=== PATIENT | female | born 1945 | race Caucasian/White ===

== ENCOUNTER 2020-04-22 09:54 | Observation (INO) | payer MEDICARE, SELFPAY ==
[2020-04-22] VITALS (15 sets, daily range): BP systolic 112–137; BP diastolic 45–76; PULSE 43–51; RESP 12–22; TEMP 35.8–36.3; O2SAT 96–100; BMI 27.2
--- NOTE | ~2020-04-22 | CT_ITS ---
EXAMINATION: CTA chest PE protocol EXAM DATE: 04/22/2020 11:36 INDICATION: Shortness of breath. Chest pain radiating to back. TECHNIQUE: Spiral CTA of the chest (pulmonary arteries) was performed with 100 cc Omnipaque 350 intr avenous contrast injection. Images were acquired during the pulmonary arterial phase. Coronal maxi mum intensity projection 3D-reconstructions were created by the technologist on dedicated workstation . Axial, coronal and sagittal reformatted images were reviewed. The dose-length product (DLP) for t his examination was 331.28 mGy-cm. The exposure was tailored according to patient size (auto mA exp osure control), and iterative reconstruction (ASIR) was used as additional dose reduction technique. There is no prior study for comparison. FINDINGS: Pulmonary arteries are well opacified and without intraluminal filling defects. No thora cic aortic dissection. Several small nodules 3 mm or less, likely postinfectious. The main, central pulmonary arteries are dilated which can indicate elevated pulmonary arterial pressure, pulmonary art erial hypertension. There are no pleural or pericardial effusions. Tracheobronchial tree is paten t. There is pretracheal lymph node which is upper limits of normal in size, probably reactive. The re is no pneumothorax. Heart normal in size. There is mild coronary arterial calcification, arter ial sclerosis. Cholecystectomy clips and pneumobilia. There is thoracic spondylosis without osteobl astic or osteolytic lesions identified. IMPRESSION: 1. No pulmonary emboli or acute cardiopulmonary findings. 2. Pulmonary arterial dilation. Reviewed, dictated and finalized at location A.
--- NOTE | ~2020-04-22 | US_ITS ---
EXAMINATION: US venous doppler LE EXAM DATE: 04/23/2020 13:45 INDICATION: Shortness of breath and elevated d-dimer. TECHNIQUE: Multiple grayscale, color flow and Doppler images of the lower extremity deep venous syste ms bilaterally were obtained and reviewed. Comparison is made to prior examination from 04/23/2017. FINDINGS: Right side: The right common femoral, femoral and profunda veins demonstrate normal color flow, respi ratory variation, augmentation and compressibility. Compressibility, color flow confirmed within the right popliteal, posterior tibial, peroneal, and greater saphenous veins. Left side: The left common femoral, femoral and profunda veins demonstrate normal color flow, respira tory variation, augmentation and compressibility. Compressibility, color flow confirmed within the l eft popliteal, posterior tibial, peroneal, and greater saphenous veins. IMPRESSION: No lower extremity deep venous thrombosis bilaterally. Reviewed, dictated and finalized at location A.
--- NOTE | ~2020-04-22 | XR_ITS ---
EXAMINATION: XR chest 2V 04/22/2020 11:09 INDICATION: Chest pressure. Shortness of breath. PROCEDURE: PA and lateral views of the chest COMPARISON: 05/26/2010 FINDINGS: The lungs are clear. The cardiomediastinal silhouette is within normal limits. There are no pleural effusions. There is no pneumothorax suspected. IMPRESSION: 1: NO ACUTE CARDIOPULMONARY DISEASE. Reviewed, dictated and finalized at location B.
--- NOTE | 2020-04-22 10:06 | ECG_ITS ---
Measurements Intervals Jay Em Rate: 48 P: 80 ND: 152 QRS: 31 QRSD: 98 T: 57 QT: 463 QTc: 415 Interpretive Statements SINUS BRADYCARDIA INCOMPLETE RIGHT BUNDLE BRANCH BLOCK BORDERLINE ST ABNORMALITY- LAT/HIGH LAT LEADS BASELINE ARTIFACT- I, II, III, AVR, AVL,A VF ABNORMAL ECG Electronically Signed On 04-22-2020 10:15:20 CDT by Ian Conde D.O.
[2020-04-22 10:17] LABS: Basophils Percent Auto 0.2 % (0.2-1.2); Eosinophils Absolute Auto 0.1 K/mm3 (0-0.3); Eosinophils Percent Auto 1.8 % (0-4.4); Hematocrit 40.7 % (37.0-47.0); Hemoglobin 13.5 g/dL (12.0-15.0); Immature Granulocyte Absolute 0.01 K/mm3 (0.00-0.031); Immature Granulocyte Percent A 0.2 % (0-0.5); Lymphocytes Percent Auto 25.5 % (18.3-44.2); Mean Corpuscular HGB Conc 33.2 g/dl (32-36); Mean Corpuscular Volume 93.6 fl (80-100); Mean Platelet Volume 10.6 fl (7.4-10.4); Monocytes Absolute Auto 0.5 K/mm3 (0.1-0.6); Monocytes Percent Auto 9.1 % (2.6-8.5); Neutrophils Absolute Auto 3.5 K/mm3 (1.3-6.7); Neutrophils Percent Auto 63.2 % (45.5-73.1); Platelet Count Result 172 k/mm3 (150-375); Red Blood Count 4.35 M/mm3 (4.2-5.4); White Blood Count 5.5 K/mm3 (4.5-10.0)
[2020-04-22] MEDS: ASPIRIN 81 MG CHEWABLE TABLET 324 MG PO (10:18)
[2020-04-22 10:28] LABS: Prothrombin Time 13.3 Seconds (11.1-14.7)
[2020-04-22 10:33] LABS: Anion Gap 9 mmol/L (8-16); Blood Urea Nitrogen 19 mg/dL (7-17); Calcium 9.2 mg/dL (8.4-10.2); Carbon Dioxide 26 mmol/L (22-30); Chloride 99 mmol/L (98-107); Estimated CRCL calculation 38 ml/min; Estimated Glomerular Filt Rate 48; Glucose 91 mg/dL (65-105); Potassium 3.8 mmol/L (3.4-5.0); Sodium 134 mmol/L (137-145)
[2020-04-22 10:45] LABS: Troponin I < 0.012 ng/mL (0.000-0.034)
--- NOTE | 2020-04-22 10:48 | ED.CHESTPAIN ---
HPI - Chest Pain General Chief Complaint: Chest Pain Stated Complaint: weak-sent from dr Time Seen by Provider: 04/22/20 10:09 Source: patient Mode of arrival: ambulatory Limitations: no limitations History of Present Illness HPI narrative: This patient is a 75 year old female with history of Parkinson's and hypertension who presents for evaluation of shortness of breath and chest pain. She states she has been having intermittent sob over the past month. Her shortness of breath is worse with laying flat. She also reports intermittent chest pain as well. She describes pain as some pushing on her chest. She is unable to describe exacerbating factors. She went to see her PCP today for a routine check and she was sent to ER for evaluation . She denies nasuea, vomiting, cough, fever or chills. She also reports upper back pain. She denies any cardiac history. Related Data Allergies Allergy/AdvReac Type Severity Reaction Status Date / Time acetaminophen Allergy Unknown HIVES Verified 04/22/20 10:10 codeine Allergy Unknown N/V Verified 04/22/20 10:10 morphine Allergy Unknown N/V Verified 04/22/20 10:10 onion Allergy Unknown hives Verified 04/22/20 10:10 tomato Allergy Unknown hives Verified 04/22/20 10:10 Zwldxjg-Cez-Gne Reductase AdvReac Severe muscle Verified 04/22/20 10:10 Inhibitor cramps, nausea NUT FLAVOR Allergy Unknown Anaphylactic Uncoded 04/22/20 10:10 Shock Idiopathic analphylaxis AdvReac Severe Anaphylactic Uncoded 04/22/20 10:10 Shock Review of Systems Review of Systems: All systems reviewed & are unremarkable except as noted in HPI and below Constitutional: Constitutional: Denies chills and Denies fever(s) Cardiovascular: Cardiovascular: Reports chest pain and Denies radiating jaw, neck or arm pain Respiratory: Respiratory: Denies cough, Reports dyspnea and Reports wheezing Gastrointestinal: Gastrointestinal: Denies abdominal pain, Denies nausea and Denies vomiting PMFSH Social History Social History (Updated 04/22/20 @ 08:52 by Rosalina Adhikari) Social History: Smoking status: Never smoker Second hand tobacco smoke exposure: No Alcohol intake: never Substance use: never Substance use type: does not use Gender identity (if verbalized by the patient): Female Exam Narrative: Exam Narrative: GENERAL: Well-appearing, well-nourished, and in no acute distress. HEAD: Normocephalic, atraumatic EYES: PERRLA and EOMI, conjunctiva clear without discharge THROAT:Mucous membranes moist, Oropharynx normal without erythema, exudate, peritonsillar swelling or fluctuance NECK: Supple, without lymphadenopathy or mass RESPIRATORY: No respiratory distress, Airway patent, Respirations non-labored, Clear to auscultation without rales, rhonchi or wheeze HEART: Regular rate and rhythm. No murmur heard. Normal peripheral pulses. ABDOMEN: Soft, nontender, nondistended, normal active bowel sounds. No masses. No rebound or guarding, No organomegaly. EXTREMITIES: No edema, normal strength with full range of motion. SKIN: Warm, dry, normal color without rash NEURO: Alert and oriented x3. CN 2-12 grossly intact. No focal deficits. tremors PSYCH: Normal mood and affect. Course Reevaluation(s) Reevaluation #1: Patient states she no longer has chest pain . I have explained results and plan for observation. Date: 04/22/20 Time: 12:38 Consultations Consultation #1: Anneliese Caban agrees to consult and Maribel Mcknight accepts admission. Date: 04/22/20 Time: 12:38 Vital Signs Vital signs: Vital Signs Temperature 97.2 F L 04/22/20 10:00 Pulse Rate 48 L 04/22/20 10:00 Respiratory Rate 18 04/22/20 10:00 Blood Pressure 137/76 04/22/20 10:00 Pulse Oximetry 100 04/22/20 10:00 Temperature 97.2 F L 04/22/20 10:00 Pulse Rate 43 L 04/22/20 11:54 Respiratory Rate 12 04/22/20 11:54 Blood Pressure 124/57 L 04/22/20 11:54 Pulse Oximetry 97 04/22/20 11:54
[2020-04-22 10:53] LABS: NT Pro B Type Natriuretic Pept 486 PG/ML (5-100)
--- NOTE | 2020-04-22 11:04 | PC.NURSE ---
Pt to XRAY via stretcher.
[2020-04-22 11:13] LABS: D Dimer 0.52 ug/mL (<0.48)
[2020-04-22 14:19] LABS: Troponin I < 0.012 ng/mL (0.000-0.034)
--- NOTE | 2020-04-22 14:23 | ADMGEN ---
This patient, Raquel Gloria, was admitted to IMU Room 206-02n on 04-22-2020 at 1352. Patient/family oriented to hospital policies and general routines including ID bracelet, bed and alarms, visiting hours, pain management, procedures, bathroom and other care routines, personal items, smoking policy, room service/diet, and visiting hours. Valuables list has been completed. Information on how to activate the Rapid Response Team has been discussed. Patient/Family are encouraged to report perceived risks to care and to ask questions if they do not understand what they are told or what they should do.
--- NOTE | 2020-04-22 15:43 | WPDCN ---
Assessment and Plan Assessment and plan (1) Chest pressure: Code(s): R07.89 - Other chest pain Status: Acute Assessment and Plan: This is certainly an odd story, with a paucity of objective data to suggest the diagnosis. The patient has been having increasing frequency of chest pressure and shortness of breath, kierra supine, and it sounds like she is having some orthopnea. She does not appear volume overloaded by exam or by chest x-ray although her pro-BNP is mildly elevated at 490. These episodes do not come on with activity, her EKG shows no acute changes and her troponins are negative x3 so it is unlikely this is from coronary disease. GERD, musculoskeletal discomfort and coronary spasm are in the differential. However most likely this is related to mild CHF and perhaps a component of anxiety. Lasix 20 mg IVP X 1 Order an Echo. Consider Lexiscan if sx persist. (2) Bradycardia: Code(s): R00.1 - Bradycardia, unspecified Status: Acute Assessment and Plan: Apparently long-standing bradycardia at rest with normal heart rate response with activity, asymptomatic. Check TSH. (3) Essential (primary) hypertension: Code(s): I10 - Essential (primary) hypertension Status: Chronic Assessment and Plan: Controlled. (4) Orthopnea: Code(s): R06.01 - Orthopnea Status: Acute Assessment and Plan: Uncertain etiology. Check Echo. HPI Data of Consult Date/Time: 04/22/20 15:43 Requesting Physician: Dragan Melissa MD Primary Care Provider: Felicitas Andres MD Consult Narrative Narrative: Date of service: 04/22/2020 Raquel Gloria is a 75 year old female OR was asked to see at the request the hospitalist for my advice and opinion regarding her chest pressure, SOB and bradycardia in consultation. The patient has not felt well for the last 2 months with episodes of shortness of breath and chest pressure, which have been progressing. The she usually occur when she is sitting watching TV or when she has gone to bed and lies supine, and it feels like she is smothering or someone has their hand over her mouth, and she will have some chest pressure. There may be a pleuritic component to it. She always sleeps propped up on pillows and is feeling is quite pronounced when she is supine. They are not exertional, except for once a couple weeks ago when she was cutting the grass with a riding mower and it was very hot and she had an episode. The spells using resolving 20-30 minutes and the only thing she has found to alleviate the symptoms is a fan. They can be associated with some diaphoresis. She cannot walk far because of her Parkinson's disease. However, she was busy painting rales outside yesterday with no problems, made dinner with no problems, but when she went to bed last night she had an episode. She saw Dr. Felicitas Pop today and when she was laid supine for an EKG she had the feeling of suffocating with chest pressure, and had to sit up. EKG showed a heart rate of 46 so then was sent to the emergency room. Her heart rate was 47 in the ER and she has been admitted for further evaluation and treatment. Her 1st troponin was negative and her BNP was 486. She notes that her heart rate is often slow at home, for years, 38 to 40s at rest but increases with activity. She has only had 1 episode of dizziness and that was when she got up in the middle of night to go to the bathroom. She has no history of heart disease. She does have history of hypertension, Parkinson's disease and chronic pain. No history of thyroid disease, GERD or esophageal problems. Review of Systems Constitutional: Constitutional: Denies lethargy Eyes: Eyes: Denies blurry vision ENT: Denies epistaxis and Denies nasal congestion Cardio
--- NOTE | 2020-04-22 15:56 | PM.IMHP ---
H&P: HPI History of Present Illness Date/Time: 04/22/20 15:56 Chief complaint: chest pain,dyspnea Narrative: Raquel Gloria is a 75 year old female Who has a history of hypertension and anxiety. She also has a history of Parkinson's. She presented to the hospital for evaluation of shortness of breath and chest pain. The patient stated that she has been having intermittent chest pain on and off for about a month. She has shortness of breath when she lays flat. She has had no history of having any heart disease or pulmonary disease. She states that her blood pressure has been under control. She has not had any nausea vomiting or diarrhea. She states that she does have difficulty swallowing and difficulty with pills at times. She said that her pain is midsternal radiates to her back. He does not radiate to her neck or arms. She did not feel diaphoretic. She said today when the later flat on the table for any EKG she felt like she was suffocating in feel like she needed to get off the table because she felt like she could not breathe and developed this chest pain. She still complains of having some says substernal soreness but stated is not tender. She said it hurts worse when she takes a deep breath. She was given an aspirin in the emergency room she said seemed to help but she still has the soreness there. She was at her primary care doctor's office just for a routine visit.Patient's EKG from outside facility the doctor's office today was seen as sinus bradycardia with frequent supraventricular premature complexes. the patient was she is given a baby aspirin here. Cardiology has been consulted. Patient has multiple allergies. Patient currently is dealing with a terminally ill who has kidney cancer. The patient has had a lot of stress and anxiety in her life. Date of service 04/22/2020. Review of Systems Review of Systems: All systems reviewed & are unremarkable except as noted in HPI and below Constitutional: Constitutional: Reports as per HPI and Reports no additional constitutional complaints Eyes: Eyes: Reports as per HPI and Reports no additional eye complaints ENT: Reports system reviewed and no additional complaints, except as documented and Reports Normal hearing present Cardiovascular: Cardiovascular: Reports no additional cardiovascular complaints Respiratory: Respiratory: Reports no additional respiratory complaints and Reports no additional respiratory complaints Gastrointestinal: Gastrointestinal: Reports as per HPI and Reports no additional gastrointestinal complaints Musculoskeletal: Musculoskeletal: Reports no additional musculoskeletal complaints Integumentary/Breasts: Skin/Breast: Reports system reviewed and no additional complaints, except as docu and Reports as per HPI Neurologic: Reports system reviewed and no additional complaints, except as documented, Reports as per HPI and Reports Normal hearing present Psychiatric: Psychiatric: Reports no additional psychiatric complaints and Reports as per HPI Endocrine: Endocrine: Reports no additional endocrine complaints Hematologic/Lymphatic: Hematologic/Lymphatic: Reports no additional hematologic/lymphatic complaints Allergic/Immunologic: Allergic/Immunologic: Reports no additional allergic/immunologic complaints PMFSH Past Medical History Medical History (Updated 04/22/20 @ 16:12 by Maribel Mcknight NP) Chronic constipation Essential (primary) hypertension NATASHA (generalized anxiety disorder) Gout History of anaphylactic shock Major depressive disorder, single episode, mild Multiple environmental allergies Parkinson's disease Tremor due to disorder of central nervous system Surgical History Surgical History (Updated 04/22/20 @ 16:12 by Maribel Mcknight NP) H/O excision of lamina of cervical vertebra for decompression of spinal cord History of appendectomy History of cholecystectomy Previous section X2 S/P cervical spinal fu
[2020-04-22 16:37] LABS: Troponin I < 0.012 ng/mL (0.000-0.034)
[2020-04-22] MEDS: PRIMIDONE 50 MG TABLET 100 MG PO (17:04)
[2020-04-22] MEDS: buPROPion HCL 100 MG TABLET PO (17:04)
[2020-04-22] MEDS: FLUTICASONE PROPIONATE 0.05% NA SPR 16 GM BTL (*BKC) 1 SPRAY NASAL (17:04)
[2020-04-22] MEDS: FUROSEMIDE INJ 40 MG/4 ML VIAL 20 MG IV PUSH (17:57)
[2020-04-22] MEDS: AZELASTINE HCL NASAL 0.1% 137 MCG/SPR 30 ML BTL 1 SPRAY NASAL (20:02)
[2020-04-23] VITALS (14 sets, daily range): BP systolic 109–130; BP diastolic 48–56; PULSE 42–441; RESP 16–22; TEMP 35.7–36; O2SAT 98–100
--- NOTE | 2020-04-23 | ECHO_ITS ---
Patient Info Name: Raquel lGoria Age: 75 years : 1945 Gender: Female Ht: 67 in Wt: 173 lbs BSA: 1.94 m2 HR: 47 bpm BP: 130 / 54 mmHg Heart Rhythm: Bradycardia Technical Quality: Good Exam Date: 04/23/2020 9:21 AM Exam Location: [facility] Pulmonary Exam Room: [facility] Patient Status: Inpatient Admit Date: 04/22/2020 Staff Ordering Physician: Maribel Mcknight NP Toolroom Checker: Kitty Geiger RDCS Attending Provider: Dragan Melissa MD Referring Physician: Juan Luis MART; Exam Type: CA echo doppler color flow Study Info Indications - lujan chest pain Complete two-dimensional, color flow and Doppler transthoracic echocardiogram is performed. Summary 1. Complete two-dimensional, color flow and Doppler transthoracic echocardiogram is performed. 2. Normal left ventricular size and thickness with good contractility of all segments. No segmental wall motion abnormalities. Calculated ejection fraction is 60 6%. Borderline criteria for diastolic dysfunction is present. 3. Left atrial chamber dimension is mildly enlarged. 4. Mild pulmonary hypertension, estimated pulmonary arterial systolic pressure is 38 mmHg. 5. Trivial mitral and tricuspid regurgitation. 6. Sinus bradycardia heart rate 42-60 ppm. Left Ventricle Left ventricular chamber dimension is normal. Left ventricular systolic function is normal, estimated at 60-65%. There is no increased left ventricular wall thickness. Left ventricular septal wall motion is normal. The left ventricular diastolic function is grade I diastolic dysfunction. Right Ventricle Right ventricular chamber dimension is normal. Right ventricular systolic function is normal. Left Atria Left atrial chamber dimension is mildly enlarged. Right Atria Right atrial chamber dimension is normal. Aortic Valve The aortic valve is trileaflet. There is no aortic valve sclerosis. There is no aortic valve stenosis. There is no aortic valve regurgitation. Pulmonic Valve The pulmonic valve is normal. There is no pulmonic valve stenosis. There is no pulmonic regurgitation. Mitral Valve The mitral valve has normal leaflets. There is no mitral valve stenosis. There is trace mitral valve regurgitation. Tricuspid Valve The tricuspid valve leaflets are normal. There is no significant tricuspid valve stenosis. There is trace tricuspid valve regurgitation. Mild pulmonary hypertension, estimated pulmonary arterial systolic pressure is 38 mmHg. Pericardium/Pleural The pericardium appears normal. There is no pericardial effusion. Inferior Vena Cava Normal inferior vena cava with >50% collapse upon inspiration consistent with Empty right atrial pressure, 10 mmHg. Aorta The aortic root size at the sinus of Valsalva is normal. The prox ascending aorta size is normal. Left Ventricular Outflow Tract Name Value Normal LVOT 2D LVOT Diameter 2.0 cm LVOT Doppler LVOT Peak Gradient 3 mmHg LVOT Mean Gradient 1 mmHg LVOT VTI 23 cm LVOT VTI/AV VTI Ratio
[2020-04-23 04:50] LABS: Basophils Percent Auto 0.4 % (0.2-1.2); Eosinophils Absolute Auto 0.1 K/mm3 (0-0.3); Eosinophils Percent Auto 2.6 % (0-4.4); Hematocrit 36.7 % (37.0-47.0); Hemoglobin 12.5 g/dL (12.0-15.0); Immature Granulocyte Absolute 0.01 K/mm3 (0.00-0.031); Immature Granulocyte Percent A 0.2 % (0-0.5); Lymphocytes Absolute Auto 1.45 K/mm3 (0.9-3.2); Lymphocytes Percent Auto 27.4 % (18.3-44.2); Mean Corpuscular HGB Conc 34.1 g/dl (32-36); Mean Corpuscular Hemoglobin 31.6 pg (26-34); Mean Corpuscular Volume 92.9 fl (80-100); Mean Platelet Volume 10.7 fl (7.4-10.4); Monocytes Absolute Auto 0.5 K/mm3 (0.1-0.6); Monocytes Percent Auto 9.6 % (2.6-8.5); Neutrophils Absolute Auto 3.2 K/mm3 (1.3-6.7); Neutrophils Percent Auto 59.8 % (45.5-73.1); Platelet Count Result 148 k/mm3 (150-375); Red Blood Count 3.95 M/mm3 (4.2-5.4); Red Cell Distribution Width 12.9 % (11.5-14.5); White Blood Count 5.3 K/mm3 (4.5-10.0)
[2020-04-23 05:02] LABS: Anion Gap 6 mmol/L (8-16); Blood Urea Nitrogen 21 mg/dL (7-17); Calcium 8.6 mg/dL (8.4-10.2); Carbon Dioxide 31 mmol/L (22-30); Chloride 97 mmol/L (98-107); Estimated CRCL calculation 35 ml/min; Estimated Glomerular Filt Rate 44; Glucose 101 mg/dL (65-105); Potassium 3.7 mmol/L (3.4-5.0); Sodium 134 mmol/L (137-145)
[2020-04-23] MEDS: ROSUVASTATIN 5 MG TABLET PO (09:47)
[2020-04-23] MEDS: PRIMIDONE 50 MG TABLET 100 MG PO ×2 (09:47→16:56)
[2020-04-23] MEDS: AZELASTINE HCL NASAL 0.1% 137 MCG/SPR 30 ML BTL 1 SPRAY NASAL (09:47)
[2020-04-23] MEDS: ASPIRIN 81 MG CHEWABLE TABLET PO (09:48)
[2020-04-23] MEDS: buPROPion HCL 100 MG TABLET PO ×2 (09:48→16:56)
[2020-04-23] MEDS: OLMESARTAN MEDOXOMIL 20 MG TABLET PO (09:49)
[2020-04-23] MEDS: amLODIPine BESYLATE 5 MG TABLET 10 MG PO (16:58)
[2020-04-23] MEDS: allopurinoL 300 MG TABLET PO (16:58)
--- NOTE | 2020-04-23 17:12 | PM.PNCARD ---
Progress Note: A&P Assessment and Plan (1) Chest pressure: Code(s): R07.89 - Other chest pain Status: Acute Assessment and Plan: Denied any chest discomfort at present. One episode shortness of breath when laying down last evening. Echocardiogram: Normal LV size and thickness with good contractility of all segments. No segmental wall motion abnormality. EF estimated 60-65%. Borderline criteria for diastolic dysfunction is present. Left atrial chamber dimension is mildly enlarged. Mild pulmonary hypertension with an estimated pulmonary arterial systolic pressure of 38 mm Hg. Trivial mitral and tricuspid regurgitation. Sinus bradycardia heart rate 42-60 beats per minute. Will consider outpatient stress testing when seen in the office. (2) Bradycardia: Code(s): R00.1 - Bradycardia, unspecified Status: Acute Assessment and Plan: Apparently long-standing bradycardia at rest with normal heart rate response with activity, asymptomatic. TSH is normal. (3) Essential (primary) hypertension: Code(s): I10 - Essential (primary) hypertension Status: Chronic Assessment and Plan: Controlled. (4) Orthopnea: Code(s): R06.01 - Orthopnea Status: Acute Assessment and Plan: Echo as above. Additional Plan OK to discharge from a cardiac standpoint. Fourteen day cardiac monitor technician will be mailed to her home. Follow-up appointment will also be mailed to her home. Plan discussed with Dr Paniagua 1720 04/23/2020 Subjective Date/time seen: 04/23/20 17:12 Interval history: Follow-up for: Chest pressure, orthopnea, hypertension and bradycardia Date of service:Follow-up for: Chest pressure, orthopnea, hypertension and bradycardia Subjective: No chest discomfort at this time. Denies shortness of breath. No lightheadedness or palpitations. Review of Systems Constitutional: Constitutional: Denies lethargy Eyes: Eyes: Denies blurry vision ENT: Denies epistaxis and Denies nasal congestion Cardiovascular: Cardiovascular: Denies chest pain, Denies pedal edema, Denies leg edema, Denies lightheadedness, Denies palpitations and Denies dyspnea Respiratory: Respiratory: Denies chest congestion, Denies cough and Denies dyspnea Gastrointestinal: Gastrointestinal: Denies abdominal pain Genitourinary: Genitourinary: Denies hematuria Musculoskeletal: Musculoskeletal: Reports stiffness Integumentary/Breasts: Skin/Breast: Denies rash Neurologic: Denies confusion Psychiatric: Psychiatric: Reports no additional psychiatric complaints and Denies confusion Endocrine: Endocrine: Denies palpitations Hematologic/Lymphatic: Hematologic/Lymphatic: Denies easy bleeding Allergic/Immunologic: Allergic/Immunologic: Denies throat swelling and Denies tongue swelling Exam Const: General: No confusion Orientation/consciousness: No confusion Other: Pleasant, no distress, cooperative HENMT: Mouth: Yes moist mucous membranes Eyes: EOM: EOMs intact bilaterally Neck: Neck: supple and no JVD Carotids: bruit Resp: Effort & Inspection: normal respiratory effort Auscultation: clear to auscultation bilaterally Cardio: Rate: regular rate Rhythm: regular rhythm Heart sounds: no murmurs GI: Other: ly Skin: General skin exam: normal color and no rashes or lesions noted Neuro: General: No confusion Speech: normal speech Motor exam (neuro): Normal motor muscle tone present throughout Extrem: General: no edema Psych: Mental Status: mental status grossly normal Affect: normal affect Objective Data Vital Signs Vital Signs: Vital Signs - 24 hr 04/22/20 18:00 04/22/20 19:40 04/22/20 20:00 Temperature 36.3 C L Pulse Rate 47 L 46 L 48 L Respiratory Rate 18 18 Blood Pressure 113/45 L Pulse Oximetry 97 97 04/22/20 22:00 0
--- NOTE | 2020-04-23 17:12 | PM.DS ---
DS: Admitting Diagnosis Admitting Diagnosis Admitting Diagnosis: chest pain,dyspnea DS: Discharge Diagnosis Discharge Diagnosis (1) Bradycardia: Code(s): R00.1 - Bradycardia, unspecified Status: Acute Assessment and Plan: ------patient is persistently bradycardic without dizziness or further chest pain. Likely her baseline as she states she has been told she has a low heart rate for a while. Cardiology has been consulted and recommended a 14 day Holter monitor. Echo reviewed with no significant abnormalities. Patient instructed to return to the emergency room with any further chest pain, passing out, or dizziness (2) Chest pressure: Code(s): R07.89 - Other chest pain Status: Acute Assessment and Plan: -----resolved. Troponins negative x3 in no significant abnormalities on the echo. See above. Follow-up with cardiology outpatient. Aspirin started (3) NATASHA (generalized anxiety disorder): Code(s): F41.1 - Generalized anxiety disorder Status: Acute Assessment and Plan: -----chronic and in good spirits. Somewhat situational. Continue Wellbutrin encourage therapy. (4) Major depressive disorder, single episode, mild: Code(s): F32.0 - Major depressive disorder, single episode, mild Status: Acute Assessment and Plan: Continue Wellbutrin (5) Parkinson's disease: Code(s): G20 - Parkinson's disease Status: Chronic Assessment and Plan: Will controlled. Continue with primidone (6) Mixed hyperlipidemia: Code(s): E78.2 - Mixed hyperlipidemia Status: Acute Assessment and Plan: continue with Crestor (7) Gout: Code(s): M10.9 - Gout, unspecified Status: Acute Assessment and Plan: No acute flares. Continue with allopurinol (8) Essential (primary) hypertension: Code(s): I10 - Essential (primary) hypertension Status: Chronic Assessment and Plan: Last blood pressure 118/56. Continue with Norvasc and Benicar. (9) Multiple environmental allergies: Code(s): Z91.09 - Other allergy status, other than to drugs and biological substances Status: Chronic DS: Summary Hospital Course Reason for hospitalization: Chest pain, bradycardia Hospital Course: Patient is 75-year-old female who has a history of Parkinson's and hypertension with no cardiac history presented emergency room for shortness of breath and chest pressure/pain. Patient states the shortness of breath is worse lying flat but does not really improved with sitting up. No cough or wheezing associated with this. She started having chest pain in her chest associated with this but no diaphoresis. CBC within normal limits. BMP relatively normal. EKG shows sinus bradycardia with very minimal ST depression. CTA showed no pulmonary emboli or acute cardiopulmonary findings with pulmonary arterial dilation. Troponins negative x3. BNP slightly elevated 486. Patient was admitted to the hospitalist service for observation overnight. She had no further chest pain or shortness of breath. She continued to be bradycardic but did not have any dizziness, syncope or chest pain with this. Cardiology saw her and reviewed her echo which showed mild pulmonary hypertension but no significant abnormalities. It was recommended that she get a 14 day Holter monitor and follow-up with cardiology outpatient. The patient was educated about the worrisome signs and symptoms to come back to emergency room for and was discharged in stable condition. Status at Discharge Functional status at discharge: independent ambulation Overall status at discharge: patient is back to baseline Time Spent with Patient Time attestation: Total time spent providing and/or coordinating discharge services:35 min Time spent: Greater than 30 minutes Exam Narrative: Exam Narrative: General: Well developed well ovi
== END 2020-04-23 19:00 | disposition home or self-care (01) ==
LOC: ANHED 12:40 → ANHIMU 13:15
PROVIDERS: Nurse Practitioner; Admitting Provider Family Medicine; Emergency Provider General Practice; PCP Family Medicine; Visit Provider Family Medicine
DX: R00.1 Bradycardia, unspecified (principal); R07.9 Chest pain, unspecified; G20 Parkinson's disease; I10 Essential (primary) hypertension; E78.5 Hyperlipidemia, unspecified; M10.9 Gout, unspecified; F41.1 Generalized anxiety disorder; F32.9 Major depressive disorder, single episode, unspecified
CPT/HCPCS: 36415; 71046; 71275; 80048; 83735; 83880; 84443; 84484; 85025; 85380; 85610; 85730; 93005; 93306; 93970; 96374; 99285; A9270; G0378; J1940; Q9967

== ENCOUNTER 2020-07-12 00:40 | Outpatient (CLI) | payer MEDICARE, SELFPAY ==
[2020-07-12 19:14] LABS: SARS-CoV-2 RNA PCR Negative
== END 2020-07-12 00:41 | disposition home or self-care (01) ==
LOC: ANHCOVIDDT 00:40
PROVIDERS: PCP Family Medicine; Visit Provider Internal Medicine Cardiovascular Disease
DX: Z01.818 Encounter for other preprocedural examination (principal); Z20.828 Contact with and (suspected) exposure to other viral communicable diseases
CPT/HCPCS: 87635; C9803; U0003

== ENCOUNTER → 2020-07-16 01:16 | Day surgery (SDC) | payer MEDICARE, SELFPAY ==
[2020-07-15 15:28] VITALS: BMI 27.1
[2020-07-16 09:59] VITALS: BP 121/57; PULSE 63; RESP 14; TEMP 37.2; O2SAT 99; BMI 27.1
--- NOTE | 2020-07-16 10:51 | WPDHPUPDATE1 ---
History and Physical Update Update Date/Time: 07/16/20 10:51 Patient with bradycardia, with some dizziness at times. Outpatient monitoring has not shown any extreme low heart rates, we have not been able to correlate the bradycardia with her symptoms. She is here for a loop recorder to determine if she is having symptomatic bradycardia. History and Physical has been reviewed, including an updated exam of the patient. There are NO changes in the patient's condition. Risks, benefits, and alternatives have been discussed and questions answered. Patient agrees to proceed with procedure.
[2020-07-16 11:02] VITALS: BP 125/59; PULSE 58; RESP 18; O2SAT 100
[2020-07-16 11:12] VITALS: BP 120/59; PULSE 55; RESP 14; O2SAT 99
[2020-07-16 11:15] VITALS: BP 140/59; PULSE 58; RESP 18; O2SAT 99
[2020-07-16 11:20] VITALS: BP 122/56; PULSE 57; RESP 18; O2SAT 99
--- NOTE | 2020-07-16 11:20 | PM.OP ---
Procedure Note - Brief Procedure Note - Brief Date of procedure: 07/16/20 Pre-op diagnosis: Syncope, Dizzy Post-op diagnosis: same Procedure performed: Implant of a [employer] Loop recorder Description of procedure: Uneventful implant using local anesthesia Anesthesia: local Surgeon: Indu Paniagua MD Estimated blood loss (mL): 2 Drains: No Packing: No Pathology: none sent Complications: No immediate complications Condition: stable Disposition: observation Findings: Intermittent sinus bradycardia noted
--- NOTE | 2020-07-16 11:21 | P.OP_ITS ---
Procedure Note - Detailed Date of procedure: 07/16/20 Pre-op diagnosis: Syncope, Dizzy Post-op diagnosis: same Procedure performed: Implant of a [employer] implantable loop recorder under local anesthesia Implants: [employer] implantable loop recorder,Pro MRI, Ref # [id number], serial number [id number] Anesthesia: local Surgeon: Indu Paniagua MD
--- NOTE | 2020-07-16 11:21 | PM.PROC ---
Procedure Note - Detailed Date of procedure: 07/16/20 Pre-op diagnosis: Syncope, Dizzy Post-op diagnosis: same Procedure performed: Implant of a [employer] implantable loop recorder under local anesthesia Implants: [employer] implantable loop recorder,Pro MRI, Ref # [id number], serial number [id number] Anesthesia: local Surgeon: Indu Paniagua MD
--- NOTE | 2020-07-16 11:40 | SUR.OPER ---
Pressure being held at insertion site due to oozing.
[2020-07-16 11:45] VITALS: BP 120/55; PULSE 57; RESP 18; O2SAT 97
--- NOTE | 2020-07-16 11:47 | SUR.OPER ---
Site covered with steri strips ans bandaid.
--- NOTE | 2020-07-16 12:03 | SUR.OPER ---
D/C instructions and follow up appts reviewed with patient, verbalized understanding. Pt did not have any further questions. Pt D/C to home via wheelchair
== END | disposition home or self-care (01) ==
PROVIDERS: PCP Family Medicine; Visit Provider Internal Medicine Cardiovascular Disease
PROC: (CPT 33285; principal; 2020-07-16 11:00)
DX: R55 Syncope and collapse (principal); R42 Dizziness and giddiness; R00.1 Bradycardia, unspecified; F41.8 Other specified anxiety disorders; I10 Essential (primary) hypertension; G20 Parkinson's disease; M10.9 Gout, unspecified; K59.00 Constipation, unspecified; G89.4 Chronic pain syndrome; Z79.82 Long term (current) use of aspirin
CPT/HCPCS: 33285; C1764

== ENCOUNTER → 2020-10-01 06:57 | Outpatient (CLI) | payer MEDICARE, SELFPAY ==
[2020-10-01 20:42] LABS: SARS-CoV-2 RNA PCR Negative
== END ==
PROVIDERS: PCP Family Medicine; Visit Provider Family Medicine
DX: Z20.822 Contact with and (suspected) exposure to COVID-19 (principal); R68.89 Other general symptoms and signs
CPT/HCPCS: C9803; U0003; U0005

== ENCOUNTER → 2021-03-24 05:31 | Outpatient (CLI) | payer MEDICARE, SELFPAY ==
[2021-03-24 21:10] LABS: SARS-CoV-2 RNA PCR Negative
== END ==
PROVIDERS: Physician Assistant; PCP Family Medicine; Visit Provider Family Medicine
DX: R68.89 Other general symptoms and signs (principal); Z20.822 Contact with and (suspected) exposure to COVID-19
CPT/HCPCS: C9803; U0003; U0005

== ENCOUNTER 2021-04-03 09:06 | Outpatient (CLI) | payer MEDICARE, SELFPAY ==
--- NOTE | ~2021-04-03 | CT_ITS ---
EXAMINATION: CT lumbar spine wo con DATE: 04/03/2021 09:29 INDICATION: Sciatica, unspecified side. TECHNIQUE: Computed tomography (CT) of the lumbar spine was performed without intravenous contrast. A utomated exposure control and iterative reconstruction technique were employed. The dose-length produ ct was 1166.02 mGy-cm. COMPARISON: Lumbar spine MRI 08/09/2018 FINDINGS: There is 3 mm retrolisthesis of L2 on L3. Vertebral body heights are normal. There is moder ately decreased disc height at L2-L3, severely decreased disc height at L3-L4 and L4-L5, and mildly d ecreased disc at L5-S1 with endplate remodeling. There are old fractures of right L3 and L4 transvers e processes with nonunion. The following disc levels are specifically discussed: L1-L2: The disc is bulging. There is mild right and severe left facet joint osteoarthritis. There is mild left neural foraminal stenosis. There is mild central canal stenosis. L2-L3: The disc is bulging. There is mild bilateral facet joint osteoarthritis. There is mild bilater al neural foraminal stenosis. There is mild central canal stenosis. L3-L4: The disc is bulging. There is moderate bilateral facet joint osteoarthritis. There is mild michelle ateral neural foraminal stenosis. There is mild central canal stenosis. L4-L5: The disc is bulging. There is mild bilateral facet joint osteoarthritis. There is moderate michelle ateral neural foraminal stenosis. There is mild central canal stenosis. L5-S1: The disc is bulging. There is severe bilateral facet joint osteoarthritis. There is mild bilat eral neural foraminal stenosis. There is mild central canal stenosis. IMPRESSION: 1. Severe lumbar spondylosis, stable from 08/09/18. Reviewed, dictated and finalized at location A.
== END 2021-04-03 09:07 | disposition home or self-care (01) ==
LOC: ANHIMG 09:11
PROVIDERS: PCP Family Medicine; Visit Provider Family Medicine
DX: M54.30 Sciatica, unspecified side (principal); M54.10 Radiculopathy, site unspecified; M47.896 Other spondylosis, lumbar region
CPT/HCPCS: 72131

== ENCOUNTER 2021-05-20 08:47 | Outpatient (CLI) | payer MEDICARE, SELFPAY ==
--- NOTE | ~2021-05-20 | MR_ITS ---
EXAMINATION: MR lumbar spine wo con DATE: 05/20/2021 09:55 INDICATION: Lumbar stenosis without neurogenic claudication. TECHNIQUE: Magnetic resonance imaging (MRI) of the lumbar spine was performed without intravenous con trast. Sequences included sagittal T2-weighted FSE, sagittal T2-weighted FS FSE, sagittal T1-weighted FSE, and axial T2-weighted FSE. COMPARISON: Lumbar spine MRI 08/09/2018 FINDINGS: Bone alignment is normal. There are Schmorl's nodes at many levels. There is a chronic comp ression fracture of T11 with 2/5 loss of height centrally. There is moderately decreased disc height at L2-L3, severely decreased disc height at L3-L4 and L4-L5, and mildly decreased disc height at L5-S 1. The distal spinal cord signal intensity is normal. The conus medullaris is at L1. There is a 13 mm cyst in right kidney. The following disc levels are specifically discussed: L1-L2: The disc is bulging and has an annular fissure. There is mild right and moderate left facet ty int osteoarthritis. There is mild left neural foraminal stenosis. There is mild central canal stenosi s. L2-L3: The disc is bulging. There is mild bilateral facet joint osteoarthritis. There is mild bilater al neural foraminal stenosis. There is mild central canal stenosis. L3-L4: The disc is bulging and has an annular fissure. There is mild bilateral facet joint osteoarthr itis. There is mild bilateral neural foraminal stenosis. There is mild central canal stenosis. L4-L5: The disc is bulging and has an irregular fissure. There is mild bilateral facet joint osteoart hritis. There is mild right and moderate left neural foraminal stenosis. There is mild central canal stenosis. There is moderate stenosis of left lateral recess. There are changes of left hemilaminotomy . L5-S1: The disc is bulging. There is severe bilateral facet joint osteoarthritis. There is mild bilat eral neural foraminal stenosis. There is mild central canal stenosis. IMPRESSION: 1. Severe lumbar spondylosis, stable from 08/09/18. Reviewed, dictated and finalized at location A.
== END 2021-05-20 08:48 | disposition home or self-care (01) ==
PROVIDERS: PCP Family Medicine; Visit Provider Nurse Practitioner Acute Care
DX: M48.061 Spinal stenosis, lumbar region without neurogenic claudication (principal); M47.896 Other spondylosis, lumbar region
CPT/HCPCS: 72148

== ENCOUNTER 2021-11-18 10:21 | Outpatient (CLI) | payer MEDICARE, SELFPAY ==
--- NOTE | ~2021-11-18 | XR_ITS ---
EXAMINATION: XR wrist LT min 3V, XR hand LT min 3V EXAM DATE: 11/18/2021 10:41 INDICATION: No Injury. Nerve Pain Anterior Wrist . TECHNIQUE: Left hand frontal, lateral and oblique projections obtained and reviewed. Left wrist fron lalito, frontal with ulnar deviation, oblique and lateral projections obtained and reviewed. Comparison is made to prior examination from 07/18/15. FINDINGS: There is ulnar positive variance. There are large subchondral cysts within the lunate bone, moderate radiocarpal osteoarthritis which has progressed compared to 2015. There is slightly offset scaphoid and lunate at the scapholunate joint, and lateral projections suggest that patient has dorsa l intercalated segmental instability (DISI). There is moderate primary osteoarthritis at the proximal interphalangeal joints, mild at the distal interphalangeal joints. There are no acute fractures iden tified. IMPRESSION: 1. Moderate radiocarpal and polyarticular proximal interphalangeal osteoarthritis. 2. Ulnar positive variance. 3. Probable DISI. Reviewed, dictated and finalized at location B. IMPRESSION: 1. Moderate radiocarpal and polyarticular proximal interphalangeal osteoarthri tis. 2. Ulnar positive variance. 3. Probable DISI.
== END 2021-11-18 10:22 | disposition home or self-care (01) ==
LOC: ANHIMG 10:25
PROVIDERS: PCP Family Medicine; Visit Provider Nurse Practitioner Gerontology
DX: S63.502A Unspecified sprain of left wrist, initial encounter (principal); X58.XXXA Exposure to other specified factors, initial encounter; M19.042 Primary osteoarthritis, left hand
CPT/HCPCS: 73110; 73130

== ENCOUNTER 2021-11-20 09:57 | Emergency (ER) | payer MEDICARE, SELFPAY ==
[2021-11-20 10:02] VITALS: BP 144/58; PULSE 60; RESP 14; TEMP 36.4; O2SAT 99
--- NOTE | 2021-11-20 10:23 | ED.UPPEXIN ---
HPI - Extremity Injury (Upper) General Chief Complaint: Extremity Injury, Upper <Amelia Reaves PA-C - Last Filed: 11/20/21 10:33> Stated Complaint: left arm pain <WARNER Marte Last Filed: 11/20/21 10:33> Time Seen by Provider: 11/20/21 10:03 <Amelia Reaves PA-C - Last Filed: 11/20/21 10:33> Source: patient <WARNER Marte Last Filed: 11/20/21 10:33> Mode of arrival: ambulatory <WARNER Marte Last Filed: 11/20/21 10:33> Limitations: no limitations <WARNER Marte Last Filed: 11/20/21 10:33> History of Present Illness HPI narrative: This is a 76-year-old female that presents to the emergency department for left wrist pain ongoing over the last couple of weeks. Reports she was doing some exercises of the left wrist when the pain started. No other injury or trauma. The pain is on the ulnar side of the wrist and radiates to the elbow. She has several allergies which makes it difficult for her to take any pain medication so she has not been taking anything for this. She had wrist and hand x-rays a couple of days ago. Was supposed to be getting follow-up with hand surgery through her primary, but has not heard back about this yet. Denies fever or erythema. <WARNER Marte Last Filed: 11/20/21 10:33> Related Data Home Medications: Home Medications Medication Instructions Recorded Confirmed Linzess 290 mcg PO DAILY PRN 04/22/20 10/09/21 warfarin 5 mg tablet 5 mg PO DAILY 03/29/21 10/09/21 <WARNER Marte Last Filed: 11/20/21 10:33> Allergies/Adverse Reactions: Allergies Allergy/AdvReac Type Severity Reaction Status Date / Time nut - unspecified Allergy Severe Anaphylactic Verified 11/05/21 10:50 Shock acetaminophen Allergy Unknown HIVES Verified 11/05/21 10:50 codeine Allergy Unknown N/V Verified 11/05/21 10:50 morphine Allergy Unknown N/V Verified 11/05/21 10:50 onion Allergy Unknown hives Verified 11/05/21 10:50 tomato Allergy Unknown hives Verified 11/05/21 10:50 Mudopyt-XSG-CnK Reductase AdvReac Severe muscle Verified 11/05/21 10:50 Inhibitor cramps, [Cdkkmze-Hmc-Qgo Reductase nausea Inhibitor] clonazepam AdvReac Intermediate Nausea and Verified 11/05/21 10:50 Vomiting NUT FLAVOR Allergy Unknown Anaphylactic Uncoded 11/05/21 10:50 Shock Idiopathic analphylaxis AdvReac Severe Anaphylactic Uncoded 11/05/21 10:50 Shock <Amelia Reaves PA-C - Last Filed: 11/20/21 10:33> Review of Systems Review of Systems: CONSTITUTIONAL: Denies fever SKIN: Denies rash MUSCULOSKELETAL: Reports joint pain, and myalgia. NEUROLOGIC: Denies numbness, or weakness. <Amelia Reaves PA-C - Last Filed: 11/20/21 10:33> All systems reviewed & are unremarkable except as noted in HPI and below <Amelia Reaves PA-C - Last Filed: 11/20/21 10:33> PMFSH Past Medical History Medical History: Medical History Chronic constipation Essential (primary) hypertension NATASHA (generalized anxiety disorder) Gout Hearing loss of aging History of anaphylactic shock Hyperlipidemia Major depressive disorder, single episode, mild Multiple environmental allergies Parkinson's disease Tremor due to disorder of central nervous system <Amelia Reaves PA-C - Last Filed: 11/20/21 10:33> Surgical History Surgical History: Surgical History H/O excision of lamina of cervical vertebra for decompression of spinal cord History of appendectomy History of cholecystectomy Previous section X2 S/P cervical spinal fusion Status post lumbar spine surgery for decompression of spinal cord <Amelia Reaves PA-C - Last Filed: 11/20/21 10:33> Family History Family History: Family History Mother Family history of Parkinson's disea
== END 2021-11-20 10:58 | disposition home or self-care (01) ==
PROVIDERS: Emergency Provider General Practice; PCP Family Medicine
DX: M25.532 Pain in left wrist (principal); I10 Essential (primary) hypertension; M10.9 Gout, unspecified; E78.5 Hyperlipidemia, unspecified; G20 Parkinson's disease; Z79.01 Long term (current) use of anticoagulants; Z98.1 Arthrodesis status
CPT/HCPCS: 99283

== ENCOUNTER 2021-12-15 11:05 | Outpatient (CLI) | payer MEDICARE, SELFPAY ==
[2021-12-15 11:31] LABS: Basophils Percent Auto 0.2 % (0.2-1.2); Eosinophils Absolute Auto 0.1 K/mm3 (0-0.3); Eosinophils Percent Auto 1.6 % (0-4.4); Hematocrit 37.8 % (37.0-47.0); Hemoglobin 13.1 g/dL (12.0-15.0); Immature Granulocyte Absolute 0.02 K/mm3 (0.00-0.031); Immature Granulocyte Percent A 0.4 % (0-0.5); Lymphocytes Absolute Auto 1.04 K/mm3 (0.9-3.2); Lymphocytes Percent Auto 18.8 % (18.3-44.2); Mean Corpuscular HGB Conc 34.7 g/dl (32-36); Mean Corpuscular Hemoglobin 31.3 pg (26-34); Mean Corpuscular Volume 90.4 fl (80-100); Mean Platelet Volume 9.3 fl (7.4-10.4); Monocytes Absolute Auto 0.5 K/mm3 (0.1-0.6); Monocytes Percent Auto 9.1 % (2.6-8.5); Neutrophils Absolute Auto 3.9 K/mm3 (1.3-6.7); Neutrophils Percent Auto 69.9 % (45.5-73.1); Platelet Count Result 156 k/mm3 (150-375); Red Blood Count 4.18 M/mm3 (4.2-5.4); Red Cell Distribution Width 13.2 % (11.5-14.5); White Blood Count 5.5 K/mm3 (4.5-10.0)
[2021-12-15 11:43] LABS: Alanine Aminotransferase 30 U/L (6-35); Albumin Level 4.4 g/dL (3.5-5.1); Alkaline Phosphatase 126 U/L (38-126); Anion Gap 7 mmol/L (8-16); Aspartate Amino Transferase 33 U/L (14-36); Bilirubin,Total 0.4 mg/dL (0.2-1.3); Blood Urea Nitrogen 19 mg/dL (7-17); Calcium 8.8 mg/dL (8.4-10.2); Carbon Dioxide 27 mmol/L (22-30); Chloride 96 mmol/L (98-107); Estimated Glomerular Filt Rate 54; Glucose 89 mg/dL (65-110); Potassium 4.3 mmol/L (3.4-5.0); Sodium 130 mmol/L (137-145); Uric Acid 2.7 mg/dL (2.5-7.5)
[2021-12-15 12:39] LABS: Thyroid Stimulating Hormone Reflex 0.062 uIU/mL (0.465-4.68)
[2021-12-15 12:56] LABS: Erythrocyte Sedimentation Rate 11 mm/hr (0-20)
[2021-12-15 14:13] LABS: Free T4 Free Thyroxine Reflex 0.91 ng/dL (0.78-2.19)
[2021-12-15 17:36] LABS: Total Triiodothyronine (T3) 1.11 NG/ML (0.97-1.69)
[2021-12-19 17:40] LABS: ANA Cascade Screen Negative (Negative)
== END 2021-12-15 11:06 | disposition home or self-care (01) ==
LOC: ANHLAB 11:10
PROVIDERS: PCP Family Medicine; Visit Provider Nurse Practitioner Gerontology
DX: G20 Parkinson's disease (principal); I10 Essential (primary) hypertension; I48.91 Unspecified atrial fibrillation; I48.92 Unspecified atrial flutter; M10.071 Idiopathic gout, right ankle and foot; R53.1 Weakness
CPT/HCPCS: 36415; 80053; 84439; 84443; 84480; 84550; 85025; 85610; 85652; 86038

== ENCOUNTER 2021-12-22 08:33 | Outpatient (CLI) | payer MEDICARE, SELFPAY ==
[2021-12-22 09:49] LABS: Alanine Aminotransferase 36 U/L (6-35); Albumin Level 4.2 g/dL (3.5-5.1); Alkaline Phosphatase 129 U/L (38-126); Anion Gap 7 mmol/L (8-16); Aspartate Amino Transferase 41 U/L (14-36); Bilirubin,Total 0.4 mg/dL (0.2-1.3); Blood Urea Nitrogen 18 mg/dL (7-17); Calcium 8.5 mg/dL (8.4-10.2); Carbon Dioxide 27 mmol/L (22-30); Chloride 92 mmol/L (98-107); Estimated Glomerular Filt Rate 48; Glucose 87 mg/dL (65-110); Potassium 4.2 mmol/L (3.4-5.0); Sodium 126 mmol/L (137-145)
[2021-12-22 09:53] LABS: Free T4 Free Thyroxine 1.06 ng/mL (0.78-2.19)
[2021-12-22 10:21] LABS: Total Triiodothyronine (T3) 1.04 NG/ML (0.97-1.69)
[2021-12-24 20:19] LABS: Thyroid Peroxidase Antibodies 2 IU/mL (<9)
== END 2021-12-22 08:34 | disposition home or self-care (01) ==
LOC: ANHLAB 08:38
PROVIDERS: PCP Family Medicine; Visit Provider Nurse Practitioner Gerontology
DX: E87.1 Hypo-osmolality and hyponatremia (principal); E05.90 Thyrotoxicosis, unspecified without thyrotoxic crisis or storm
CPT/HCPCS: 36415; 80053; 84439; 84480; 86376

== ENCOUNTER 2021-12-29 07:53 | Outpatient (CLI) | payer MEDICARE, SELFPAY ==
--- NOTE | ~2021-12-29 | US_ITS ---
EXAMINATION: US art doppler w press LE BI DATE: 12/29/2021 09:16 INDICATION: Lower limb pain. Peripheral vascular disease risk factors of hypercholesterolemia and hyp ertension. TECHNIQUE: Segmental pressures and plethysmographic and Doppler waveforms of the brachial and lower e xtremity arteries were obtained. COMPARISON: None. FINDINGS: Right and left brachial artery pressures of 133 mm Hg and 141 mm Hg, respectively, are concordant (no rmal difference <= 30 mmHg). The right and left high-thigh pressure indices are 1.16 and 1.11, respec tively (normal > 1.2). The right ankle-brachial index (JAY) is 1.15 (normal >= 0.9-1). The right great toe-brachial index (T BI) is 0.47 (normal >= 0.6-0.8). The right lower extremity segmental pressure gradients are normal (n ormal gradients <= 20-30 mmHg between adjacent levels on the same leg or the same levels on the two l egs). Arterial waveforms are triphasic at the right common femoral artery and biphasic in the more di stal arteries of the right lower limb with brisk systolic upstrokes throughout. The left JAY is 1.20. The left TBI is 0.44. The left lower extremity segmental pressure gradients are normal. Arterial waveforms are triphasic at the left common femoral artery and biphasic in the more distal arteries of the left lower limb with brisk systolic upstrokes throughout. IMPRESSION: 1. Arterial occlusive disease to the bilateral lower limbs with mildly decreased bilateral TBI's Reviewed, dictated and finalized at location B. IMPRESSION: 1. Arterial occlusive disease to the bilateral lower limbs with mildly decrease d bilateral TBI's
--- NOTE | ~2021-12-29 | US_ITS ---
EXAMINATION: US thyroid DATE: 12/29/2021 08:35 INDICATION: Thyrotoxicosis TECHNIQUE: Multiple ultrasound images of the thyroid were obtained. COMPARISON: None. FINDINGS: The right thyroid lobe measures 4.8 x 1.8 x 1.6 cm. The left thyroid lobe measures 4.7 x 1.2 x 1.1 c m. There are a a couple nodules in both the left and right thyroid lobes. The largest is a solid hyp oechoic wider than tall 1.3 cm nodule with smooth margins with a tiny internal echogenic foci (TI-RAD S 5, highly suspicious , FNA if >=1.0 cm, annual followup is >0.5 cm) at the inferior left thyroid. T he remaining subcentimeter nodules appear similarly but without echogenic foci (TI-RADS 4, moderately suspicious , FNA if >=1.5 cm, annual followup is >=1 cm) and measure 4 mm in maximal diameter on the left and 8 mm and 6 mm in maximal diameter on the right. IMPRESSION: 1. Multinodular goiter. Recommend ultrasound-guided biopsy of the largest 1.3 cm TI RADS 5 left thyro id nodule. Reviewed, dictated and finalized at location B. IMPRESSION: 1. Multinodular goiter. Recommend ultrasound-guided biopsy of the largest 1.3 c m TI RADS 5 left thyroid nodule.
== END 2021-12-29 07:54 | disposition home or self-care (01) ==
PROVIDERS: PCP Family Medicine; Visit Provider Nurse Practitioner Gerontology
DX: M79.606 Pain in leg, unspecified (principal); E05.90 Thyrotoxicosis, unspecified without thyrotoxic crisis or storm; E04.2 Nontoxic multinodular goiter; I73.9 Peripheral vascular disease, unspecified
CPT/HCPCS: 36415; 76536; 84300; 85610; 93923

== ENCOUNTER 2021-12-29 09:19 | Outpatient (RCR) | payer MEDICARE, SELFPAY ==
[2021-10-26 11:31] LABS: INR 2.9
[2021-11-26 08:46] LABS: INR 2.3; Prothrombin Time 24.5 Seconds (11.1-14.7)
[2021-12-15 11:46] LABS: INR 1.6; Prothrombin Time 18.4 Seconds (11.1-14.7)
[2021-12-29 09:56] LABS: INR 2.7
== END 2022-01-24 23:59 | disposition home or self-care (01) ==
LOC: ANHLAB 09:19
PROVIDERS: PCP Family Medicine; Visit Provider Internal Medicine Cardiovascular Disease
DX: Z51.81 Encounter for therapeutic drug level monitoring (principal); I48.0 Paroxysmal atrial fibrillation; Z79.01 Long term (current) use of anticoagulants
CPT/HCPCS: 36415; 85610

== ENCOUNTER 2021-12-29 09:21 | Outpatient (CLI) | payer MEDICARE, SELFPAY ==
[2021-12-29 10:00] LABS: Sodium Urine Random 31 meq/L
== END 2021-12-29 09:22 | disposition home or self-care (01) ==
LOC: ANHLAB 09:22
PROVIDERS: PCP Family Medicine; Visit Provider Nurse Practitioner Gerontology
DX: E87.1 Hypo-osmolality and hyponatremia (principal)
CPT/HCPCS: 84300

== ENCOUNTER 2022-01-06 12:47 | Outpatient (CLI) | payer MEDICARE, SELFPAY ==
--- NOTE | ~2022-01-06 | US_ITS ---
EXAMINATION: US FNA w image guidance DATE: 01/06/2022 14:16 INDICATION: Left thyroid nodule. TECHNIQUE: The procedure and its benefits and risks were discussed with the patient. Risks specifically discusse d included bleeding. The patient verbalized understanding of the risks and agreed to proceed. The nec k was prepped and draped in the usual sterile manner. 1% lidocaine was used for local anesthesia. 6 passes were made with a 25G needle into the lesion under ultrasound guidance. There were no immedia te complications. FINDINGS: Grayscale ultrasound images demonstrate needles advanced into a 13 mm nodule in inferior left thyroid lobe for biopsy. IMPRESSION: 1. Ultrasound-guided fine needle aspiration of a left thyroid nodule. Reviewed, dictated and finalized at location A.
== END 2022-01-06 12:48 | disposition home or self-care (01) ==
PROVIDERS: PCP Family Medicine; Visit Provider Nurse Practitioner Gerontology
DX: E04.1 Nontoxic single thyroid nodule (principal)
CPT/HCPCS: 10005; 88173; 88305

== ENCOUNTER 2022-03-05 08:43 | Outpatient (CLI) | payer MEDICARE, SELFPAY ==
[2022-03-05 09:25] LABS: Alanine Aminotransferase 25 U/L (6-35); Albumin Level 4.2 g/dL (3.5-5.1); Alkaline Phosphatase 120 U/L (38-126); Anion Gap 6 mmol/L (8-16); Aspartate Amino Transferase 27 U/L (14-36); Bilirubin,Total 0.3 mg/dL (0.2-1.3); Blood Urea Nitrogen 17 mg/dL (7-17); Calcium 8.9 mg/dL (8.4-10.2); Carbon Dioxide 29 mmol/L (22-30); Chloride 97 mmol/L (98-107); Cholesterol 154 mg/dL (0-200); Estimated Glomerular Filt Rate 43; Glucose 97 mg/dL (65-110); HDL Direct 58 mg/dL; Potassium 4.1 mmol/L (3.4-5.0); Sodium 132 mmol/L (137-145); Triglycerides 140 mg/dL (<150)
[2022-03-05 09:36] LABS: LDL Cholesterol Direct 57 mg/dL
[2022-03-05 09:56] LABS: Total Triiodothyronine (T3) 1.08 NG/ML (0.97-1.69)
[2022-03-05 10:09] LABS: Free T4 Free Thyroxine 0.92 ng/mL (0.78-2.19)
[2022-03-09 02:43] LABS: Thyroid Peroxidase Antibodies 2 IU/mL (<9)
== END 2022-03-05 08:44 | disposition home or self-care (01) ==
LOC: ANHLAB 08:45
PROVIDERS: PCP Family Medicine; Visit Provider Family Medicine
DX: E78.2 Mixed hyperlipidemia (principal); E07.9 Disorder of thyroid, unspecified; E03.9 Hypothyroidism, unspecified; I10 Essential (primary) hypertension
CPT/HCPCS: 36415; 80053; 80061; 84439; 84443; 84480; 86376

== ENCOUNTER 2022-03-12 09:59 | Outpatient (CLI) | payer MEDICARE, SELFPAY ==
--- NOTE | ~2022-03-12 | US_ITS ---
US renal BI 03/12/2022 11:16 Procedure: Realtime transabdominal ultrasound of the kidneys and bladder. Indication: Chronic kidney disease Comparison: CT dated 04/23/2017. Findings: Renal echotexture is normal bilaterally without contour deforming mass or renal calculus. T here is mild bilateral hydronephrosis. The right kidney measures 9 cm and left kidney measures 10.3 c m. Bladder within normal limits. Impression: 1: Mild bilateral hydronephrosis. Reviewed, dictated and finalized at location A. Impression: 1: Mild bilateral hydronephrosis.
[2022-03-12 11:14] LABS: Anion Gap 7 mmol/L (8-16); Blood Urea Nitrogen 14 mg/dL (7-17); Calcium 8.8 mg/dL (8.4-10.2); Carbon Dioxide 29 mmol/L (22-30); Chloride 95 mmol/L (98-107); Estimated Glomerular Filt Rate 54; Glucose 93 mg/dL (65-110); Potassium 4.1 mmol/L (3.4-5.0); Sodium 131 mmol/L (137-145)
== END 2022-03-12 10:00 | disposition home or self-care (01) ==
LOC: ANHIMG 10:02
PROVIDERS: PCP Family Medicine; Visit Provider Physician Assistant
DX: N18.9 Chronic kidney disease, unspecified (principal); E87.1 Hypo-osmolality and hyponatremia; N20.0 Calculus of kidney
CPT/HCPCS: 36415; 76775; 80048

== ENCOUNTER 2022-04-26 15:09 | Outpatient (CLI) | payer MEDICARE, SELFPAY ==
[2022-04-26 15:45] LABS: Anion Gap 5 mmol/L (8-16); Blood Urea Nitrogen 15 mg/dL (7-17); Calcium 8.5 mg/dL (8.4-10.2); Carbon Dioxide 27 mmol/L (22-30); Chloride 98 mmol/L (98-107); Estimated Glomerular Filt Rate 54; Glucose 105 mg/dL (65-110); Potassium 4.2 mmol/L (3.4-5.0); Sodium 130 mmol/L (137-145)
== END 2022-04-26 15:10 | disposition home or self-care (01) ==
PROVIDERS: PCP Family Medicine; Visit Provider Physician Assistant
DX: E87.1 Hypo-osmolality and hyponatremia (principal)
CPT/HCPCS: 36415; 80048; 85610

== ENCOUNTER 2022-04-29 09:11 | Emergency (ER) | payer MEDICARE, SELFPAY ==
[2022-04-29] VITALS (20 sets, daily range): BP systolic 131–151; BP diastolic 57–65; PULSE 48–66; RESP 10–25; TEMP 36.9; O2SAT 96–100
--- NOTE | ~2022-04-29 | XR_ITS ---
EXAMINATION: XR chest 1V portable DATE: 04/29/2022 10:27 INDICATION: Dizziness. TECHNIQUE: A single frontal view of the chest was obtained. COMPARISON: Chest 2 views 04/22/2020, chest CT 04/22/2020 FINDINGS: The chest demonstrates clear lungs without pneumonia, pleural effusion, or pneumothorax. Th e heart size is normal. There is electronic device overlying left chest wall. IMPRESSION: 1. No acute cardiopulmonary disease. Reviewed, dictated and finalized at location A.
--- NOTE | 2022-04-29 09:21 | ECG_ITS ---
Measurements Intervals [place] Rate: 51 P: 81 DE: 160 QRS: -4 QRSD: 90 T: 50 QT: 432 QTc: 402 Interpretive Statements SINUS BRADYCARDIA INCOMPLETE RIGHT BUNDLE BRANCH BLOCK BASELINE ARTIFACT- I, III, V6 BORDERLINE ECG COMPARED TO ECG 04/22/2020 10:12:14 NO SIGNIFICANT CHANGES Electronically Signed On 04-29-2022 10:22:07 CDT by Ian Conde D.O.
[2022-04-29 09:39] LABS: Basophils Percent Auto 0.2 % (0.2-1.2); Eosinophils Absolute Auto 0.1 K/mm3 (0-0.3); Eosinophils Percent Auto 1.9 % (0-4.4); Hemoglobin 12.7 g/dL (12.0-15.0); Immature Granulocyte Absolute 0.01 K/mm3 (0.00-0.031); Immature Granulocyte Percent A 0.2 % (0-0.5); Lymphocytes Absolute Auto 1.36 K/mm3 (0.9-3.2); Lymphocytes Percent Auto 23.8 % (18.3-44.2); Mean Corpuscular HGB Conc 32.6 g/dl (32-36); Mean Corpuscular Hemoglobin 31.1 pg (26-34); Mean Corpuscular Volume 95.6 fl (80-100); Mean Platelet Volume 9.8 fl (7.4-10.4); Monocytes Absolute Auto 0.5 K/mm3 (0.1-0.6); Monocytes Percent Auto 8.8 % (2.6-8.5); Neutrophils Absolute Auto 3.7 K/mm3 (1.3-6.7); Neutrophils Percent Auto 65.1 % (45.5-73.1); Platelet Count Result 166 k/mm3 (150-375); Red Blood Count 4.08 M/mm3 (4.2-5.4); White Blood Count 5.7 K/mm3 (4.5-10.0)
[2022-04-29 10:01] LABS: Alanine Aminotransferase 42 U/L (6-35); Alkaline Phosphatase 134 U/L (38-126); Anion Gap 8 mmol/L (8-16); Aspartate Amino Transferase 41 U/L (14-36); Bilirubin,Total 0.6 mg/dL (0.2-1.3); Blood Urea Nitrogen 16 mg/dL (7-17); Calcium 8.7 mg/dL (8.4-10.2); Carbon Dioxide 26 mmol/L (22-30); Chloride 100 mmol/L (98-107); Estimated CRCL calculation 44 ml/min; Estimated Glomerular Filt Rate > 60; Glucose 94 mg/dL (65-110); Potassium 4.4 mmol/L (3.4-5.0); Sodium 134 mmol/L (137-145)
--- NOTE | 2022-04-29 10:15 | PC.NURSE ---
EDP at bedside to assess pt.
[2022-04-29] MEDS: MECLIZINE HCL 25 MG TABLET PO (10:50)
[2022-04-29] MEDS: SCOPOLAMINE 1.5 MG PATCH TRANSDERM (10:51)
[2022-04-29] MEDS: SODIUM CHLORIDE 0.9% IV 1,000 ML 999 ML IV CONT (10:51)
[2022-04-29 11:08] LABS: NT Pro B Type Natriuretic Pept 417 pg/mL (5-100); Troponin I < 0.012 ng/mL (0.000-0.034)
--- NOTE | 2022-04-29 11:25 | PC.NURSE ---
Patient report given to USHA Olmstead. All questions answered and care of patient transferred.
--- NOTE | 2022-04-29 12:30 | ED.GENADULT ---
HPI - General Adult General Chief complaint: Dizziness Stated complaint: low sodium per PCP, dizziness Time Seen by Provider: 04/29/22 09:39 History of Present Illness HPI narrative: This is a 69-year-old female presents ED with chief complaint of dizziness. Patient says she started to feel combination of dizziness and vertigo last night around 8 or 9:00 p.m. In further questioning it appears that she is having both lightheadedness when she stands up and occasional vertigo when she moves her head. Her symptoms completely resolved in between episodes. They are episodic and triggerable. It was not associated with double vision, slurred speech, difficulty swallowing, loss of coordination or numbness tingling weakness to any extremity. Patient has noted that she has had multiple episodes of diarrhea over the last 2-3 days. Patient denies any fever/chills, chest pain, difficulty breathing, abdominal pain or urinary symptoms. Patient is concerned because she has had hyponatremia in the past which is being managed by her primary care physician. Related Data Home Medications Medication Instructions Recorded Confirmed warfarin 5 mg tablet 5 mg PO DAILY 03/29/21 03/04/22 linaclotide 72 mcg capsule 72 mcg PO DAILY 03/04/22 03/04/22 (Linzess) Allergies Allergy/AdvReac Type Severity Reaction Status Date / Time nut - unspecified Allergy Severe Anaphylactic Verified 04/27/22 10:49 Shock acetaminophen Allergy Unknown HIVES Verified 04/27/22 10:49 codeine Allergy Unknown N/V Verified 04/27/22 10:49 morphine Allergy Unknown N/V Verified 04/27/22 10:49 onion Allergy Unknown hives Verified 04/27/22 10:49 tomato Allergy Unknown hives Verified 04/27/22 10:49 amlodipine [From Norvasc] Allergy unknown Verified 04/27/22 10:49 Idkevam-STX-SjT Reductase AdvReac Severe muscle Verified 04/27/22 10:49 Inhibitor cramps, [Rofrnqu-Rkn-Tgq Reductase nausea Inhibitor] clonazepam AdvReac Intermediate Nausea and Verified 04/27/22 10:49 Vomiting NUT FLAVOR Allergy Unknown Anaphylactic Uncoded 04/27/22 10:49 Shock Idiopathic analphylaxis AdvReac Severe Anaphylactic Uncoded 04/27/22 10:49 Shock Review of Systems Review of Systems: CONSTITUTIONAL: Denies night sweats. EYES: No eye pain ENT: Denies rhinorrhea CARDIOVASCULAR: Denies palpitations RESPIRATORY: Denies hemoptysis GASTROINTESTINAL: Denies hematemesis GENITOURINARY: Denies hematuria. SKIN: Denies rash MUSCULOSKELETAL: Denies myalgia. NEUROLOGIC: Denies weakness. PSYCHIATRIC: Denies delusions PMFSH Past Medical History Medical History Chronic constipation Essential (primary) hypertension NATASHA (generalized anxiety disorder) Gout Hearing loss of aging History of anaphylactic shock Hyperlipidemia Major depressive disorder, single episode, mild Multiple environmental allergies Parkinson's disease Tremor due to disorder of central nervous system Surgical History Surgical History H/O excision of lamina of cervical vertebra for decompression of spinal cord History of appendectomy History of cholecystectomy Previous section X2 S/P cervical spinal fusion Status post lumbar spine surgery for decompression of spinal cord Family History Family History Mother Family history of Parkinson's disease Family history of Alzheimer's disease, Onset Age: 82 Patient's mother is Sibling Family history of pancreatic cancer, Onset Age: 67 Patient's brother is Father Family history of lung cancer, Onset Age: 65 Patient's father is Grandparent Cerebrovascular accident Diabetes mellitus Mother Family history of Alzheimer's disease Sibling Family history of pancreatic cancer Social History Social History (Reviewed 04/09
== END 2022-04-29 13:32 | disposition home or self-care (01) ==
PROVIDERS: Emergency Provider Emergency Medicine; PCP Family Medicine
DX: R42 Dizziness and giddiness (principal); E86.0 Dehydration; I10 Essential (primary) hypertension; E78.5 Hyperlipidemia, unspecified; G20 Parkinson's disease; M10.9 Gout, unspecified; Z79.01 Long term (current) use of anticoagulants; Z98.1 Arthrodesis status; I45.10 Unspecified right bundle-branch block; R00.1 Bradycardia, unspecified
CPT/HCPCS: 36415; 71045; 80053; 83880; 84484; 85025; 93005; 96360; 99284; A9270; J7030

== ENCOUNTER 2022-05-03 08:14 | Outpatient (RCR) | payer MEDICARE, SELFPAY ==
[2022-02-05 09:27] LABS: INR 2.9; Prothrombin Time 29.2 Seconds (11.1-14.7)
[2022-03-04 09:52] LABS: INR 2.6; Prothrombin Time 26.8 Seconds (11.1-14.7)
[2022-04-06 08:33] LABS: INR 3.8; Prothrombin Time 36.2 Seconds (11.1-14.7)
[2022-04-26 15:46] LABS: INR 4.6; Prothrombin Time 42.3 Seconds (11.1-14.7)
[2022-05-03 09:05] LABS: INR 1.2; Prothrombin Time 14.8 Seconds (11.1-14.7)
== END 2022-05-06 23:59 | disposition home or self-care (01) ==
LOC: ANHLAB 08:14
PROVIDERS: PCP Family Medicine; Visit Provider Internal Medicine Cardiovascular Disease
DX: Z51.81 Encounter for therapeutic drug level monitoring (principal); I48.0 Paroxysmal atrial fibrillation; Z79.01 Long term (current) use of anticoagulants
CPT/HCPCS: 36415; 85610

== ENCOUNTER 2022-05-10 11:53 | Outpatient (CLI) | payer MEDICARE, SELFPAY ==
[2022-05-10 13:10] LABS: Anion Gap 8 mmol/L (8-16); Blood Urea Nitrogen 19 mg/dL (7-17); Calcium 8.9 mg/dL (8.4-10.2); Carbon Dioxide 28 mmol/L (22-30); Chloride 97 mmol/L (98-107); Estimated Glomerular Filt Rate 54; Glucose 109 mg/dL (65-110); Potassium 4.2 mmol/L (3.4-5.0); Sodium 133 mmol/L (137-145)
== END 2022-05-10 11:54 | disposition home or self-care (01) ==
LOC: ANHLAB 11:54
PROVIDERS: PCP Family Medicine; Visit Provider Family Medicine
DX: E87.1 Hypo-osmolality and hyponatremia (principal)
CPT/HCPCS: 36415; 80048

== ENCOUNTER 2022-07-13 09:58 | Outpatient (CLI) | payer MEDICARE, SELFPAY ==
--- NOTE | ~2022-07-13 | US_ITS ---
EXAMINATION: US breast LT limited HISTORY: Acute onset swelling and pain of the left breast TECHNIQUE: Limited left breast ultrasound is performed. FINDINGS: There is a 7 mm x 4 mm oval, circumscribed, parallel, hypoechoic mass with no posterior fea tures or internal vascularity at the 2:00 location 3 cm from the nipple. There is a 4 mm x 3 mm oval, circumscribed, hypoechoic mass with no posterior features or internal vascularity at the 12:00 locat ion 2 cm from the nipple. IMPRESSION: Indeterminate left breast masses. Further evaluation with diagnostic mammogram is recommended. BI-RADS Category 0: Incomplete: Needs additional imaging evaluation. Reviewed, dictated and finalized at location A. SCOURER
--- NOTE | ~2022-07-13 | US_ITS ---
US thyroid INDICATION: Nontoxic thyroid nodule. Previous benign biopsy of left thyroid nodule. TECHNIQUE: Real-time sonographic images of the thyroid gland were obtained. COMPARISON: Ultrasound dated 12/29/2021 FINDINGS: The right thyroid lobe measures 3.6 x 1.4 x 1.3 cm. The left thyroid lobe measures 3.3 x 1 .1 x 1.0 cm. There is normal echotexture and echogenicity throughout the thyroid gland. There are michelle ateral thyroid nodules, largest in the right lobe measures 11 x 10 x 8 mm and is mixed hypoechoic and isoechoic, solid, wider than tall with ill-defined margins and no internal echogenic foci, TR 4. Thi s mass is slightly larger than on prior examination. Dominant mass in the left lobe measures 1.3 x 1. 0 x 0.9 cm and is slightly hypoechoic, solid, wider than tall, smoothly marginated with punctate echo genic foci, TR 5. This was previously biopsy proven benign. There is a normal-appearing 1 cm lymph no de lateral to the left thyroid lobe. Normal vascular flow is present. IMPRESSION: 1. Multinodular goiter. Previous dominant mass in the left lobe was biopsy proven benign and unchang ed. No discrete mass in the left lobe meet sonographic criteria for biopsy. Reviewed, dictated and finalized at location A. 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 Multinodular goiter. Previous dominant mass in the left lobe was biopsy pro km benign and unchanged. No discrete mass in the left lobe meet sonographic cr iteria for biopsy.
== END 2022-07-13 09:59 | disposition home or self-care (01) ==
LOC: ANHIMG 09:59
PROVIDERS: PCP Family Medicine; Visit Provider Family Medicine
DX: N63.21 Unspecified lump in the left breast, upper outer quadrant (principal); E04.2 Nontoxic multinodular goiter
CPT/HCPCS: 76536; 76642

== ENCOUNTER 2022-08-05 11:46 | Outpatient (CLI) | payer MEDICARE, SELFPAY ==
--- NOTE | ~2022-08-05 | MM_ITS ---
EXAMINATION: MM diagnostic rohan BI w nick HISTORY: Indeterminate left breast masses on 07/13/2022 Limited left breast ultrasound examination TECHNIQUE: ML, MLO and CC 3-D tomosynthesis images of both breasts were performed and synthetic 2-D i mages were generated. CAD analysis was submitted and interpreted. COMPARISON: 07/13/2022 Limited left breast ultrasound 07/22/2015 bilateral screening mammogram BREAST PARENCHYMAL COMPOSITION: There are scattered areas of fibroglandular density. FINDINGS: There are numerous benign calcifications scattered in both breasts including multiple benig n secretory type calcifications, occasional calcified microhematomas. No malignant calcification is e vident. Bilobed approximately 7 mm circumscribed opacity is noted in the upper outer left breast, relatively stable in appearance since 07/22/2015. This corresponds to the sonographic left breast 2:00 lesion me asuring up to 7.5 mm, which is circumscribed and without internal vascularity or suspicious shadowing . This is most likely chronic and benign. The left breast 12:00 sonographic 2.9 mm x 4 mm lesion likely corresponds to a partially calcified mi crohematoma. No suspicious mass, architectural distortion or significant new or developing density of either breas t is evident. No malignant calcification, skin thickening or retraction is evident. IMPRESSION: 1. Probable benign findings 2. Six-month diagnostic left mammogram and 12:00 and 2:00 left breast ultrasound follow-up are recomm ended BI-RADS category 3, probably benign findings. Reviewed, dictated and finalized at location A. 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 Probable benign findings 2. Six-month diagnostic left mammogram and 12:00 and 2:00 left breast ultrasoun d follow-up are recommended BI-RADS category 3, probably benign findings.
== END 2022-08-05 11:47 | disposition home or self-care (01) ==
PROVIDERS: PCP Family Medicine; Visit Provider Family Medicine
DX: R92.8 Other abnormal and inconclusive findings on diagnostic imaging of breast (principal)
CPT/HCPCS: 36415; 77062; 77066; 85610; G0279

== ENCOUNTER 2022-08-05 12:45 | Outpatient (RCR) | payer MEDICARE, SELFPAY ==
[2022-05-10 13:30] LABS: INR 2.6; Prothrombin Time 26.9 Seconds (11.1-14.7)
[2022-05-24 10:00] LABS: INR 3.5; Prothrombin Time 33.8 Seconds (11.1-14.7)
[2022-06-01 11:48] LABS: INR 2.6; Prothrombin Time 26.9 Seconds (11.1-14.7)
[2022-07-05 12:05] LABS: INR 2.6; Prothrombin Time 26.8 Seconds (11.1-14.7)
[2022-08-05 13:56] LABS: INR 2.2; Prothrombin Time 23.2 Seconds (11.1-14.7)
== END 2022-08-08 23:59 | disposition home or self-care (01) ==
LOC: ANHLAB 12:45
PROVIDERS: PCP Family Medicine; Visit Provider Internal Medicine Cardiovascular Disease
DX: Z51.11 Encounter for antineoplastic chemotherapy (principal); I48.0 Paroxysmal atrial fibrillation; Z79.01 Long term (current) use of anticoagulants
CPT/HCPCS: 36415; 80048; 85610

== ENCOUNTER 2022-08-24 08:23 | Outpatient (CLI) | payer MEDICARE, SELFPAY ==
[2022-08-24 08:41] LABS: Basophils Percent Auto 0.2 % (0.2-1.2); Eosinophils Absolute Auto 0.1 K/mm3 (0-0.3); Eosinophils Percent Auto 1.9 % (0-4.4); Hematocrit 37.1 % (37.0-47.0); Hemoglobin 12.1 g/dL (12.0-15.0); Immature Granulocyte Absolute 0.01 K/mm3 (0.00-0.031); Immature Granulocyte Percent A 0.2 % (0-0.5); Lymphocytes Absolute Auto 1.29 K/mm3 (0.9-3.2); Lymphocytes Percent Auto 26.7 % (18.3-44.2); Mean Corpuscular HGB Conc 32.6 g/dl (32-36); Mean Corpuscular Hemoglobin 31.2 pg (26-34); Mean Corpuscular Volume 95.6 fl (80-100); Mean Platelet Volume 9.4 fl (7.4-10.4); Monocytes Absolute Auto 0.5 K/mm3 (0.1-0.6); Monocytes Percent Auto 9.3 % (2.6-8.5); Neutrophils Percent Auto 61.7 % (45.5-73.1); Platelet Count Result 160 k/mm3 (150-375); Red Blood Count 3.88 M/mm3 (4.2-5.4); Red Cell Distribution Width 13.1 % (11.5-14.5); White Blood Count 4.8 K/mm3 (4.5-10.0)
[2022-08-24 09:01] LABS: Alanine Aminotransferase 23 U/L (6-35); Albumin Level 3.9 g/dL (3.5-5.1); Alkaline Phosphatase 106 U/L (38-126); Anion Gap 5 mmol/L (8-16); Aspartate Amino Transferase 22 U/L (14-36); Bilirubin,Total 0.3 mg/dL (0.2-1.3); Blood Urea Nitrogen 16 mg/dL (7-17); Calcium 8.4 mg/dL (8.4-10.2); Carbon Dioxide 28 mmol/L (22-30); Chloride 101 mmol/L (98-107); Estimated Glomerular Filt Rate 48; Glucose 89 mg/dL (65-110); Potassium 4.2 mmol/L (3.4-5.0); Sodium 134 mmol/L (137-145)
[2022-08-24 09:48] LABS: Vitamin B12 > 1000.0 pg/mL (239-931)
== END 2022-08-24 08:24 | disposition home or self-care (01) ==
PROVIDERS: PCP Family Medicine; Visit Provider Nurse Practitioner Gerontology
DX: E87.1 Hypo-osmolality and hyponatremia (principal); I10 Essential (primary) hypertension; R42 Dizziness and giddiness
CPT/HCPCS: 36415; 80053; 82607; 85025

== ENCOUNTER 2022-10-11 11:07 | Outpatient (RCR) | payer MEDICARE, SELFPAY ==
[2022-09-09 10:33] LABS: INR 2.5; Prothrombin Time 25.8 Seconds (11.1-14.7)
[2022-10-11 12:11] LABS: INR 2.7; Prothrombin Time 27.5 Seconds (11.1-14.7)
== END 2022-12-08 23:59 | disposition home or self-care (01) ==
LOC: ANHLAB 11:07
PROVIDERS: PCP Family Medicine; Visit Provider Physician Assistant
DX: D68.9 Coagulation defect, unspecified (principal); T50.905D Adverse effect of unspecified drugs, medicaments and biological substances, subsequent encounter
CPT/HCPCS: 36415; 85610

== ENCOUNTER 2022-11-26 10:03 | Outpatient (CLI) | payer MEDICARE, SELFPAY ==
--- NOTE | ~2022-11-26 | US_ITS ---
Thyroid ultrasound. Clinical History: Thyroid nodule COMPARISON: 07/13/2022 Findings: Real-time sonography of the thyroid gland was performed. The right lobe measures 1.3 x 3.9 x 1.6 cm. The left lobe measures 1.3 x 3.6 x 1.4 cm. The isthmus is 3 mm in AP diameter. There are multiple bilateral thyroid nodules. Largest right thyroid lobe nodule measures 1.2 cm in ma ximum diameter, and is mixed solid cystic in appearance. Largest left thyroid nodule measures 1.4 x 0 .9 x 0.9 cm, and is solid with minimal hypoechogenicity, and possible tiny microcalcifications. Remai simi bilateral thyroid nodules all are probably 1 cm in size or less. Impression: Multiple thyroid nodules, as detailed above, without significant change from prior exam. The most john picious nodule in the left thyroid lobe has been previously biopsied and shown to be benign. Reviewed, dictated and finalized at [facility]. Impression: Multiple thyroid nodules, as detailed above, without significant change from pr ior exam. The most suspicious nodule in the left thyroid lobe has been previous ly biopsied and shown to be benign.
== END 2022-11-26 10:04 | disposition home or self-care (01) ==
PROVIDERS: PCP Family Medicine; Visit Provider Family Medicine
DX: E04.2 Nontoxic multinodular goiter (principal)
CPT/HCPCS: 76536

== ENCOUNTER 2023-01-01 10:17 | Outpatient (CLI) | payer MEDICARE, SELFPAY ==
[2023-01-01 10:32] LABS: Basophils Percent Auto 0.2 % (0.2-1.2); Eosinophils Absolute Auto 0.1 K/mm3 (0-0.3); Eosinophils Percent Auto 1.9 % (0-4.4); Hemoglobin 11.5 g/dL (12.0-15.0); Immature Granulocyte Absolute 0.01 K/mm3 (0.00-0.031); Immature Granulocyte Percent A 0.2 % (0-0.5); Lymphocytes Absolute Auto 1.12 K/mm3 (0.9-3.2); Lymphocytes Percent Auto 21.1 % (18.3-44.2); Mean Corpuscular HGB Conc 32.9 g/dl (32-36); Mean Corpuscular Hemoglobin 30.8 pg (26-34); Mean Corpuscular Volume 93.8 fl (80-100); Mean Platelet Volume 9.1 fl (7.4-10.4); Monocytes Absolute Auto 0.5 K/mm3 (0.1-0.6); Monocytes Percent Auto 9.8 % (2.6-8.5); Neutrophils Absolute Auto 3.6 K/mm3 (1.3-6.7); Neutrophils Percent Auto 66.8 % (45.5-73.1); Platelet Count Result 188 k/mm3 (150-375); Red Blood Count 3.73 M/mm3 (4.2-5.4); Red Cell Distribution Width 12.6 % (11.5-14.5); White Blood Count 5.3 K/mm3 (4.5-10.0)
[2023-01-01 10:44] LABS: Alanine Aminotransferase 28 U/L (6-35); Alkaline Phosphatase 117 U/L (38-126); Anion Gap 5 mmol/L (8-16); Aspartate Amino Transferase 31 U/L (14-36); Bilirubin,Total 0.3 mg/dL (0.2-1.3); Blood Urea Nitrogen 18 mg/dL (7-17); Calcium 8.6 mg/dL (8.4-10.2); Carbon Dioxide 30 mmol/L (22-30); Chloride 96 mmol/L (98-107); Creatine Kinase 167 U/L (30-135); Estimated Glomerular Filt Rate 54; Glucose 65 mg/dL (65-110); Potassium 3.9 mmol/L (3.4-5.0); Sodium 131 mmol/L (137-145); Uric Acid 2.9 mg/dL (2.5-7.5)
[2023-01-01 11:15] LABS: Erythrocyte Sedimentation Rate 27 mm/hr (0-20)
== END 2023-01-01 10:18 | disposition home or self-care (01) ==
PROVIDERS: PCP Family Medicine; Visit Provider Family Medicine
DX: E03.9 Hypothyroidism, unspecified (principal); E79.0 Hyperuricemia without signs of inflammatory arthritis and tophaceous disease; R53.1 Weakness; I10 Essential (primary) hypertension
CPT/HCPCS: 36415; 80053; 82550; 84443; 84550; 85025; 85652

== ENCOUNTER 2023-01-06 10:03 | Outpatient (CLI) | payer MEDICARE, SELFPAY ==
--- NOTE | ~2023-01-06 | US_ITS ---
EXAMINATION: US thyroid DATE: 01/06/2023 10:25 INDICATION: Low thyroid stimulating hormone. TECHNIQUE: Multiple ultrasound images of the thyroid were obtained. COMPARISON: Ultrasound 11/26/2022, 01/06/22, 12/29/21 FINDINGS: The right thyroid lobe measures 3.5 x 1.6 x 1.6 cm. The left thyroid lobe measures 3.5 x 1.1 x 1.2 c m. In the right thyroid lobe, there is a 10 mm predominantly solid, hypoechoic, wider than tall nodu le with smooth margin without echogenic foci (TI-RADS TR4), stable from 12/29/21. In the left thyroid lobe, there is a 12 mm solid, hypoechoic, wider than tall nodule with ill-defined margin and punctate echogenic foci (TR5), stable from 01/06/22 when biopsy was benign. There are multiple subcentimeter no dules in the thyroid. IMPRESSION: 1. Stable thyroid nodules. Thyroid ultrasound is recommended in one year. Reviewed, dictated and finalized at location A.
== END 2023-01-06 10:04 | disposition home or self-care (01) ==
LOC: ANHIMG 10:05
PROVIDERS: PCP Family Medicine; Visit Provider Family Medicine
DX: R79.89 Other specified abnormal findings of blood chemistry (principal); E04.2 Nontoxic multinodular goiter
CPT/HCPCS: 76536

== ENCOUNTER 2023-01-06 10:37 | Outpatient (CLI) | payer MEDICARE, SELFPAY ==
--- NOTE | ~2023-01-06 | MMUS_ITS ---
EXAMINATION: MM diagnostic rohan LT w nick, US breast LT limited HISTORY: Probable benign lesions at 12:00 and 2:00 of left breast; 6 month follow-up was recommended on last imaging examination TECHNIQUE: ML, MLO and CC 3-D tomosynthesis images of the left breast were performed and synthetic 2- D images were generated. CAD analysis was submitted and interpreted. High resolution targeted left br east ultrasound examination at 12:00 and 2:00 was performed. COMPARISON: 08/05/2022 diagnostic left mammogram 07/13/2022 Limited left breast ultrasound BREAST PARENCHYMAL COMPOSITION: There are scattered areas of fibroglandular density. FINDINGS: MAMMOGRAPHIC FINDINGS: Numerous benign calcifications again noted scattered in the breast, including occasional calcified mi crohematomas and numerous benign secretory calcifications. No suspicious mass or architectural distortion, malignant calcification, skin thickening or retractio n or significant new or developing density is detected. ULTRASOUND: 12:00 2 cm from nipple: Stable approximately 3.8 x 2.4 x 3.3 mm parallel circumscribed hypoechoic les ion with central hyperechoic area, consistent with benign stable intramammary lymph node 2:00 3 cm from nipple: Similar circumscribed hypoechoic lesion with small central fatty area, likely benign intramammary lymph node, measuring up to 4.3 x 3.3 x 7.7 mm IMPRESSION: 1. Benign findings 2. Routine annual mammographic screening is recommended BI-RADS Category 2: Benign finding(s). Reviewed, dictated and finalized at location A. IMPRESSION: 1. Benign findings 2. Routine annual mammographic screening is recommended BI-RADS Category 2: Benign finding(s).
== END 2023-01-06 10:38 | disposition home or self-care (01) ==
LOC: ANHIMG 10:38
PROVIDERS: PCP Family Medicine; Visit Provider Family Medicine
DX: R92.8 Other abnormal and inconclusive findings on diagnostic imaging of breast (principal)
CPT/HCPCS: 76536; 76642; 77061; 77065; G0279

== ENCOUNTER 2023-01-13 07:53 | Outpatient (CLI) | payer MEDICARE, SELFPAY ==
[2023-01-13 08:26] LABS: Anion Gap 1 mmol/L (8-16); Blood Urea Nitrogen 16 mg/dL (7-17); Calcium 8.5 mg/dL (8.4-10.2); Carbon Dioxide 30 mmol/L (22-30); Chloride 100 mmol/L (98-107); Estimated Glomerular Filt Rate 48; Glucose 112 mg/dL (65-110); Potassium 4.1 mmol/L (3.4-5.0); Sodium 131 mmol/L (137-145)
== END 2023-01-13 07:54 | disposition home or self-care (01) ==
PROVIDERS: PCP Family Medicine; Visit Provider Nurse Practitioner Gerontology
DX: E87.1 Hypo-osmolality and hyponatremia (principal)
CPT/HCPCS: 36415; 80048

== ENCOUNTER 2023-01-21 11:24 | Outpatient (CLI) | payer MEDICARE, SELFPAY ==
[2023-01-21 12:04] LABS: Anion Gap 3 mmol/L (8-16); Blood Urea Nitrogen 16 mg/dL (7-17); Calcium 8.7 mg/dL (8.4-10.2); Carbon Dioxide 30 mmol/L (22-30); Chloride 102 mmol/L (98-107); Estimated Glomerular Filt Rate 60; Glucose 83 mg/dL (65-110); Potassium 3.8 mmol/L (3.4-5.0); Sodium 135 mmol/L (137-145)
[2023-01-21 12:31] LABS: Free T4 Free Thyroxine 0.93 ng/mL (0.78-2.19)
[2023-01-21 12:35] LABS: Thyroid Stimulating Hormone 0.102 uIU/mL (0.465-4.680); Total Triiodothyronine (T3) 1.02 NG/ML (0.97-1.69)
== END 2023-01-21 11:25 | disposition home or self-care (01) ==
LOC: ANHLAB 11:26
PROVIDERS: PCP Family Medicine; Visit Provider Family Medicine
DX: E87.1 Hypo-osmolality and hyponatremia (principal); E03.9 Hypothyroidism, unspecified
CPT/HCPCS: 36415; 80048; 84439; 84443; 84480

== ENCOUNTER 2023-01-31 08:50 | Outpatient (RCR) | payer MEDICARE, SELFPAY ==
[2022-11-02 12:49] LABS: INR 2.6
[2022-12-06 13:30] LABS: INR 1.4; Prothrombin Time 18.1 Seconds (11.1-14.7)
[2022-12-13 10:12] LABS: INR 1.9
[2023-01-13 08:59] LABS: INR 1.6; Prothrombin Time 20.2 Seconds (11.1-14.7)
[2023-01-21 12:00] LABS: INR 1.7; Prothrombin Time 21.1 Seconds (11.1-14.7)
[2023-01-31 09:56] LABS: INR 2.4; Prothrombin Time 28.3 Seconds (11.1-14.7)
== END 2023-01-31 23:59 | disposition home or self-care (01) ==
LOC: ANHLAB 08:50
PROVIDERS: PCP Family Medicine; Visit Provider Internal Medicine Cardiovascular Disease
DX: Z51.81 Encounter for therapeutic drug level monitoring (principal); I48.0 Paroxysmal atrial fibrillation; Z79.01 Long term (current) use of anticoagulants
CPT/HCPCS: 36415; 80048; 84439; 84443; 84480; 84481; 85610

== ENCOUNTER 2023-01-31 08:55 | Outpatient (CLI) | payer MEDICARE, SELFPAY ==
[2023-01-31 09:53] LABS: Anion Gap 3 mmol/L (8-16); Blood Urea Nitrogen 17 mg/dL (7-17); Calcium 8.7 mg/dL (8.4-10.2); Carbon Dioxide 29 mmol/L (22-30); Chloride 101 mmol/L (98-107); Estimated Glomerular Filt Rate 53; Glucose 83 mg/dL (65-110); Potassium 3.7 mmol/L (3.4-5.0); Sodium 133 mmol/L (137-145)
[2023-01-31 10:37] LABS: Free T4 Free Thyroxine 0.93 ng/mL (0.78-2.19)
[2023-02-05 06:04] LABS: Triiodothyronine T3 Free 3.1 pg/mL (2.3-4.2)
== END 2023-01-31 08:56 | disposition home or self-care (01) ==
LOC: ANHLAB 08:56
PROVIDERS: PCP Family Medicine; Visit Provider Physician Assistant
DX: E07.9 Disorder of thyroid, unspecified (principal)
CPT/HCPCS: 36415; 80048; 84439; 84443; 84481

== ENCOUNTER 2023-02-23 12:56 | Outpatient (CLI) | payer MEDICARE, SELFPAY ==
[2023-02-23 13:34] LABS: Basophils Percent Auto 0.2 % (0.2-1.2); Eosinophils Absolute Auto 0.1 K/mm3 (0-0.3); Eosinophils Percent Auto 1.8 % (0-4.4); Hematocrit 39.5 % (37.0-47.0); Immature Granulocyte Absolute 0.01 K/mm3 (0.00-0.031); Immature Granulocyte Percent A 0.2 % (0-0.5); Lymphocytes Absolute Auto 1.46 K/mm3 (0.9-3.2); Lymphocytes Percent Auto 26.2 % (18.3-44.2); Mean Corpuscular HGB Conc 32.9 g/dl (32-36); Mean Corpuscular Hemoglobin 30.8 pg (26-34); Mean Corpuscular Volume 93.6 fl (80-100); Monocytes Absolute Auto 0.5 K/mm3 (0.1-0.6); Monocytes Percent Auto 8.8 % (2.6-8.5); Neutrophils Absolute Auto 3.5 K/mm3 (1.3-6.7); Neutrophils Percent Auto 62.8 % (45.5-73.1); Platelet Count Result 184 k/mm3 (150-375); Red Blood Count 4.22 M/mm3 (4.2-5.4); Red Cell Distribution Width 13.1 % (11.5-14.5); White Blood Count 5.6 K/mm3 (4.5-10.0)
[2023-02-23 13:44] LABS: Alanine Aminotransferase 24 U/L (6-35); Alkaline Phosphatase 132 U/L (38-126); Anion Gap 4 mmol/L (8-16); Aspartate Amino Transferase 27 U/L (14-36); Bilirubin,Total 0.5 mg/dL (0.2-1.3); Blood Urea Nitrogen 14 mg/dL (7-17); Calcium 8.9 mg/dL (8.4-10.2); Carbon Dioxide 31 mmol/L (22-30); Chloride 98 mmol/L (98-107); Estimated Glomerular Filt Rate 53; Glucose 86 mg/dL (65-110); Sodium 133 mmol/L (137-145)
== END 2023-02-23 12:57 | disposition home or self-care (01) ==
LOC: ANHLAB 12:58
PROVIDERS: PCP Family Medicine; Visit Provider Physician Assistant
DX: E87.1 Hypo-osmolality and hyponatremia (principal); I10 Essential (primary) hypertension; I48.0 Paroxysmal atrial fibrillation
CPT/HCPCS: 36415; 80053; 85025

== ENCOUNTER 2023-02-28 10:23 | Outpatient (CLI) | payer MEDICARE, SELFPAY ==
[2023-02-28 11:50] LABS: Anion Gap 6 mmol/L (8-16); Blood Urea Nitrogen 15 mg/dL (7-17); Calcium 8.8 mg/dL (8.4-10.2); Carbon Dioxide 29 mmol/L (22-30); Chloride 96 mmol/L (98-107); Estimated Glomerular Filt Rate 53; Glucose 103 mg/dL (65-110); Potassium 3.9 mmol/L (3.4-5.0); Sodium 131 mmol/L (137-145)
[2023-02-28 12:20] LABS: Thyroid Stimulating Hormone 0.253 uIU/mL (0.465-4.680)
[2023-02-28 12:31] LABS: Free T4 Free Thyroxine 1.09 ng/mL (0.78-2.19)
== END 2023-02-28 10:24 | disposition home or self-care (01) ==
LOC: ANHLAB 10:27
PROVIDERS: PCP Family Medicine; Visit Provider Family Medicine
DX: E07.9 Disorder of thyroid, unspecified (principal); I10 Essential (primary) hypertension; R79.89 Other specified abnormal findings of blood chemistry; E87.1 Hypo-osmolality and hyponatremia
CPT/HCPCS: 36415; 80048; 84439; 84443

== ENCOUNTER 2023-03-21 09:55 | Outpatient (CLI) | payer MEDICARE, SELFPAY ==
[2023-03-21 11:27] LABS: Anion Gap 3 mmol/L (8-16); Blood Urea Nitrogen 16 mg/dL (7-17); Calcium 8.8 mg/dL (8.4-10.2); Carbon Dioxide 30 mmol/L (22-30); Chloride 96 mmol/L (98-107); Estimated Glomerular Filt Rate 48; Glucose 89 mg/dL (65-110); Potassium 3.9 mmol/L (3.4-5.0); Sodium 129 mmol/L (137-145)
== END 2023-03-21 09:56 | disposition home or self-care (01) ==
LOC: ANHLAB 09:58
PROVIDERS: PCP Family Medicine; Visit Provider Physician Assistant
DX: E87.1 Hypo-osmolality and hyponatremia (principal)
CPT/HCPCS: 36415; 80048

== ENCOUNTER 2023-04-22 09:42 | Outpatient (CLI) | payer MEDICARE, SELFPAY ==
[2023-04-22 10:20] LABS: Anion Gap 4 mmol/L (8-16); Blood Urea Nitrogen 13 mg/dL (7-17); Calcium 8.4 mg/dL (8.4-10.2); Carbon Dioxide 30 mmol/L (22-30); Chloride 101 mmol/L (98-107); Estimated Glomerular Filt Rate 53; Glucose 101 mg/dL (65-110); Potassium 3.5 mmol/L (3.4-5.0); Sodium 135 mmol/L (137-145)
[2023-04-22 10:46] LABS: Thyroid Stimulating Hormone 0.737 uIU/mL (0.465-4.680)
[2023-04-22 11:50] LABS: Free T4 Free Thyroxine 1.09 ng/mL (0.78-2.19)
== END 2023-04-22 09:43 | disposition home or self-care (01) ==
PROVIDERS: PCP Family Medicine; Visit Provider Family Medicine
DX: E87.1 Hypo-osmolality and hyponatremia (principal); E07.9 Disorder of thyroid, unspecified
CPT/HCPCS: 36415; 80048; 84439; 84443

== ENCOUNTER 2023-05-13 10:19 | Outpatient (RCR) | payer MEDICARE, SELFPAY ==
[2023-02-23 13:45] LABS: INR 2.8; Prothrombin Time 31.6 Seconds (11.1-14.7)
[2023-03-21 11:27] LABS: INR 2.7; Prothrombin Time 30.7 Seconds (11.1-14.7)
[2023-04-22 10:25] LABS: INR 4.5; Prothrombin Time 46.2 Seconds (11.1-14.7)
[2023-04-29 08:34] LABS: INR 3.5; Prothrombin Time 38.3 Seconds (11.1-14.7)
[2023-05-06 09:42] LABS: INR 3.1; Prothrombin Time 34.7 Seconds (11.1-14.7)
[2023-05-13 11:36] LABS: INR 2.5; Prothrombin Time 28.6 Seconds (11.1-14.7)
== END 2023-05-24 23:59 | disposition home or self-care (01) ==
LOC: ANHLAB 10:19
PROVIDERS: PCP Family Medicine; Visit Provider Internal Medicine Cardiovascular Disease
DX: Z51.81 Encounter for therapeutic drug level monitoring (principal); I48.0 Paroxysmal atrial fibrillation; Z79.01 Long term (current) use of anticoagulants
CPT/HCPCS: 36415; 80048; 80053; 84439; 84443; 85025; 85610

== ENCOUNTER 2023-05-17 10:35 | Outpatient (CLI) | payer MEDICARE, SELFPAY ==
--- NOTE | ~2023-05-17 | MR_ITS ---
MRI of the brain Clinical History: Vertigo Technique: Axial and sagittal T1-weighted images were acquired. These were followed by axial T2-weigh tammi, diffusion weighted, gradient, and FLAIR images. Findings: There is no abnormal signal in the brain parenchyma. No acute infarct, intracranial hemorrh age, or mass lesion identified. Ventricles and subarachnoid spaces are unremarkable. Orbits are unremarkable. Paranasal sinuses and m astoid air cells are clear. Major intracranial flow voids are intact. Sagittal midline structures are intact. IMPRESSION: Unremarkable exam. Reviewed, dictated and finalized at location M. IMPRESSION: Unremarkable exam.
== END 2023-05-17 10:36 | disposition home or self-care (01) ==
PROVIDERS: PCP Family Medicine; Visit Provider Student in an Organized Health Care Education/Training Program
DX: R41.89 Other symptoms and signs involving cognitive functions and awareness (principal)
CPT/HCPCS: 70551

== ENCOUNTER 2023-06-06 11:09 | Outpatient (CLI) | payer MEDICARE, SELFPAY ==
[2023-06-06 11:39] LABS: Anion Gap 3 mmol/L (8-16); Blood Urea Nitrogen 19 mg/dL (7-17); Calcium 8.8 mg/dL (8.4-10.2); Carbon Dioxide 30 mmol/L (22-30); Chloride 100 mmol/L (98-107); Estimated Glomerular Filt Rate 48; Glucose 77 mg/dL (65-110); Potassium 4.1 mmol/L (3.4-5.0); Sodium 133 mmol/L (137-145)
== END 2023-06-06 11:10 | disposition home or self-care (01) ==
LOC: ANHLAB 11:10
PROVIDERS: PCP Family Medicine; Visit Provider Internal Medicine Cardiovascular Disease
DX: I47.19 Other supraventricular tachycardia (principal); R42 Dizziness and giddiness
CPT/HCPCS: 36415; 80048

== ENCOUNTER 2023-07-05 11:26 | Outpatient (CLI) | payer MEDICARE, SELFPAY ==
[2023-07-05 12:15] LABS: Anion Gap 7 mmol/L (8-16); Blood Urea Nitrogen 18 mg/dL (7-17); Calcium 8.7 mg/dL (8.4-10.2); Carbon Dioxide 26 mmol/L (22-30); Chloride 96 mmol/L (98-107); Estimated Glomerular Filt Rate 53; Glucose 76 mg/dL (65-110); Potassium 4.2 mmol/L (3.4-5.0); Sodium 129 mmol/L (137-145)
== END 2023-07-05 11:27 | disposition home or self-care (01) ==
LOC: ANHLAB 11:28
PROVIDERS: PCP Family Medicine; Visit Provider Family Medicine
DX: E87.1 Hypo-osmolality and hyponatremia (principal)
CPT/HCPCS: 36415; 80048

== ENCOUNTER 2023-08-02 08:23 | Outpatient (CLI) | payer MEDICARE, SELFPAY ==
[2023-08-02 08:57] LABS: Anion Gap 9 mmol/L (8-16); Blood Urea Nitrogen 12 mg/dL (7-17); Calcium 8.7 mg/dL (8.4-10.2); Carbon Dioxide 26 mmol/L (22-30); Chloride 98 mmol/L (98-107); Estimated Glomerular Filt Rate 53; Glucose 119 mg/dL (65-110); Potassium 3.8 mmol/L (3.4-5.0); Sodium 133 mmol/L (137-145)
[2023-08-02 10:21] LABS: Free T4 Free Thyroxine 1.02 ng/mL (0.78-2.19)
== END 2023-08-02 08:24 | disposition home or self-care (01) ==
LOC: ANHLAB 08:25
PROVIDERS: PCP Family Medicine; Visit Provider Family Medicine
DX: E87.1 Hypo-osmolality and hyponatremia (principal); R79.89 Other specified abnormal findings of blood chemistry; E03.9 Hypothyroidism, unspecified
CPT/HCPCS: 36415; 80048; 84439; 84443; 85610

== ENCOUNTER 2023-09-07 09:14 | Outpatient (RCR) | payer MEDICARE, SELFPAY ==
[2023-06-09 12:09] LABS: Prothrombin Time 13.9 Seconds (11.1-14.7)
[2023-06-16 10:28] LABS: INR 1.7; Prothrombin Time 21.3 Seconds (11.1-14.7)
[2023-07-05 12:05] LABS: INR 2.9; Prothrombin Time 32.4 Seconds (11.1-14.7)
[2023-08-02 08:54] LABS: INR 2.9; Prothrombin Time 32.8 Seconds (11.1-14.7)
[2023-09-07 10:17] LABS: INR 2.6
== END 2023-09-07 23:59 | disposition home or self-care (01) ==
LOC: ANHLAB 09:14
PROVIDERS: PCP Family Medicine; Visit Provider Internal Medicine Cardiovascular Disease
DX: Z51.81 Encounter for therapeutic drug level monitoring (principal); I48.0 Paroxysmal atrial fibrillation; Z79.01 Long term (current) use of anticoagulants
CPT/HCPCS: 36415; 80048; 85610

== ENCOUNTER 2023-09-07 09:39 | Outpatient (CLI) | payer MEDICARE, SELFPAY ==
[2023-09-07 10:16] LABS: Anion Gap 6 mmol/L (8-16); Blood Urea Nitrogen 15 mg/dL (7-17); Calcium 8.9 mg/dL (8.4-10.2); Carbon Dioxide 27 mmol/L (22-30); Chloride 100 mmol/L (98-107); Estimated Glomerular Filt Rate 53; Glucose 119 mg/dL (65-110); Potassium 3.7 mmol/L (3.4-5.0); Sodium 133 mmol/L (137-145)
== END 2023-09-07 09:40 | disposition home or self-care (01) ==
PROVIDERS: PCP Family Medicine; Visit Provider Physician Assistant
DX: E87.1 Hypo-osmolality and hyponatremia (principal)
CPT/HCPCS: 36415; 80048

== ENCOUNTER 2023-10-27 02:38 | Day surgery (SDC) | payer MEDICARE, SELFPAY ==
--- NOTE | 2023-10-24 10:59 | PC.NURSE ---
LATE ENTRY 10/20/2023 Spoke with patient regarding medication WARFARIN. Pt. verbalizes understanding that the last dose of WARFARIN is to be taken on 10/22/2023 and the Endoscopist will instruct them when to restart after the procedure.
--- NOTE | 2023-10-25 09:58 | SUR.PREOP ---
Patient called regarding upcoming procedure. Reviewed preop instructions, appointment times, and procedure prep.
[2023-10-27 12:15] VITALS: BP 147/55; PULSE 52; RESP 18; TEMP 36.4; O2SAT 99; BMI 21.7
[2023-10-27] MEDS: LACTATED RINGERS 1,000 ML 150 ML IV CONT (12:28)
--- NOTE | 2023-10-27 12:28 | WPDANESEPPF ---
Anes - Initial Pre Proc Eval Procedure: Operation Date: 10/27/23 15:00 Proposed Procedures p Esophagogastroduodenoscopy - Ramon Webster MD Date/Time: 10/27/23 12:28 Surgeon: Ramon Webster MD Pre Op Diagnosis: Dysphagia Patient Data Age: 78 Gender: F Height: 1.73 m Weight: 65 kg Last Vital Signs Temp 97.5 F L 10/27/23 12:15 Pulse 52 L 10/27/23 12:15 Resp 18 10/27/23 12:15 BP 147/55 H 10/27/23 12:15 Pulse Ox 99 10/27/23 12:15 O2 Del Method Room Air 10/27/23 12:15 Allergies Allergy/AdvReac Type Severity Reaction Status Date / Time nut - unspecified Allergy Severe Anaphylactic Verified 10/27/23 12:13 Shock acetaminophen Allergy Unknown HIVES Verified 10/27/23 12:13 codeine Allergy Unknown N/V Verified 10/27/23 12:13 morphine Allergy Unknown N/V Verified 10/27/23 12:13 onion Allergy Unknown hives Verified 10/27/23 12:13 tomato Allergy Unknown hives Verified 10/27/23 12:13 Dnrvswm-XCZ-GjA Reductase AdvReac Severe muscle Verified 10/27/23 12:13 Inhibitor cramps, [Dzmmjny-Xok-Qbw Reductase nausea Inhibitor] amantadine AdvReac Intermediate Confusion Verified 10/27/23 12:13 carbidopa [From Sinemet] AdvReac Intermediate Confusion Verified 10/27/23 12:13 clonazepam AdvReac Intermediate Nausea and Verified 10/27/23 12:13 Vomiting levodopa [From Sinemet] AdvReac Intermediate Confusion Verified 10/27/23 12:13 ropinirole AdvReac Intermediate Confusion Verified 10/27/23 12:13 NUT FLAVOR Allergy Unknown Anaphylactic Uncoded 10/27/23 12:13 Shock Idiopathic analphylaxis AdvReac Severe Anaphylactic Uncoded 10/27/23 12:13 Shock clonazepam AdvReac Intermediate Irritable Uncoded 10/27/23 12:13 Home Medications Medication Instructions Recorded Confirmed Type warfarin 5 mg tablet 7.5 mg PO DAILY 03/29/21 10/19/23 History tramadol 50 mg tablet 50 mg PO Q6H PRN pain #90 tabs 08/23/22 10/19/23 Rx primidone 50 mg tablet 50 mg PO BID 90 days #180 tabs 04/26/23 10/19/23 Rx tamsulosin 0.4 mg capsule See Rx Instructions .Route 07/01/23 10/19/23 Rx .COMPLEX #180 caps colchicine 0.6 mg tablet (Colcrys) 0.6 mg PO DAILY PRN GOUT 07/08/23 10/19/23 History allopurinol 300 mg tablet See Rx Instructions .Route 08/04/23 10/19/23 Rx .COMPLEX #100 tabs fludrocortisone 0.1 mg tablet See Rx Instructions .Route 08/04/23 10/19/23 Rx .COMPLEX #90 tabs bupropion HCl 100 mg tablet 100 mg PO TID #270 tabs 08/12/23 10/19/23 Rx ipratropium bromide 42 mcg (0.06 2 spray intranasal TID #15 mL 08/12/23 10/19/23 Rx %) nasal spray lorazepam 0.5 mg tablet 0.5 mg PO BID PRN anxiety #60 tabs 08/12/23 10/19/23 Rx olmesartan 40 mg tablet 40 mg PO DAILY #100 tabs 08/12/23 10/19/23 Rx methimazole 5 mg tablet 5 mg PO DAILY #135 tabs 08/15/23 10/19/23 Rx amlodipine 5 mg tablet See Rx Instructions .Route 10/02/23 10/19/23 Rx .COMPLEX #180 tabs carisoprodol 350 mg tablet (Soma) 350 mg PO TID #90 tabs 10/06/23 10/19/23 Rx sucralfate 100 mg/mL oral 1 g PO TID 10/19/23 10/19/23 History suspension (Carafate) Patient hx anesthesia problems: none Family hx anesthesia problems: none Results Review: All pre-operative results and documents have been reviewed as part of the pre-operative evaluation. [facility] Past Medical History Medical History Chronic constipation Essential (primary) hypertension NATASHA (generalized anxiety disorder) Gout Hearing loss of aging History of anaphylactic shock Hyperlipidemia Major depressive disorder, single episode, mild Multiple environmental allergies Parkinson's disease Tremor due to disorder of central nervous system Surgical History Surgical History H/O excision of lamina of cervical vertebra for decompression of spinal cord History of appendectomy History of cholecystectomy Previous section X2 S/P cervical spinal fusion Stat
--- NOTE | 2023-10-27 12:51 | PM.HPGS ---
History of Present Illness History of Present Illness Consent: Risks, benefits, and alternatives have been discussed and questions answered. Patient agrees to proceed with procedure. Chief complaint: Dysphagia Narrative: Raquel Gloria is a 78 year old female with episode of choking and neck swelling few weeks ago, now doing ok, last egd in Review of Systems Review of Systems: All systems reviewed & are unremarkable except as noted in HPI and below PMFSH Past Medical History Medical History (Updated 10/27/23 @ 12:52 by Ramon Webster MD) Choking Chronic constipation Essential (primary) hypertension NATASHA (generalized anxiety disorder) Gout Hearing loss of aging History of anaphylactic shock Hyperlipidemia Major depressive disorder, single episode, mild Multiple environmental allergies Parkinson's disease Tremor due to disorder of central nervous system Surgical History Surgical History H/O excision of lamina of cervical vertebra for decompression of spinal cord History of appendectomy History of cholecystectomy Previous section X2 S/P cervical spinal fusion Status post lumbar spine surgery for decompression of spinal cord Family History Family History Mother Family history of Parkinson's disease Family history of Alzheimer's disease, Onset Age: 82 Patient's mother is Sibling Family history of pancreatic cancer, Onset Age: 67 Patient's brother is Father Family history of lung cancer, Onset Age: 65 Patient's father is Grandparent Cerebrovascular accident Diabetes mellitus Mother Family history of Alzheimer's disease Sibling Family history of pancreatic cancer Social History Social History Social History: She lives with her who is dying from kidney cancer. The patient has 2 children. The patient initially stated she wanted to be a DNR and then she changed her mind is that she wanted to be a full code to she could take care of her . She has made him the durable power immigration attorney but he is terminally ill. The patient used to work for the [employer]. Lifelong nonsmoker. No marijuana alcohol or illicit drugs. Smoking status: Never smoker Second hand tobacco smoke exposure: No Alcohol intake: never Substance use: never Substance use type: does not use Lack of Transportation: No Lack of Food: Never True Current Housing: I Have Housing Concerned About Future Housing: No Difficulty Paying Gas/Electric Bills: No Difficulty Paying for Meds: No Currently Unemployed: No Education: Associate Degree Difficulty w/ Childcare or Family Care: No Living arrangements: with family Occupation/Education: retired Gender identity (if verbalized by the patient): Female Sexual Orientation (if Verbalized by the Patient): Straight or Heterosexual Spiritual care concerns: No Meds Home Medications and Allergies Home Medications Medication Instructions Recorded Confirmed Type warfarin 5 mg tablet 7.5 mg PO DAILY 03/29/21 10/19/23 History tramadol 50 mg tablet 50 mg PO Q6H PRN pain #90 tabs 08/23/22 10/19/23 Rx primidone 50 mg tablet 50 mg PO BID 90 days #180 tabs 04/26/23 10/19/23 Rx tamsulosin 0.4 mg capsule See Rx Instructions .Route 07/01/23 10/19/23 Rx .COMPLEX #180 caps colchicine 0.6 mg tablet (Colcrys) 0.6 mg PO DAILY PRN GOUT 07/08/23 10/19/23 History allopurinol 300 mg tablet See Rx Instructions .Route 08/04/23 10/19/23 Rx .COMPLEX #100 tabs fludrocortisone 0.1 mg tablet See Rx Instructions .Route 08/04/23 10/19/23 Rx .COMPLEX #90 tabs bupropion HCl 100 mg tablet 100 mg PO TID #270 tabs 08/12/23 10/19/23 Rx ipratropium bromide 42 mcg (0.06 2 spray intranasal TID #15 mL 08/12/23 10/19/23 Rx %) nasal spray
[2023-10-27 13:04] VITALS: BP 130/63; PULSE 56; RESP 23; O2SAT 96
[2023-10-27 13:14] VITALS: BP 127/63; PULSE 56; RESP 19; O2SAT 96
[2023-10-27 13:24] VITALS: BP 128/77; PULSE 54; RESP 17; O2SAT 96
[2023-10-27 13:34] VITALS: BP 129/64; PULSE 52; RESP 14; O2SAT 99
[2023-10-27] MEDS: ONDANSETRON INJ 4 MG/2 ML VIAL IV PUSH (13:34)
[2023-10-27 13:44] VITALS: BP 165/69; PULSE 57; RESP 21; O2SAT 99
--- NOTE | 2023-10-27 13:49 | SUR.PHASEII ---
Addendum entered by Jazzmine Hope RN 10/27/23 13:53: Pt advised to see ENT physician per Dr. Doyle. Original Note: 1334 Pt complains of nausea. Zofran given IV as ordered. Pt complains of difficulty swallowing saliva. States this happened previously and lasted [address] Doyle notified and is at bedside.
== END 2023-10-27 14:00 | disposition home or self-care (01) ==
PROVIDERS: PCP Family Medicine; Visit Provider Internal Medicine Gastroenterology
PROC: 0DJ08ZZ Inspection of Upper Intestinal Tract, Via Natural or Artificial Opening Endoscopic (ICD-10-PCS; CPT 43235; principal; 2023-10-27 15:00)
DX: K29.70 Gastritis, unspecified, without bleeding (principal); I10 Essential (primary) hypertension; E78.5 Hyperlipidemia, unspecified; G20.A1 Parkinson's disease without dyskinesia, without mention of fluctuations; F32.0 Major depressive disorder, single episode, mild; F41.1 Generalized anxiety disorder; M10.9 Gout, unspecified; Z98.1 Arthrodesis status
CPT/HCPCS: 43235; J2405; J2704; J7120

== ENCOUNTER 2023-11-01 09:41 | Outpatient (CLI) | payer MEDICARE, SELFPAY ==
[2023-11-01 10:30] LABS: Anion Gap 6 mmol/L (4-12); Blood Urea Nitrogen 13 mg/dL (7-17); Calcium 8.8 mg/dL (8.4-10.2); Carbon Dioxide 27 mmol/L (22-30); Chloride 98 mmol/L (98-107); Estimated Glomerular Filt Rate 53; Glucose 154 mg/dL (65-110); Potassium 3.9 mmol/L (3.4-5.0); Sodium 131 mmol/L (137-145)
[2023-11-01 11:07] LABS: Free T4 Free Thyroxine 0.71 ng/mL (0.78-2.19)
== END 2023-11-01 09:42 | disposition home or self-care (01) ==
PROVIDERS: PCP Family Medicine; Visit Provider Physician Assistant
DX: E05.90 Thyrotoxicosis, unspecified without thyrotoxic crisis or storm (principal); E87.1 Hypo-osmolality and hyponatremia; E07.9 Disorder of thyroid, unspecified
CPT/HCPCS: 36415; 80048; 84439; 84443; 85610

== ENCOUNTER 2023-11-08 11:24 | Outpatient (RCR) | payer MEDICARE, SELFPAY ==
[2023-10-06 11:29] LABS: INR 2.4; Prothrombin Time 28.1 Seconds (11.1-14.7)
[2023-11-01 10:48] LABS: INR 1.3; Prothrombin Time 16.7 Seconds (11.1-14.7)
[2023-11-08 12:04] LABS: INR 2.3; Prothrombin Time 26.8 Seconds (11.1-14.7)
== END 2023-11-28 07:22 | disposition home or self-care (01) ==
LOC: ANHLAB 11:24
PROVIDERS: PCP Family Medicine; Visit Provider Internal Medicine Cardiovascular Disease
DX: Z51.81 Encounter for therapeutic drug level monitoring (principal); I48.0 Paroxysmal atrial fibrillation; Z79.01 Long term (current) use of anticoagulants
CPT/HCPCS: 36415; 85610

== ENCOUNTER 2023-11-28 07:28 | Outpatient (CLI) | payer MEDICARE, SELFPAY ==
[2023-11-28 08:18] LABS: Anion Gap 3 mmol/L (4-12); Blood Urea Nitrogen 13 mg/dL (7-17); Calcium 9.1 mg/dL (8.4-10.2); Carbon Dioxide 28 mmol/L (22-30); Chloride 100 mmol/L (98-107); Estimated Glomerular Filt Rate 60; Glucose 95 mg/dL (65-110); Potassium 3.9 mmol/L (3.4-5.0); Sodium 131 mmol/L (137-145)
== END 2023-11-28 07:29 | disposition home or self-care (01) ==
LOC: ANHLAB 07:31
PROVIDERS: PCP Family Medicine; Visit Provider Physician Assistant
DX: E87.1 Hypo-osmolality and hyponatremia (principal)
CPT/HCPCS: 36415; 80048

== ENCOUNTER 2024-01-10 16:16 | Outpatient (CLI) | payer MEDICARE, SELFPAY ==
--- NOTE | ~2024-01-10 | MM_ITS ---
EXAMINATION: MM screening rohan BI w nick HISTORY: Screening TECHNIQUE: Craniocaudal and mediolateral oblique 3-D tomosynthesis images were obtained and synthetic 2-D images were generated. CAD analysis was submitted and interpreted. COMPARISON: Comparison to multiple prior studies sequentially, with oldest reviewed study dated 07/08. BREAST PARENCHYMAL COMPOSITION: Not dense: There are scattered areas of fibroglandular density. FINDINGS: There is no evidence of suspicious mass, calcification, or architectural distortion to sugg est malignancy in either breast. There has been no suspicious interval change. IMPRESSION: 1. No mammographic evidence of malignancy. 2. Recommend routine screening mammography in one year. BI-RADS Category 1: Negative Reviewed, dictated and finalized at location B.
== END 2024-01-10 16:17 | disposition home or self-care (01) ==
PROVIDERS: PCP Family Medicine; Visit Provider Family Medicine
DX: Z12.31 Encounter for screening mammogram for malignant neoplasm of breast (principal)
CPT/HCPCS: 77063; 77067

== ENCOUNTER 2024-01-19 09:36 | Outpatient (CLI) | payer MEDICARE, SELFPAY ==
--- NOTE | ~2024-01-19 | US_ITS ---
EXAMINATION: US thyroid DATE: 01/19/2024 10:21 INDICATION: Nontoxic single thyroid nodule TECHNIQUE: Multiple ultrasound images of the thyroid were obtained. COMPARISON: None. FINDINGS: The right thyroid lobe measures 3.9 x 1.9 x 1.6 cm. The left thyroid lobe measures 3.6 x 1.2 x 1.4 c m. Thyroid isthmus measures 3 mm in thickness. Interval increase in size of a previously 1.0 cm, curr ently 1.2 cm solid heterogeneously hypoechoic nodules at the inferior right thyroid which is hypoecho ic with smooth margins and now with a few internal echogenic foci (TI-RADS 5, highly suspicious , FNA if >=1.0 cm, annual followup is >0.5 cm). There is also been interval increase in size of a now 1.5 x 1.1 x 1.2 cm solid hypoechoic nodule with echogenic foci, also TI RADS 5 at the left thyroid which is increased from 1.2 x 1.0 x 0.8 cm with prior benign biopsy on 01/06/2022. There are a few additional subcentimeter similar-appearing nodules in the right thyroid lobe. IMPRESSION: 1. Interval increase in size and no echogenic foci in a now 1.2 cm TI RADS 5 right thyroid nodule for which ultrasound-guided biopsy would be recommended. Line 2. Interval increase in size of greater than 20% in each dimension of a TI RADS 5 left thyroid nodule with prior benign biopsy. Given the increase in size however could consider repeat biopsy. Reviewed, dictated and finalized at location A. IMPRESSION: 1. Interval increase in size and no echogenic foci in a now 1.2 cm TI RADS 5 ri ght thyroid nodule for which ultrasound-guided biopsy would be recommended. Faustina e 2. Interval increase in size of greater than 20% in each dimension of a TI RADS 5 left thyroid nodule with prior benign biopsy. Given the increase in size how ever could consider repeat biopsy.
== END 2024-01-19 09:37 | disposition home or self-care (01) ==
LOC: ANHIMG 09:37
PROVIDERS: PCP Family Medicine; Visit Provider Physician Assistant
DX: E04.1 Nontoxic single thyroid nodule (principal)
CPT/HCPCS: 76536

== ENCOUNTER 2024-02-02 08:15 | Outpatient (RCR) | payer MEDICARE, SELFPAY ==
[2023-11-28 08:02] LABS: INR 2.7; Prothrombin Time 30.5 Seconds (11.1-14.7)
[2024-01-05 08:11] LABS: INR 3.5; Prothrombin Time 37.8 Seconds (11.1-14.7)
[2024-01-16 09:32] LABS: INR 1.4; Prothrombin Time 17.9 Seconds (11.1-14.7)
[2024-02-02 09:19] LABS: INR 3.1; Prothrombin Time 31.9 Seconds (11.1-14.7)
== END 2024-02-26 23:59 | disposition home or self-care (01) ==
LOC: ANHLAB 08:15
PROVIDERS: PCP Family Medicine; Visit Provider Internal Medicine Cardiovascular Disease
DX: Z51.81 Encounter for therapeutic drug level monitoring (principal); Z79.01 Long term (current) use of anticoagulants
CPT/HCPCS: 36415; 80048; 85610

== ENCOUNTER 2024-02-20 12:34 | Outpatient (CLI) | payer MEDICARE, SELFPAY ==
--- NOTE | ~2024-02-20 | XR_ITS ---
Clinical Indication: Cough PA and lateral views of the chest: Comparison: 04/29/2022 Findings: The lungs are clear, without evidence of focal consolidation or pleural effusion. Cardiome diastinal silhouette is within normal limits, with loop recorder. Bones and soft tissues are unremark able. Impression: Clear lungs. Reviewed, dictated and finalized at location . Impression: Clear lungs.
[2024-02-20 13:52] LABS: Basophils Percent Auto 0.2 % (0.2-1.2); Eosinophils Absolute Auto 0.1 K/mm3 (0-0.3); Eosinophils Percent Auto 2.1 % (0-4.4); Hematocrit 36.9 % (37.0-47.0); Hemoglobin 12.4 g/dL (12.0-15.0); Immature Granulocyte Absolute 0.01 K/mm3 (0.00-0.031); Immature Granulocyte Percent A 0.2 % (0-0.5); Lymphocytes Absolute Auto 1.18 K/mm3 (0.9-3.2); Lymphocytes Percent Auto 22.1 % (18.3-44.2); Mean Corpuscular HGB Conc 33.6 g/dl (32-36); Mean Corpuscular Hemoglobin 31.2 pg (26-34); Mean Corpuscular Volume 92.7 fl (80-100); Monocytes Absolute Auto 0.5 K/mm3 (0.1-0.6); Monocytes Percent Auto 9.8 % (2.6-8.5); Neutrophils Absolute Auto 3.5 K/mm3 (1.3-6.7); Neutrophils Percent Auto 65.6 % (45.5-73.1); Platelet Count Result 188 k/mm3 (150-375); Red Blood Count 3.98 M/mm3 (4.2-5.4); Red Cell Distribution Width 13.2 % (11.5-14.5); White Blood Count 5.3 K/mm3 (4.5-10.0)
[2024-02-20 14:08] LABS: Anion Gap 7 mmol/L (4-12); Blood Urea Nitrogen 15 mg/dL (7-17); Calcium 8.6 mg/dL (8.4-10.2); Carbon Dioxide 29 mmol/L (22-30); Chloride 94 mmol/L (98-107); Estimated Glomerular Filt Rate 60; Glucose 101 mg/dL (65-110); Potassium 3.7 mmol/L (3.4-5.0); Sodium 130 mmol/L (137-145); Uric Acid 2.2 mg/dL (2.5-7.5)
[2024-02-20 14:37] LABS: Thyroid Stimulating Hormone 0.049 uIU/mL (0.465-4.680)
== END 2024-02-20 12:35 | disposition home or self-care (01) ==
LOC: ANHIMG 12:39
PROVIDERS: PCP Family Medicine; Visit Provider Family Medicine
DX: R05.9 Cough, unspecified (principal); I10 Essential (primary) hypertension; E03.9 Hypothyroidism, unspecified; E79.0 Hyperuricemia without signs of inflammatory arthritis and tophaceous disease; E87.1 Hypo-osmolality and hyponatremia
CPT/HCPCS: 36415; 71046; 80048; 84443; 84550; 85025

== ENCOUNTER 2024-02-28 12:16 | Outpatient (CLI) | payer MEDICARE, SELFPAY ==
--- NOTE | ~2024-02-28 | US_ITS ---
EXAMINATION: US FNA additional, US FNA w image guidance DATE: 02/28/2024 13:30 INDICATION: Bilateral thyroid nodules TECHNIQUE: A time-out was performed to verify the patient's name, date of , and procedure to be performed . The procedure and its benefits and risks were discussed with the patient. Risks specifically discus sed included bleeding and infection. The patient understood the risks and agreed to proceed. The neck was prepped and draped in the usual sterile manner. Attention was first turned to the left thyroid n odule. 5 mL 1% lidocaine was used for local anesthesia. 6 passes were made with a 25G needle into th e lesion. Appropriate needle location was documented with continuous sonographic guidance. Attention was then turned to the right thyroid nodule. 5 mL 1% lidocaine was used for local anesthesia. 6 pas ses were made with a 25G needle into the lesion. Appropriate needle location was documented with con tinuous sonographic guidance. Sterile bandages were applied. There were no immediate complications. FINDINGS: Grayscale ultrasound images demonstrate biopsy needles advanced into first the 1.5 cm enlarging TI RA DS 5 left thyroid nodule and subsequently the 1.2 cm TI RADS 5 right thyroid nodule. IMPRESSION: 1. Successful ultrasound-guided fine needle aspiration of the 1.5 cm enlarging TI RADS 5 left thyroi d nodule. 2. Successful ultrasound guided fine needle aspiration of the 1.2 cm TI RADS 5 left thyroid nodule. Reviewed, dictated and finalized at location A. IMPRESSION: 1. Successful ultrasound-guided fine needle aspiration of the 1.5 cm enlarging TI RADS 5 left thyroid nodule. 2. Successful ultrasound guided fine needle aspiration of the 1.2 cm TI RADS 5 left thyroid nodule.
== END 2024-02-28 12:17 | disposition home or self-care (01) ==
LOC: ANHIMG 12:16
PROVIDERS: PCP Family Medicine; Visit Provider Family Medicine
DX: E04.1 Nontoxic single thyroid nodule (principal)
CPT/HCPCS: 10005; 10006; 88172; 88173; 88305

== ENCOUNTER 2024-04-03 06:08 | Inpatient (IN) | payer MEDICARE, SELFPAY ==
[2024-04-03] VITALS (22 sets, daily range): BP systolic 117–165; BP diastolic 46–62; PULSE 48–105; RESP 9–23; TEMP 36.4–37.6; O2SAT 87–100; BMI 24.0
--- NOTE | ~2024-04-03 | CT_ITS ---
Clinical Indication: Dissection CT Scan of the Chest, Abdomen, and Pelvis with Contrast: Technique: Contiguous sections were acquired throughout the chest, abdomen, and pelvis after intraven ous administration of 100 cc of Omnipaque 350. Dose reduction technique was used on this scan by radha pichardo automated exposure control and iterative reconstruction technique. The dose-length product (DL P) was 738.40 mGy-cm. Findings: There is no evidence of any significant mediastinal, hilar or axillary lymphadenopathy. The mediastin al soft tissues appear normal. No pulmonary embolus seen. No aortic aneurysm or dissection. There is no evidence of pleural or pericardial effusion. The lungs are clear. No pulmonary nodules or infiltrates are noted. The liver, spleen, pancreas, adrenals and kidneys are within normal limits. Status post cholecystecto my. No evidence of aortic aneurysm or dissection. There are mild atherosclerotic calcifications of th e aorta. No lymphadenopathy. No bowel obstruction or bowel wall thickening. There is no evidence to suggest acute appendicitis. Urinary bladder is unremarkable. No pelvic mass seen. Trace ascites. Mild T11 compression fracture no tammi, likely chronic. Impression: No aortic aneurysm or dissection. Trace pelvic ascites, nonspecific. Reviewed, dictated and finalized at location . Impression: No aortic aneurysm or dissection. Trace pelvic ascites, nonspecific.
--- NOTE | ~2024-04-03 | CT_ITS ---
Non-contrast Head CT History: Intracranial hemorrhage Technique: Axial non-contrast imaging of the brain was performed. Dose reduction technique was used on this scan by utilizing automated exposure control and iterative reconstruction technique. The dose -length product (DLP) was 605.33 mGy-cm. Findings: There is no evidence of intracranial hemorrhage or acute infarct. There is a densely calci fied 1 cm meningioma in the right posterior fossa (axial image 17). Brain parenchyma appears normal. The ventricles and subarachnoid spaces are normal in size. The calvarium appears normal. The visu alized paranasal sinuses and mastoid air cells are clear. Impression: No acute abnormality. 1 cm posterior fossa meningioma, as detailed above. Reviewed, dictated and finalized at location . Impression: No acute abnormality. 1 cm posterior fossa meningioma, as detailed above.
--- NOTE | ~2024-04-03 | XR_ITS ---
Clinical Indication: Epigastric pain PA and lateral views of the chest: Comparison: 02/20/2024 Findings: The lungs are clear, without evidence of focal consolidation or pleural effusion. Cardiome diastinal silhouette is stable, with loop recorder. Bones and soft tissues are unremarkable. Impression: Clear lungs. Reviewed, dictated and finalized at location . Impression: Clear lungs.
--- NOTE | 2024-04-03 06:08 | ECG_ITS ---
Test Date: 2024-04-03 06:23:14 Measurements Intervals [place] Rate: 52 P: 88 TX: 150 QRS: 11 QRSD: 89 T: 73 QT: 435 QTc: 406 Interpretive Statements SINUS BRADYCARDIA POSSIBLE RIGHT VENTRICULAR CONDUCTION DELAY [RSR (QR) IN V1/V2] MINIMAL ST DEPRESSION [0.025+ mV ST DEPRESSION] No previous ECG available for comparison Electronically Signed On 04-03-2024 15:43:22 CDT by Richard Armendariz M.D.
[2024-04-03 06:29] LABS: Hematocrit 37.3 % (37.0-47.0); Hemoglobin 12.5 g/dL (12.0-15.0); Immature Granulocyte Absolute 0.01 K/mm3 (0.00-0.031); Immature Granulocyte Percent A 0.2 % (0-0.5); Lymphocytes Absolute Auto 0.66 K/mm3 (0.9-3.2); Lymphocytes Percent Auto 15.5 % (18.3-44.2); Mean Corpuscular HGB Conc 33.5 g/dl (32-36); Mean Corpuscular Hemoglobin 30.9 pg (26-34); Mean Corpuscular Volume 92.3 fl (80-100); Mean Platelet Volume 10.3 fl (7.4-10.4); Monocytes Absolute Auto 0.6 K/mm3 (0.1-0.6); Monocytes Percent Auto 12.9 % (2.6-8.5); Neutrophils Percent Auto 71.4 % (45.5-73.1); Platelet Count Result 146 k/mm3 (150-375); Red Blood Count 4.04 M/mm3 (4.2-5.4); Red Cell Distribution Width 13.3 % (11.5-14.5); White Blood Count 4.3 K/mm3 (4.5-10.0)
[2024-04-03 06:40] LABS: Partial Thromboplastin Time 58.2 Seconds (22.3-36.8); Prothrombin Time 49.3 Seconds (11.1-14.7)
[2024-04-03 06:44] LABS: Alanine Aminotransferase 20 U/L (6-35); Albumin Level 3.9 g/dL (3.5-5.1); Alkaline Phosphatase 138 U/L (38-126); Anion Gap 10 mmol/L (4-12); Aspartate Amino Transferase 29 U/L (14-36); Bilirubin,Total 0.3 mg/dL (0.2-1.3); Blood Urea Nitrogen 12 mg/dL (7-17); Calcium 8.5 mg/dL (8.4-10.2); Carbon Dioxide 27 mmol/L (22-30); Chloride 93 mmol/L (98-107); Estimated CRCL calculation 39 ml/min; Estimated Glomerular Filt Rate 53; Glucose 90 mg/dL (65-110); Lipase 134 U/L (23-300); Potassium 3.5 mmol/L (3.4-5.0); Sodium 130 mmol/L (137-145)
[2024-04-03 06:45] LABS: INR 5.3
[2024-04-03 06:56] LABS: Troponin I < 0.012 ng/mL (0.000-0.034)
--- NOTE | 2024-04-03 07:12 | PC.NURSE ---
pt refused to take the ASA, states she was told by her heart doctor she couldn't take it with her warfarin.
--- NOTE | 2024-04-03 07:25 | ECG_ITS ---
Test Date: 2024-04-03 07:31:06 Measurements Intervals [place] Rate: 50 P: 0 NH: 0 QRS: -2 QRSD: 103 T: 81 QT: 431 QTc: 396 Interpretive Statements SINUS BRADYCARDIA INCOMPLETE RIGHT BUNDLE BRANCH BLOCK [90+ ms QRS DURATION, TERMINAL R IN V1/V2, 40+ ms S IN I/aVL/V4/V5/V6] NONSPECIFIC ST & T-WAVE ABNORMALITY ABNORMAL RHYTHM ECG Compared to ECG 04/03/2024 06:23:14 NO SIGNIFICANT CHANGES Electronically Signed On 04-03-2024 15:44:36 CDT by Richard Armendariz M.D.
--- NOTE | 2024-04-03 07:28 | ED.CHESTPAIN ---
HPI - Chest Pain General Chief Complaint: Chest Pain Stated Complaint: chest pain Time Seen by Provider: 04/03/24 07:12 History of Present Illness HPI narrative: This is an 79-year-old female with past medical history significant for congestive heart failure and atrial fibrillation, on warfarin therapy. She has a history of Parkinson's and intermittent bradycardia. today she presents to the emergency department for evaluation of sudden onset chest pain that began 130 this morning while she was in bed resting. She states the chest pain is squeezing in nature and worsening with time. She states she has never had chest pain like this in the past. Has been dosing feeling nauseous and vomiting as well having abdominal pain radiating to her back since this started. she was recently treated with antibiotics for an abscess right-sided upper molar tooth. Denies any fever, chills, headache, vision changes, neuropathy, weakness. Related Data Home Medications Medication Instructions Recorded Confirmed warfarin 5 mg tablet 7.5 mg PO DAILY 03/29/21 02/17/24 colchicine 0.6 mg tablet (Colcrys) 0.6 mg PO DAILY PRN GOUT 07/08/23 02/17/24 budesonide 160 mcg-glycopyr 9 2 inh inhalation BID 02/14/24 02/17/24 mcg-formot 4.8 mcg/actuation HFA inhaler (Breztri Videologyphere) Allergies Allergy/AdvReac Type Severity Reaction Status Date / Time nut - unspecified Allergy Severe Anaphylactic Verified 04/03/24 06:22 Shock acetaminophen Allergy Unknown HIVES Verified 04/03/24 06:22 codeine Allergy Unknown N/V Verified 04/03/24 06:22 morphine Allergy Unknown N/V Verified 04/03/24 06:22 onion Allergy Unknown hives Verified 04/03/24 06:22 tomato Allergy Unknown hives Verified 04/03/24 06:22 Cbpjjub-KOG-DjV Reductase AdvReac Severe muscle Verified 04/03/24 06:22 Inhibitor cramps, [Zeezmkp-Avr-Vfc Reductase nausea Inhibitor] amantadine AdvReac Intermediate Confusion Verified 04/03/24 06:22 carbidopa [From Sinemet] AdvReac Intermediate Confusion Verified 04/03/24 06:22 clonazepam AdvReac Intermediate Nausea and Verified 04/03/24 07:29 Vomiting,Irritable levodopa [From Sinemet] AdvReac Intermediate Confusion Verified 02/17/24 08:09 ropinirole AdvReac Intermediate Confusion Verified 02/17/24 08:09 NUT FLAVOR Allergy Unknown Anaphylactic Uncoded 02/17/24 08:09 Shock Idiopathic analphylaxis AdvReac Severe Anaphylactic Uncoded 02/17/24 08:09 Shock Review of Systems Review of Systems: as reviewed above in the HPI [facility] Past Medical History Medical History Choking Chronic constipation Essential (primary) hypertension NATASHA (generalized anxiety disorder) Gout Hearing loss of aging History of anaphylactic shock Hyperlipidemia Major depressive disorder, single episode, mild Multiple environmental allergies Parkinson's disease Tremor due to disorder of central nervous system Surgical History Surgical History H/O excision of lamina of cervical vertebra for decompression of spinal cord History of appendectomy History of cholecystectomy Previous section X2 S/P cervical spinal fusion Status post lumbar spine surgery for decompression of spinal cord Family History Family History Mother Family history of Parkinson's disease Family history of Alzheimer's disease, Onset Age: 82 Patient's mother is Sibling Family history of pancreatic cancer, Onset Age: 67 Patient's brother is Father Family history of lung cancer, Onset Age: 65 Patient's father is Grandparent Cerebrovascular accident Diabetes mellitus Mother Family history of Alzheimer's disease Sibling Family history of pancreatic cancer Social History Social History (Reviewed 04/03/24 @ 07:30 by Elio
[2024-04-03] MEDS: fentaNYL CITRATE INJ (*CRX) 100 MCG/2 ML VIAL 50 MCG IV PUSH (07:52)
[2024-04-03] MEDS: LACTATED RINGERS 1,000 ML 999 ML IV CONT (07:52)
[2024-04-03] MEDS: ONDANSETRON INJ 4 MG/2 ML VIAL IV PUSH ×3 (07:52→23:45)
[2024-04-03] MEDS: diphenhydrAMINE HCl INJ 50 MG/ML VIAL 25 MG IV PUSH (09:05)
[2024-04-03] MEDS: METOCLOPRAMIDE HCL INJ 10 MG/2 ML VIAL IV PUSH (09:06)
--- NOTE | 2024-04-03 09:10 | ECG_ITS ---
Test Date: 2024-04-03 09:16:32 Measurements Intervals [place] Rate: 64 P: 71 MD: 160 QRS: -16 QRSD: 102 T: 72 QT: 444 QTc: 460 Interpretive Statements SINUS RHYTHM WITH FREQUENT SUPRAVENTRICULAR PREMATURE COMPLEXES INCOMPLETE RIGHT BUNDLE BRANCH BLOCK [90+ ms QRS DURATION, TERMINAL R IN V1/V2, 40+ ms S IN I/aVL/V4/V5/V6] NONSPECIFIC ST & T-WAVE ABNORMALITY Compared to ECG 04/03/2024 07:31:06 NO SIGNIFICANT CHANGES Electronically Signed On 04-03-2024 15:48:28 CDT by Richard Armendariz M.D.
[2024-04-03 09:39] LABS: Troponin I < 0.012 ng/mL (0.000-0.034)
--- NOTE | 2024-04-03 12:26 | ECG_ITS ---
Test Date: 2024-04-03 12:30:17 Measurements Intervals [place] Rate: 48 P: 78 DC: 151 QRS: -11 QRSD: 104 T: 75 QT: 451 QTc: 405 Interpretive Statements SINUS BRADYCARDIA INCOMPLETE RIGHT BUNDLE BRANCH BLOCK [90+ ms QRS DURATION, TERMINAL R IN V1/V2, 40+ ms S IN I/aVL/V4/V5/V6] NONSPECIFIC ST & T-WAVE ABNORMALITY ABNORMAL ECG Compared to ECG 04/03/2024 09:16:32 HEART RATE REDUCED, NO OTHER SIGNIFICANT CHANGE Electronically Signed On 04-03-2024 17:59:30 CDT by Wesly Ruff M.D.
[2024-04-03 13:05] LABS: Troponin I < 0.012 ng/mL (0.000-0.034)
--- NOTE | 2024-04-03 14:52 | ADMGEN ---
This patient, Raquel Gloria, was admitted to IMU Room 206-02 @ 1355.Patient oriented to hospital policies and general routines including ID bracelet, bed and alarms, visiting hours, pain management, procedures, bathroom and other care routines, personal items, smoking policy, room service/diet, and visiting hours. Information on how to activate the Rapid Response Team has been discussed. Patient encouraged to report perceived risks to care and to ask questions if they do not understand what they are told or what they should do.
--- NOTE | 2024-04-03 16:06 | PM.IMHP ---
H&P: HPI History of Present Illness Date/Time: 04/03/24 16:06 Chief Complaint: atypical chest pain Narrative: This is an 79-year-old female a significant past medical history of congestive heart failure, atrial fibrillation, Parkinson's, symptomatic bradycardia who presented to the hospital with complaint of atypical chest pain that began around 1:30 this morning when she was in bed resting. She described the chest pain as pressure. She denies any fever, chills, diarrhea, abdominal pain, shortness a breath. She does report a dry cough, intermittent chest pain, nausea, vomiting. She does report that she has been placed on a loop recorder for her symptomatic bradycardia to evaluate if she needs a pacemaker. Workup in hospital included a chest x-ray which was negative. Head CT which was negative for any acute intracranial abnormality, showed a 1 cm posterior fossa meningioma. Chest/abdomen/pelvis CTA was negative for any aortic aneurysm, PE, dissection, showed trace pelvic ascites. Initial labs showed a white blood cell count of 4.3, RBC 4.04, platelet count 146, INR 5.3 (currently on Coumadin), sodium 130, chloride 93, alk-phos 138, troponin negative x3, lipase 134. Initial EKG showing sinus bradycardia with a rate of 50, incomplete right bundle branch block, QTC 396. Patient was given 1 L of LR, Zofran, aspirin, Reglan, Benadryl while in the ED. Review of Systems Review of Systems: All systems reviewed & are unremarkable except as noted in HPI and below Constitutional: Constitutional: Reports as per HPI and Reports no additional constitutional complaints Eyes: Eyes: Reports as per HPI and Reports no additional eye complaints ENT: Reports system reviewed and no additional complaints, except as documented and Reports as per HPI Cardiovascular: Cardiovascular: Reports as per HPI and Reports no additional cardiovascular complaints Respiratory: Respiratory: Reports as per HPI and Reports no additional respiratory complaints Gastrointestinal: Gastrointestinal: Reports as per HPI and Reports no additional gastrointestinal complaints Genitourinary: Genitourinary: Reports no additional female genitourinary complaints and Reports as per HPI Musculoskeletal: Musculoskeletal: Reports no additional musculoskeletal complaints and Reports as per HPI Integumentary/Breasts: Skin/Breast: Reports system reviewed and no additional complaints, except as docu and Reports as per HPI Neurologic: Reports system reviewed and no additional complaints, except as documented and Reports as per HPI Psychiatric: Psychiatric: Reports no additional psychiatric complaints and Reports as per HPI [facility] Past Medical History Medical History (Updated 04/03/24 @ 16:44 by Melissa Hammer APRN) Atrial fibrillation and flutter BPPV (benign paroxysmal positional vertigo) Choking Chronic constipation Essential (primary) hypertension NATASHA (generalized anxiety disorder) Gout Hearing loss of aging History of anaphylactic shock Hyperlipidemia Hyperthyroidism Major depressive disorder, single episode, mild Multiple environmental allergies Parkinson's disease Tremor due to disorder of central nervous system Vocal cord dysfunction Surgical History Surgical History H/O excision of lamina of cervical vertebra for decompression of spinal cord History of appendectomy History of cholecystectomy Previous section X2 S/P cervical spinal fusion Status post lumbar spine surgery for decompression of spinal cord Family History Family History Mother Family history of Parkinson's disease Family history of Alzheimer's disease, Onset Age: 82 Patient's mother is Sibling Family history of pancreatic cancer, Onset Age: 67 Patient's brother is Father Family history of lung cancer, Onset Age: 65 [place]
[2024-04-03] MEDS: PRIMIDONE 50 MG TABLET PO (18:02)
[2024-04-03] MEDS: buPROPion HCL 100 MG TABLET PO (18:02)
[2024-04-03] MEDS: allopurinoL 300 MG TABLET PO (18:02)
[2024-04-03] MEDS: amLODIPine BESYLATE 5 MG TABLET BY MOUTH ×2 (18:04→20:56)
[2024-04-03] MEDS: TAMSULOSIN HCL 0.4 MG CAPSULE PO ×2 (18:04→20:56)
--- NOTE | 2024-04-03 22:14 | PC.NURSE ---
Pt. reported to RN at shift change that she is concerned about an infected tooth. Pt. stated that she was prescribed a Zpac but stopped taking the antibiotic after two doses due to GI issues. Pt. is concerned that she may need further antibiotic treatment.
[2024-04-04] VITALS (8 sets, daily range): BP systolic 112–124; BP diastolic 36–52; PULSE 50–65; RESP 12–20; TEMP 36.3–37.4; O2SAT 92–97
--- NOTE | 2024-04-04 | ECHO_ITS ---
Patient Info Name: Raquel Gloria Age: 79 years : 1945 Gender: Female Ht: 67 in Wt: 147 lbs BSA: 1.78 m2 HR: 56 bpm BP: 122 / 53 mmHg Heart Rhythm: Sinus Rhythm Technical Quality: Good Exam Date: 04/04/2024 9:14 AM Exam Location: Echo Lab Patient Status: Outpatient Admit Date: 04/03/2024 Staff Ordering Physician: Melissa Hammer APRN Stem Setter: Jim Diallo RDCS Attending Provider: Margaret Mosley APRN Referring Physician: Jaquelin STEVE; Exam Type: CA echo doppler color flow Study Info Indications - symptomatic bradycardia Complete two-dimensional, color flow and Doppler transthoracic echocardiogram is performed. Summary 1. Complete two-dimensional, color flow and Doppler transthoracic echocardiogram is performed. 2. Or normal left ventricular size, thickness systolic and diastolic function. 3. Mildly dilated left atrium. 4. Mild MR. 5. Sinus rhythm. Left Ventricle Left ventricular chamber dimension is normal. Left ventricular systolic function is normal, estimated at 60-65%. The left ventricular diastolic function is normal. Right Ventricle Right ventricular chamber dimension is normal. Left Atria Left atrial chamber dimension is mildly enlarged. Right Atria Right atrial chamber dimension is normal. Aortic Valve The aortic valve is normal. Pulmonic Valve The pulmonic valve is normal. Mitral Valve The mitral valve has normal leaflets. There is mild mitral valve stenosis. Tricuspid Valve The tricuspid valve leaflets are normal. Pericardium/Pleural The pericardium appears normal. Aorta The aortic root size at the sinus of Valsalva is normal. Left Ventricular Outflow Tract Name Value Normal LVOT 2D LVOT Diameter 1.9 cm LVOT Doppler LVOT Peak Gradient 5 mmHg LVOT Mean Gradient 3 mmHg LVOT VTI 26 cm LVOT VTI/AV VTI Ratio 1.0 LVOT Stroke Volume 75 ml LVOT CO 4.2 l/min LVOT CI 2.3 l/min/m2 Pulmonic Valve Name Value Normal PV Doppler PV Peak Gradient 3 mmHg Mitral Valve Name Value Normal MV Doppler MV Decel [place] 292 cm/s2 MV PHT 89 ms MV Area (PHT) 2.5 cm2 4.0-5.0 MV Regurgitation Doppler MR Peak Gradient 69 mmHg MV Diastolic Function MV E Peak Velocity
[2024-04-04 04:52] LABS: Hematocrit 36.2 % (37.0-47.0); Hemoglobin 12.2 g/dL (12.0-15.0); Immature Granulocyte Absolute 0.01 K/mm3 (0.00-0.031); Immature Granulocyte Percent A 0.4 % (0-0.5); Immature Platelet Fraction Pct 3.8 % (0.9-11.2); Lymphocytes Absolute Auto 0.52 K/mm3 (0.9-3.2); Lymphocytes Percent Auto 18.5 % (18.3-44.2); Mean Corpuscular HGB Conc 33.7 g/dl (32-36); Mean Corpuscular Hemoglobin 31.1 pg (26-34); Mean Corpuscular Volume 92.3 fl (80-100); Mean Platelet Volume 10.6 fl (7.4-10.4); Monocytes Absolute Auto 0.4 K/mm3 (0.1-0.6); Monocytes Percent Auto 14.6 % (2.6-8.5); Neutrophils Absolute Auto 1.9 K/mm3 (1.3-6.7); Neutrophils Percent Auto 66.5 % (45.5-73.1); Platelet Count Result 119 k/mm3 (150-375); Red Blood Count 3.92 M/mm3 (4.2-5.4); Red Cell Distribution Width 13.2 % (11.5-14.5); White Blood Count 2.8 K/mm3 (4.5-10.0)
[2024-04-04 04:57] LABS: Alanine Aminotransferase 28 U/L (6-35); Albumin Level 3.3 g/dL (3.5-5.1); Alkaline Phosphatase 120 U/L (38-126); Anion Gap 8 mmol/L (4-12); Aspartate Amino Transferase 38 U/L (14-36); Bilirubin,Total 0.3 mg/dL (0.2-1.3); Blood Urea Nitrogen 12 mg/dL (7-17); Calcium 7.9 mg/dL (8.4-10.2); Carbon Dioxide 28 mmol/L (22-30); Chloride 93 mmol/L (98-107); Estimated CRCL calculation 43 ml/min; Estimated Glomerular Filt Rate 60; Glucose 94 mg/dL (65-110); Potassium 3.3 mmol/L (3.4-5.0); Sodium 129 mmol/L (137-145)
[2024-04-04 05:02] LABS: Prothrombin Time 50.8 Seconds (11.1-14.7)
[2024-04-04 05:05] LABS: INR 5.5
--- NOTE | 2024-04-04 07:21 | PM.IMPN ---
Progress Note: A&P Assessment and Plan (1) Symptomatic bradycardia: Code(s): R00.1 - Bradycardia, unspecified Status: Acute Assessment and Plan: 04/03/24: Presented with nausea and vomiting and intermittent chest pain, heart rate 48-53 Has a loop recorder is being worked up for control pacemaker Plan for echo Cardiology consulted Troponin negative x3 Initial EKG showing sinus bradycardia with incomplete right bundle branch block with a rate of 50, QTC 396 Chest x-ray was negative Chest/abdomen/pelvis CTA was negative for PE, aneurysm, or dissection Continuous cardiac monitoring Transfer to medicine tele (2) Chest pain: Code(s): R07.9 - Chest pain, unspecified Status: Acute Assessment and Plan: Suspect gastric etiology Start PPI Other workup for bradycardia as noted (3) Supratherapeutic INR: Code(s): R79.1 - Abnormal coagulation profile Status: Acute Assessment and Plan: In the setting of dehydration. On long-term anticoagulation for AFib with Coumadin Continue to hold coumadin INR 5.3 Continue to trend (4) Atrial fibrillation: Code(s): I48.91 - Unspecified atrial fibrillation Status: Chronic Assessment and Plan: Normally on Coumadin however this is on hold due to supratherapeutic INR (5) Essential (primary) hypertension: Code(s): I10 - Essential (primary) hypertension Status: Chronic Assessment and Plan: Blood pressure ranging 124/49 to 152/47. Continue amlodipine (6) Hyperthyroidism: Code(s): E05.90 - Thyrotoxicosis, unspecified without thyrotoxic crisis or storm Status: Acute Assessment and Plan: Continue methimazole (7) Nausea & vomiting: Code(s): R11.2 - Nausea with vomiting, unspecified Status: Acute Assessment and Plan: Schedule Zofran q6, IV benadryl 25 q12. --Compazine prn (8) Fever: Code(s): R50.9 - Fever, unspecified Status: Acute Assessment and Plan: Reported fever of 101 last week currently afebrile. Also noted a dental infection. --May be viral, check COVID/FLu/RSV --Blood cultures x2 Time Spent With Patient Time: 45 Subjective Date/time seen: 04/04/24 07:21 Interval history: Patient reports having a cap placed on her tooth last alvaro and started azithromycin for a dental abscess, but subsequently started vomiting. Mccleary like she was coming down with something before that but has been vomiting all week. Reported fever around 101 last week, not this week. Otherwise no diarrhea. Has had taste changes, but some may be related to drainage. Patient also notes a history of idopathic anaphylaxis and reports intermittently able to tolerate medications such as amoxicillin but also had a allergy to PCN before as well. Records are not available, were in [place] per patient. Today feeling nauseated, having epigastric chest pain Cardiology planning outpatient Ordered a viral swab Review of Systems Review of Systems: Negative except as noted above Exam Narrative: General: In no acute distress, well nourished Head: atraumatic, no encephalopathy Eyes: EOMI, PERRLA, sclera clear ENT: moist mucous membranes, nasal passages clear Neck: supple, no JVD, no adenopathy, trachea midline Cardiac: Normal S1 and S2. Bradycardia No murmur, gallops or friction rubs, peripheral pulses intact. Respiratory: Lungs clear to auscultation, no adventitious lung sounds, currently on room air Gastrointestinal: soft, non-distended, epigastric tenderness, normoactive bowel sounds. Reports nausea and vomiting : voiding without difficulty. Extremities: moves all extremities well, no edema, good ROM, strength 5/5 Skin: clean, dry, intact. No wounds or lesions. Neuro: Alert and oriented x4, cranial nerves intact, no neuro deficits. Psych: normal mood, normal affect, interactive Objective Data Vital Signs Vital Signs: Vital Signs - 24 hr
--- NOTE | 2024-04-04 07:53 | PM.CNCAR ---
Assessment and Plan Assessment and plan (1) Atrial fibrillation: Code(s): I48.91 - Unspecified atrial fibrillation Status: Chronic Plan this is an 79-year-old woman with a history of paroxysmal atrial fibrillation being followed in our office. She is anticoagulated with warfarin and not taking any medication for rhythm or rate control. She enters the hospital with some rather uncommon symptoms with pain starting in the lower extremities then up into the abdomen and then a been to the middle of the chest associated with nausea and worsened by meals. These are not symptoms that are concerning to me for myocardial ischemia. There is no evidence of an acute coronary syndrome by ECG or by troponin levels. Regarding her bradycardia the symptoms are not attributable to her bradycardia and I would not consider this a reason to implant a pacemaker device. She should continue to be followed in the office. Upon the snf of Dr. Paniagua she has been assigned to the clinic of Dr. Armendariz. Appropriate follow-up is already set up for her in the office. No additional cardiac recommendations at this time Wesly Ruff MD [facility] History of Present Illness History of Present Illness Consult date/time: 04/04/24 07:53 Reason For Visit: chest pain Narrative: this is an 79-year-old woman who is unknown to me who I am seeing at the request of the hospitalist at says because of both chest pain and symptomatic bradycardia. The patient apparently was known to and followed by my partner Dr. Jackson until her recent snf. She says she has a history of atrial fibrillation that began several years ago and is being followed in the office. She does not require any medical antiarrhythmic therapy and she is told that she tends to run a slower heart rate and that at some point in the future she might require a pacemaker implantation. The patient only takes warfarin for systemic anticoagulation and does not require any rate-controlling or rhythm controlling medications. She does not require anything else being wrong with her heart other than the history of atrial fibrillation. She came to the hospital yesterday morning because she has been feeling unwell for a couple of days with rather uncommon symptoms she states she started having pain in the lower extremities and then pain and cramping in the abdomen associated with nausea. She states that every time she tries to eat something she becomes uncomfortable with increasing pain and nausea. The patient eventually came to the emergency room yesterday. She is in sinus rhythm/ sinus bradycardia with PACs. No atrial fibrillation has been seen since she is in the hospital. Of note her INR was supratherapeutic on arrival. she does not have any history of syncope or presyncope. No serious Mesfin arrhythmias or pauses have been seen on telemetry. At this point she does not appear to be reporting any symptoms attributable to her sinus bradycardia. Troponin levels have been sampled the yesterday x3 sets and the were all unremarkable. Review of Systems Constitutional: Constitutional: Reports no additional constitutional complaints Eyes: Eyes: Reports no additional eye complaints ENT: Reports system reviewed and no additional complaints, except as documented Cardiovascular: Cardiovascular: Reports as per HPI and Reports chest pain Respiratory: Respiratory: Reports no additional respiratory complaints Gastrointestinal: Gastrointestinal: Reports as per HPI and Reports nausea Musculoskeletal: Musculoskeletal: Reports no additional musculoskeletal complaints Integumentary/Breasts: Skin/Breast: Reports system reviewed and no additional complaints, except as docu Neurologic: Reports system reviewed and no additional complaints, except as documented Endocrine: Endocrine: Reports no additional endocrine complaints Hematologic/Lymphatic: Hematologic/Lymphatic: Reports no additional hematologic/l
[2024-04-04 08:26] LABS: Magnesium 1.8 mg/dL (1.6-2.3)
[2024-04-04] MEDS: PRIMIDONE 50 MG TABLET PO ×2 (09:55→18:34)
[2024-04-04] MEDS: ONDANSETRON HCL ODT 4 MG TABLET PO ×2 (09:55→20:57)
[2024-04-04] MEDS: buPROPion HCL 100 MG TABLET PO ×2 (09:55→18:34)
[2024-04-04] MEDS: POTASSIUM CHLORIDE 20 MEQ ER TABLET 40 MEQ PO (09:55)
[2024-04-04] MEDS: FLUDROCORTISONE ACETATE 0.1 MG TABLET PO (09:55)
[2024-04-04] MEDS: CHOLECALCIFEROL 1,000 UNITS TABLET 2000 UNITS PO (09:58)
[2024-04-04] MEDS: diphenhydrAMINE HCl INJ 50 MG/ML VIAL 25 MG IV PUSH ×2 (09:59→18:36)
[2024-04-04] MEDS: PANTOPRAZOLE SODIUM IV 40 MG VIAL IV PUSH (10:00)
[2024-04-04] MEDS: PROCHLORPERAZINE EDISYLATE 10 MG/2 ML VIAL (10:01)
[2024-04-04] MEDS: methiMAzole 10 MG TAB PO (10:39)
[2024-04-04 13:05] LABS: Influenza A QL RT-PCR Negative (Negative); Influenza B QL RT-PCR Negative (Negative); RSV RNA, RT-PCR Negative (Negative); SARS-CoV-2 RNA PCR Positive (Negative)
[2024-04-04] MEDS: CHLORHEXIDINE GLUCONATE 0.12% ORAL RINSE 473 ML BTL (*BKC) 15 ML SWISH/SPIT ×2 (18:06→18:34)
[2024-04-04] MEDS: amLODIPine BESYLATE 5 MG TABLET BY MOUTH ×2 (18:34→20:59)
[2024-04-04] MEDS: TAMSULOSIN HCL 0.4 MG CAPSULE PO ×2 (18:34→20:57)
[2024-04-04] MEDS: allopurinoL 300 MG TABLET PO (18:35)
--- NOTE | 2024-04-04 18:58 | PC.NURSE ---
This patient, Raquel Gloria, was received from [[id number] ] on 04/04/24 at 1857. Patient/family oriented to unit policies and routines
[2024-04-04] MEDS: LORazepam (*CRX) 1 MG TABLET PO (20:57)
[2024-04-05] VITALS (7 sets, daily range): BP systolic 102–124; BP diastolic 44–60; PULSE 51–99; RESP 14–20; TEMP 36.7–37.8; O2SAT 92–96
[2024-04-05] MEDS: ONDANSETRON HCL ODT 4 MG TABLET PO ×4 (03:32→20:53)
[2024-04-05 07:27] LABS: Hematocrit 35.3 % (37.0-47.0); Immature Granulocyte Absolute 0.01 K/mm3 (0.00-0.031); Immature Granulocyte Percent A 0.4 % (0-0.5); Immature Platelet Fraction Pct 3.9 % (0.9-11.2); Lymphocytes Absolute Auto 0.77 K/mm3 (0.9-3.2); Lymphocytes Percent Auto 28.5 % (18.3-44.2); Mean Corpuscular Hemoglobin 31.4 pg (26-34); Mean Corpuscular Volume 92.4 fl (80-100); Mean Platelet Volume 10.5 fl (7.4-10.4); Monocytes Absolute Auto 0.3 K/mm3 (0.1-0.6); Monocytes Percent Auto 11.5 % (2.6-8.5); Neutrophils Absolute Auto 1.6 K/mm3 (1.3-6.7); Neutrophils Percent Auto 59.6 % (45.5-73.1); Platelet Count Result 119 k/mm3 (150-375); Red Blood Count 3.82 M/mm3 (4.2-5.4); Red Cell Distribution Width 13.2 % (11.5-14.5); White Blood Count 2.7 K/mm3 (4.5-10.0)
[2024-04-05 07:54] LABS: Alanine Aminotransferase 36 U/L (6-35); Alkaline Phosphatase 115 U/L (38-126); Anion Gap 7 mmol/L (4-12); Aspartate Amino Transferase 47 U/L (14-36); Bilirubin,Total 0.3 mg/dL (0.2-1.3); Blood Urea Nitrogen 12 mg/dL (7-17); Calcium 7.7 mg/dL (8.4-10.2); Carbon Dioxide 27 mmol/L (22-30); Chloride 93 mmol/L (98-107); Estimated CRCL calculation 39 ml/min; Estimated Glomerular Filt Rate 53; Glucose 79 mg/dL (65-110); Potassium 3.5 mmol/L (3.4-5.0); Sodium 127 mmol/L (137-145)
--- NOTE | 2024-04-05 08:28 | PM.IMPN ---
Progress Note: A&P Assessment and Plan (1) Symptomatic bradycardia: Code(s): R00.1 - Bradycardia, unspecified Status: Acute (2) Chest pain: Code(s): R07.9 - Chest pain, unspecified Status: Acute (3) Supratherapeutic INR: Code(s): R79.1 - Abnormal coagulation profile Status: Acute (4) Atrial fibrillation: Code(s): I48.91 - Unspecified atrial fibrillation Status: Chronic (5) Essential (primary) hypertension: Code(s): I10 - Essential (primary) hypertension Status: Chronic (6) Hyperthyroidism: Code(s): E05.90 - Thyrotoxicosis, unspecified without thyrotoxic crisis or storm Status: Acute (7) Nausea & vomiting: Code(s): R11.2 - Nausea with vomiting, unspecified Status: Acute (8) Fever: Code(s): R50.9 - Fever, unspecified Status: Acute Plan COVID 19 Positive Fever --GI symptoms and fever --Blood cultures pending--NGTD, but fever likely viral --Started Remdesivir, continue while inpatient Hyponatremia--Trending down, 130>127, D5NS@100/hr, continue to follow. Check urine/serum osmo and Na with next labs. Elevated INR--5.3, improved to 4.2, likely 2/2 dehydration Elevated LFT's--AST/ALT/Alk phos Nausea/vomiting--scheduled zofran BID and improved today --Start fluids D5NS@100/hr Epigastric chest pain--Continue PPI, DC tele Time Spent With Patient Time: 34 minutes Subjective Date/time seen: 04/05/24 08:28 Interval history: Not drinking well, but overall feeling a little better. Epigastric chest pain resolved. INR still elevated, but trending down. Worsening hyponatremia, LFT's slightly elevated Viral swab positive for covid yesterday, starting remdesivir Review of Systems Review of Systems: Negative except as noted above All systems reviewed & are unremarkable except as noted in HPI and below Constitutional: Constitutional: Reports as per HPI and Reports no additional constitutional complaints Eyes: Eyes: Reports as per HPI and Reports no additional eye complaints ENT: Reports system reviewed and no additional complaints, except as documented and Reports as per HPI Cardiovascular: Cardiovascular: Reports as per HPI and Reports no additional cardiovascular complaints Respiratory: Respiratory: Reports as per HPI and Reports no additional respiratory complaints Gastrointestinal: Gastrointestinal: Reports as per HPI and Reports no additional gastrointestinal complaints Genitourinary: Genitourinary: Reports no additional female genitourinary complaints and Reports as per HPI Musculoskeletal: Musculoskeletal: Reports no additional musculoskeletal complaints and Reports as per HPI Integumentary/Breasts: Skin/Breast: Reports system reviewed and no additional complaints, except as docu and Reports as per HPI Neurologic: Reports system reviewed and no additional complaints, except as documented and Reports as per HPI Psychiatric: Psychiatric: Reports no additional psychiatric complaints and Reports as per HPI Exam Narrative: General: In no acute distress, well nourished Head: atraumatic, no encephalopathy Eyes: EOMI, PERRLA, sclera clear ENT: moist mucous membranes, nasal passages clear Neck: supple, no JVD, no adenopathy, trachea midline Cardiac: Normal S1 and S2. Bradycardia No murmur, gallops or friction rubs, peripheral pulses intact. Respiratory: Lungs clear to auscultation, no adventitious lung sounds, currently on room air Gastrointestinal: soft, non-distended, epigastric tenderness, normoactive bowel sounds. Reports nausea and vomiting : voiding without difficulty. Extremities: moves all extremities well, no edema, good ROM, strength 5/5 Skin: clean, dry, intact. No wounds or lesions. Neuro: Alert and oriented x4, cranial nerves intact, no neuro deficits. Psych: normal mood, normal affect, interactive Objective Data Vital Signs Vital Signs: Vital Signs - 24 hr
[2024-04-05 08:40] LABS: INR 4.2
[2024-04-05] MEDS: FLUDROCORTISONE ACETATE 0.1 MG TABLET PO (10:01)
[2024-04-05] MEDS: buPROPion HCL 100 MG TABLET PO ×2 (10:01→16:47)
[2024-04-05] MEDS: CHOLECALCIFEROL 1,000 UNITS TABLET 2000 UNITS PO (10:01)
[2024-04-05] MEDS: PRIMIDONE 50 MG TABLET PO ×2 (10:01→16:47)
[2024-04-05] MEDS: methiMAzole 10 MG TAB PO (10:08)
[2024-04-05] MEDS: REMDESIVIR 200 MG/NS 250 ML 200 MG/250 ML BAG 250 MG IVPB (10:08)
[2024-04-05] MEDS: PANTOPRAZOLE SODIUM IV 40 MG VIAL IV PUSH (10:16)
[2024-04-05] MEDS: CHLORHEXIDINE GLUCONATE 0.12% ORAL RINSE 473 ML BTL (*BKC) 15 ML SWISH/SPIT ×2 (10:16→16:57)
[2024-04-05] MEDS: DEXTROSE 5%/0.9% SOD CHL 1,000 ML 100 ML IV CONT ×2 (11:32→23:21)
[2024-04-05] MEDS: TAMSULOSIN HCL 0.4 MG CAPSULE PO ×2 (16:47→20:53)
[2024-04-05] MEDS: ONDANSETRON INJ 4 MG/2 ML VIAL IV PUSH (16:51)
[2024-04-05] MEDS: amLODIPine BESYLATE 5 MG TABLET BY MOUTH ×2 (16:58→20:53)
[2024-04-05] MEDS: traMADol HCL (*CRX) 50 MG TABLET PO (17:02)
--- NOTE | 2024-04-05 17:07 | ECG_ITS ---
Test Date: 2024-04-05 17:19:11 Measurements Intervals Kiel Rate: 59 P: 84 SD: 140 QRS: -3 QRSD: 100 T: 61 QT: 446 QTc: 442 Interpretive Statements SINUS BRADYCARDIA WITH OCCASIONAL SUPRAVENTRICULAR PREMATURE COMPLEXES INCOMPLETE RIGHT BUNDLE BRANCH BLOCK [90+ ms QRS DURATION, TERMINAL R IN V1/V2, 40+ ms S IN I/aVL/V4/V5/V6] NONSPECIFIC T-WAVE ABNORMALITY ABNORMAL ECG Compared to ECG 04/03/2024 12:30:17 NO SIGNIFICANT DIFFERENCE Electronically Signed On 04-06-2024 07:28:35 CDT by Wesly Ruff M.D.
[2024-04-05] MEDS: BELLADONNA ALK/PHENOB ELIX 10 ML, MAG HYDROX/ALUMINUM HYD/SIMETH 30 ML, LIDOCAINE HCL 2... PO (18:04)
[2024-04-05] MEDS: allopurinoL 300 MG TABLET PO (18:09)
[2024-04-05 19:48] LABS: Troponin I < 0.012 ng/mL (0.000-0.034)
[2024-04-05] MEDS: LORazepam (*CRX) 1 MG TABLET PO (20:52)
[2024-04-05 23:51] LABS: Sodium Urine Random 87 meq/L
[2024-04-06] VITALS (8 sets, daily range): BP systolic 100–124; BP diastolic 47–68; PULSE 48–88; RESP 14–22; TEMP 36.6–37.2; O2SAT 93–97
[2024-04-06] MEDS: ONDANSETRON HCL ODT 4 MG TABLET PO ×2 (02:33→21:08)
[2024-04-06 07:14] LABS: Eosinophils Percent Auto 0.6 % (0-4.4); Hemoglobin 11.8 g/dL (12.0-15.0); Immature Granulocyte Absolute 0.01 K/mm3 (0.00-0.031); Immature Granulocyte Percent A 0.3 % (0-0.5); Immature Platelet Fraction Pct 3.8 % (0.9-11.2); Mean Corpuscular HGB Conc 33.7 g/dl (32-36); Mean Corpuscular Hemoglobin 31.1 pg (26-34); Mean Corpuscular Volume 92.3 fl (80-100); Mean Platelet Volume 10.2 fl (7.4-10.4); Monocytes Absolute Auto 0.2 K/mm3 (0.1-0.6); Monocytes Percent Auto 6.6 % (2.6-8.5); Neutrophils Absolute Auto 2.1 K/mm3 (1.3-6.7); Neutrophils Percent Auto 62.5 % (45.5-73.1); Platelet Count Result 114 k/mm3 (150-375); Red Blood Count 3.79 M/mm3 (4.2-5.4); Red Cell Distribution Width 13.2 % (11.5-14.5); White Blood Count 3.3 K/mm3 (4.5-10.0)
[2024-04-06 07:20] LABS: Alanine Aminotransferase 33 U/L (6-35); Albumin Level 2.8 g/dL (3.5-5.1); Alkaline Phosphatase 101 U/L (38-126); Anion Gap 7 mmol/L (4-12); Aspartate Amino Transferase 43 U/L (14-36); Bilirubin,Total 0.2 mg/dL (0.2-1.3); Blood Urea Nitrogen 8 mg/dL (7-17); Calcium 7.3 mg/dL (8.4-10.2); Carbon Dioxide 25 mmol/L (22-30); Chloride 95 mmol/L (98-107); Estimated CRCL calculation 47 ml/min; Estimated Glomerular Filt Rate > 60; Glucose 112 mg/dL (65-110); Sodium 127 mmol/L (137-145)
[2024-04-06 07:26] LABS: INR 3.7; Prothrombin Time 37.1 Seconds (11.1-14.7)
[2024-04-06] MEDS: PANTOPRAZOLE SODIUM IV 40 MG VIAL IV PUSH (08:32)
[2024-04-06] MEDS: ONDANSETRON INJ 4 MG/2 ML VIAL IV PUSH ×2 (08:39→17:11)
[2024-04-06] MEDS: DEXTROSE 5%/0.9% SOD CHL 1,000 ML 100 ML IV CONT ×2 (08:40→17:42)
[2024-04-06] MEDS: KCL 20 MEQ/SW 100 ML 100 ML 50 MEQ IVPB (08:42)
[2024-04-06 09:01] LABS: Magnesium 1.7 mg/dL (1.6-2.3); Phosphorus 3.1 mg/dL (2.5-4.5)
[2024-04-06] MEDS: REMDESIVIR 100 MG/NS 250 ML 100 MG/250 ML BAG 250 MG IVPB (09:57)
[2024-04-06] MEDS: CHLORHEXIDINE GLUCONATE 0.12% ORAL RINSE 473 ML BTL (*BKC) 15 ML SWISH/SPIT (10:00)
--- NOTE | 2024-04-06 11:23 | PC.NURSE ---
Patient refused am meds at time c/o nausea. Stated she would take later with lunch.
[2024-04-06] MEDS: CHOLECALCIFEROL 1,000 UNITS TABLET 2000 UNITS PO (11:54)
[2024-04-06] MEDS: FLUDROCORTISONE ACETATE 0.1 MG TABLET PO (11:54)
[2024-04-06] MEDS: methiMAzole 10 MG TAB PO (11:55)
[2024-04-06] MEDS: PRIMIDONE 50 MG TABLET PO ×2 (11:55→17:39)
[2024-04-06] MEDS: buPROPion HCL 100 MG TABLET PO ×2 (12:00→17:39)
[2024-04-06] MEDS: PROCHLORPERAZINE EDISYLATE 10 MG/2 ML VIAL IV PUSH ×2 (12:48→21:08)
[2024-04-06] MEDS: POTASSIUM CHLORIDE 20 MEQ ER TABLET 40 MEQ PO (15:15)
[2024-04-06] MEDS: amLODIPine BESYLATE 5 MG TABLET BY MOUTH ×2 (17:39→21:08)
[2024-04-06] MEDS: allopurinoL 300 MG TABLET PO (17:40)
[2024-04-06] MEDS: TAMSULOSIN HCL 0.4 MG CAPSULE PO ×2 (17:41→21:14)
--- NOTE | 2024-04-06 20:38 | PM.IMPN ---
Progress Note: A&P Assessment and Plan (1) Chest pain: Code(s): R07.9 - Chest pain, unspecified Status: Acute (2) Supratherapeutic INR: Code(s): R79.1 - Abnormal coagulation profile Status: Acute (3) Atrial fibrillation: Code(s): I48.91 - Unspecified atrial fibrillation Status: Chronic (4) Essential (primary) hypertension: Code(s): I10 - Essential (primary) hypertension Status: Chronic (5) Hyperthyroidism: Code(s): E05.90 - Thyrotoxicosis, unspecified without thyrotoxic crisis or storm Status: Acute (6) Nausea & vomiting: Code(s): R11.2 - Nausea with vomiting, unspecified Status: Acute (7) Fever: Code(s): R50.9 - Fever, unspecified Status: Acute (8) Asymptomatic bradycardia: Code(s): R00.1 - Bradycardia, unspecified Status: Acute Plan COVID 19 Positive Fever --GI symptoms and fever --Blood cultures pending--NGTD, but fever likely viral --Started Remdesivir, continue while inpatient Hyponatremia--Trending down, 130>127, D5NS@100/hr, continue to follow closely. Check urine/serum osmo and Na with next labs. Hypokalemia--Potassium 3--give 60meq --DC tele when electrolytes improved Elevated INR--5.3, trending down 4.2>3.5, likely 2/2 dehydration --Holding coumadin, plan to resume pending improvement, may need a lower dose short term. Has been on hold for several days Elevated LFT's--AST 29-47/ALT 20-36/Alk phos 115-138, Only slight elevations Nausea/vomiting/diarrhea--scheduled zofran BID with some improvement --Continue zofran, compazine --Continue fluids D5NS@100/hr --[place] 2/2 covid. Send stool for c-diff, culture, then imodium. But no risk factors so unlikely to be positive Epigastric chest pain--Continue PPI. Bentyl prn. Can schedule if continues since seems to be after vomiting, may be better preventatively Bradycardia--Cardiology consulted, planning to follow up in the office Hyperthyroidism--continue methimazole, fludrocortisone 0.1mg Time Spent With Patient Time: 56 minutes Subjective Date/time seen: 04/06/24 09:40 Interval history: Epigastric chest pain after vomiting last night. Patient feels likely gastric spam. EKG unremarkable. INR trending down, still elevated Started having diarrhea. Not tolerating PO. Continuing fluids Potassium still low, repleting Review of Systems Review of Systems: Afebrile. No chest pain or shortness of breath. No abdominal pain All systems reviewed & are unremarkable except as noted in HPI and below Constitutional: Constitutional: Reports as per HPI and Reports no additional constitutional complaints Eyes: Eyes: Reports as per HPI and Reports no additional eye complaints ENT: Reports system reviewed and no additional complaints, except as documented and Reports as per HPI Cardiovascular: Cardiovascular: Reports as per HPI and Reports no additional cardiovascular complaints Respiratory: Respiratory: Reports as per HPI and Reports no additional respiratory complaints Gastrointestinal: Gastrointestinal: Reports as per HPI and Reports no additional gastrointestinal complaints Genitourinary: Genitourinary: Reports no additional female genitourinary complaints and Reports as per HPI Musculoskeletal: Musculoskeletal: Reports no additional musculoskeletal complaints and Reports as per HPI Integumentary/Breasts: Skin/Breast: Reports system reviewed and no additional complaints, except as docu and Reports as per HPI Neurologic: Reports system reviewed and no additional complaints, except as documented and Reports as per HPI Psychiatric: Psychiatric: Reports no additional psychiatric complaints and Reports as per HPI Exam Narrative: General: In no acute distress, well nourished Head: atraumatic, no encephalopathy Eyes: EOMI, PERRLA, sclera clear ENT: moist mucous membranes, nasal passages clear Neck: supple, no JVD, no adenopathy, trac
[2024-04-06] MEDS: diphenhydrAMINE HCl INJ 50 MG/ML VIAL 25 MG IV PUSH (21:08)
[2024-04-06] MEDS: LORazepam (*CRX) 1 MG TABLET PO (21:08)
[2024-04-07] VITALS: BP 106/51; PULSE 44; PULSE 50; RESP 14; TEMP 37.1; O2SAT 94
[2024-04-07] MEDS: ONDANSETRON INJ 4 MG/2 ML VIAL IV PUSH (02:46)
[2024-04-07 04:00] VITALS: BP 102/47; PULSE 46; PULSE 57; RESP 13; TEMP 36.7; O2SAT 96
[2024-04-07] MEDS: DEXTROSE 5%/0.9% SOD CHL 1,000 ML 100 ML IV CONT (04:07)
[2024-04-07 06:39] LABS: Eosinophils Percent Auto 1.4 % (0-4.4); Hematocrit 35.2 % (37.0-47.0); Hemoglobin 11.6 g/dL (12.0-15.0); Immature Granulocyte Absolute 0.02 K/mm3 (0.00-0.031); Immature Granulocyte Percent A 0.7 % (0-0.5); Immature Platelet Fraction Pct 3.8 % (0.9-11.2); Lymphocytes Percent Auto 28.3 % (18.3-44.2); Mean Corpuscular Hemoglobin 30.9 pg (26-34); Mean Corpuscular Volume 93.6 fl (80-100); Mean Platelet Volume 9.8 fl (7.4-10.4); Monocytes Percent Auto 9.5 % (2.6-8.5); Neutrophils Absolute Auto 1.7 K/mm3 (1.3-6.7); Neutrophils Percent Auto 60.1 % (45.5-73.1); Platelet Count Result 108 k/mm3 (150-375); Red Blood Count 3.76 M/mm3 (4.2-5.4); Red Cell Distribution Width 13.3 % (11.5-14.5); White Blood Count 2.8 K/mm3 (4.5-10.0)
[2024-04-07 06:40] LABS: Monocytes Absolute Auto 0.3 K/mm3 (0.1-0.6)
[2024-04-07 06:45] LABS: INR 3.6; Prothrombin Time 36.9 Seconds (11.1-14.7)
[2024-04-07 06:56] LABS: Alanine Aminotransferase 29 U/L (6-35); Albumin Level 2.7 g/dL (3.5-5.1); Alkaline Phosphatase 100 U/L (38-126); Anion Gap 5 mmol/L (4-12); Aspartate Amino Transferase 38 U/L (14-36); Bilirubin,Total 0.2 mg/dL (0.2-1.3); Blood Urea Nitrogen 6 mg/dL (7-17); Calcium 7.6 mg/dL (8.4-10.2); Carbon Dioxide 26 mmol/L (22-30); Chloride 99 mmol/L (98-107); Estimated CRCL calculation 43 ml/min; Estimated Glomerular Filt Rate 60; Glucose 100 mg/dL (65-110); Potassium 3.5 mmol/L (3.4-5.0); Sodium 130 mmol/L (137-145)
[2024-04-07 08:00] VITALS: BP 122/56; PULSE 51; RESP 20; TEMP 36.6; O2SAT 96
[2024-04-07] MEDS: FLUDROCORTISONE ACETATE 0.1 MG TABLET PO (10:17)
[2024-04-07] MEDS: methiMAzole 10 MG TAB PO (10:17)
[2024-04-07] MEDS: REMDESIVIR 100 MG/NS 250 ML 100 MG/250 ML BAG 250 MG IVPB (10:17)
[2024-04-07] MEDS: CHOLECALCIFEROL 1,000 UNITS TABLET 2000 UNITS PO (10:17)
[2024-04-07] MEDS: PANTOPRAZOLE SODIUM IV 40 MG VIAL IV PUSH (10:17)
[2024-04-07] MEDS: buPROPion HCL 100 MG TABLET PO (10:17)
[2024-04-07] MEDS: PRIMIDONE 50 MG TABLET PO (10:17)
[2024-04-07] MEDS: ONDANSETRON HCL ODT 4 MG TABLET PO (10:17)
[2024-04-07] MEDS: CHLORHEXIDINE GLUCONATE 0.12% ORAL RINSE 473 ML BTL (*BKC) 15 ML SWISH/SPIT (10:19)
[2024-04-07 10:55] LABS: Toxigenic C. Diff NEGATIVE (NEGATIVE)
[2024-04-07 12:00] VITALS: BP 125/57; PULSE 50; RESP 18; TEMP 36.7; O2SAT 97
--- NOTE | 2024-04-07 12:52 | PM.DS ---
DS: Admitting Diagnosis Discharge Date 04/07/2024 Admitting Diagnosis chest pain DS: Discharge Diagnosis Discharge Diagnosis (1) Chest pain: Code(s): R07.9 - Chest pain, unspecified Status: Acute Assessment and Plan: Likely related to GI distress (2) Supratherapeutic INR: Code(s): R79.1 - Abnormal coagulation profile Status: Acute Assessment and Plan: 5.3 at admission, 3.6 at discharge (3) Atrial fibrillation: Code(s): I48.91 - Unspecified atrial fibrillation Status: Chronic Assessment and Plan: Warfarin on hold pending f/u INR in 3 days (4) Essential (primary) hypertension: Code(s): I10 - Essential (primary) hypertension Status: Chronic Assessment and Plan: Controlled 122/56 04/07 (5) Hyperthyroidism: Code(s): E05.90 - Thyrotoxicosis, unspecified without thyrotoxic crisis or storm Status: Acute Assessment and Plan: Continue methimazole (6) Nausea & vomiting: Code(s): R11.2 - Nausea with vomiting, unspecified Status: Acute Assessment and Plan: With diarrhea Due to COVID-19 N/v resolved, diarrhea minimal by 04/07 (7) Fever: Code(s): R50.9 - Fever, unspecified Status: Acute Assessment and Plan: Due to COVID-19, resolved (8) Asymptomatic bradycardia: Code(s): R00.1 - Bradycardia, unspecified Status: Acute Assessment and Plan: HR 50s on telemetry without syncope or presyncope F/u as outpt with cardiology (9) Pancytopenia: Code(s): D61.818 - Other pancytopenia Status: Acute Assessment and Plan: Likely due to COVID-19 F/u as outpatient (10) Hyponatremia: Code(s): E87.1 - Hypo-osmolality and hyponatremia Status: Acute Assessment and Plan: Likely due to COVID-19 with gastroenteritis DS: Summary Hospital Course Hospital Course: Who he became March 31 nausea and. She had some cramping this. Dry low-grade fever. She tested for COVID-19. Because chest discomfort April 02 she presented emergency department. She tested positive COVID-19. Her EKG showed sinus which is been chronic. Her CBC revealed pancytopenia. CT her chest abdomen pelvis was unremarkable. Sodium was mildly decreased at 130. She was admitted to medical floor telemetry treating symptomatically with IV fluids emetics. Blood cultures were negative. She had low-grade temperature from to 100 for the 1st few days of hospitalization but was afebrile by day of discharge. By day of discharge she was tolerating her diet with minimal diarrhea and nausea vomiting or abdominal pain. The chest pain presented admission resolved completely. information technology consultant felt this was noncardiac and recommended routine outpatient follow-up that was already scheduled. Her INR at admission was elevated at 5.3 related to her chronic Coumadin use and presumably decreased p.o. intake. By discharge it was decreased to 3.6. She was to have follow-up testing in 3 days prior to resuming her warfarin. During hospitalization she did receive remdesivir April 06 through April 07. Because of her lack of oxygen requirement abnormal chest imaging and resolution of her admitting symptoms this was discontinued. Time Spent with Patient Time attestation: Total time spent providing and/or coordinating discharge services: Exam Narrative: General: In no acute distress, well nourished Head: atraumatic, no encephalopathy Eyes: PERRLA, sclera clear ENT: moist mucous membranes Neck: supple, no JVD Cardiac: Normal S1 and S2. Bradycardia No murmur, gallops or friction rubs Respiratory: NL effort, few crackles at bases Gastrointestinal: soft, non-distended, BS present, mild diffuse tenderness, no davina or bruits Extremities: No edema Skin: clean, dry, intact. No wounds or lesions. Neuro: Alert and oriented x4, cranial nerves intact to inspection Psych: normal mood, normal affect,
[2024-04-10 15:24] LABS: Osmolality, Urine 502 mOsm/kg (50-1200)
== END 2024-04-07 14:08 | disposition home or self-care (01) | DRG 178 ==
LOC: ANHED 12:22 → ANHIMU 12:51 → ANH3MEDSUR 04-07 13:05 → ANHIMU 04-11 07:31
PROVIDERS: Emergency Medicine; Nurse Practitioner Acute Care; Admitting Provider Family Medicine; Emergency Provider Student in an Organized Health Care Education/Training Program; PCP Family Medicine; Visit Provider Internal Medicine
DX: U07.1 COVID-19 (principal); D61.818 Other pancytopenia; I48.20 Chronic atrial fibrillation, unspecified; E87.1 Hypo-osmolality and hyponatremia; R07.89 Other chest pain; A08.4 Viral intestinal infection, unspecified; E05.90 Thyrotoxicosis, unspecified without thyrotoxic crisis or storm; R79.1 Abnormal coagulation profile; R00.1 Bradycardia, unspecified; G20.A1 Parkinson's disease without dyskinesia, without mention of fluctuations; E87.6 Hypokalemia; I11.0 Hypertensive heart disease with heart failure; I50.9 Heart failure, unspecified; E78.5 Hyperlipidemia, unspecified; F32.9 Major depressive disorder, single episode, unspecified; F41.1 Generalized anxiety disorder; Z90.49 Acquired absence of other specified parts of digestive tract; Z98.1 Arthrodesis status; Z79.01 Long term (current) use of anticoagulants
CPT/HCPCS: 36415; 70450; 71046; 71275; 74174; 80053; 83690; 83735; 83930; 83935; 84100; 84300; 84484; 85025; 85055; 85610; 85730; 87040; 87493; 87637; 93005; 93306; 96361; 96374; 96375; 96376; 99285; A4248; A9270; G0378; J0248; J0780; J1200; J2405; J2470; J2765; J3010; J3480; J7042; J7120; Q9967

== ENCOUNTER 2024-04-13 11:52 | Outpatient (CLI) | payer MEDICARE, SELFPAY ==
[2024-04-13 12:20] LABS: Eosinophils Percent Auto 1.2 % (0-4.4); Hematocrit 36.5 % (37.0-47.0); Hemoglobin 12.6 g/dL (12.0-15.0); Immature Granulocyte Absolute 0.02 K/mm3 (0.00-0.031); Immature Granulocyte Percent A 0.6 % (0-0.5); Lymphocytes Absolute Auto 0.79 K/mm3 (0.9-3.2); Lymphocytes Percent Auto 22.9 % (18.3-44.2); Mean Corpuscular HGB Conc 34.5 g/dl (32-36); Mean Corpuscular Volume 89.9 fl (80-100); Mean Platelet Volume 9.6 fl (7.4-10.4); Monocytes Absolute Auto 0.6 K/mm3 (0.1-0.6); Monocytes Percent Auto 17.1 % (2.6-8.5); Neutrophils Percent Auto 58.2 % (45.5-73.1); Platelet Count Result 188 k/mm3 (150-375); Red Blood Count 4.06 M/mm3 (4.2-5.4); Red Cell Distribution Width 13.2 % (11.5-14.5); White Blood Count 3.5 K/mm3 (4.5-10.0)
[2024-04-13 12:29] LABS: Anion Gap 8 mmol/L (4-12); Blood Urea Nitrogen 8 mg/dL (7-17); Calcium 8.4 mg/dL (8.4-10.2); Carbon Dioxide 31 mmol/L (22-30); Chloride 90 mmol/L (98-107); Estimated Glomerular Filt Rate 60; Glucose 100 mg/dL (65-110); Potassium 3.1 mmol/L (3.4-5.0); Sodium 129 mmol/L (137-145)
[2024-04-13 12:40] LABS: Prothrombin Time 54.2 Seconds (11.1-14.7)
[2024-04-13 13:42] LABS: INR 6.1
== END 2024-04-13 11:53 | disposition home or self-care (01) ==
PROVIDERS: PCP Family Medicine; Referring Provider Internal Medicine; Visit Provider Internal Medicine
DX: I48.91 Unspecified atrial fibrillation (principal); E87.1 Hypo-osmolality and hyponatremia; D61.818 Other pancytopenia
CPT/HCPCS: 36415; 80048; 85025; 85610

== ENCOUNTER 2024-04-23 12:13 | Outpatient (CLI) | payer MEDICARE, SELFPAY ==
[2024-04-23 13:05] LABS: Prothrombin Time 13.3 Seconds (11.1-14.7)
[2024-04-23 13:41] LABS: Anion Gap 6 mmol/L (4-12); Blood Urea Nitrogen 11 mg/dL (7-17); Calcium 8.5 mg/dL (8.4-10.2); Carbon Dioxide 34 mmol/L (22-30); Chloride 91 mmol/L (98-107); Estimated Glomerular Filt Rate > 60; Glucose 105 mg/dL (65-110); Potassium 2.8 mmol/L (3.4-5.0); Sodium 131 mmol/L (137-145)
[2024-04-23 13:55] LABS: Thyroid Stimulating Hormone 0.025 uIU/mL (0.465-4.680)
== END 2024-04-23 12:14 | disposition home or self-care (01) ==
LOC: ANHLAB 12:17
PROVIDERS: PCP Family Medicine; Visit Provider Family Medicine
DX: E87.1 Hypo-osmolality and hyponatremia (principal); E05.90 Thyrotoxicosis, unspecified without thyrotoxic crisis or storm
CPT/HCPCS: 36415; 80048; 84443; 85610

== ENCOUNTER 2024-05-07 08:28 | Outpatient (CLI) | payer MEDICARE, SELFPAY ==
[2024-05-07 09:22] LABS: Anion Gap 9 mmol/L (4-12); Blood Urea Nitrogen 12 mg/dL (7-17); Calcium 8.9 mg/dL (8.4-10.2); Carbon Dioxide 27 mmol/L (22-30); Chloride 100 mmol/L (98-107); Estimated Glomerular Filt Rate > 60; Glucose 109 mg/dL (65-110); Potassium 3.7 mmol/L (3.4-5.0); Sodium 136 mmol/L (137-145)
== END 2024-05-07 08:29 | disposition home or self-care (01) ==
PROVIDERS: PCP Family Medicine; Visit Provider Physician Assistant
DX: E87.6 Hypokalemia (principal)
CPT/HCPCS: 36415; 80048

== ENCOUNTER 2024-06-07 09:07 | Outpatient (CLI) | payer MEDICARE, SELFPAY ==
[2024-06-07 10:04] LABS: Anion Gap 6 mmol/L (4-12); Blood Urea Nitrogen 15 mg/dL (7-17); Calcium 8.5 mg/dL (8.4-10.2); Carbon Dioxide 31 mmol/L (22-30); Chloride 100 mmol/L (98-107); Estimated Glomerular Filt Rate > 60; Glucose 87 mg/dL (65-110); Potassium 3.3 mmol/L (3.4-5.0); Sodium 137 mmol/L (137-145)
== END 2024-06-07 09:08 | disposition home or self-care (01) ==
LOC: ANHLAB 09:09
PROVIDERS: PCP Family Medicine; Visit Provider Student in an Organized Health Care Education/Training Program
DX: E87.1 Hypo-osmolality and hyponatremia (principal); E87.6 Hypokalemia
CPT/HCPCS: 36415; 80048; 85610

== ENCOUNTER 2024-06-07 09:09 | Outpatient (RCR) | payer MEDICARE, SELFPAY ==
[2024-03-09 08:05] LABS: INR 2.7; Prothrombin Time 29.2 Seconds (11.1-14.7)
[2024-06-07 10:04] LABS: INR 3.1
== END 2024-06-07 23:59 | disposition home or self-care (01) ==
LOC: ANHLAB 09:09
PROVIDERS: PCP Family Medicine; Visit Provider Internal Medicine
DX: Z51.81 Encounter for therapeutic drug level monitoring (principal); I48.0 Paroxysmal atrial fibrillation; Z79.01 Long term (current) use of anticoagulants
CPT/HCPCS: 36415; 80048; 84443; 85610

== ENCOUNTER 2024-07-02 08:55 | Outpatient (CLI) | payer MEDICARE, SELFPAY ==
[2024-07-02 10:08] LABS: Anion Gap 6 mmol/L (4-12); Blood Urea Nitrogen 14 mg/dL (7-17); Calcium 8.8 mg/dL (8.4-10.2); Carbon Dioxide 30 mmol/L (22-30); Chloride 100 mmol/L (98-107); Estimated Glomerular Filt Rate 60; Glucose 105 mg/dL (65-110); Potassium 3.4 mmol/L (3.4-5.0); Sodium 136 mmol/L (137-145)
[2024-07-02 10:40] LABS: Free T4 Free Thyroxine 0.67 ng/mL (0.78-2.19)
[2024-07-04 05:33] LABS: T3 Free 2.7 pg/mL (2.3-4.2)
== END 2024-07-02 08:56 | disposition home or self-care (01) ==
LOC: ANHLAB 08:56
PROVIDERS: PCP Family Medicine; Visit Provider Student in an Organized Health Care Education/Training Program
DX: E07.9 Disorder of thyroid, unspecified (principal); E87.6 Hypokalemia
CPT/HCPCS: 36415; 80048; 84439; 84443; 84480

== ENCOUNTER 2024-07-16 14:20 | Outpatient (CLI) | payer MEDICARE, SELFPAY ==
--- NOTE | ~2024-07-16 | XR_ITS ---
Cervical Spine: AP, lateral, open-mouth views Clinical History: Pain Findings: There is reversal of the normal cervical lordosis. There is mild grade 1 anterolisthesis of C4 over C5. There is severe degenerative tearing also partial fusion across the C5-C6 and C6-C7 disc spaces. There is severe facet arthropathy throughout the cervical spine. Pre-vertebral soft tissues are unremarkable. Impression: Advanced degenerative spondylosis, with reversal of the normal cervical lordosis and grade 1 anteroli sthesis of C4 over C5. Reviewed, dictated and finalized at location [facility]. [facility] Impression: Advanced degenerative spondylosis, with reversal of the normal cervical lordosi s and grade 1 anterolisthesis of C4 over C5.
== END 2024-07-16 14:21 | disposition home or self-care (01) ==
PROVIDERS: PCP Family Medicine; Visit Provider Student in an Organized Health Care Education/Training Program
DX: M47.892 Other spondylosis, cervical region (principal)
CPT/HCPCS: 72040

== ENCOUNTER 2024-08-02 12:28 | Outpatient (CLI) | payer MEDICARE, SELFPAY ==
[2024-08-02 13:21] LABS: Alanine Aminotransferase 19 U/L (6-35); Albumin Level 3.9 g/dL (3.5-5.1); Alkaline Phosphatase 153 U/L (38-126); Anion Gap 2 mmol/L (4-12); Aspartate Amino Transferase 30 U/L (14-36); Bilirubin,Total 0.4 mg/dL (0.2-1.3); Blood Urea Nitrogen 19 mg/dL (7-17); Calcium 8.7 mg/dL (8.4-10.2); Carbon Dioxide 29 mmol/L (22-30); Chloride 102 mmol/L (98-107); Estimated Glomerular Filt Rate 53; Glucose 88 mg/dL (65-110); Potassium 4.3 mmol/L (3.4-5.0); Sodium 133 mmol/L (137-145)
[2024-08-02 14:22] LABS: Free T4 Free Thyroxine 0.97 ng/dL (0.78-2.19)
[2024-08-03 05:53] LABS: T3 Free 2.9 pg/mL (2.3-4.2)
== END 2024-08-02 12:29 | disposition home or self-care (01) ==
PROVIDERS: PCP Family Medicine; Visit Provider Student in an Organized Health Care Education/Training Program
DX: E05.90 Thyrotoxicosis, unspecified without thyrotoxic crisis or storm (principal)
CPT/HCPCS: 36415; 80053; 84439; 84443; 84480

== ENCOUNTER 2024-09-06 08:47 | Outpatient (CLI) | payer MEDICARE, SELFPAY ==
--- OUTSIDE RECORDS SUMMARY | 2024-09-06 09:09 | XMS_ITS | Encounter Summary ---
Author Organization [facility] Healthcare Address [address] [place] [address] Care Team Providers Care Risk Advisor Name Role Phone Unavailable Primary Care Provider Unavailabl e Encounter Details Date Type Department Care Team (Late st Contact Info) Description [address] [facility] Outside Films [address] [facility] [place] [address] Social History Tobacco Use Types Packs/Day Years Used Date Smoking Tobacco: Never Assessed Comments Unknown Sex and Gender Information Value Date Recorded Sex Assigned at Not on file Legal Sex Female 10:07 AM CDT Gender Identity Not on file Sexual Orientation Not on file documented as of this encounter Plan of Treatment Not on file documented as of this encounter Procedures Procedure Name Priority Date/Time Associated Diagnosis Comments XR TRANSFER OF OUTSIDE FILMS Routine 1944 12:00 AM CWT documented in this encounter Results * XR Outside Reference (1944 12:00 AM CWT) Narrative [email or web address] - 01/29/2022 10:55 AM CDT This order has been auto-finalized and does not contain a result. us Provider Transcribed Order IMG XR PROCEDURES Fin al Result [id number] documented in this encounter Visit Diagnoses Not on filedocumented in this encounter
--- OUTSIDE RECORDS SUMMARY | 2024-09-06 09:09 | XMS_ITS | Encounter Summary ---
Author Organization [facility] Healthcare Address [address] [place] [address] Care Team Providers Care Primary Teaching Assistant Name Role Phone Felicitas Andres MD Primary Care Provider Encounter Details Date Type Department Care Team (Late st Contact Info) Description 02/02/2024 Orders Only [facility] Health Information Management [address] [place] [id number] Scanning, Provider Social History Tobacco Use Types Packs/Day Years Used Date Smoking Tobacco: Never Smokeless Tobacco: Never Alcohol Use Standard Drinks/Week Comments Never 0 (1 standard drink = 0.6 oz pur e alcohol) AUDIT-C Answer Date Recorded Frequency of Alcohol Consumption Never 10/12/2018 Average Number of Drinks Not on file 019 Frequency of Binge Drinking Not on file 02/2019 Comments No Sex and Gender Information Value Date Recorded Sex Assigned at Not on file Legal Sex Female 10:07 AM CDT Gender Identity Not on file Sexual Orientation Not on file 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 Author CCM Chronic Pain Care Plan Chronic Care Management Improving( 11:55 AM CDT) No Khushi Ramos, RN Note: Problem: Chronic Pain Goals: 1. Minimize further functional decline 2. Maximize quality of life 3. Control pain Strategies: - Activity/exercise program recommendation - Conservative stepwise pain medicine strategy with multi-disciplinary approach - Recommend healthy lifestyle strategies and compensatory methods as needed documented as of this encounter Procedures Procedure Name Priority Date/Time Associated Diagnosis Comments SCAN - LABS 02/02/2024 documented in this encounter Results * SCAN - LABS (02/02/2024) us Provider Scanning Final Result documented in this encounter Visit Diagnoses Not on filedocumented in this encounter Care Teams Primary Teaching Assistant Relationship Specialty Start Date End Date Felicitas Andres MD [address] [facility] [address] [place] [phone] PCP - General 06/09/17 documented as of this encounter
--- OUTSIDE RECORDS SUMMARY | 2024-09-06 09:09 | XMS_ITS | Encounter Summary ---
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
--- OUTSIDE RECORDS SUMMARY | 2024-09-06 09:09 | XMS_ITS | Encounter Summary ---
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
--- OUTSIDE RECORDS SUMMARY | 2024-09-06 09:09 | XMS_ITS | Encounter Summary ---
Author Organization [facility] Healthcare Address [address] [place] [address] Care Team Providers Care Tamale Machine Feeder Name Role Phone Felicitas Andres MD Primary Care Provider Encounter Details Date Type Department Care Team (Late st Contact Info) Description 10/06/2023 Orders Only 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
--- OUTSIDE RECORDS SUMMARY | 2024-09-06 09:09 | XMS_ITS | Continuity of Care Document ---
Author Organization [facility] Address [address] [place] [address] Phone Care Team Providers Care Farmworker Diversified Crops Name Role Phone Villatoro OD, Jesus Unavailable Unavailable Advance Directives Directive Yes / No Effective Date File Name No Information Encounters Encounter Description Practice Location Reason(s) For Visit Diagnoses Date Provider Providers Copied on Encounter [facility], [address], [place], [place], [id number], [place] tel:[phone] [facility] No Information May-0 4-200 6 Villatoro OD Jesus. [address] , [address], [place], [address], [place]. tel:[phone] Family History Family Member Type Diagnosis Age [...]
--- OUTSIDE RECORDS SUMMARY | 2024-09-06 09:09 | XMS_ITS | Clinical Summary ---
Author Organization [facility] Physician Office Building [address] [place] [address] Care Team Providers Care Supervisor Laundry Name Role Phone Felicitas Andres MD Primary Care Provider Allergies Active Allergy Reactions Criticality Noted Date Comments Acetaminophen Nausea only,Vomiting Low Amantadine Other (See comments) Low 01/13/2021 Pt said, it made my mind go blank Codeine Nausea only Low Morphine Anaphylaxis,Shortnes s of breath,Nausea only,Vomiting High Medications cholecalciferol (VITAMIN D-3) 10,000 unit tablet Active cyanocobalamin (Vitamin B-12) 500 mcg tabletIndication s:Prevention of Vitamin B12 Deficiency 0.5 tablets (250 mcg total) Active buPROPion (WELLBUTRIN) 100 mg tablet 3 (three) times a day Active allopurinol (ZYLOPRIM) 300 mg tablet Active potassium 99 mg tablet Take by mouth . Acti ve primidone (MYSOLINE) 50 mg tablet Take 1 tablet (50 mg total) by mouth 3 (three) times a day 2 12/19/19 19 Active tamsulosin (FLOMAX) 0.4 mg extended release capsule Take 1 capsule (0.4 mg total) by mouth daily 05/26/20 20 Active fluticasone propionate (FLONASE) 50 mcg/actuation nasal spray USE 1 SPRAY(S) IN EACH NOSTRIL TWICE DAILY 02/26/20 20 Active azelastine (ASTELIN) 137 mcg (0.1 %) nasal spray USE 1 SPRAY(S) IN EACH NOSTRIL EVERY 12 HOURS 02/29/20 20 Active biotin 10,000 mcg capsule Take by mouth Acti ve vitamin B complex capsule Take 1 capsule by mouth daily Active vitamin E (AQUASOL E) 400 unit capsule 1 capsule (400 Units total) TAKE 3 AT NIGHT Active olmesartan (BENICAR) 20 mg tablet Take 1 tablet (20 mg total) by mouth 2 (two) times a day 06/07/20 20 Active LORazepam (ATIVAN) 0.5 mg tablet Take 1 tablet (0.5 mg total) by mouth daily Active fludrocortisone 0.1 mg tablet Take 1 tablet (0.1 mg total) by mouth every other day 04/27/20 22 Active ipratropium (ATROVENT) 42 mcg (0.06 %) nasal spray USE 2 SPRAY(S) IN EACH NOSTRIL THREE TIMES DAILY 07/06/20 22 Active amLODIPine (NORVASC) 5 mg tabletIndication s:Essential hypertension Take 1 tablet (5 mg total) by mouth 2 (two) times a day 180 tablet 3 01/18/20 23 Active methIMAzole (TAPAZOLE) 5 mg tablet TAKE 1 TABLET BY MOUTH ONCE EVERY OTHER DAY ALTERNATING WITH 2 TABLETS. 11/10/19 24 Active warfarin (COUMADIN) 5 mg tablet TAKE 1 & 1/2 (ONE & ONE-HALF) TABLETS BY MOUTH ONCE DAILY OR DIRECTED BY 45 tablet 08/22/19 25 Active warfarin (COUMADIN) 5 mg tablet TAKE 1 & 1/2 (ONE & ONE-HALF) TABLETS BY MOUTH ONCE DAILY OR DIRECTED BY 21 tablet 06/18/20 24 025 Discontin ued(Reord er) Active Problems Problem Noted Date Diagnosed Date Essential tremor 10/05/2023 Pure hypercholesterolemia 01/21/2023 Hyponatremia 01/17/2023 Chest heaviness 01/25/2022 Paroxysmal atrial fibrillation (CMS/HCC) 021 Chronic anticoagulation 09/30/2020 Status post placement of implantable loop record er 07/21/2020 Overview (01/27/2021): [employer] Biomonitor III Loop Recorder. Dx; Dizziness, Near Syncope, PAF. DOI 07/16/2020-[facility]. [employer] remote home monitoring. Dizzy spells 07/07/2020 Bradycardia 07/07/2020 Parkinson's disease 07/07/2020 Essential hypertension 07/07/2020 Acute bilateral low back pain with right-sided s ciatica 10/12/2018 Neuropathic pain, leg, left 10/12/2018 DDD (degenerative disc disease), lumbar 10/13/19 19 Lumbar spondylosis 08/03/2018 Resolved Problems Problem Noted Date Diagnosed Date Resolved Date Fever 09/30/2020 01/17/2023 Visit for wound check 07/22/20202021 Encounters Date Type Department Care Team Description 08/22/2024 Telephone [facility] [address] [place] [address] [place] [phone] Richard Armendariz MD 08/03/2024 Anticoagulation Visit [place] [address] [place] [phone] Julio C Lamb, RN 07/30/2024 7:15 AM BOOK CANVASSER Ancillary Procedure [facility] [address] [place] [address] [place] [phone] Status post placement of implantable loop recorder (Primary Dx); Bradycardia; Paroxysmal atrial fibrillation (CMS/HCC) (HCC) 07/02/2024 Anticoagulation Visit [address] [phone] Julio C Lamb, USHA 06/18/2024 7:00 AM BOOK CANVASSER Ancillary Procedure [facility] [address] [place] [address] [place] [phone] Dizzy spells [R42] (Primary Dx); Bradycardia; Paroxysmal atrial fibrillation (CMS/HCC) (HCC); Status post placement of implantable loop recorder [Z95.818] 06/18/2024 Orders Only [facility] [address] [place] [phone] Richard Armendariz MD Bradycardia (Primary Dx); Paroxysmal atrial fibrillation (CMS/HCC) (HCC) 06/07/2024 Anticoagulation Visit [facility] [address] [place] [address] [place] [phone] Emma Sauceda RN from Last 3 Months Surgical History Surgery Date Site/Laterality Comments NC ARTHRD ANT INTERBODY MIN DSC CRV BELOW C2 Cervical Vertebral Fusion - (Added by Conv) NC CHOLECYSTECTOMY Cholecystectomy - (Added by Conv) NC APPENDECTOMY Appendectomy - (Added by Conv) NC DELIVERY ONLY Section - (Added by Conv) HAND SURGERY Right NOSE SURGERY cancer Medical History Medical History Date Comments Personal history of other di seases of the nervous system and sense organs H/O Parkinson's diseas e - (Added by Conv) Parkinson disease (HCC) Gout Constipation Back pain Leg pain, anterior, right Hypertension Arthritis Chronic pain disorder Family History Medical History Relation Name Comments Cancer Brother Cancer Father Anxiety disorder Maternal Grandmother Depression Maternal Grandmother Mental illness Maternal Grandmother Stroke Maternal Grandmother Anxiety disorder Mother Back Pain Mother Hypertension Mother Coronary artery disease Paternal Grandmother Diabetes Paternal Grandmother Hypertension Paternal Grandmother Relation Name Status Comments Brother Father Maternal Grandmother Mother Paternal Grandmother Social History Tobacco Use Types Packs/Day Years Used Date Smoking Tobacco: Never Smokeless Tobacco: Never Tobacco Cessation:Counseling Given: Not Answered Alcohol Use Standard Drinks/Week Comments Never 0 [...] 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 file Not on file Obstetrics History Last Filed Vital Signs Vital Sign Reading Time Taken Comments Blood Pressure 118/44 01/26/2024 11:10 AM CDT Pulse 53 01/26/2024 11:10 AM CDT Temperature 36.6 ??C (97.8 ??F) 04/12/2019 11:47 AM C DT Respiratory Rate 16 04/12/2019 11:47 AM CDT Oxygen Saturation 97% 01/26/2024 11:10 AM CDT Inhaled Oxygen Concentration - - Weight 70.3 kg (155 lb) 01/26/2024 11:10 AM CDT Height 170.2 cm (5' 7 ) 01/26/2024 11:10 AM CDT Body Mass Index 24.28 01/26/2024 11:10 AM CDT Plan of Treatment Health Maintenance Due Date Last Done Comments Depression Screening 1945 Fall Risk Assessment 1945 Osteoporosis Screening-Bone Density Scan 1945 DTaP/Tdap/Td Vaccine (1 - Tdap) 01/07/1955 Hepatitis B Screening 01/07/1962 Zoster Vaccine (1 of 2) 01/07/1994 Well Visit 65+ 01/07/2009 Pneumococcal vaccine 65+ (2 of 2 - PPSV23 or PCV20) 06/13/2016 06/13/2015 Influenza Vaccine (#1) 2024 9, 05/26/2018, 06/09/2016, Additional history exists Goals Goal Patient Goal Type Associated Problems Recent Progress Patient-Stated? Author CCM Chronic Pain Care Plan Chronic Care Management Improving( 11:55 AM CDT) Khushi Pfeiffer, RN Note: Problem: Chronic Pain Goals: 1. Minimize further functional decline 2. Maximize quality of life 3. Control pain Strategies: - Activity/exercise program recommendation - Conservative stepwise pain medicine strategy with multi-disciplinary approach - Recommend healthy lifestyle strategies and compensatory methods as needed Procedures Procedure Name Priority Date/Time Associated Diagnosis Comments DEVICE CHECK - REMOTE Routine 08/09/2024 4:08 PM BOOK CANVASSER Bradycardia Paroxysmal atrial fibrillation (CMS/HCC) (HCC) PROTIME-INR Routine 08/02/2024 PROTIME-INR Routine 07/02/2024 DEVICE CHECK - REMOTE Routine 06/18/2024 11:57 AM BOOK CANVASSER Bradycardia Paroxysmal atrial fibrillation (CMS/HCC) (HCC) PROTIME-INR Routine 06/07/2024 from Last 3 Months Results * DEVICE CHECK - REMOTE (08/09/2024 4:08 PM BOOK CANVASSER) Anatomical Region Laterality Modality Other Narrative 09/06/2024 8:24 AM BOOK CANVASSER [employer]ik lllm implanted on July 16, 2020 ??for syncope. ?? Patient had a routine remote transmission on July 31, 2024 Medications: ??Coumadin 5 mg daily Interrogation of the patients device demonstrates appropriate loop function (0) Symptom events Auto Device detected events of, (0) Pause, (0) Bradycardia, (0) Tachy, (0) AT, (0) AF, Presenting Rhythm: ??Sinus bradycardia at 57 bpm Battery: ??< 25% Plan: 1) Scheduled routine remote with no new episode. 2) Continue to monitor remotely. ? Bossman McAlexnder ? Device Leave Manager Result [facility] Gerard Armendariz MD CV CARDIAC SERVICES PRO CEDURES Final Result * (ABNORMAL) Protime-INR (08/02/2024) INR 3.50(A) 0.90 - 1.10 EXTERNAL LAB Blood Result [facility] Historical Provider MD LAB BLOOD ORDERABLES Merry l Result EXTERNAL LAB * (ABNORMAL) Protime-INR (07/02/2024) INR 2.70(A) 0.90 - 1.10 EXTERNAL LAB Blood Result [facility] Provider MD LAB BLOOD ORDERABLES Merry l Result EXTERNAL LAB * DEVICE CHECK - REMOTE (06/18/2024 11:57 AM BOOK CANVASSER) Anatomical Region Laterality Modality Other Narrative 06/19/2024 2:36 PM BOOK CANVASSER [employer] Biomonitor III Loop Recorder. Dx; Dizziness, Near Syncope, PAF. DOI 07/16/2020-[employer]. [employer] remote home monitoring. [employer] Biomonitor III Loop Recorder. Dx; Dizziness, Near Syncope, PAF. DOI 07/16/2020-[facility]. [employer] remote home monitoring. Coumadin Routine ILR remote. Normal device function. Battery function-Ok. Presenting rhythm: ??VS regular at 60 beats per minute. Medications: ??Coumadin. Counters since last scheduled transmission on 05/07/2024. --No Tachy episodes noted. ?? --No Mesifn episodes noted. --No Pause episodes noted. --No Symptom episodes noted. --17 AF episodes noted, egm's SA, SR, and PAC's. See scanned report. Bi[employer]ik remote f/u 07/30/2024. Hannah Jean RN Ripa Gerard Armendariz MD CV CARDIAC SERVICES PRO CEDURES Final Result * (ABNORMAL) Protime-INR (06/07/2024) INR 3.10(A) 0.90 - 1.10 EXTERNAL LAB Blood us Historical Provider LAB BLOOD ORDERABLES Merry l Result EXTERNAL LAB from Last 3 [place] [address] MEDICARE [facility] MEDICARE SUPPLEMENT INSURANCE MEDICARE [facility] MEDICARE SUPPLEMENT INSURANCE Care Teams Supervisor Laundry Relationship Specialty Start Date End Date Felicitas Andres MD [address] [facility] [address] [place] [address] PCP - General 06/09/17
--- OUTSIDE RECORDS SUMMARY | 2024-09-06 09:09 | XMS_ITS | Referral Summary ---
Author Organization [facility] Physician Office Building [address] [place] [phone] Care Team Providers Care Mold Mechanic Name Role Phone Felicitas Andres MD Primary Care Provider Encounters Date Type Department Care Team Description 08/22/2024 Telephone [facility] [address] [place] [address] [place] [phone] Richard Armendariz MD 08/03/2024 Anticoagulation Visit [facility] [address] [place] [address] [place] [phone] Julio C Lamb, RN 07/30/2024 7:15 AM CRADLE PLACER Ancillary Procedure [facility] [address] [place] [address] [place] [phone] Status post placement of implantable loop recorder (Primary Dx); Bradycardia; Paroxysmal atrial fibrillation (CMS/HCC) ([facility]) 07/02/2024 Anticoagulation Visit [facility] [address] [place] [address] [place] [phone] Julio C Lamb, RN 06/18/2024 Orders Only [facility] [address] [place] [address] [place] [phone] Richard Armendariz MD Bradycardia (Primary Dx); Paroxysmal atrial fibrillation (CMS/HCC) (HCC) 06/18/2024 7:00 AM CRADLE PLACER Ancillary Procedure [facility] [address] [place] [address] [place] [phone] Dizzy spells [R42] (Primary Dx); Bradycardia; Paroxysmal atrial fibrillation (CMS/HCC) (HCC); Status post placement of implantable loop recorder [Z95.818] 06/07/2024 Anticoagulation Visit [facility] [address] [place] [address] Emma Sauceda RN from Last 3 Months Allergies Active Allergy Reactions Criticality Noted Date [...] implantable loop record er 07/21/2020 Overview (01/27/2021): [employer] Biomonitor III Loop Recorder. Dx; Dizziness, Near Syncope, PAF. DOI [facility]16/[facility] [employer] remote home monitoring. 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 on file Not on file Last Filed Vital Signs Vital Sign Reading [...] 01/26/2024 11:10 AM CDT Plan of Treatment Not on file Goals Goal Patient Goal Type Associated Problems [...] CHECK - REMOTE Routine 08/09/2024 4:08 PM CRADLE PLACER Bradycardia Paroxysmal atrial fibrillation (CMS/HCC) (HCC) PROTIME-INR Routine 08/02/2024 PROTIME-INR Routine 07/02/2024 DEVICE CHECK - REMOTE Routine 06/18/2024 11:57 AM CRADLE PLACER Bradycardia Paroxysmal atrial fibrillation (CMS/HCC) (HCC) PROTIME-INR Routine 06/07/2024 from Last 3 Months Results * DEVICE CHECK - REMOTE (08/09/2024 4:08 PM CRADLE PLACER) Anatomical Region Laterality Modality Other Narrative 09/06/2024 8:24 AM CRADLE PLACER Biotronik lllm implanted on July 16, 2020 [...] monitor remotely. ? Bossman McAlexnder ? Device Typing Element Machine Operator [facility] Gerard Armendariz MD CV CARDIAC SERVICES PRO CEDURES Final Result * (ABNORMAL) Protime-INR (08/02/2024) INR 3.50(A) 0.90 - 1.10 EXTERNAL LAB Blood Historical Provider LAB BLOOD ORDERABLES Merry nicole Result EXTERNAL LAB * (ABNORMAL) Protime-INR (07/02/2024) INR 2.70(A) 0.90 - 1.10 EXTERNAL LAB Blood us Historical Provider LAB BLOOD ORDERABLES Merry l Result EXTERNAL LAB * DEVICE CHECK - REMOTE (06/18/2024 11:57 AM CRADLE PLACER) Anatomical Region Laterality Modality Other Narrative 06/19/2024 2:36 PM CRADLE PLACER [employer] Biomonitor III Loop Recorder. Dx; Dizziness, Near Syncope, PAF. DOI [facility]16/[facility]. [employer] remote home monitoring. [employer] Biomonitor III Loop Recorder. Dx; Dizziness, Near Syncope, PAF. [facility] [employer] remote home monitoring. Coumadin Routine ILR remote. Normal device function. Battery function-Ok. Presenting rhythm: ??VS regular at 60 beats per minute. Medications: ??Coumadin. Counters since last scheduled transmission on 05/07/2024. --No Tachy episodes noted. ?? --No Mesfin episodes noted. --No Pause episodes noted. --No Symptom episodes noted. --17 AF episodes noted, egm's SA, SR, and PAC's. See scanned report. [employer] remote f/u 07/30/2024. Hannah Jean, USHA [facility] Gerard Armendariz MD CV CARDIAC SERVICES PRO CEDURES Final Result * (ABNORMAL) Protime-INR (06/07/2024) INR 3.10(A) 0.90 - 1.10 EXTERNAL LAB Blood Historical Provider LAB BLOOD ORDERABLES Merry l Result EXTERNAL LAB from Last [address] [place] [place] [address] MEDICARE [facility] MEDICARE SUPPLEMENT INSURANCE MEDICARE [facility] MEDICARE SUPPLEMENT INSURANCE [address] [id number] [place] [address] Care Teams Mold Mechanic Relationship Specialty Start Date End Date Felicitas Andres MD [address] [facility] [address] [place] [address] PCP - General 06/09/17
--- OUTSIDE RECORDS SUMMARY | 2024-09-06 09:09 | XMS_ITS | Encounter Summary ---
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
--- OUTSIDE RECORDS SUMMARY | 2024-09-06 09:09 | XMS_ITS | Continuity of Care Document ---
Author Organization [facility] Address [address] [facility] [address] Phone Care Team Providers Care Merchandising Consultant Name Role Phone Sachin Arias MD Unavailable Unavailable Allergies, Adverse Reactions, Alerts Substance Reaction Status Criticality codeine Active No Information Medications Medication Instructions Dosage Effective Dates (start - stop) Status Comments Norvasc 10 mg tablet take 1 tablet (10MG ) by oral route every day 10 MG - Active Protonix 40 mg tablet,delayed release take 1 tablet (40MG) by oral route every day 40 MG - Active Zantac 150 mg tablet take 1 tablet (150M G) by oral route every evening - Active lisinopril 20 mg tablet take 1 tablet (20MG) by oral route every day 20 MG - Active Procedures Procedure Date OFFICE/OUTPATIENT VISIT, EST OFFICE/OUTPATIENT VISIT, EST OFFICE/OUTPATIENT VISIT, EST OFFICE/OUTPATIENT VISIT, NEW Advance Directives Directive Yes / No Effective Date File Name No Information Encounters Encounter Description Practice Location Reason(s) For Visit Diagnoses Date Provider Providers Copied on Encounter [facility], [address] [place], [id number], [place] tel:[phone] [facility] No Information 0 3 Hugo Stephenson. [address] [place], [id number] , [place]. tel:[phone] [facility], [address] [place], [id number], [place] tel:[phone] [facility] No Information 3 Hugo Stephenson. [address], [place], [place], [id number] , [place]. tel:[phone] OFFICE/OUTPA TIENT VISIT, [facility], [address], [place], [place], [id number], [place] tel:[phone] [facility] fatigue (chief complaint) arthritis (chief complaint) Dietary surveillance and counselingFatigue / MalaiseCHRONIC PAIN NECGERD 0 3 Hugo Stephenson. [address], [place], [place], [id number] , [place]. tel:[phone] Referring Provider: Sachin Arias, [address], [place], [place], [id number]. tel:[phone] [facility], [address], [place], [place], [id number], [place] tel:[phone] [facility] No Information 3 Hugo Stephenson. [address], [address], [place], [place], [id number] , [place]. [phone] OFFICE/OUTPA TIENT VISIT, [facility], [address], [place], [place], [id number], [place] tel:[phone] [facility] Gout (chief complaint) Arthritis (chief complaint) HTN (chief complaint) Fatigue (chief complaint) Dietary surveillance and counselingCHRONIC PAIN NECGout, unspecifiedHyperten bryant, UnspecifiedFatigue / Malaise 3 3 Hugo Stephenson. [address], [place], [place], [id number] , [place]. tel:[phone] Referring Provider: Sachin Arias, [address], [place], [place], [id number]. tel:[phone] OFFICE/OUTPA TIENT VISIT, [facility], [address], [place], [place], [id number], [place] tel:[phone] [facility] neck pain (chief complaint) HLP (chief complaint) LFT (chief complaint) Dietary surveillance and counselingHyperglyc emiaUnspecified chronic liver disease without mention of alcoholOther and unspecified hyperlipidemiaCHRON IC PAIN NEC 3 Hugo Stephenson. [address], [address], [place], [place], [id number] , . tel:[phone] Referring Provider: [address], [place], [place], [id number]. tel:[phone] OFFICE/OUTPA TIENT VISIT, [facility], [address], [place], [place], [id number], [place] tel:[phone] [facility] Gout (chief complaint) RA (chief complaint) HTN (chief complaint) Dietary surveillance and counselingRheumatoi d ArthritisGout, unspecifiedHyperten bryant, UnspecifiedRenal Failure, Acute 3 Hugo Stephenson. [address], [place], [place], [id number] , [place]. tel:[phone] Referring Provider: [address] [facility] [address], [place], [place], [id number]. tel:[phone] Family History Family Member Type Diagnosis Age At Onset Brother Problem (finding) Cancer, pancreas Mother Problem (finding) arthritis, gout Mother Problem (finding) Alzheimer's Disease Father Problem (finding) Cancer, unknown Payers Payer name Insurance type Covered democrat ID Authoriza tion(s) No Information Social History Type Description Quantity Date Captured Comments Sex Female Smoking Status No Information Chief Complaint And Reason For Visit No Information Plan Of Treatment Date Type Action Status No Information History Of Present Illness Encounter Date Complaint History Of Prese nt Illness No Information Instructions Date Instruction Additional Infor mation Decrease caloric intake Related to Dietary surveillance counseling Dietary counseling Related to Di etary surveillance counseling Decrease caloric intake Related to Dietary surveillance counseling Dietary counseling Related to Di etary surveillance counseling Decrease caloric intake Related to Dietary surveillance counseling Dietary counseling Related to Di etary surveillance counseling Decrease caloric intake Related to Dietary surveillance counseling Dietary counseling Related to Di etary surveillance counseling Assessments Type Assessment Date No Information
--- OUTSIDE RECORDS SUMMARY | 2024-09-06 09:10 | XMS_ITS | Encounter Summary ---
Author Organization [facility] Healthcare Address [address] [place] [address] Care Team Providers Care Build Master Name Role Phone Felicitas Andres MD Primary Care Provider Reason for Visit * Reason Onset Date Comments Appointment 03/05/2019 Encounter Details Date Type Department Care Team (Late st Contact Info) Description 03/05/[address] [facility] [address] [facility] [address] [place] [address] Nat Cooper MD PhD [address] [facility] [address] [facility] [address] [place], [place] [id number] Appointment Social History Tobacco Use Types Packs/Day Years [...] as needed documented as of this encounter Visit Diagnoses Not on filedocumented in this encounter Care Teams Build Master Relationship Specialty Start Date End Date Felicitas Andres MD [address] [facility] [address] [place] [address] PCP - General 06/09/17 documented as of this encounter
--- OUTSIDE RECORDS SUMMARY | 2024-09-06 09:10 | XMS_ITS | CONTINUITY OF CARE DOCUMENT ---
Author Name ethan long Address Unknown Organization [facility] Address [address] [place] [address] Phone [phone] Care Team Providers Care Faa Certified Powerplant Mechanic Name Role Phone Eleanor BLAKE, Samson Unavailable JACKI BLAKE, EVANGELIST Unavailable JACKI BLAKE, EVANGELIST Unavailable [phone] PROBLEMS Condition Status Date Provider Notes Cardiology examination active Samson Webster MD Gout active Samson Webster MD Parkinson's disease active Samson Webster MD Atrial fibrillation active Samson Webster MD Leg pain, bilateral active Samson Webster MD ENCOUNTERS Date Type Provider Location Encounter Diag nosis - In-person encounter Office Visit Samson Webster MD [facility] - In-person encounter Office Visit Samson Webster MD [facility] Cardiology examinationLeg pain, bilateralAtrial fibrillationParkinson's diseaseGout VITAL SIGNS Date Observation Value Provider Body Mass Index (Ratio) 26.15 kg/m2 Cameron Webster MD blood pressure, diastolic 62 mm[Hg] Ca therine Joaquin blood pressure, systolic 129 mm[Hg] Cat herine Joaquin oxygen saturation, oximetry 96 % Chelo Joaquin pulse rate 70 /min Chelo Sanjeev respiratory rate E&M 18 /min Catheri ne Sanjeev weight E&M 167 [lb_av] Chelo Sanjeev blood pressure, cuff size regular Ca therine Joaquin height E&M 67 [in_i] Chelo Joaquin Body Mass Index (Ratio) 26.31 kg/m2 Cameron Webster MD blood pressure, diastolic 74 mm[Hg] Li nkLogic blood pressure, systolic 166 mm[Hg] Faustina kLogic blood pressure, diastolic 74 mm[Hg] Sa ra Meehan blood pressure, systolic 166 mm[Hg] Adwoa a Meehan oxygen saturation, oximetry 97 % Ryanne Meehan respiratory rate E&M 18 /min Ryanne Si ms pulse rate 58 /min Ryanne Meehan blood pressure, cuff size regular Sa ra Meehan weight E&M 168 [lb_av] Ryanne Meehan height E&M 67 [in_i] Ryanne Meehan ALLERGIES No Known Drug Allergies HISTORY OF MEDICATION USE Medication Status Instructions Dates Provider Indications Com ments cholestyramine (with sugar) 4 gram powder active TAKE 4 GRAMS BY MOUTH TWO TIMES A DAY WITH MEALS. AVOID TAKING OTHER MEDICATIONS WITHIN ONE HOUR BEFORE AND 4 TO 6 HOURS AFTER Ryanne Meehan rosuvastatin 5 mg tablet active TAKE 1 TABLET BY MOUTH ONCE DAILY Ryanne Meehan cephalexin 750 mg capsule active TAKE 1 CAPSULE BY MOUTH ONCE EVERY 8 HOURS Ryanne Meehan olmesartan 20 mg tablet active TAKE 1 TABLET BY MOUTH TWICE DAILY Ryanne Meehan dexamethasone 4 mg tablet active Ryanne Meehan allopurinol 300 mg tablet active Ryanne Meehan lorazepam 0.5 mg tablet active Ryanne Meehan bupropion HCl 100 mg tablet active TAKE 1 TABLET BY MOUTH 4 TIMES DAILY 6 HOURS APART Ryanne Meehan sodium bicarbonate 650 mg tablet active TAKE 1 TABLET BY MOUTH TWICE DAILY Ryanne Meehan tamsulosin 0.4 mg capsule active Ryanne Meehan prednisone 10 mg tablet active Ryanne Meehan carisoprodol 350 mg tablet active TAKE 1 TABLET BY MOUTH THREE TIMES DAILY Ryanne Meehan fluticasone propionate 50 mcg/actuation spray,suspension active Ryanne Meehan azelastine 137 mcg (0.1 %) aerosol,spray active Ryanne Meehan warfarin 5 mg tablet active Ryanne Meehan promethazine 25 mg tablet active TAKE 1 TABLET BY MOUTH TWICE DAILY NEEDED FOR NAUSEA AND VOMITING Ryanne Meehan tramadol 50 mg tablet active Ryanne Meehan primidone 50 mg tablet active Ryanne Meehan SOCIAL HISTORY Date Observation Value Provider number of grandchildren Samson Webster MD U yani Webster MD social history E&M S moking History: Jeremy esparza has never smoked. Samson Webster MD social history reviewed E&M reviewed - no changes required Samson Webster MD smoking status Never smoker Chelo Sakina lenug social history reviewed E&M reviewed - no changes required Samson Webster MD INSURANCE PROVIDERS Payer name Policy type / Coverage type [place] red republican ID CIGNA MEDICARE SUPPLEMENT Commercial insurance c [facility] [id number] [place] Medicare [id number] ADVANCE DIRECTIVES Name Date DISCUSSED - NO DECISION MADE TREATMENT PLAN Date Name Performer [id number],S, O n warfarin. Samson Webster MD [id number],S, H e sensilase was normal, and I think it's very unlikely that her leg pain is caused by PVD. It may be a component of neuropathy and Parksinon's. She's been on rosuvastatin for 2-3 years and the pain has been present for about a year. Samson Webster MD [id number],C,A BIs are normal. Right TBI is 0.47 and left is 0.44. Normal is > 0.65. However, I can feel pulses in both DP with my fingers. We will check a sensilase to try and get a more sensitive test to see if she has disease, but generally it would be unlikely that her symptoms are from arterial vascular disease. Samson Webster MD Cardiology: O n warfarin. Samson Webster MD Cardiology: H e sensilase was normal, and I think it's very unlikely that her leg pain is caused by PVD. It may be a component of neuropathy and Parksinon's. She's been on rosuvastatin for 2-3 years and the pain has been present for about a year. Samson Webster MD Cardiology:ABIs are normal. Right TBI is 0.47 and left is 0.44. Normal is > 0.65. However, I can feel pulses in both DP with my fingers. We will check a sensilase to try and get a more sensitive test to see if she has disease, but generally it would be unlikely that her symptoms are from arterial vascular disease. Samson Webster MD Date Name Arterial - SENSILASE HISTORY OF PROCEDURES Procedure Date Procedure Name Provider Procedure Notes S tatus EKG Samson Webster MD completed
[2024-09-06 09:29] LABS: Alanine Aminotransferase 20 U/L (6-35); Albumin Level 3.9 g/dL (3.5-5.1); Alkaline Phosphatase 152 U/L (38-126); Anion Gap 9 mmol/L (4-12); Aspartate Amino Transferase 29 U/L (14-36); Bilirubin,Total 0.5 mg/dL (0.2-1.3); Blood Urea Nitrogen 17 mg/dL (7-17); Carbon Dioxide 29 mmol/L (22-30); Chloride 100 mmol/L (98-107); Estimated Glomerular Filt Rate > 60; Glucose 82 mg/dL (65-110); Potassium 3.7 mmol/L (3.4-5.0); Sodium 138 mmol/L (137-145)
== END 2024-09-06 08:48 | disposition home or self-care (01) ==
LOC: ANHLAB 08:48
PROVIDERS: PCP Family Medicine; Visit Provider Student in an Organized Health Care Education/Training Program
DX: E05.90 Thyrotoxicosis, unspecified without thyrotoxic crisis or storm (principal)
CPT/HCPCS: 36415; 80053; 84443

== ENCOUNTER 2024-09-14 09:42 | Outpatient (RCR) | payer MEDICARE, SELFPAY ==
[2024-07-02 10:03] LABS: INR 2.7; Prothrombin Time 29.2 Seconds (11.1-14.7)
[2024-08-02 13:18] LABS: INR 3.5; Prothrombin Time 35.2 Seconds (11.1-14.7)
[2024-09-06 09:23] LABS: INR 3.6; Prothrombin Time 36.3 Seconds (11.1-14.7)
[2024-09-14 10:25] LABS: INR 2.5; Prothrombin Time 27.9 Seconds (11.1-14.7)
== END 2024-09-30 23:59 | disposition home or self-care (01) ==
LOC: ANHLAB 09:42
PROVIDERS: PCP Family Medicine; Visit Provider Internal Medicine
DX: I48.0 Paroxysmal atrial fibrillation (principal); Z79.01 Long term (current) use of anticoagulants
CPT/HCPCS: 36415; 80048; 84439; 84443; 84480; 85610

== ENCOUNTER 2024-10-15 10:58 | Outpatient (CLI) | payer MEDICARE, SELFPAY ==
[2024-10-15 12:23] LABS: Free T4 Free Thyroxine 1.05 ng/dL (0.78-2.19)
[2024-10-15 12:25] LABS: Alanine Aminotransferase 20 U/L (6-35); Albumin Level 3.9 g/dL (3.5-5.1); Alkaline Phosphatase 157 U/L (38-126); Aspartate Amino Transferase 27 U/L (14-36); Bilirubin,Total 0.4 mg/dL (0.2-1.3); Blood Urea Nitrogen 14 mg/dL (7-17); Calcium 8.8 mg/dL (8.4-10.2); Carbon Dioxide 29 mmol/L (22-30); Estimated Glomerular Filt Rate > 60; Glucose 92 mg/dL (65-110); Potassium 4.3 mmol/L (3.4-5.0); Sodium 135 mmol/L (137-145)
[2024-10-15 12:31] LABS: Anion Gap 4 mmol/L (4-12); Chloride 102 mmol/L (98-107)
--- OUTSIDE RECORDS SUMMARY | 2024-10-15 13:07 | XMS_ITS | Encounter Summary ---
Author Organization [facility] Healthcare Address [address] [place] [address] Care Team Providers Care Potato Picker Name Role Phone Felicitas Andres MD Primary Care Provider Reason for Visit * Reason Onset Date Comments Appointment 03/05/2019 Encounter Details Date Type Department Care Team (Late st Contact Info) Description 03/05/2019 Telephone [facility] [address] [facility] [address] [place] [address] Nat Cooper MD PhD [address] [facility] [address] [facility] [phone] [place], [place] [phone] Appointment Social History Tobacco Use Types Packs/Day [...] on filedocumented in this encounter Care Teams Potato Picker Relationship Specialty Start Date End Date Felicitas Andres MD [address] [facility] [address] [place] [address] PCP - General 06/09/17 documented as of this encounter
--- OUTSIDE RECORDS SUMMARY | 2024-10-15 13:07 | XMS_ITS | CONTINUITY OF CARE DOCUMENT ---
Author Name ethan long Address Unknown Organization [facility] Address [address] [place] [address] Phone [phone] Care Team Providers Care Associate Material Handler Name Role Phone Eleanor BLAKE, Samson Unavailable JACKI BLAKE, EVANGELIST Unavailable JACKI BLAKE, EVANGELIST Unavailable [phone] PROBLEMS Condition Status Date Provider Notes Cardiology examination active Samson Webster MD Leg pain, bilateral active Samson Webster MD Atrial fibrillation active Samson Webster MD Parkinson's disease active Samson Webster MD Gout active Samson Webster MD ENCOUNTERS Date Type Provider Location Encounter Diag nosis - In-person encounter Office Visit Samson Webster MD [facility] - In-person encounter Office Visit Samson Webster MD [facility] Cardiology examinationLeg pain, bilateralAtrial fibrillationParkinson's diseaseGout VITAL SIGNS Date Observation Value Provider Body Mass Index (Ratio) 26.15 kg/m2 Cameron Webster MD blood pressure, diastolic 62 mm[Hg] Ca therine Bickmore blood pressure, systolic 129 mm[Hg] Cat herine [place] oxygen saturation, oximetry 96 % Chelo Sanjeev pulse rate 70 /min Chelo Sanjeev respiratory rate E&M 18 /min Catheri ne Sanjeev weight E&M 167 [lb_av] Chelo Bickmore blood pressure, cuff size regular Ca therine Sanjeev height E&M 67 [in_i] Chelo Bickmore Body Mass Index (Ratio) 26.31 kg/m2 Cameron [...] MD smoking status Never smoker Chelo Sakina leung social history reviewed E&M reviewed - no changes required Samson Webster MD INSURANCE PROVIDERS Payer name Policy type / Coverage type [place] red libertarian ID CIGNA MEDICARE SUPPLEMENT Commercial insurance c [facility] [id number] [place] [id number] ADVANCE DIRECTIVES Name Date DISCUSSED - NO DECISION MADE TREATMENT PLAN Date Name Performer [id number],S, O n warfarin. Samson Webster MD [id number],S, H e sensilase was normal, and I think it's very unlikely that her leg pain is caused by PVD. It may be a component of neuropathy and Parksinon's. She's been on rosuvastatin for 2-3 years and the pain has been present for about a year. Samson Webster MD [id number],C,A BIs are normal. Right TBI is 0.47 [...]
--- OUTSIDE RECORDS SUMMARY | 2024-10-15 13:07 | XMS_ITS | Encounter Summary ---
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
--- OUTSIDE RECORDS SUMMARY | 2024-10-15 13:07 | XMS_ITS | Encounter Summary ---
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
--- OUTSIDE RECORDS SUMMARY | 2024-10-15 13:07 | XMS_ITS | Clinical Summary ---
Author Organization [facility] [address] [place] [phone] Care Team Providers Care Supervisor Chassis Assembly Name Role Phone Felicitas Andres MD Primary Care Provider Allergies Active Allergy Reactions Criticality Noted Date Comments Acetaminophen Nausea only,Vomiting Low Amantadine Other (See comments) Low 01/13/2021 Pt said, it made my mind go blank Codeine Nausea only Low Morphine Anaphylaxis,Shortnes s of breath,Nausea only,Vomiting High Medications cholecalciferol (VITAMIN D-3) 10,000 unit tablet Active cyanocobalamin (Vitamin B-12) 500 mcg tabletIndicatio ns:Prevention of Vitamin B12 Deficiency 0.5 tablets (250 mcg total) Active buPROPion (WELLBUTRIN) 100 mg tablet 3 (three) times a day Active allopurinol (ZYLOPRIM) 300 mg tablet Active potassium 99 mg tablet Take by mouth . Active primidone (MYSOLINE) 50 mg tablet Take 1 [...] 07/06/20 22 Active amLODIPine (NORVASC) 5 mg tabletIndicatio ns:Essential hypertension Take 1 tablet (5 mg total) by mouth 2 (two) times a day 180 tablet 3 01/18/20 23 Active methIMAzole (TAPAZOLE) 5 mg tablet TAKE 1 TABLET BY MOUTH ONCE EVERY OTHER DAY ALTERNATING WITH 2 TABLETS. 11/10/19 24 Active warfarin (COUMADIN) 5 mg tablet TAKE 1 & 1/2 (ONE & ONE-HALF) TABLETS BY MOUTH ONCE DAILY OR DIRECTED BY DR Olmstead tablet 09/25/19 25 Active warfarin (COUMADIN) 5 mg tablet TAKE 1 & 1/2 (ONE & ONE-HALF) TABLETS BY MOUTH ONCE DAILY OR DIRECTED BY DR Olmstead tablet 08/22/19 25 2024 Discontinued warfarin (COUMADIN) 5 mg tablet TAKE 1 & 1/2 (ONE & ONE-HALF) TABLETS BY MOUTH ONCE DAILY OR DIRECTED BY DR Olmstead tablet 09/17/19 25 2024 Discontinued(R eorder) Active Problems Problem Noted Date Diagnosed Date Essential tremor 10/05/2023 Pure hypercholesterolemia 01/21/2023 Hyponatremia 01/17/2023 Chest heaviness 01/25/2022 Paroxysmal atrial fibrillation 09/30/2020 Chronic anticoagulation 09/30/2020 Status post placement of implantable loop record er 07/21/2020 Overview (01/27/2021): [employer] Biomonitor III Loop Recorder. Dx; Dizziness, Near Syncope, PAF. DOI 07/16/2020-[employer]. Local [employer] remote home monitoring. Dizzy spells 07/07/2020 Bradycardia 07/07/2020 Parkinson's disease 07/07/2020 Essential hypertension 07/07/2020 Acute bilateral low back pain with right-sided s ciatica 10/12/2018 Neuropathic pain, leg, left 10/12/2018 DDD (degenerative disc disease), lumbar 10/13/19 19 Lumbar spondylosis 08/03/2018 Resolved Problems Problem Noted Date Diagnosed Date Resolved Date Fever 09/30/2020 01/17/2023 Visit for wound check 07/22/20202021 Encounters Date Type Department Care Team Description 10/04/2024 8:30 AM CREDIT CONTROL MANAGER Ancillary Procedure [facility] Cardiology [address] [place] [address] [place] [phone] Status post placement of implantable loop recorder (Primary Dx); Bradycardia; Paroxysmal atrial fibrillation (HCC); Dizzy spells 09/25/2024 Telephone [place] [address] [place] [phone] Richard Armendariz MD Med Refill 09/14/2024 Anticoagulation Visit [place] [address] [place] [phone] Emma Sauceda, USHA 09/10/2024 7:15 AM CREDIT CONTROL MANAGER Ancillary Procedure [address] [place] [phone] Status post placement of implantable loop recorder (Primary Dx); Bradycardia; Paroxysmal atrial fibrillation (HCC) 09/06/2024 Anticoagulation Visit [facility] Cardiology [address] [place] [address] [place] [phone] Julio C Lamb, USHA 08/22/2024 Telephone [facility] Cardiology [address] [place] [address] [place] [phone] Richard Armendariz MD 08/03/2024 Anticoagulation Visit [facility] Cardiology [address] [place] [address] [place] [phone] Julio C Lamb RN 07/30/2024 7:15 AM CREDIT CONTROL MANAGER Ancillary Procedure [facility] Cardiology [address] [facility] [address] [facility] [place] [phone] Status post placement of implantable loop recorder (Primary Dx); Bradycardia; Paroxysmal atrial fibrillation (HCC) from Last 3 Months Surgical History Surgery Date Site/Laterality Comments [place] ARTHRD ANT INTERBODY MIN DSC CRV BELOW C2 Cervical Vertebral Fusion - (Added by Conv) [place] CHOLECYSTECTOMY Cholecystectomy - (Added by Conv) [place] APPENDECTOMY Appendectomy - (Added by Conv) [place] DELIVERY ONLY Section - (Added by Conv) [...] 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 file Not on file Obstetrics History Last Filed Vital Signs Vital Sign Reading Time Taken Comments Blood Pressure 118/44 01/26/2024 11:10 AM CDT Pulse 53 01/26/2024 11:10 AM CDT Temperature 36.6 C (97.8 F) 04/12/2019 11:47 AM CDT Respiratory Rate 16 04/12/2019 11:47 AM CDT [...] Pneumococcal vaccine 65+ (2 of 2 - PPSV23) 06/13/2016 06/13/2015 Influenza Vaccine (#1) 2024 9, [...] Diagnosis Comments DEVICE CHECK - REMOTE Routine 10/04/2024 8:36 AM CREDIT CONTROL MANAGER Bradycardia Paroxysmal atrial fibrillation (HCC) PROTIME-INR Routine 09/14/2024 DEVICE CHECK - REMOTE Routine 09/10/2024 1:19 PM CREDIT CONTROL MANAGER Bradycardia Paroxysmal atrial fibrillation (HCC) PROTIME-INR Routine 09/06/2024 DEVICE CHECK - REMOTE Routine 08/09/2024 4:08 PM CREDIT CONTROL MANAGER Bradycardia Paroxysmal atrial fibrillation (HCC) PROTIME-INR Routine 08/02/2024 from Last 3 Months Results * DEVICE CHECK - REMOTE (10/04/2024 8:36 AM CREDIT CONTROL MANAGER) Anatomical Region Laterality Modality Other Narrative 10/04/2024 9:33 AM CREDIT CONTROL MANAGER Local [employer] Biomonitor III Loop Recorder. Dx; Dizziness, Near Syncope, PAF. DOI 07/16/2020-[facility]. [employer] remote home monitoring. Unscheduled alert ILR remote. Normal device function. Battery function-EVI (Elective Replacement Indicator) reached on 09/30/2024. Presenting rhythm: VS, SR with PAC's. Medications:Coumadin. No auto or patient recorded episodes noted. See scanned report. Loop recorder end of service letter mailed to patient. Hannah Jean RN [facility] Gerard Armendariz MD CV CARDIAC SERVICES PRO CEDURES Final Result * (ABNORMAL) Protime-INR (09/14/2024) INR 2.50(A) 0.90 - 1.10 EXTERNAL LAB Blood Historical Provider LAB BLOOD ORDERABLES Merry l Result EXTERNAL LAB * DEVICE CHECK - REMOTE (09/10/2024 1:19 PM CREDIT CONTROL MANAGER) Anatomical Region Laterality Modality Other Narrative 09/24/2024 8:19 AM CREDIT CONTROL MANAGER Biotronik lllm implanted on July 16, 2020 for syncope. Patient had a routine remote transmission on September 10, 2024 Medications: Coumadin 5 mg daily, Norvasc 5 mg b.i.d. Interrogation of the patients device demonstrates appropriate loop function (0) Symptom events Auto Device detected events of, (0) Pause, (0) Bradycardia, (0) Tachy, (0) AT, (0) AF, Presenting Rhythm: Sinus rhythm at 62 bpm Battery: < 25% Plan: 1) Scheduled routine remote with no new episode. 2) Continue to monitor remotely. Bossman Badillo Device Tare Worker Result [facility] Richard Armendariz MD CV CARDIAC SERVICES PRO CEDURES Final Result * (ABNORMAL) Protime-INR (09/06/2024) INR 3.60(A) 0.90 - 1.10 EXTERNAL LAB Blood Result [facility] Historical Provider LAB BLOOD ORDERABLES Merry l Result EXTERNAL LAB * DEVICE CHECK - REMOTE (08/09/2024 4:08 PM CREDIT CONTROL MANAGER) Anatomical Region Laterality Modality Other Narrative 09/06/2024 8:24 AM CREDIT CONTROL MANAGER [employer] lllm implanted on July 16, 2020 for syncope. Patient had a routine remote transmission on July 31, 2024 Medications: Coumadin 5 mg daily Interrogation of the patients device demonstrates appropriate loop function (0) Symptom events Auto Device detected events of, (0) Pause, (0) Bradycardia, (0) Tachy, (0) AT, (0) AF, Presenting Rhythm: Sinus bradycardia at 57 bpm Battery: < 25% Plan: 1) Scheduled routine remote with no new episode. 2) Continue to monitor remotely. Bossman Badillo Device Tare Worker Result [facility] Richard Armendariz MD CV CARDIAC SERVICES PRO CEDURES Final Result * (ABNORMAL) Protime-INR (08/02/2024) INR 3.50(A) 0.90 - 1.10 EXTERNAL LAB Blood Result [facility] Historical Provider LAB BLOOD ORDERABLES Merry l Result EXTERNAL LAB from Last [address] [place] [id number] MEDICARE [facility] MEDICARE SUPPLEMENT INSURANCE [place] [id number] MEDICARE [facility] MEDICARE SUPPLEMENT INSURANCE Care Teams Supervisor Chassis Assembly Relationship Specialty Start Date End Date Felicitas Andres MD [address] [facility] [address] [place] [address] PCP - General 06/09/17
--- OUTSIDE RECORDS SUMMARY | 2024-10-15 13:07 | XMS_ITS | Continuity of Care Document ---
Author Organization [facility] Address [address] [facility] [place] [address] Phone Care Team Providers Care Ultrasound Sonographer Name Role Phone Sachin Arias MD Unavailable [...] Diagnoses Date Provider Providers Copied on Encounter [facility], [address] [place], [place], [address], [place] tel:[phone] [facility] No Information 0 3 Hugo Stephenson. [address] [place], [address] , [place]. tel:[phone] [facility], [address] [place], [place], [address], [place] tel:[phone] [facility] No Information 3 Hugo Stephenson. [address], [address], [place], [place], [address] , [place]. tel:[phone] OFFICE/OUTPA TIENT VISIT, [facility], [address], [place], [place], [address], [place] tel:[phone] [facility] fatigue (chief complaint) arthritis (chief complaint) Dietary surveillance and counselingFatigue / MalaiseCHRONIC PAIN NECGERD 0 3 Hugo Stephenson. [address], [address], [place], [place], [address] , [place]. tel:[phone] Referring Provider: Sachin Arias, [address], [place], [place], [address]. tel:[phone] [facility], [address], [place], [place], [address], [place] tel:[phone] [facility] No Information 3 Hugo Stephenson. [address], [address], [place], [place], [address] , [place]. [phone] OFFICE/OUTPA TIENT VISIT, [facility], [address], [place], [place], [address], [place] tel:[phone] [facility] Gout (chief complaint) Arthritis (chief complaint) HTN (chief complaint) Fatigue (chief complaint) Dietary surveillance and counselingCHRONIC PAIN NECGout, unspecifiedHyperten bryant, UnspecifiedFatigue / Malaise 3 3 Hugo Stephenson. [address], [address], [place], [place], [address] , [place]. tel:[phone] Referring Provider: Sachin Arias, [address], [place], [place], [address]. tel:[phone] OFFICE/OUTPA TIENT VISIT, [facility], [address], [place], [place], [address], [place] tel:[phone] [facility] neck pain (chief complaint) HLP (chief complaint) LFT (chief complaint) Dietary surveillance and counselingHyperglyc emiaUnspecified chronic liver disease without mention of alcoholOther and unspecified hyperlipidemiaCHRON IC PAIN NEC 3 Hugo Stephenson. [address], [address], [place], [place], [address] , . tel:[phone] Referring Provider: Rolando [address], [place], [place], [address]. tel:[phone] OFFICE/OUTPA TIENT VISIT, [facility], [address], [place], [place], [address], [place] tel:[phone] [facility] Gout (chief complaint) RA (chief complaint) HTN (chief complaint) Dietary surveillance and counselingRheumatoi d ArthritisGout, unspecifiedHyperten bryant, UnspecifiedRenal Failure, Acute 3 Hugo Stephenson. [address], [address], [place], [place], [address] , [place]. tel:[phone] Referring Provider: Rolando Huston [address] [facility] A, [place], [place], [address]. tel:[phone] Family History Family Member Type Diagnosis Age At Onset Brother Problem (finding) Cancer, pancreas Mother Problem (finding) arthritis, gout Mother Problem (finding) Alzheimer's Disease Father Problem (finding) Cancer, unknown Payers Payer name Insurance type Covered constitution party ID Authoriza tion(s) No Information Social History [...]
--- OUTSIDE RECORDS SUMMARY | 2024-10-15 13:07 | XMS_ITS | Referral Summary ---
Author Organization [facility] [address] [place] [address] Care Team Providers Care Intervention Specialist Name Role Phone Felicitas Andres MD Primary Care Provider Encounters Date Type Department Care Team Description 10/04/2024 8:30 AM SHOE SALESMAN Ancillary Procedure [facility] [address] [place] [address] [place] [phone] Status post placement of implantable loop recorder (Primary Dx); Bradycardia; Paroxysmal atrial fibrillation (HCC); Dizzy spells 09/25/2024 Telephone [facility] [address] [place] [address] [place] [phone] Richard Armendariz MD Med Refill 09/14/2024 Anticoagulation Visit [facility] [address] [place] [address] [place] [phone] Emma Sauceda RN 09/10/2024 7:15 AM SHOE SALESMAN Ancillary Procedure [facility] [address] [place] [address] [place] [phone] Status post placement of implantable loop recorder (Primary Dx); Bradycardia; Paroxysmal atrial fibrillation (HCC) 09/06/2024 Anticoagulation Visit [facility] [address] [place] [address] [place] [phone] Julio C Lamb, USHA 08/22/2024 Telephone [facility] [address] [place] [address] [place] [phone] Richard Armendariz MD 08/03/2024 Anticoagulation Visit [facility] [address] [place] [address] Julio C Lamb RN 07/30/2024 7:15 AM SHOE SALESMAN Ancillary Procedure [facility] [address] [facility] [address] [address] Status post placement of implantable loop recorder (Primary Dx); Bradycardia; Paroxysmal atrial fibrillation (HCC) from Last 3 Months Allergies Active Allergy [...] total) by mouth every other day 04/27/20 Active ipratropium (ATROVENT) 42 mcg (0.06 %) [...] DR Olmstead tablet 09/17/19 25 2024 Discontinued(R blanche) Active Problems Problem Noted Date Diagnosed Date Essential tremor 10/05/2023 Pure hypercholesterolemia 01/21/2023 Hyponatremia 01/17/2023 Chest heaviness 01/25/2022 Paroxysmal atrial fibrillation 09/30/2020 Chronic anticoagulation 09/30/2020 Status post placement of implantable loop record er 07/21/2020 Overview (01/27/2021): [employer] Biomonitor III Loop Recorder. Dx; Dizziness, Near Syncope, PAF. DOI 07/16/2020-[facility]. [employer] remote home monitoring. 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 on file Not [...] CHECK - REMOTE Routine 10/04/2024 8:36 AM SHOE SALESMAN Bradycardia Paroxysmal atrial fibrillation (HCC) PROTIME-INR Routine 09/14/2024 DEVICE CHECK - REMOTE Routine 09/10/2024 1:19 PM SHOE SALESMAN Bradycardia Paroxysmal atrial fibrillation (HCC) PROTIME-INR Routine 09/06/2024 DEVICE CHECK - REMOTE Routine 08/09/2024 4:08 PM SHOE SALESMAN Bradycardia Paroxysmal atrial fibrillation (HCC) PROTIME-INR Routine 08/02/2024 from Last 3 Months Results * DEVICE CHECK - REMOTE (10/04/2024 8:36 AM SHOE SALESMAN) Anatomical Region Laterality Modality Other Narrative 10/04/2024 9:33 AM SHOE SALESMAN [employer] Biomonitor III Loop Recorder. Dx; Dizziness, Near Syncope, PAF. DOI 07/16/2020-[facility]. [employer] remote home monitoring. Unscheduled alert ILR remote. Normal device function. Battery function-EVI (Elective Replacement Indicator) reached on 09/30/2024. Presenting rhythm: VS, SR with PAC's. Medications:Coumadin. No auto or patient recorded episodes noted. See scanned report. Loop recorder end of service letter mailed to patient. Hannah Jean RN us Ripa Gerard Armendariz MD [facility] PRO CEDURES Final Result * (ABNORMAL) Protime-INR (09/14/2024) INR 2.50(A) 0.90 - 1.10 EXTERNAL LAB Blood us Historical Provider LAB BLOOD ORDERABLES Merry l Result EXTERNAL LAB * DEVICE CHECK - REMOTE (09/10/2024 1:19 PM SHOE SALESMAN) Anatomical Region Laterality Modality Other Narrative 09/24/2024 8:19 AM SHOE SALESMAN Biotronik lllm implanted on July 16, 2020 [...] Continue to monitor remotely. Bossman Badillo Device Machine Stuffer Richard Armendariz MD [facility] CARDIAC SERVICES PRO CEDURES Final Result * (ABNORMAL) Protime-INR (09/06/2024) INR 3.60(A) 0.90 - 1.10 EXTERNAL LAB Blood [facility] Provider LAB BLOOD ORDERABLES Merry l Result EXTERNAL LAB * DEVICE CHECK - REMOTE (08/09/2024 4:08 PM SHOE SALESMAN) Anatomical Region Laterality Modality Other Narrative 09/06/2024 8:24 AM SHOE SALESMAN Biotronik lllm implanted on July 16, 2020 [...] Continue to monitor remotely. Bossman Badillo Device Machine Stuffer Richard Armendariz MD CV CARDIAC SERVICES PRO CEDURES Final Result * (ABNORMAL) Protime-INR (08/02/2024) INR 3.50(A) 0.90 - 1.10 EXTERNAL LAB Blood Historical Provider LAB BLOOD ORDERABLES Merry l Result EXTERNAL LAB from Last [address] [place] [address] MEDICARE [facility] MEDICARE SUPPLEMENT INSURANCE MEDICARE [employer] MEDICARE SUPPLEMENT INSURANCE Care Teams Intervention Specialist Relationship Specialty Start Date End Date Felicitas Andres MD [address] [facility] [address] [place] [address] PCP - General 06/09/17
--- OUTSIDE RECORDS SUMMARY | 2024-10-15 13:07 | XMS_ITS | Encounter Summary ---
Author Organization [facility] Address [address] [place] [address] Care Team Providers Care Freight Sales Broker Name Role Phone Unavailable Primary Care Provider Unavailabl e Encounter Details Date Type Department Care Team (Late st Contact Info) Description 1945 Ancillary Procedure [facility] [address] [place] [address] Social History Tobacco Use Types Packs/Day Years [...]
--- OUTSIDE RECORDS SUMMARY | 2024-10-15 13:07 | XMS_ITS | Encounter Summary ---
Author Organization [facility] Healthcare Address [address] [place] [address] Care Team Providers Care Tractor Operator Helper Name Role Phone Felicitas Andres MD Primary Care Provider Encounter Details Date Type Department Care Team (Late st Contact Info) Description 11/08/2023 Orders Only [facility] Information Management [address] [place] [address] Scanning, Provider Social History Tobacco Use Types [...] Industry Job Start Date Job End Date [employer] Not on file Not on file Not [...] on filedocumented in this encounter Care Teams Tractor Operator Helper Relationship Specialty Start Date End Date Felicitas Andres MD [address] [facility] [address] [place] [id number] PCP - General 06/09/17 documented as of this encounter
--- OUTSIDE RECORDS SUMMARY | 2024-10-15 13:07 | XMS_ITS | Continuity of Care Document ---
Author Organization [facility] Address [address] [place] [address] Phone Care Team Providers Care Route Delivery Clerk Name Role Phone Villatoro OD, Jesus Unavailable Unavailable Advance Directives Directive Yes / No Effective Date File Name No Information Encounters Encounter Description Practice Location Reason(s) For Visit Diagnoses Date Provider Providers Copied on Encounter [facility], [address], [place], [place], [address], [place] tel:[phone] [facility] No Information May-0 4-200 6 Villatoro OD Jesus. [address], [place], [address], [place]. tel:[phone] Family History Family Member Type Diagnosis Age At Onset No Information Payers Payer name Insurance type Covered democrat [...]
== END 2024-10-15 10:59 | disposition home or self-care (01) ==
PROVIDERS: PCP Family Medicine; Visit Provider Physician Assistant
DX: E87.1 Hypo-osmolality and hyponatremia (principal); E07.9 Disorder of thyroid, unspecified
CPT/HCPCS: 36415; 80053; 84439; 84443

== ENCOUNTER 2025-01-01 08:47 | Outpatient (RCR) | payer MEDICARE, SELFPAY ==
[2024-10-15 11:40] LABS: INR 3.5; Prothrombin Time 35.6 Seconds (11.1-14.7)
[2024-11-01 11:58] LABS: INR 2.3; Prothrombin Time 25.8 Seconds (11.1-14.7)
[2024-12-06 10:40] LABS: INR 3.5; Prothrombin Time 35.3 Seconds (11.1-14.7)
[2024-12-10 12:29] LABS: INR 1.6; Prothrombin Time 19.1 Seconds (11.1-14.7)
[2024-12-17 11:11] LABS: INR 1.9; Prothrombin Time 21.8 Seconds (11.1-14.7)
[2024-12-25 09:48] LABS: INR 4.1; Prothrombin Time 40.8 Seconds (11.1-14.7)
[2025-01-01 09:21] LABS: INR 2.4; Prothrombin Time 26.6 Seconds (11.1-14.7)
== END 2025-01-13 23:59 | disposition home or self-care (01) ==
LOC: ANHLAB 08:47
PROVIDERS: PCP Family Medicine; Visit Provider Internal Medicine
DX: Z51.81 Encounter for therapeutic drug level monitoring (principal); I48.0 Paroxysmal atrial fibrillation; Z79.01 Long term (current) use of anticoagulants
CPT/HCPCS: 36415; 85610

== ENCOUNTER 2025-02-01 10:57 | Outpatient (CLI) | payer MEDICARE, SELFPAY ==
[2025-02-01 11:36] LABS: Hematocrit 39.6 % (37.0-47.0); Hemoglobin 12.9 g/dL (12.0-15.0); Mean Corpuscular HGB Conc 32.6 g/dl (32-36); Mean Corpuscular Hemoglobin 30.1 pg (26-34); Mean Corpuscular Volume 92.3 fl (80-100); Mean Platelet Volume 9.7 fl (7.4-10.4); Platelet Count Result 190 k/mm3 (150-375); Red Blood Count 4.29 M/mm3 (4.2-5.4); Red Cell Distribution Width 13.4 % (11.5-14.5)
[2025-02-01 13:19] LABS: Alanine Aminotransferase 18 U/L (6-35); Albumin Level 3.8 g/dL (3.5-5.1); Alkaline Phosphatase 126 U/L (38-126); Anion Gap 8 mmol/L (4-12); Aspartate Amino Transferase 30 U/L (14-36); Bilirubin,Total 0.4 mg/dL (0.2-1.3); Blood Urea Nitrogen 13 mg/dL (7-17); Calcium 9.1 mg/dL (8.4-10.2); Carbon Dioxide 26 mmol/L (22-30); Chloride 100 mmol/L (98-107); Estimated Glomerular Filt Rate > 60; Glucose 105 mg/dL (65-110); Potassium 3.9 mmol/L (3.4-5.0); Sodium 134 mmol/L (137-145); Total Protein 6.8 g/dL (6.3-8.2)
[2025-02-01 13:51] LABS: Thyroid Stimulating Hormone 0.864 uIU/mL (0.465-4.680)
== END 2025-02-01 10:58 | disposition home or self-care (01) ==
PROVIDERS: PCP Family Medicine; Visit Provider Family Medicine
DX: E05.90 Thyrotoxicosis, unspecified without thyrotoxic crisis or storm (principal); E87.1 Hypo-osmolality and hyponatremia; I12.9 Hypertensive chronic kidney disease with stage 1 through stage 4 chronic kidney disease, or unspecified chronic kidney disease; N18.9 Chronic kidney disease, unspecified
CPT/HCPCS: 36415; 80053; 84443; 85027

== ENCOUNTER 2025-02-11 14:10 | Outpatient (CLI) | payer MEDICARE, SELFPAY ==
--- NOTE | ~2025-02-11 | MM_ITS ---
EXAMINATION: MM screening rohan BI w nick HISTORY: Screening TECHNIQUE: Craniocaudal and mediolateral oblique 3-D tomosynthesis images were obtained and synthetic 2-D images were generated. CAD analysis was submitted and interpreted. COMPARISON: Comparison to multiple prior studies sequentially, with oldest reviewed study dated 07/08. BREAST PARENCHYMAL COMPOSITION: Not dense: There are scattered areas of fibroglandular density. FINDINGS: There is a new focal low-density mass in the upper inner quadrant of the left breast, middl e third. The right breast is stable without evidence for malignancy. IMPRESSION: 1. New left breast mass, upper inner quadrant. 2. Additional mammographic views and possible breast ultrasound are recommended. BI-RADS Category 0: Incomplete: Needs additional imaging evaluation. Reviewed, dictated and finalized at location A. IMPRESSION: 1. New left breast mass, upper inner quadrant. 2. Additional mammographic views and possible breast ultrasound are recommended . BI-RADS Category 0: Incomplete: Needs additional imaging evaluation.
--- OUTSIDE RECORDS SUMMARY | 2025-02-11 14:17 | XMS_ITS | Continuity of Care Document ---
Author Organization [facility] Address [address] [facility] [place] [address] Phone Care Team Providers Care Skiver Sock Linings Name Role Phone Sachin Arias MD Unavailable [...] Diagnoses Date Provider Providers Copied on Encounter [facility], [address] [place], [place], [address], [place] tel:[phone] [facility] No Information 0 3 Hugo Stephenson. [address] [place], [place], [address] , [place]. tel:[phone] [facility], [address] [place] Technology[employer] [place], [place], [address], [place] tel:[phone] [facility] No Information 3 Hugo Stephenson. [address], [place], [place], [address] , [place]. tel:[phone] OFFICE/OUTPA TIENT VISIT, [facility], [address], [place], [place], [address], [place] tel:[phone] [facility] fatigue (chief complaint) arthritis (chief complaint) Dietary surveillance and counselingFatigue / MalaiseCHRONIC PAIN NECGERD 0 3 Hugo Stephenson. [address], [place], [place], [address] , [place]. tel:[phone] Referring Provider: Sachin Arias, [address], [place], [place], [address]. tel:[phone] [facility], [address], [place], [place], [address], [place] tel:[phone] [facility] No Information 3 Hugo Stephenson. [address], [address], [place], [place], [address] , [place]. [phone] OFFICE/OUTPA TIENT VISIT, [facility], [address], [place], [place], [address], [place] tel:[phone] [facility] Gout (chief complaint) Arthritis (chief complaint) HTN (chief complaint) Fatigue (chief complaint) Dietary surveillance and counselingCHRONIC PAIN NECGout, unspecifiedHyperten bryant, UnspecifiedFatigue / Malaise 3 3 Hugo Stephenson. [address], [place], [place], [address] , [place]. tel:[phone] Referring Provider: Sachin Arias, [address], [place], [place], [address]. tel:[phone] OFFICE/OUTPA TIENT VISIT, [facility], [address], [place], [place], [address], [place] tel:[phone] [facility] neck pain (chief complaint) HLP (chief complaint) LFT (chief complaint) Dietary surveillance and counselingHyperglyc emiaUnspecified chronic liver disease without mention of alcoholOther and unspecified hyperlipidemiaCHRON IC PAIN NEC 3 Hugo Stephenson. [address], [address], [place], [place], [address] , . tel:[phone] Referring Provider: Rolando [address], [place], [place], [address]. tel:[phone] OFFICE/OUTPA TIENT VISIT, [facility], [address], [place], [place], [address], [place] tel:[phone] [facility] Gout (chief complaint) RA (chief complaint) HTN (chief complaint) Dietary surveillance and counselingRheumatoi d ArthritisGout, unspecifiedHyperten bryant, UnspecifiedRenal Failure, Acute 3 Hugo Stephenson. [address], [address], [place], [place], [address] , [place]. tel:[phone] Referring Provider: Rolando Huston [address] [facility] A, [place], [place], [address]. tel:[phone] Family History Family Member Type Diagnosis Age At Onset Brother Problem (finding) Cancer, pancreas Mother Problem (finding) arthritis, gout Mother Problem (finding) Alzheimer's Disease Father Problem (finding) Cancer, unknown Payers Payer name Insurance type Covered libertarian ID Authoriza tion(s) No Information Social History [...]
--- OUTSIDE RECORDS SUMMARY | 2025-02-11 14:17 | XMS_ITS | Continuity of Care Document ---
Author Organization [facility] Address [address] [place] [address] Phone Care Team Providers Care Sign Language Translator Name Role Phone Villatoro OD, Jesus Unavailable Unavailable Advance Directives Directive Yes / No Effective Date File Name No Information Encounters Encounter Description Practice Location Reason(s) For Visit Diagnoses Date Provider Providers Copied on Encounter [facility], [address], [place], [place], [address], [place] tel:[phone] [facility] No Information May-0 4-200 6 Villatoro OD Jesus. [address] , [address], [place], [address], [place]. tel:[phone] Family History Family Member Type Diagnosis Age At Onset No Information Payers Payer name Insurance type Covered alliance party ID Authoriza tion(s) No Information Social [...]
--- OUTSIDE RECORDS SUMMARY | 2025-02-11 14:17 | XMS_ITS | Encounter Summary ---
Author Organization [facility] Healthcare Address [address] [place] [address] Care Team Providers Care Technical Producer Name Role Phone Felicitas Andres MD Primary Care Provider Reason for Visit * Reason Onset Date Comments Appointment 03/05/2019 Encounter Details Date Type Department Care Team (Late st Contact Info) Description 03/05/2019 Telephone [facility] [address] [facility] [address] [place] [address] Nat Cooper MD PhD [address] [facility] [address] [facility] [address] [place], [place] [id number] Appointment Social History Tobacco Use Types Packs/Day [...] on filedocumented in this encounter Care Teams Technical Producer Relationship Specialty Start Date End Date Felicitas Andres MD [address] [facility] [address] [place] [address] PCP - General 06/09/17 documented as of this encounter
--- OUTSIDE RECORDS SUMMARY | 2025-02-11 14:17 | XMS_ITS | Encounter Summary ---
Author Organization [facility] Healthcare Address [address] [place] [address] Care Team Providers Care Computer Meteorologist Name Role Phone Unavailable Primary Care Provider Unavailabl e Encounter Details Date Type Department Care Team (Late st Contact Info) Description 1945 Ancillary Procedure [facility] [address] [facility] [place] [address] Social History Tobacco Use Types Packs/Day Years [...]
--- OUTSIDE RECORDS SUMMARY | 2025-02-11 14:17 | XMS_ITS | Encounter Summary ---
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
--- OUTSIDE RECORDS SUMMARY | 2025-02-11 14:17 | XMS_ITS | Referral Summary ---
Author Organization [facility] Physician Office Building [address] [place] [phone] Care Team Providers Care Slitting Machine Feeder Name Role Phone Felicitas Andres MD Primary Care Provider Encounters Date Type Department Care Team Description 02/01/2025 Anticoagulation Visit [facility] Medical [facility] Cardiology [address] [place] [address] [place] [phone] Kriss Ventura RN 01/28/2025 10:20 AM CDT - 01/28/2025 11:59 PM CDT Hospital Encounter [facility] MOB 1 DIAG IMG [address] [place] [address] Left hand pain Discharge Disposition: Discharge to home or self care 01/28/2025 10:30 AM CDT Office Visit [facility] Medical Group Hand Surgery [address] [facility] [address] [place] [address] Lorin Caban MD Left hand pain (Primary Dx) 01/03/2025 Anticoagulation Visit [facility] Cardiology [address] [place] [address] [place] [phone] Emma Sauceda RN 01/01/2025 Telephone [facility] Cardiology [address] [place] [address] [place] [phone] Mya Bernal NP 12/25/2024 Anticoagulation Visit [facility] Cardiology [address] [place] [address] [place] [phone] Julio C Lamb, USHA 12/18/2024 Anticoagulation Visit [facility] Cardiology [address] [place] [address] Julio C Lamb RN 12/17/2024 Orders Only [facility] Information Management [address] [place] [address] Scanning, Provider 12/10/2024 Anticoagulation Visit [facility] Cardiology [address] [place] [address] [address] [place] [phone] Julio C Lamb RN 12/06/2024 Anticoagulation Visit [facility] Cardiology [address] [place] [address] [place] [phone] Kriss Ventura RN 12/03/2024 Anticoagulation Visit [facility] Cardiology [address] [place] [address] [place] [phone] Julio C Lamb, RN from Last 3 Months Allergies Active [...] mouth 3 (three) times a day 2 9 Active tamsulosin (FLOMAX) 0.4 mg extended release capsule Take 1 capsule (0.4 mg total) by mouth daily 0 Active fluticasone propionate (FLONASE) 50 mcg/actuation nasal spray USE 1 SPRAY(S) IN EACH NOSTRIL TWICE DAILY 0 Active azelastine (ASTELIN) 137 mcg (0.1 %) nasal spray USE 1 SPRAY(S) IN EACH NOSTRIL EVERY 12 HOURS 0 Active biotin 10,000 mcg capsule Take by mouth Acti ve vitamin B complex capsule Take 1 capsule by mouth daily Active vitamin E (AQUASOL E) 400 unit capsule 1 capsule (400 Units total) TAKE 3 AT NIGHT Active olmesartan (BENICAR) 20 mg tablet Take 1 tablet (20 mg total) by mouth 2 (two) times a day 0 Active LORazepam (ATIVAN) 0.5 mg tablet Take 1 tablet (0.5 mg total) by mouth daily Active fludrocortisone 0.1 mg tablet Take 1 tablet (0.1 mg total) by mouth every other day 2 Active ipratropium (ATROVENT) 42 mcg (0.06 %) nasal spray USE 2 SPRAY(S) IN EACH NOSTRIL THREE TIMES DAILY 2 Active amLODIPine (NORVASC) 5 mg tabletIndication s:Essential hypertension Take 1 tablet (5 mg total) by mouth 2 (two) times a day 180 tablet 3 3 Active methIMAzole (TAPAZOLE) 5 mg tablet TAKE 1 TABLET BY MOUTH ONCE EVERY OTHER DAY ALTERNATING WITH 2 TABLETS. 4 Active warfarin (COUMADIN) 5 mg tablet TAKE 1 & 1/2 (ONE & ONE-HALF) TABLETS BY MOUTH ONCE DAILY OR DIRECTED BY DR Olmstead tablet 3 5 Active celecoxib (CeleBREX) 200 mg capsule Take by mouth daily 5 Active potassium chloride ER 10 mEq CR capsule Take 1 tablet/capsule (10 mEq total) by mouth daily 5 Active Hospital, Clinic, or Other Facility Administered Medication Ordered Dose Route Frequency Start Date End Date Status lidocaine (XYLOCAINE) 10 mg/mL (1 %) injection 1 mLIndications:Admi nistration of Local Anesthesia 1 mL One-Time Injection 01/28/2025 01/28/2025 Ended triamcinolone (KENALOG) 40 mg/mL injection 40 mgIndications:Left hand pain 40 mg intra-artic One-Time Injection 01/28/2025 01/28/2025 Ended Active Problems Problem Noted Date Diagnosed Date Essential tremor 10/05/2023 Pure hypercholesterolemia 01/21/2023 Hyponatremia 01/17/2023 Chest heaviness 01/25/2022 Paroxysmal atrial fibrillation 09/30/2020 Chronic anticoagulation 09/30/2020 Status post placement of implantable loop record er 07/21/2020 Overview (01/27/2021): Tenebril Biomonitor III Loop Recorder. Dx; Dizziness, Near Syncope, PAF. DOI 07/16/2020-[facility]. Tenebril remote home monitoring. 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 Not [...] 11:10 AM CDT Height 170.2 cm (5' 7) 01/26/2024 11:10 AM CDT Body Mass Index [...] Procedure Name Priority Date/Time Associated Diagnosis Comments PROTIME-INR Routine 02/01/2025 [place] ARTHROCENTESIS ASPIR&/INJ INTERM JT/BURS W/O US Routine 01/28/2025 10:30 AM CDT Left hand pain XR HAND LEFT 3 OR MORE VIEWS Schedule Routine, Read Routine (OP Routine) 01/28/2025 10:23 AM CDT Left hand pain PROTIME-INR Routine 01/01/2025 PROTIME-INR Routine 12/25/2024 SCAN - LABS 12/17/2024 PROTIME-INR Routine 12/17/2024 PROTIME-INR Routine 12/10/2024 PROTIME-INR Routine 12/06/2024 PROTIME-INR Routine 12/03/2024 from Last 3 Months Results * (ABNORMAL) Protime-INR (02/01/2025) INR 2.70(A) 0.90 - 1.10 EXTERNAL LAB Blood us Historical Provider LAB BLOOD ORDERABLES Merry bonnie Result EXTERNAL LAB * [place] ARTHROCENTESIS ASPIR&/INJ INTERM JT/BURS W/O US (01/28/2025 10:30 AM CDT) Narrative Lorin Caban MD - 01/28/2025 10:30 AM CDT Lorin Caban MD 02/03/2025 7:24 PM Medium Joint (Ankle, Elbow, Shoulder (AC), Wrist) Injection: L radiocarpal Performed by: Lorin Caban MD Authorized by: Lorin Caban MD Medium Joint Injection/Aspiration: Consent Given by: Patient Verbal consent obtained?: Yes Written consent obtained?: No Supporting Documentation: Indications: Pain Procedure Details: Location: Wrist Site: L radiocarpal Prep: patient was prepped and draped in usual sterile fashion Medications: 1 mL lidocaine 10 mg/mL (1 %); 40 mg triamcinolone 40 mg/mL Patient tolerance: Patient tolerated the procedure well with no immediate complications Lorin Caban MD IN CLINIC/BEDSIDE ORDERAB LES Final Result * XR Hand Left 3 or More Views (01/28/2025 10:23 AM CDT) Anatomical Region Laterality Modality Upper Extremities, Hand Left Computed Radiography 02/02/2025 2:19 PM CDT Narrative 02/02/2025 2:21 PM CDT EXAM DESCRIPTION: 1. XR HAND LEFT 3 OR MORE VIEWS REASON FOR STUDY: pain Fx 2 years, getting shots ever since pain coming back in the last month FINDINGS: Three views submitted with comparison 11/30/2021. No acute fracture. Increased sclerosis of the lunate with proximal flattening is unchanged. Erosions of the lunate and proximal pole scaphoid are noted. Mild radiocarpal, moderate scaphoid capitate moderate triscaphe and mild basal thumb joint osteoarthritis. Polyarticular interphalangeal joint osteoarthritis is present. No dorsal wrist soft tissue swelling. IMPRESSION: 1. Unchanged increased sclerosis of the left lunate with proximal articular surface flattening suspicious for avascular necrosis. This can be further evaluated with cross-sectional imaging. 2. Polyarticular left hand and wrist osteoarthritis. 3. Erosions of the lunate and proximal pole scaphoid. THIS IS AN ELECTRONICALLY VERIFIED FINAL REPORT 02/02/2025 2:21 PM - Electronically signed by Wesly Figueroa M.D. MF: TERRY Report ID: [id number] Reading Location: [id number] Procedure Note Wesly Figueroa MD - 02/02/2025 EXAM DESCRIPTION: 1. XR HAND LEFT 3 OR MORE VIEWS REASON FOR STUDY: pain Fx 2 years, getting shots ever since pain coming back in the last month FINDINGS: Three views submitted with comparison 11/30/2021. No acute fracture. Increased sclerosis of the lunate with proximalflattening is unchanged. Erosions of the lunate and proximal pole scaphoid arenoted. Mild radiocarpal, moderate scaphoid capitate moderate triscaphe and mildbasal thumb joint osteoarthritis. Polyarticular interphalangeal joint osteoarthritis is present. No dorsal wrist soft tissue swelling. IMPRESSION: 1. Unchanged increased sclerosis of the left lunate with proximalarticular surface flattening suspicious for avascular necrosis. This can be further evaluated with cross-sectional imaging. 2. Polyarticular left hand and wrist osteoarthritis. 3. Erosions of the lunate and proximal pole scaphoid. THIS IS AN ELECTRONICALLY VERIFIED FINAL REPORT 02/02/2025 2:21 PM - Electronically signed by Wesly Figueroa M.D. MF: TERRY Report ID: [id number] Reading Location: [id number] Lorin Caban MD IMG XR PROCEDURES Final R esult * (ABNORMAL) Protime-INR (01/01/2025) INR 2.40(A) 0.90 - 1.10 EXTERNAL LAB Blood Historical Provider LAB BLOOD ORDERABLES Merry l Result EXTERNAL LAB * (ABNORMAL) Protime-INR (12/25/2024) INR 4.10(A) 0.90 - 1.10 EXTERNAL LAB Blood 12/25/2024 Result [facility] Provider MD LAB BLOOD ORDERABLES Merry l Result Performing Organization Address [facility]/ZIP Co de Phone Number EXTERNAL LAB * SCAN - LABS (12/17/2024) Result [facility] Provider Scanning Final Result * (ABNORMAL) Protime-INR (12/17/2024) INR 1.90(A) 0.90 - 1.10 EXTERNAL LAB Blood 12/17/2024 Result [facility] Provider MD LAB BLOOD ORDERABLES Merry l Result Performing Organization Address [facility] Co de Phone Number EXTERNAL LAB * (ABNORMAL) Protime-INR (12/10/2024) INR 1.60(A) 0.90 - 1.10 EXTERNAL LAB Blood 12/10/2024 Result [facility] Provider MD LAB BLOOD ORDERABLES Merry l Result Performing Organization Address [facility]/ZIP Co de Phone Number EXTERNAL LAB * (ABNORMAL) Protime-INR (12/06/2024) INR 3.50(A) 0.90 - 1.10 EXTERNAL LAB Blood Result [facility] Provider MD LAB BLOOD ORDERABLES Merry l Result EXTERNAL LAB * (ABNORMAL) Protime-INR (12/03/2024) INR 3.00(A) 0.90 - 1.10 EXTERNAL LAB Blood 12/03/2024 us Historical Provider LAB BLOOD ORDERABLES Merry bonnie Result EXTERNAL LAB from Last 3 Months Insurance MEDICARE [facility] MEDICARE SUPPLEMENT INSURANCE [place] [id number] MEDICARE [facility] MEDICARE SUPPLEMENT INSURANCE Care Teams Slitting Machine Feeder Relationship Specialty Start Date End Date Felicitas Andres MD [address] [facility] [address] [place] [address] PCP - General 06/09/17
--- OUTSIDE RECORDS SUMMARY | 2025-02-11 14:17 | XMS_ITS | Clinical Summary ---
Author Organization [facility] Phys[facility] Building [address] [place] [phone] Care Team Providers Care Solid Plasterer Name Role Phone Felicitas Andres MD Primary [...] implantable loop record er 07/21/2020 Overview (01/27/2021): Biotronik Biomonitor III Loop Recorder. Dx; Dizziness, Near Syncope, PAF. DOI 07/16/2020-[facility]. Biotronik remote home monitoring. Dizzy spells 07/07/2020 Bradycardia [...] Department Care Team Description 02/01/2025 Anticoagulation Visit [facility] Cardiology [address] [place] [phone] Kriss Ventura RN 01/28/2025 10:30 AM CDT Office Visit [facility] Medical [facility] Hand Surgery [address] [phone] Lorin Caban MD Left hand pain (Primary Dx) 01/28/2025 10:20 AM CDT - 01/28/2025 11:59 PM CDT Hospital Encounter [facility] MOB 1 DIAG IMG [facility] [place] [address] Left hand pain Discharge Disposition: Discharge to home or self care 01/03/2025 Anticoagulation Visit [facility] Cardiology [address] [place] [address] [place] [phone] Emma Sauceda RN 01/01/2025 Telephone [facility] Cardiology [address] [place] [address] [place] [phone] Mya Bernal NP 12/25/2024 Anticoagulation Visit [facility] Cardiology [address] [place] [address] [place] [phone] Julio C Lamb, RN 12/18/[address] [facility] Medical [facility] Cardiology [address] [place] [phone] Julio C Lamb, RN 12/17/2024 Orders Only [facility] Health Information Management [address] [place] [address] Scanning, Provider 12/10/2024 Anticoagulation Visit [facility] Cardiology [address] [place] [phone] Julio C Lamb RN 12/06/2024 Anticoagulation Visit [facility] Cardiology [address] [place] [address] [address] [place] [phone] Kriss Ventura RN 12/03/2024 Anticoagulation Visit [facility] Cardiology [facility] [address] [place] [phone] Julio C Lamb, RN from Last 3 Months Surgical History Surgery Date Site/Laterality Comments [place] ARTHRD ANT INTERBODY MIN DSC CRV BELOW C2 Cervical Vertebral Fusion - (Added by Conv) [place] CHOLECYSTECTOMY Cholecystectomy - (Added by Conv) [place] APPENDECTOMY Appendectomy - (Added by Conv) [place] DELIVERY ONLY Section - (Added by Conv) [...] 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 MF: TERRY Report ID: [id number] Reading Location: [id number] Procedure Note Wesly Figueroa MD - 02/02/2025 [...] Wesly Figueroa M.D. MF: TERRY Report ID: [id number] Reading Location: [place] [address] Lorin Caban MD IMG XR PROCEDURES Final R esult * (ABNORMAL) Protime-INR (01/01/2025) INR 2.40(A) 0.90 - 1.10 EXTERNAL LAB Blood Result [facility] Historical Provider MD LAB BLOOD ORDERABLES Merry l Result Performing Organization Address City/[facility]/ZIP Co de Phone Number EXTERNAL LAB * (ABNORMAL) Protime-INR (12/25/2024) INR 4.10(A) 0.90 - 1.10 EXTERNAL LAB Blood 12/25/2024 Result [facility] Historical Provider LAB BLOOD ORDERABLES Merry l Result EXTERNAL LAB * SCAN - LABS (12/17/2024) Provider Scanning Final Result * (ABNORMAL) Protime-INR (12/17/2024) INR 1.90(A) 0.90 - 1.10 EXTERNAL LAB Blood 12/17/2024 Result [facility] Provider MD LAB BLOOD ORDERABLES Merry l Result EXTERNAL LAB * (ABNORMAL) Protime-INR (12/10/2024) INR 1.60(A) 0.90 - 1.10 EXTERNAL LAB Blood 12/10/2024 Result [facility] Provider MD LAB BLOOD ORDERABLES Merry l Result EXTERNAL LAB * (ABNORMAL) Protime-INR (12/06/2024) INR 3.50(A) 0.90 - 1.10 EXTERNAL LAB Blood Result [facility] Provider MD LAB BLOOD ORDERABLES Merry l Result EXTERNAL LAB * (ABNORMAL) Protime-INR (12/03/2024) INR 3.00(A) 0.90 - 1.10 EXTERNAL LAB Blood 12/03/2024 Result [facility] Provider MD LAB BLOOD ORDERABLES Merry l Result EXTERNAL LAB from Last [address] [place] [phone] MEDICARE COUNTS INCLUDE 234 BEDS AT THE [facility] MEDICARE SUPPLEMENT INSURANCE MEDICARE COUNTS INCLUDE 234 BEDS AT THE [facility] MEDICARE SUPPLEMENT INSURANCE Care Teams Solid Plasterer Relationship Specialty Start Date End Date Felicitas Andres MD [address] [facility] [address] [place] [address] [facility] - General 06/09/17
== END 2025-02-11 14:11 | disposition home or self-care (01) ==
LOC: ANHIMG 14:13
PROVIDERS: PCP Family Medicine; Visit Provider Family Medicine
DX: Z12.31 Encounter for screening mammogram for malignant neoplasm of breast (principal); R92.8 Other abnormal and inconclusive findings on diagnostic imaging of breast
CPT/HCPCS: 77063; 77067

== ENCOUNTER 2025-02-13 15:39 | Outpatient (CLI) | payer MEDICARE, SELFPAY ==
--- NOTE | ~2025-02-13 | US_ITS ---
EXAMINATION: US thyroid DATE: 02/13/2025 16:27 INDICATION: Nontoxic multinodular goiter TECHNIQUE: Multiple ultrasound images of the thyroid were obtained. COMPARISON: 01/19/2024 and 02/28/2024 FINDINGS: The right thyroid lobe measures 4.6 x 1.7 x 1.5 cm. The left thyroid lobe measures 3.9 x 1.2 x 1.2 c m. At the site of the previously biopsied 1.2 cm Ti RADS 5 nodule is a 1.0 cm nodule now appearing m ixed solid and cystic with lobular margins and without echogenic foci (TI-RADS 4). Interval increase in size of a previously 8 mm, currently 1.2 cm mixed solid and cystic nodule with isoechoic solid com ponent, smooth margins and a couple punctate echogenic foci. (TI-RADS 4, moderately suspicious , FNA if >=1.5 cm, annual followup is >=1 cm). Slight decrease in size of a previously 1.5 cm currently 1.2 cm Ti RADS 5 solid hypoechoic nodule with punctate echogenic foci at the inferior left thyroid which was also previously biopsied. Pathology from both of the biopsied nodules were read as benign, co nsistent with a benign follicular nodule. There are several additional bilateral subcentimeter predo minantly cystic or mixed solid and cystic nodules. IMPRESSION: 1. Multinodular goiter with slight decrease in size of the 2 previously biopsied nodules which demons trated benign pathology and no other nodules currently meeting criteria for biopsy but for which-year -old, follow-up would be recommended. Reviewed, dictated and finalized at location A. IMPRESSION: 1. Multinodular goiter with slight decrease in size of the 2 previously biopsie d nodules which demonstrated benign pathology and no other nodules currently me eting criteria for biopsy but for [id number], follow-up would be recommende dGianna
--- OUTSIDE RECORDS SUMMARY | 2025-02-13 15:44 | XMS_ITS | Encounter Summary ---
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
--- OUTSIDE RECORDS SUMMARY | 2025-02-13 15:44 | XMS_ITS | Encounter Summary ---
Author Organization [facility] Healthcare Address [address] [place] [address] Care Team Providers Care Distribution Center Associate Name Role Phone Unavailable Primary Care Provider Unavailabl e Encounter Details Date Type Department Care Team (Late st Contact Info) Description 1945 Ancillary Procedure [facility] [employer] [address] [facility] [place] [address] Social History Tobacco Use Types Packs/Day Years [...]
--- OUTSIDE RECORDS SUMMARY | 2025-02-13 15:44 | XMS_ITS | Clinical Summary ---
Author Organization [facility] [address] [place] [address] Care Team Providers Care Creative Services Specialist Name Role Phone Felicitas Andres MD [...] Syncope, PAF. DOI 07/16/2020-[facility]. [employer] remote home monitoring. Dizzy spells 07/07/2020 [...] Department Care Team Description 02/01/2025 Anticoagulation Visit [facility] Cardiology [address] [place] [phone] Kriss Ventura RN 01/28/2025 10:30 AM CDT Office Visit [facility] Medical [facility] Hand Surgery [address] [phone] Lorin Caban MD Left hand pain (Primary Dx) 01/28/2025 10:20 AM CDT - 01/28/2025 11:59 PM CDT Hospital Encounter [facility] MOB 1 DIAG IMG [facility] [place] [address] Left hand pain Discharge Disposition: Discharge to home or self care 01/03/2025 Anticoagulation Visit [facility] Cardiology [address] [place] [address] [place] [address] [phone] Emma Sauceda RN 01/01/2025 Telephone [facility] Cardiology [address] [place] [address] [place] [address] [phone] Mya Bernal NP 12/25/2024 Anticoagulation Visit [facility] Cardiology [address] [place] [address] [place] [address] [phone] Julio C Lamb, RN 12/18/2024 Anticoagulation Visit [facility] Medical [facility] Cardiology [address] [place] [address] Julio C Lamb, RN 12/17/2024 Orders Only [facility] Health Information Management [address] [place] [address] Scanning, Provider 12/10/2024 Anticoagulation Visit [facility] Cardiology [address] [place] [phone] Julio C Lamb RN 12/06/2024 Anticoagulation Visit [facility] Cardiology [address] [place] [address] [address] [place] [address] [phone] Krsis Ventura RN 12/03/2024 Anticoagulation Visit [facility] Cardiology [facility] [address] [place] [phone] Julio C Lamb, RN from Last 3 Months Surgical History Surgery Date Site/Laterality Comments [place] ARTHRD ANT INTERBODY MIN DSC CRV BELOW C2 Cervical Vertebral Fusion - (Added by Conv) [place] CHOLECYSTECTOMY Cholecystectomy - (Added by Conv) [place] APPENDECTOMY Appendectomy - (Added by Conv) [place] DELIVERY ONLY Section - (Added by Conv) [...] Industry Job Start Date Job End Date [employer] Not on file Not on file Not [...] - PPSV23) 06/13/2016 06/13/2015 Influenza Vaccine (#1) 2025 9, 05/26/2018, 06/09/2016, Additional history exists Goals [...] Date/Time Associated Diagnosis Comments PROTIME-INR Routine 02/01/2025 [place] ARTHROCENTESIS ASPIR&/INJ INTERM JT/BURS W/O US Routine [...] ORDERABLES Merry l Result EXTERNAL LAB * [place] ARTHROCENTESIS ASPIR&/INJ INTERM JT/BURS W/O US (01/28/2025 [...] Wesly Figueroa M.D. MF: TERRY Report ID: [id number] Reading Location: [id number] Procedure Note Wesly Figueroa MD - 02/02/2025 [...] Wesly Figueroa M.D. MF: TERRY Report ID: [id number] Reading Location: [place] [address] Lorin Caban MD IMG XR PROCEDURES Final R esult * (ABNORMAL) Protime-INR (01/01/2025) INR 2.40(A) 0.90 - 1.10 EXTERNAL LAB Blood Result [facility] Historical Provider MD LAB BLOOD ORDERABLES Merry l Result Performing Organization Address City/[facility]/ZIP Co de Phone Number EXTERNAL LAB * (ABNORMAL) Protime-INR (12/25/2024) INR 4.10(A) 0.90 - 1.10 EXTERNAL LAB Blood 12/25/2024 Result [facility] Historical Provider MD LAB BLOOD ORDERABLES Merry l Result EXTERNAL LAB * SCAN - LABS (12/17/2024) Provider Scanning Final Result * (ABNORMAL) Protime-INR (12/17/2024) INR 1.90(A) 0.90 - 1.10 EXTERNAL LAB Blood 12/17/2024 Result [facility] Provider MD LAB BLOOD ORDERABLES Merry l Result EXTERNAL LAB * (ABNORMAL) Protime-INR (12/10/2024) INR 1.60(A) 0.90 - 1.10 EXTERNAL LAB Blood 12/10/2024 Result [facility] Provider MD LAB BLOOD ORDERABLES Merry l Result EXTERNAL LAB * (ABNORMAL) Protime-INR (12/06/2024) INR 3.50(A) 0.90 - 1.10 EXTERNAL LAB Blood Result [facility] Provider MD LAB BLOOD ORDERABLES Merry l Result EXTERNAL LAB * (ABNORMAL) Protime-INR (12/03/2024) INR 3.00(A) 0.90 - 1.10 EXTERNAL LAB Blood 12/03/2024 Result [facility] Provider MD LAB BLOOD ORDERABLES Merry l Result EXTERNAL LAB from Last [address] [place] [address] MEDICARE [facility] MEDICARE SUPPLEMENT INSURANCE MEDICARE [facility] MEDICARE SUPPLEMENT INSURANCE Care Teams Creative Services Specialist Relationship Specialty Start Date End Date Felicitas Andres MD [address] [facility] [address] [place] [address] PCP - General 06/09/17
--- OUTSIDE RECORDS SUMMARY | 2025-02-13 15:44 | XMS_ITS | Continuity of Care Document ---
Author Organization [facility] Address [address] [place] [address] Phone Care Team Providers Care Cpas Name Role Phone Villatoro OD, Jesus Unavailable Unavailable Advance Directives Directive Yes / No Effective Date File Name No Information Encounters Encounter Description Practice Location Reason(s) For Visit Diagnoses Date Provider Providers Copied on Encounter [facility], [address], [place], [place], [id number], [place] tel:[phone] [facility] No Information May-0 4-200 6 Villatoro OD Jesus. [address] , [address], [place], [address], [place]. tel:[phone] Family History Family Member Type Diagnosis Age [...]
--- OUTSIDE RECORDS SUMMARY | 2025-02-13 15:44 | XMS_ITS | Referral Summary ---
Author Organization [facility] Physician Office Building [address] [place] [address] Care Team Providers Care Staff Forester Name Role Phone Felicitas Andres MD Primary Care Provider Encounters Date Type Department Care Team Description 02/01/2025 Anticoagulation Visit [facility] Medical [facility] Cardiology [address] [place] [address] [place] [phone] Kriss Ventura RN 01/28/2025 10:20 AM CDT - 01/28/2025 11:59 PM CDT Hospital Encounter [facility] MOB 1 DIAG IMG [address] [place] [address] Left hand pain Discharge Disposition: Discharge to home or self care 01/28/2025 10:30 AM CDT Office Visit [facility] Medical Group Hand Surgery 1414 [facility] [address] [place] [address] Lorin Caban MD Left hand pain (Primary Dx) 01/03/2025 Anticoagulation Visit [facility] Cardiology [address] [place] [address] [place] [phone] Emma Sauceda RN 01/01/2025 Telephone [facility] Cardiology [address] [place] [address] [place] [phone] Mya Bernal NP 12/25/2024 Anticoagulation Visit [facility] Cardiology [address] [place] [address] [place] [phone] Julio C Lamb, USHA 12/18/2024 Anticoagulation Visit [facility] Cardiology [address] [place] [address] Julio C Lamb RN 12/17/2024 Orders Only [facility] Health Information Management [address] [place] [address] Scanning, Provider 12/10/2024 Anticoagulation Visit [facility] Cardiology [address] [place] [address] [address] [place] [phone] Julio C Lamb RN 12/06/2024 Anticoagulation Visit [facility] Cardiology [address] [place] [address] [place] [phone] Kriss Ventura RN 12/03/2024 Anticoagulation Visit [facility] Cardiology [address] [place] [address] [place] [phone] Julio C Lamb, RN from Last 3 [...] implantable loop record er 07/21/2020 Overview (01/27/2021): [employer] Biomonitor III Loop Recorder. Dx; Dizziness, Near Syncope, PAF. DOI 07/16/2020-[facility]. [employer] remote home monitoring. 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 MF: TERRY Report ID: [id number] Reading Location: [id number] Procedure Note Wesly Figueroa MD - 02/02/2025 [...] Wesly Figueroa M.D. MF: TERRY Report ID: [id number] Reading Location: [id number] Lorin Caban MD IMG XR PROCEDURES Final R esult * (ABNORMAL) Protime-INR (01/01/2025) INR 2.40(A) 0.90 - 1.10 EXTERNAL LAB Blood Historical Provider LAB BLOOD ORDERABLES Merry l Result EXTERNAL LAB * (ABNORMAL) Protime-INR (12/25/2024) INR 4.10(A) 0.90 - 1.10 EXTERNAL LAB Blood 12/25/2024 Result [facility] Provider MD LAB BLOOD ORDERABLES Merry l Result Performing Organization Address [facility]/ZIP Co de Phone Number EXTERNAL LAB * SCAN - LABS (12/17/2024) Result [facility] Provider Scanning Final Result * (ABNORMAL) Protime-INR (12/17/2024) INR 1.90(A) 0.90 - 1.10 EXTERNAL LAB Blood 12/17/2024 Result [facility] Provider MD LAB BLOOD ORDERABLES Merry l Result Performing Organization Address [facility] Co de Phone Number EXTERNAL LAB * (ABNORMAL) Protime-INR (12/10/2024) INR 1.60(A) 0.90 - 1.10 EXTERNAL LAB Blood 12/10/2024 Result [facility] Provider MD LAB BLOOD ORDERABLES Merry l Result Performing Organization Address [facility]/ZIP Co de Phone Number EXTERNAL LAB * (ABNORMAL) Protime-INR (12/06/2024) INR 3.50(A) 0.90 - 1.10 EXTERNAL LAB Blood Result [facility] Provider MD LAB BLOOD ORDERABLES Merry l Result EXTERNAL LAB * (ABNORMAL) Protime-INR (12/03/2024) INR 3.00(A) 0.90 - 1.10 EXTERNAL LAB Blood 12/03/2024 us Historical Provider LAB BLOOD ORDERABLES Merry bonnie Result EXTERNAL LAB from Last 3 Months Insurance MEDICARE [facility] MEDICARE SUPPLEMENT INSURANCE [place] [id number] MEDICARE [facility] MEDICARE SUPPLEMENT INSURANCE Care Teams Staff Forester Relationship Specialty Start Date End Date Felicitas Andres MD [address] [facility] [address] [place] [address] PCP - General 06/09/17
--- OUTSIDE RECORDS SUMMARY | 2025-02-13 15:44 | XMS_ITS | Continuity of Care Document ---
Author Organization [facility] Address [address] [facility] [place] [address] Phone Care Team Providers Care Group Account Director Name Role Phone Sachin Arias MD Unavailable [...] Diagnoses Date Provider Providers Copied on Encounter [facility], [address], [place], [id number], [place] tel:[phone] [facility] No Information 0 3 Hugo Stephenson. [address], [place], [id number] , [place]. tel:[phone] [facility], [address], [id number], [place] tel:[phone] [facility] No Information 3 Hugo Stephenson. [address], [place], [place], [id number] , [place]. tel:[phone] OFFICE/OUTPA TIENT VISIT, [facility], [place], [address], [place], [place], [id number], [place] tel:[phone] [facility] fatigue (chief complaint) arthritis (chief complaint) Dietary surveillance and counselingFatigue / MalaiseCHRONIC PAIN NECGERD 0 3 Hugo Stephenson. [address], [address], [place], [place], [address] , [place]. tel:[phone] Referring Provider: Sachin Arias, [address], [place], [place], [id number]. tel:[phone] [facility], [address], [place], [place], [address], [place] tel:[phone] [facility] No Information 3 Hugo Stephenson. [address], [address], [place], [place], [id number] , [place]. [phone] OFFICE/OUTPA TIENT VISIT, [facility], [place], [address], [place], [place], [id number], [place] tel:[phone] [facility] Gout (chief complaint) Arthritis (chief complaint) HTN (chief complaint) Fatigue (chief complaint) Dietary surveillance and counselingCHRONIC PAIN NECGout, unspecifiedHyperten bryant, UnspecifiedFatigue / Malaise 3 3 Hugo Stephenson. [address], [place], [place], [id number] , [place]. tel:[phone] Referring Provider: Sachin Arias, [address], [place], [place], [address]. tel:[phone] OFFICE/OUTPA TIENT VISIT, [facility], [place], [address], [place], [place], [address], [place] tel:[phone] [facility] neck pain (chief complaint) HLP (chief complaint) LFT (chief complaint) Dietary surveillance and counselingHyperglyc emiaUnspecified chronic liver disease without mention of alcoholOther and unspecified hyperlipidemiaCHRON IC PAIN NEC 3 Hugo Stephenson. [address], [place], [place], [address] , . tel:[phone] Referring Provider: Rolando [address], [place], [place], [id number]. tel:[phone] OFFICE/OUTPA TIENT VISIT, [facility], [address], [place], [place], [address], [place] tel:[phone] [facility] Gout (chief complaint) RA (chief complaint) HTN (chief complaint) Dietary surveillance and counselingRheumatoi d ArthritisGout, unspecifiedHyperten bryant, UnspecifiedRenal Failure, Acute 3 Hugo Stephenson. [address], [address], [place], [place], [address] , [place]. tel:[phone] Referring Provider: Rolando Huston [address] [facility] A, [place], [place], [id number]. tel:[phone] Family History Family Member Type Diagnosis Age At Onset Brother Problem (finding) Cancer, pancreas Mother Problem (finding) arthritis, gout Mother Problem (finding) Alzheimer's Disease Father Problem (finding) Cancer, unknown Payers Payer name Insurance type Covered green party ID Authoriza tion(s) No Information Social [...]
--- OUTSIDE RECORDS SUMMARY | 2025-02-13 15:44 | XMS_ITS | Encounter Summary ---
Author Organization [facility] Healthcare Address [address] [place] [address] Care Team Providers Care Coil Winding Machines Set Up Mechanic Name Role Phone Felicitas Andres MD Primary Care Provider Reason for Visit * Reason Onset Date Comments Appointment 03/05/2019 Encounter Details Date Type Department Care Team (Late st Contact Info) Description 03/05/2019 Telephone [facility] [address] [facility] [address] [place] [address] Nat Cooper MD PhD [address] [facility] [address] [facility] [phone] [place], [place] [id number] Appointment Social History Tobacco Use Types Packs/Day [...] on filedocumented in this encounter Care Teams Coil Winding Machines Set Up Mechanic Relationship Specialty Start Date End Date Felicitas Andres MD [address] [email or web address] [address] [place] [address] PCP - General 06/09/17 documented as of this encounter
== END 2025-02-13 15:40 | disposition home or self-care (01) ==
PROVIDERS: PCP Family Medicine; Visit Provider Family Medicine
DX: E04.2 Nontoxic multinodular goiter (principal)
CPT/HCPCS: 76536

== ENCOUNTER 2025-02-27 12:43 | Outpatient (CLI) | payer MEDICARE, SELFPAY ==
--- NOTE | ~2025-02-27 | MMUS_ITS ---
EXAMINATION: MM diagnostic rohan LT w nick, US breast LT limited INDICATION: 80-year old female; BI-RADS 0, callback from screening to evaluate new left breast mass. COMPARISON: 02/11/2025 TECHNIQUE: Digital breast tomosynthesis True lateral and spot compression of the LEFT breast were obt ained with computer-aided detection to assist in interpretation of the study. FINDINGS: There are scattered areas of fibroglandular density. A circumscribed mass containing a focus of calcification persists in the superior central 12:00 locat ion at middle depth. Additional asymmetry containing several foci of calcifications persists overlying the pectoralis musc le. In addition, an asymmetry seen in the retroareolar region overlying the inferior pectoralis muscl e persists as a mass on spot compression views. Ultrasound was completed for further evaluation. LEFT BREAST ULTRASOUND FINDINGS: Targeted evaluation of the areas of concern was completed. At 12:00, 2 cm from the nipple there is a solid hypoechoic mass with mildly irregular margins and ech ogenic rim that measure 0.5 x 0.7 x 0.6 cm. This lesion corresponds to the new mammographic finding. At 11:00, 7 cm from the nipple, there is an hypoechoic mass with internal vascularity that measure 1. 1 x 0.7 x 0.4 cm. This lesion probably correspond to the mammographic asymmetry overlying the superio r pectoralis muscle. At 11:00, 5 cm from the nipple there is a superficial hypoechoic mass containing a focus of calcifica tion and echogenic rim. Margins of this lesion are ill-defined. There is no sonographic correlate to the mammographic finding overlying the inferior pectoralis muscl e. There are multiple complicated cysts identified at 12:00, 3 cm from the nipple and at 11:00 min the n ipple. IMPRESSION: 1. Suspicious left breast mass at 12:00 location, 2 cm from the nipple. Recommend biopsy under ultra sound guidance. 2. Indeterminate mass at 11:00, 7 cm from the nipple. Recommend biopsy under ultrasound guidance. 3. Indeterminate superficial hypoechoic mass at 11:00, 5 cm from the nipple. Recommend biopsy under ultrasound guidance. 4. Indeterminate Left breast asymmetry in the retroareolar region at posterior depth overlying the i nferior pectoralis muscle has no sonographic correlate. Given the far posterior location of this lesi on, it may be difficult to perform any biopsy procedure successfully. Consider prebiopsy breast MRI f or problem solving. If the MRI does not show correlating suspicious finding, then a short-term follow -up with diagnostic mammography would be recommended. RECOMMENDATION: 1. Ultrasound-guided core biopsy of left breast mass at 12:00, 2 cm from the nipple, 11:00, 7 cm from the nipple and at 11:00, 5 cm from the nipple. 2. Breast MRI which should be obtained prior to the biopsy procedures. BI-RADS 4, SUSPICIOUS Reviewed, dictated and finalized at location B. IMPRESSION: 1. Suspicious left breast mass at 12:00 location, 2 cm from the nipple. Recomm end biopsy under ultrasound guidance. 2. Indeterminate mass at 11:00, 7 cm from the nipple. Recommend biopsy under u ltrasound guidance. 3. Indeterminate superficial hypoechoic mass at 11:00, 5 cm from the nipple. R ecommend biopsy under ultrasound guidance. 4. Indeterminate Left breast asymmetry in the retroareolar region at posterior depth overlying the inferior pectoralis muscle has no sonographic correlate. G iven the far posterior location of this lesion, it may be difficult to perform any biopsy procedure successfully. Consider prebiopsy breast MRI for problem so lving. If the MRI does not show correlating suspicious finding, then a short-te rm follow-up with diagnostic mammography would be recommended. RECOMMENDATION: 1. Ultrasound-guided core biopsy of left breast mass at 12:00, 2 cm from the ni pple, 11:00, 7 cm from the nipple and at 11:00, 5 cm from the nipple. 2. Breast MRI which should be obtained prior to the biopsy procedures. BI-RADS 4, SUSPICIOUS
--- OUTSIDE RECORDS SUMMARY | 2025-02-27 12:49 | XMS_ITS | Encounter Summary ---
Author Organization [facility] Healthcare Address [address] [place] [address] Care Team Providers Care Veneer Jointer Returner Name Role Phone Unavailable Primary Care Provider Unavailabl e Encounter Details Date Type Department Care Team (Late st Contact Info) Description 1944 Ancillary Procedure [facility] Outside Films [address] [facility] [address] Social History Tobacco Use Types Packs/Day Years [...]
--- OUTSIDE RECORDS SUMMARY | 2025-02-27 12:49 | XMS_ITS | Clinical Summary ---
Author Organization [facility] Physician Office Building [address] [place] [phone] Care Team Providers Care Ticket Printer And Tagger Name Role Phone Felicitas Andres MD Primary [...] Units total) TAKE 3 AT NIGHT Active LORazepam (ATIVAN) 0.5 mg tablet Take [...] OR DIRECTED BY DR Olmstead tablet 3 12/18/19 25 Active celecoxib (CeleBREX) 200 mg capsule Take by mouth daily 01/23/20 25 Active potassium chloride ER 10 mEq CR capsule Take 1 tablet/capsule (10 mEq total) by mouth daily 11/29/19 25 Active colchicine (COLCRYS) 0.6 mg tablet as needed 02/15/20 25 Active olmesartan (BENICAR) 20 mg tablet Take 1 tablet (20 mg total) by mouth 2 (two) times a day 06/07/20 025 Discontinu ed(No longer taking - Do not display on AVS) Active Problems Problem Noted Date Diagnosed Date Essential tremor 10/05/2023 Pure hypercholesterolemia 01/21/2023 Hyponatremia 01/17/2023 Chest heaviness 01/25/2022 Paroxysmal atrial fibrillation 09/30/2020 Chronic anticoagulation 09/30/2020 Status post placement of implantable loop record er 07/21/2020 Overview (01/27/2021): [employer] Biomonitor III Loop Recorder. Dx; Dizziness, Near Syncope, PAF. DOI 07/16/2020[facility]. [employer] remote home monitoring. Dizzy spells 07/07/2020 Bradycardia 07/07/2020 Parkinson's disease 07/07/2020 Essential hypertension 07/07/2020 Acute bilateral low back pain with right-sided s ciatica 10/12/2018 Neuropathic pain, leg, left 10/12/2018 DDD (degenerative disc disease), lumbar 10/13/19 19 Lumbar spondylosis 08/03/2018 Resolved Problems Problem Noted Date Diagnosed Date Resolved Date Fever 09/30/2020 01/17/2023 Visit for wound check 07/22/20202021 Encounters Date Type Department Care Team Description 02/25/2025 2:30 PM CDT Therapy [facility] OP Physical Therapy [facility] [address] [address] Left hand pain 02/14/2025 10:30 AM CDT Office Visit [facility] Cardiology [address] [place] [address] [place] [phone] Mya Bernal NP Paroxysmal atrial fibrillation (HCC) (Primary Dx); Chronic anticoagulation; Status post placement of implantable loop recorder; Bradycardia; Orthostasis; Essential hypertension 02/01/2025 Anticoagulation Visit [place] [address] [place] [phone] Kriss Ventura RN 01/28/2025 10:30 AM CDT Office Visit [facility] Medical [facility] Hand Surgery [address] [facility] [address] [place] [phone] Lorin Caban MD Left hand pain (Primary Dx) 01/28/2025 10:20 AM CDT - 01/28/2025 11:59 PM CDT Hospital Encounter [facility] MOB 1 DIAG IMG 1414 [place] [address] Left hand pain Discharge Disposition: Discharge to home or self care 01/03/[address] [facility] Cardiology [address] [place] [address] [place] [phone] Emma Sauceda RN 01/01/[address] [facility] Cardiology [address] [place] [address] [address] [place] [phone] Mya Bernal, NATALIE 12/25/[address] [facility] Cardiology [address] [place] [address] [address] [place] [phone] Julio C Lamb, RN 12/18/[address] [facility] Cardiology [address] [place] [address] [address] [place] [phone] Julio C Lamb, RN 12/17/2024 Orders Only [facility] Health Information Management [address] [place] [phone] Scanning, Provider 12/10/[address] [facility] Cardiology [address] [place] [address] [place] [phone] Julio C Lamb, RN 12/06/[address] [facility] Cardiology [address] [place] [address] [place] [phone] Kriss Ventura, RN 12/03/[address] 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 on file Obstetrics History Last Filed Vital Signs Vital Sign Reading Time Taken Comments Blood Pressure 130/54 02/14/2025 10:23 AM CDT Pulse 50 02/14/2025 10:23 AM CDT Temperature 36.6 C (97.8 F) 04/12/2019 11:47 AM CDT Respiratory Rate 16 04/12/2019 11:47 AM CDT Oxygen Saturation 97% 02/14/2025 10:23 AM CDT Inhaled Oxygen Concentration - - Weight 67.1 kg (148 lb) 02/14/2025 10:23 AM CDT Height 170.2 cm (5' 7) 02/14/2025 10:23 AM CDT Body Mass Index 23.18 02/14/2025 10:23 AM CDT Plan of Treatment Health Maintenance [...] Date/Time Associated Diagnosis Comments PROTIME-INR Routine 02/01/2025 ME ARTHROCENTESIS ASPIR&/INJ INTERM JT/BURS W/O US Routine [...] Blood us Historical Provider LAB BLOOD ORDERABLES Edit ed Result - Final EXTERNAL LAB * ME ARTHROCENTESIS ASPIR&/INJ INTERM JT/BURS W/O US (01/28/2025 [...] Wesly Figueroa M.D. MF: TERRY Report ID: [id number] Reading Location: [id number] Procedure Note Wesly Figueroa MD - 02/02/2025 [...] Wesly Figueroa M.D. MF: TERRY Report ID: [id number] Reading Location: [id number] Lorin Caban MD IMG XR PROCEDURES Final R esult * (ABNORMAL) Protime-INR (01/01/2025) INR 2.40(A) 0.90 - 1.10 EXTERNAL LAB Blood Historical Provider LAB BLOOD ORDERABLES Merry l Result EXTERNAL LAB * (ABNORMAL) Protime-INR (12/25/2024) INR 4.10(A) 0.90 - 1.10 EXTERNAL LAB Blood 12/25/2024 Historical Provider MD LAB BLOOD ORDERABLES Merry l Result EXTERNAL LAB * SCAN - LABS (12/17/2024) Result [facility] Provider Scanning Final Result * (ABNORMAL) Protime-INR (12/17/2024) INR 1.90(A) 0.90 - 1.10 EXTERNAL LAB Blood 12/17/2024 Result [facility] Provider MD LAB BLOOD ORDERABLES Merry l Result Performing Organization Address City/[facility]/ZIP Co de Phone Number EXTERNAL LAB * (ABNORMAL) Protime-INR (12/10/2024) INR 1.60(A) 0.90 - 1.10 EXTERNAL LAB Blood 12/10/2024 Result [facility] Provider MD LAB BLOOD ORDERABLES Merry l Result Performing Organization Address City/[facility]/ZIP Co de Phone Number EXTERNAL LAB * (ABNORMAL) Protime-INR (12/06/2024) INR 3.50(A) 0.90 - 1.10 EXTERNAL LAB Blood Result [facility] Provider MD LAB BLOOD ORDERABLES Merry l Result Performing Organization Address City/[facility]/ZIP Co de Phone Number EXTERNAL LAB * (ABNORMAL) Protime-INR (12/03/2024) INR 3.00(A) 0.90 - 1.10 EXTERNAL LAB Blood 12/03/2024 Result [facility] Provider MD LAB BLOOD ORDERABLES Merry l Result EXTERNAL LAB from Last [address] [place] [address] MEDICARE [facility] MEDICARE SUPPLEMENT INSURANCE [place] [id number] [address] [place] [id number] MEDICARE [facility] MEDICARE SUPPLEMENT INSURANCE Care Teams Ticket Printer And Tagger Relationship Specialty Start Date End Date Felicitas Andres MD [address] [facility] [address] [place] [address] PCP - General Family Medicine 02/14/25
--- OUTSIDE RECORDS SUMMARY | 2025-02-27 12:49 | XMS_ITS | Encounter Summary ---
Author Organization [facility] Healthcare Address [address] [place] [address] Care Team Providers Care Weathercaster Name Role Phone Felicitas Andres MD Primary Care Provider Encounter Details Date Type Department Care Team (Late st Contact Info) Description 12/17/2024 Orders Only [facility] Health Information Management [address] [place] [address] Scanning, Provider Social History Tobacco Use Types [...] Industry Job Start Date Job End Date [employer] Not on file Not on file Not [...] on filedocumented in this encounter Care Teams Weathercaster Relationship Specialty Start Date End Date Felicitas Andres MD [address] [facility] 120 [place] [phone] PCP - General Family Medicine 02/14/25 documented as of this encounter
--- OUTSIDE RECORDS SUMMARY | 2025-02-27 12:49 | XMS_ITS | Encounter Summary ---
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
--- OUTSIDE RECORDS SUMMARY | 2025-02-27 12:49 | XMS_ITS | Referral Summary ---
Author Organization [facility] Physician Office Building [address] [place] [phone] Care Team Providers Care Engine Specialist Name Role Phone Felicitas Andres MD Primary Care Provider Encounters Date Type Department Care Team Description 02/25/2025 2:30 PM CDT Therapy [facility] OP Physical Therapy [address] [place] [phone] Left hand pain 02/14/2025 10:30 AM CDT Office Visit [facility] Cardiology [address] [place] [address] [place] [phone] Mya Bernal NP Paroxysmal atrial fibrillation (HCC) (Primary Dx); Chronic anticoagulation; Status post placement of implantable loop recorder; Bradycardia; Orthostasis; Essential hypertension 02/01/2025 Anticoagulation Visit [facility] Cardiology [address] [place] [address] [address] [place] [phone] Kriss Ventura RN 01/28/2025 10:20 AM CDT - 01/28/2025 11:59 PM CDT Hospital Encounter [facility] MOB 1 DIAG IMG 1414 [place] [address] Left hand pain Discharge Disposition: Discharge to home or self care 01/28/2025 10:30 AM CDT Office Visit [facility] Medical Group Hand Surgery [address]14 [facility] [address] [place] [phone] Lorin Caban MD Left hand pain (Primary Dx) 01/03/2025 Anticoagulation Visit [facility] Cardiology [address] [place] [address] [place] [phone] Emma Sauceda, USHA 01/01/2025 Telephone [place] [address] [place] [phone] Mya Bernal NP 12/25/2024 Anticoagulation Visit [place] [address] [place] [phone] Julio C Lamb RN 12/18/2024 Anticoagulation Visit [address] [phone] Julio C Lamb, USHA 12/17/2024 Orders Only [facility] Health Information Management [address] [place] [phone] Scanning, Provider 12/10/2024 Anticoagulation Visit [place] [address] [place] [phone] Julio C Lamb RN 12/06/2024 Anticoagulation Visit [address] [phone] Kriss Ventura, USHA 12/03/2024 Anticoagulation Visit [place] [address] [place] [phone] Julio C Lamb, RN from Last 3 [...] ONCE DAILY OR DIRECTED BY 45 tablet 3 12/18/19 25 Active celecoxib (CeleBREX) [...] implantable loop record er 07/21/2020 Overview (01/27/2021): [employer] Biomonitor III Loop Recorder. Dx; Dizziness, Near Syncope, PAF. DOI 07/16/2020-[employer]. [employer] remote home monitoring. 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 MF: TERRY Report ID: [id number] Reading Location: [id number] Procedure Note Wesly Figueroa MD - 02/02/2025 [...] Wesly Figueroa M.D. MF: TERRY Report ID: [id number] Reading Location: [id number] us Lorin Caban MD IMG XR PROCEDURES Final R esult * (ABNORMAL) Protime-INR (01/01/2025) INR 2.40(A) 0.90 - 1.10 EXTERNAL LAB Blood Result [facility] Provider MD LAB BLOOD ORDERABLES Merry l Result EXTERNAL LAB * (ABNORMAL) Protime-INR (12/25/2024) INR 4.10(A) 0.90 - 1.10 EXTERNAL LAB Blood 12/25/2024 Result [facility] Provider MD LAB BLOOD ORDERABLES Merry l Result Performing Organization Address City/[facility] [address]/ZIP Co de Phone Number EXTERNAL LAB * SCAN - LABS (12/17/2024) Result [facility] Provider Scanning Final Result * (ABNORMAL) Protime-INR (12/17/2024) INR 1.90(A) 0.90 - 1.10 EXTERNAL LAB Blood 12/17/2024 Result [facility] Provider MD LAB BLOOD ORDERABLES Merry l Result Performing Organization Address [facility] [address]/ZIP Co de Phone Number EXTERNAL LAB * (ABNORMAL) Protime-INR (12/10/2024) INR 1.60(A) 0.90 - 1.10 EXTERNAL LAB Blood 12/10/2024 Result [facility] Provider MD LAB BLOOD ORDERABLES Merry l Result EXTERNAL LAB * (ABNORMAL) Protime-INR (12/06/2024) INR 3.50(A) 0.90 - 1.10 EXTERNAL LAB Blood Result [facility] Provider MD LAB BLOOD ORDERABLES Merry l Result EXTERNAL LAB * (ABNORMAL) Protime-INR (12/03/2024) INR 3.00(A) 0.90 - 1.10 EXTERNAL LAB Blood 12/03/2024 us Historical Provider LAB BLOOD ORDERABLES Merry l Result EXTERNAL LAB from Last [address] [place] [address] MEDICARE [facility] MEDICARE SUPPLEMENT [place] [address] MEDICARE [employer] MEDICARE SUPPLEMENT INSURANCE Care Teams Engine Specialist Relationship Specialty Start Date End Date Felicitas Andres MD [address] [facility] [address] [place] [address] PCP - General Family Medicine 02/14/25
--- OUTSIDE RECORDS SUMMARY | 2025-02-27 12:49 | XMS_ITS | Encounter Summary ---
Author Organization [facility] Healthcare Address [address] [place] [address] Care Team Providers Care Plugger Name Role Phone Felicitas Andres MD Primary Care Provider Reason for Visit * Reason Onset Date Comments Appointment 03/05/2019 Encounter Details Date Type Department Care Team (Late st Contact Info) Description 03/05/2019 Telephone [facility] [place] [facility] [address] [facility] [address] [place] [address] Nat Cooper MD PhD [address] [facility] [address] [facility] [phone] [place], [place] [phone] Appointment Social History Tobacco Use Types Packs/Day [...] on filedocumented in this encounter Care Teams Plugger Relationship Specialty Start Date End Date Felicitas Andres MD [address] [facility] 120 [place] [address] PCP - General Family Medicine 02/14/25 documented as of this encounter
--- OUTSIDE RECORDS SUMMARY | 2025-02-27 12:50 | XMS_ITS | Encounter Summary ---
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
== END 2025-02-27 12:44 | disposition home or self-care (01) ==
LOC: ANHIMG 12:45
PROVIDERS: PCP Family Medicine; Visit Provider Physician Assistant
DX: R92.8 Other abnormal and inconclusive findings on diagnostic imaging of breast (principal)
CPT/HCPCS: 76642; 77061; 77065; G0279

== ENCOUNTER 2025-03-14 06:57 | Outpatient (CLI) | payer MEDICARE, SELFPAY ==
--- NOTE | ~2025-03-14 | MMUS_ITS ---
PROCEDURE: US breast biopsy LT w image, MM post biopsy diagnostic LT, US breast bx add lesion LT, US breast bx add lesion LT CLINICAL HISTORY: 80-year-old female with 3 suspicious masses in the left breast at 12:00, 2 cm from the nipple, 11:00, 7 cm from the nipple and 11:00, 5 cm from the nipple, presents for ultrasound-guid ed core needle biopsy procedure. COMPARISON: 02/27/2025. Following informed consent including risks, benefits, and possible complications, the patient was bro ught to the ultrasound suite. A time-out procedure was performed. A preliminary ultrasound of the le ft breast was performed, redemonstrating a solid hypoechoic mass at 12:00, 2 cm from the nipple, supe rficial solid hypoechoic mass at 11:00, 5 cm from the nipple and upper lung shaped solid hypoechoic m ass at 11:00, 7 cm from the nipple. The patient was prepped and draped in the usual sterile fashion. 1% lidocaine was instilled into the subcutaneous tissues. 1% lidocaine without epinephrine was injected into the deep tissues around the lesion. Approximately 10cc lidocaine was administered. A small skin sarita was made. 4 core samples wer e obtained from the palpable lesion at 12:00, 2 cm FN through a Lateral approach with a 14-gauge biop sy needle. A post biopsy butterfly hydromark marker was placed at the biopsy site. The patient was prepped and draped in the usual sterile fashion. 1% lidocaine was instilled into the subcutaneous tissues. 1% lidocaine without epinephrine was injected into the deep tissues around the lesion. Approximately 10cc lidocaine was administered. A small skin sarita was made. 4 core samples wer e obtained from the palpable lesion at 11:00, 5 cm FN through a Lateral approach with a 14-gauge biop sy needle. A post biopsy coil hydromark marker was placed at the biopsy site. The patient was prepped and draped in the usual sterile fashion. 1% lidocaine was instilled into the subcutaneous tissues. 1% lidocaine without epinephrine was injected into the deep tissues around the lesion. Approximately 10cc lidocaine was administered. A small skin sarita was made. 4 core samples wer e obtained from the palpable lesion at 11:00, 7 cm FN through a Lateral approach with a 14-gauge biop sy needle. A post biopsy barrel hydromark marker was placed at the biopsy site. Postprocedural mammogram of the left breast in craniocaudal and mediolateral projections reveal all 3 post biopsy metal markers in good position. The patient tolerated the procedure well and was without immediate postprocedural complications. IMPRESSION: Successful ultrasound guided biopsy of 3 left side masses. 3 post biopsy metal markers pl aced at the biopsy sites are in good position, which are seen on postprocedural mammogram. The patient tolerated the procedure well without immediate postprocedure complications. The patient w as given postprocedural instructions and sent home in stable condition. Reviewed, dictated and finalized at location B. IMPRESSION: Successful ultrasound guided biopsy of 3 left side masses. 3 post b iopsy metal markers placed at the biopsy sites are in good position, which are seen on postprocedural mammogram. The patient tolerated the procedure well without immediate postprocedure compli cations. The patient was given postprocedural instructions and sent home in sta ble condition. IMPRESSION: Successful ultrasound guided biopsy of 3 left side masses. 3 post b iopsy metal markers placed at the biopsy sites are in good position, which are seen on postprocedural mammogram. The patient tolerated the procedure well without immediate postprocedure compli cations. The patient was given postprocedural instructions and sent home in sta ble condition. IMPRESSION: Successful ultrasound guided biopsy of 3 left side masses. 3 post b iopsy metal markers placed at the biopsy sites are in good position, which are seen on postprocedural mammogram. The patient tolerated the procedure well without immediate postprocedure compli cations. The patient was given postprocedural instructions and sent home in sta ble condition.
--- OUTSIDE RECORDS SUMMARY | 2025-03-14 06:58 | XMS_ITS | Encounter Summary ---
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
--- OUTSIDE RECORDS SUMMARY | 2025-03-14 06:58 | XMS_ITS | Clinical Summary ---
Author Organization [facility] Physician Office Building [address] [place] [phone] Care Team Providers Care Educational Speech Language Clinician Name Role Phone Felicitas Andres MD Primary [...] implantable loop record er 07/21/2020 Overview (01/27/2021): [employer] Biomonitor III Loop Recorder. Dx; Dizziness, Near Syncope, PAF. DOI 07/16/2020[facility]. [employer] remote home monitoring. Dizzy spells 07/07/2020 Bradycardia 07/07/2020 Parkinson's disease 07/07/2020 Essential hypertension 07/07/2020 Acute bilateral low back pain with right-sided s ciatica 10/12/2018 Neuropathic pain, leg, left 10/12/2018 DDD (degenerative disc disease), lumbar 10/13/19 19 Lumbar spondylosis 08/03/2018 Resolved Problems Problem Noted Date Diagnosed Date Resolved Date Fever 09/30/2020 01/17/2023 Visit for wound check 07/22/20202021 Encounters Date Type Department Care Team Description 03/05/[address] [facility] Medical [facility] Cardiology [address] [place] [address] [address] [place] [phone] Mya Bernal NP 03/04/2025 9:30 AM CDT Office Visit [facility] Hand Surgery [address] [place] [address] [place] [phone] Lorin Caban MD Pain of left hand (Primary Dx) 02/25/2025 2:30 PM CDT Therapy [facility] OP Physical Therapy [facility] [address] [address] Left hand pain 02/14/2025 10:30 AM CDT Office Visit [facility] Cardiology [address] [place] [address] [place] [phone] Mya Bernal NP Paroxysmal atrial fibrillation (HCC) (Primary Dx); Chronic anticoagulation; Status post placement of implantable loop recorder; Bradycardia; Orthostasis; Essential hypertension 02/01/2025 Anticoagulation Visit [facility] Cardiology [address] [place] [address] [place] [phone] Kriss Ventura RN 01/28/2025 10:30 AM CDT Office Visit [facility] Hand Surgery [address] [place] [address] [place] [phone] Lorin Caban MD Left hand pain (Primary Dx) 01/28/2025 10:20 AM CDT - 01/28/2025 11:59 PM CDT Hospital Encounter [facility] 1 DIAG IMG [address] [place] [address] Left hand pain Discharge Disposition: Discharge to home or self care 01/03/2025 Anticoagulation Visit [facility] Cardiology [address] [place] [phone] Emma Sauceda RN 01/01/2025 Orders Only [facility] Health Information Management [address] [place] [address] Scanning, Provider 01/01/2025 Telephone [facility] Cardiology [address] [place] [address] [address] [place] [phone] Mya Bernal NP 12/25/2024 Orders Only [facility] Health Information Management [address] [place] [address] Scanning, Provider 12/25/2024 Anticoagulation Visit [facility] Cardiology [address] [place] [address] [place] [phone] Julio C Lamb, RN 12/18/2024 Anticoagulation Visit [facility] Cardiology [address] [place] [address] [address] [place] [phone] Julio C Lamb, RN 12/17/2024 Orders Only [facility] Health Information Management [address] [place] [address] Scanning, Provider from Last 3 Months Surgical History Surgery Date Site/Laterality Comments [place] ARTHRD ANT INTERBODY MIN DSC CRV BELOW C2 Cervical Vertebral Fusion - (Added by Conv) [place] CHOLECYSTECTOMY Cholecystectomy - (Added by TW Conv) [place] APPENDECTOMY Appendectomy - (Added by Conv) [place] DELIVERY ONLY Section - (Added by Conv) [...] 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 Not [...] Date/Time Associated Diagnosis Comments PROTIME-INR Routine 02/01/2025 [place] ARTHROCENTESIS ASPIR&/INJ INTERM JT/BURS W/O US Routine 01/28/2025 10:30 AM CDT Left hand pain XR HAND LEFT 3 OR MORE VIEWS Schedule Routine, Read Routine (OP Routine) 01/28/2025 10:23 AM CDT Left hand pain SCAN - LABS 01/01/2025 PROTIME-INR Routine 01/01/2025 SCAN - LABS 12/25/2024 PROTIME-INR Routine 12/25/2024 SCAN - LABS 12/17/2024 PROTIME-INR Routine 12/17/2024 from Last 3 Months Results * (ABNORMAL) Protime-INR (02/01/2025) INR 2.70(A) 0.90 - 1.10 EXTERNAL LAB Blood us Historical Provider LAB BLOOD ORDERABLES Edit ed Result - Final EXTERNAL LAB * AK ARTHROCENTESIS ASPIR&/INJ INTERM JT/BURS W/O US (01/28/2025 [...] Wesly Figueroa M.D. MF: TERRY Report ID: [id number] Reading Location: [id number] Procedure Note Wesly Figueroa MD - 02/02/2025 [...] Wesly Figueroa M.D. MF: TERRY Report ID: [id number] Reading Location: [id number] us Lorin Caban MD IMG XR PROCEDURES Final R esult * SCAN - LABS (01/01/2025) us Provider Scanning Final Result * (ABNORMAL) Protime-INR (01/01/2025) INR 2.40(A) 0.90 - 1.10 EXTERNAL LAB Blood us Historical Provider LAB BLOOD ORDERABLES Merry nicole Result EXTERNAL LAB * SCAN - LABS (12/25/2024) us Provider Scanning Final Result * (ABNORMAL) Protime-INR (12/25/2024) INR 4.10(A) 0.90 - 1.10 EXTERNAL LAB Blood 12/25/2024 Historical Provider MD LAB BLOOD ORDERABLES Merry l Result EXTERNAL LAB * SCAN - LABS (12/17/2024) Provider Scanning Final Result * (ABNORMAL) Protime-INR (12/17/2024) INR 1.90(A) 0.90 - 1.10 EXTERNAL LAB Blood 12/17/2024 Result [facility] Historical Provider MD LAB BLOOD ORDERABLES Merry l Result EXTERNAL LAB from Last 3 [place] [address] [place] [address] [facility] MEDICARE SUPPLEMENT INSURANCE MEDICARE [employer]IG[employer] MEDICARE SUPPLEMENT INSURANCE Care Teams Educational Speech Language Clinician Relationship Specialty Start Date End Date Felicitas Andres MD [address] [facility] [address] [place] [address] PCP - General Family Medicine 02/14/25
--- OUTSIDE RECORDS SUMMARY | 2025-03-14 06:58 | XMS_ITS | Encounter Summary ---
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
--- OUTSIDE RECORDS SUMMARY | 2025-03-14 06:58 | XMS_ITS | Encounter Summary ---
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
--- OUTSIDE RECORDS SUMMARY | 2025-03-14 06:59 | XMS_ITS | Encounter Summary ---
Author Organization 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 [address] [place] [phone] PCP - General Family Medicine 02/14/25 documented as of this encounter
--- OUTSIDE RECORDS SUMMARY | 2025-03-14 06:59 | XMS_ITS | Continuity of Care Document ---
Author Organization [facility] Address [address] [place] [address] Phone Care Team Providers Care Digital Imager Name Role Phone Villatoro OD, Jesus Unavailable Unavailable Advance Directives Directive Yes / No Effective Date File Name No Information Encounters Encounter Description Practice Location Reason(s) For Visit Diagnoses Date Provider Providers Copied on Encounter [facility], [address], [place], [place], [id number], [place] tel:[phone] [facility] No Information May-0 4-200 6 Villatoro OD Jesus. [address] , [address], [place], [address], [place]. tel:[phone] Family History Family Member Type Diagnosis Age [...]
--- OUTSIDE RECORDS SUMMARY | 2025-03-14 06:59 | XMS_ITS | Encounter Summary ---
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
--- OUTSIDE RECORDS SUMMARY | 2025-03-14 06:59 | XMS_ITS | Encounter Summary ---
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
--- OUTSIDE RECORDS SUMMARY | 2025-03-14 06:59 | XMS_ITS | Encounter Summary ---
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
--- OUTSIDE RECORDS SUMMARY | 2025-03-14 06:59 | XMS_ITS | Encounter Summary ---
Author Organization [facility] Healthcare Address [address] [place] [address] Care Team Providers Care Penal Officer Name Role Phone Felicitas Andres MD Primary Care Provider Reason for Visit * Reason Onset Date Comments Appointment 03/05/2019 Encounter Details Date Type Department Care Team (Late st Contact Info) Description 03/05/2019 Telephone [facility] [address] [facility] [address] [place] [address] Nat Cooper MD PhD [address] [facility] [address] [facility] [phone] [place], [place] [phone] Appointment Social History Tobacco Use Types Packs/Day [...] on filedocumented in this encounter Care Teams Penal Officer Relationship Specialty Start Date End Date Felicitas Andres MD [address] [facility] [address] [place] [address] PCP - General Family Medicine 02/14/25 documented as of this encounter
--- OUTSIDE RECORDS SUMMARY | 2025-03-14 07:00 | XMS_ITS | Encounter Summary ---
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
--- OUTSIDE RECORDS SUMMARY | 2025-03-14 07:00 | XMS_ITS | Continuity of Care Document ---
Author Organization [facility] Address [address] [facility] [place] [address] Phone Care Team Providers Care Hearing Instrument Specialist Name Role Phone Sachin Arias MD Unavailable [...] Provider Providers Copied on Encounter [facility], [address] [place], [place], [id number], [place] tel:[phone] [facility] No Information 0 [address] Hugo Stephenson. [address] [place], [place], [id number] , [place]. tel:[phone] [facility], [address] [place], [place], [id number], [place] tel:[phone] [facility] No Information 3 Hugo Stephenson. [address], [place], [place], [id number] , [place]. tel:[phone] OFFICE/OUTPA TIENT VISIT, [facility], [address], [place], [place], [id number], [place] tel:[phone] [facility] fatigue (chief complaint) arthritis (chief complaint) Dietary surveillance and counselingFatigue / MalaiseCHRONIC PAIN NECGERD 0 3 Hugo Stephenson. [address], [place], [place], [id number] , [place]. tel:[phone] Referring Provider: Sachin Arias, [address], [place], [place], [id number]. tel:[phone] [facility], [address], [place], [place], [id number], [place] tel:[phone] [facility] No Information 3 Hugo Stephenson. [address], [place], [place], [id number] , [place]. [phone] OFFICE/OUTPA TIENT VISIT, [facility], [address], [place], [place], [id number], [place] tel:[phone] [facility] Gout (chief complaint) Arthritis (chief complaint) HTN (chief complaint) Fatigue (chief complaint) Dietary surveillance and counselingCHRONIC PAIN NECGout, unspecifiedHyperten bryant, UnspecifiedFatigue / Malaise 3 3 Hugo Stephenson. [address], [place], [place], [id number] , [place]. tel:[phone] Referring Provider: Sachin Arias, [address], [place], [place], [id number]. tel:[phone] OFFICE/OUTPA TIENT VISIT, [facility], [address], [place], [place], [id number], [place] tel:[phone] [facility] neck pain (chief complaint) HLP (chief complaint) LFT (chief complaint) Dietary surveillance and counselingHyperglyc emiaUnspecified chronic liver disease without mention of alcoholOther and unspecified hyperlipidemiaCHRON IC PAIN NEC 3 Hugo Stephenson. [address], [place], [place], [id number] , . tel:[phone] Referring Provider: Rolando Huston [address], [place], [place], [id number]. tel:[phone] OFFICE/OUTPA TIENT VISIT, [facility] [place], [address], [place], [place], [id number], [place] tel:[phone] [facility] Gout (chief complaint) RA (chief complaint) HTN (chief complaint) Dietary surveillance and counselingRheumatoi d ArthritisGout, unspecifiedHyperten bryant, UnspecifiedRenal Failure, Acute 3 Hugo Stephenson. [address], [place], [place], [id number] , [place]. tel:[phone] Referring Provider: Rolando Huston [address] [facility] A, [place], [place], [id number]. tel:[phone] Family History Family Member Type Diagnosis Age [...]
--- OUTSIDE RECORDS SUMMARY | 2025-03-14 07:00 | XMS_ITS | Encounter Summary ---
Author Organization [facility] Healthcare Address [address] [place] [address] Care Team Providers Care Wet Sander Name Role Phone Unavailable Primary Care Provider Unavailabl e Encounter Details Date Type Department Care Team (Late st Contact Info) Description 1945 Ancillary Procedure [facility] [employer] [address] [facility] [place] [address] Social History Tobacco Use Types Packs/Day Years [...]
--- OUTSIDE RECORDS SUMMARY | 2025-03-14 07:00 | XMS_ITS | Encounter Summary ---
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
--- NOTE | 2025-03-14 09:56 | S_PTH ---
PATIENT: Raquel Gloria LOC: ANHIMG U#:[id number] AGE/SX: 80/F ROOM: RE03/14/[address]: Seda Reynolds MD : 1945 BED: DIS: 03/14/2025 SPEC #: [id number] RECD: 03/14/25 11:36 STATUS: HELLEN REQ #: [id number] ANNETTE: 03/14/25 09:[address]: Seda Reynolds DEPT: [facility] Surgical RECD BY: Dannielle Shirley ENTERED: 03/14/25 11:37 SP TYPE: Surgical OTHR DR: Felicitas Andres MD Tissues: A - Breast Biopsy B - Breast Biopsy C - Breast Biopsy Procedures: Richards Keratin Hematoxylin and Eosin Stain Gross and Microscopic Level 4
== END 2025-03-14 06:58 | disposition home or self-care (01) ==
PROVIDERS: PCP Family Medicine; Visit Provider Surgery
DX: N63.22 Unspecified lump in the left breast, upper inner quadrant (principal); N63.25 Unspecified lump in the left breast, overlapping quadrants
CPT/HCPCS: 19083; 19084; 77065; 88305; 88342; A4648

== ENCOUNTER 2025-03-15 08:21 | Outpatient (CLI) | payer MEDICARE, SELFPAY ==
--- OUTSIDE RECORDS SUMMARY | 2025-03-15 08:25 | XMS_ITS | Encounter Summary ---
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
--- OUTSIDE RECORDS SUMMARY | 2025-03-15 08:25 | XMS_ITS | Clinical Summary ---
Author Organization [facility] Physician Office Building [address] [place] [phone] Care Team Providers Care Elevator Service Mechanic Name Role Phone Felicitas Andres MD [...] implantable loop record er 07/21/2020 Overview (01/27/2021): [employer] Biomonitor III Loop Recorder. Dx; Dizziness, Near Syncope, PAF. DOI 07/16/2020[facility]. GogoroniHachimenroppi remote home monitoring. Dizzy spells 07/07/2020 Bradycardia [...] Type Department Care Team Description 03/05/2025 Telephone [facility] Medical [facility] Cardiology [address] [place] [address] [address] [place] [phone] Mya Bernal NP 03/04/2025 9:30 AM CDT Office Visit [facility] Hand Surgery [address] [place] [address] [place] [phone] Lorin Caban MD Pain of left hand (Primary Dx) 02/25/2025 2:30 PM CDT Therapy [facility] OP Physical Therapy [facility] [address] [address] Left hand pain 02/14/2025 10:30 AM CDT Office Visit [facility] Cardiology [address] [place] [address] [place] [phone] Mya Bernal NP Paroxysmal atrial fibrillation (HCC) (Primary Dx); Chronic anticoagulation; Status post placement of implantable loop recorder; Bradycardia; Orthostasis; Essential hypertension 02/01/2025 Anticoagulation Visit [facility] Cardiology [address] [place] [address] [place] [phone] Kriss Ventura RN 01/28/2025 10:30 AM CDT Office Visit [facility] Hand Surgery [address] [place] [address] [place] [phone] Lorin Caban MD Left hand pain (Primary Dx) 01/28/2025 10:20 AM CDT - 01/28/2025 11:59 PM CDT Hospital Encounter [facility] MOB 1 DIAG IMG [address] [place] [address] Left hand pain Discharge Disposition: Discharge to home or self care 01/03/2025 Anticoagulation Visit [facility] Cardiology [address] [place] [phone] Emma Sauceda RN 01/01/2025 Orders Only [facility] [place] [address] [place] [address] Scanning, Provider 01/01/2025 Telephone [facility] Cardiology [address] [place] [address] [address] [place] [phone] Mya Bernal NP 12/25/2024 Orders Only [facility] [place] Information Management [address] [place] [phone] Scanning, Provider 12/25/2024 Anticoagulation Visit [facility] Cardiology [address] [place] [address] [address] [place] [phone] Julio C Lamb, RN 12/18/2024 Anticoagulation Visit [facility] Cardiology [address] [place] [address] [address] [place] [phone] Julio C Lamb, RN 12/17/2024 Orders Only [facility] Information Management [address] [place] [address] Scanning, Provider from Last 3 Months Surgical History Surgery Date Site/Laterality Comments [place] ARTHRD ANT INTERBODY MIN DSC CRV BELOW C2 Cervical Vertebral Fusion - (Added by Conv) [place] CHOLECYSTECTOMY Cholecystectomy - (Added by TW Conv) [place] APPENDECTOMY Appendectomy - (Added by Conv) [place] DELIVERY ONLY Section - (Added by Conv) [...] 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 MF: TERRY Report ID: [id number] Reading Location: [id number] Procedure Note Wesly Figueroa MD - 02/02/2025 [...] Wesly Figueroa M.D. MF: TERRY Report ID: [id number] Reading Location: [id number] Lorin Caban MD IMG XR PROCEDURES [...] - 1.10 EXTERNAL LAB Blood 12/17/2024 Result [facility] Historical Provider MD LAB BLOOD ORDERABLES Merry l Result EXTERNAL LAB from Last 3 [place] [address] MEDICARE [facility] MEDICARE SUPPLEMENT INSURANCE MEDICARE [employer] MEDICARE SUPPLEMENT INSURANCE Care Teams Elevator Service Mechanic Relationship Specialty Start Date End Date Felicitas Andres MD [address] [facility] [address] [place] [address] PCP - General Family Medicine 02/14/25
--- OUTSIDE RECORDS SUMMARY | 2025-03-15 08:26 | XMS_ITS | Encounter Summary ---
Author Organization 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
--- OUTSIDE RECORDS SUMMARY | 2025-03-15 08:26 | XMS_ITS | Encounter Summary ---
Author Organization [facility] Healthcare Address [address] [place] [address] Care Team Providers Care Account Manager Name Role Phone Felicitas Andres MD Primary Care Provider Encounter Details Date Type Department Care Team (Late st Contact Info) Description 12/25/[address] 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
--- OUTSIDE RECORDS SUMMARY | 2025-03-15 08:26 | XMS_ITS | Encounter Summary ---
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 [address] [place] [phone] PCP - General Family Medicine 02/14/25 documented as of this encounter
--- OUTSIDE RECORDS SUMMARY | 2025-03-15 08:26 | XMS_ITS | Encounter Summary ---
Author Organization [facility] Healthcare Address [address] [place] [address] Care Team Providers Care Gin Pole Operator Name Role Phone Felicitas Andres MD Primary Care Provider Encounter Details Date Type Department Care Team (Late st Contact Info) Description 08/02/2024 Orders Only 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
--- OUTSIDE RECORDS SUMMARY | 2025-03-15 08:26 | XMS_ITS | Encounter Summary ---
Author Organization [facility] Healthcare Address [address] [place] [address] Care Team Providers Care Cupola Melter Name Role Phone Felicitas Andres MD Primary Care Provider Reason for Visit * Reason Onset Date Comments Appointment 03/05/2019 Encounter Details Date Type Department Care Team (Late st Contact Info) Description 03/05/2019 Telephone [facility] [address] [facility] [address] [place] [address] Nat Cooper MD PhD [address] [facility] [address] [facility] [phone] [place], [place] [phone] Appointment Social History Tobacco Use Types Packs/Day [...] on filedocumented in this encounter Care Teams Cupola Melter Relationship Specialty Start Date End Date Felicitas Andres MD [address] [facility] [address] [place] [address] PCP - General Family Medicine 02/14/25 documented as of this encounter
--- OUTSIDE RECORDS SUMMARY | 2025-03-15 08:26 | XMS_ITS | Continuity of Care Document ---
Author Organization [facility] Address [address] [facility] [place] [address] Phone Care Team Providers Care Folder Operator Name Role Phone Sachin Arias MD Unavailable [...] Diagnoses Date Provider Providers Copied on Encounter [facility], [address] [place], [place], [id number], [place] tel:[phone] [facility] No Information 0 3 Hugo Stephenson. [address] [place], [place], [id number] , [place]. tel:[phone] [facility], [address] [place], [place], [id number], [place] tel:[phone] [facility] No Information 3 Hugo Stephenson. [address], [address], [place], [place], [address] , [place]. tel:[phone] OFFICE/OUTPA TIENT VISIT, [facility], [address], [place], [place], [id number], [place] tel:[phone] [facility] fatigue (chief complaint) arthritis (chief complaint) Dietary surveillance and counselingFatigue / MalaiseCHRONIC PAIN NECGERD 0 3 Hugo Stephenson. [address], [address], [place], [place], [address] , [place]. tel:[phone] Referring Provider: Sachin Arias, [address], [place], [place], [id number]. tel:[phone] [facility], [address], [place], [place], [address], [place] tel:[phone] [facility] No Information 3 Hugo Stephenson. [address], [address], [place], [place], [address] , [place]. [phone] OFFICE/OUTPA TIENT VISIT, [facility], [address], [place], [place], [address], [place] tel:[phone] [facility] Gout (chief complaint) Arthritis (chief complaint) HTN (chief complaint) Fatigue (chief complaint) Dietary surveillance and counselingCHRONIC PAIN NECGout, unspecifiedHyperten bryant, UnspecifiedFatigue / Malaise 3 3 Hugo Stephenson. [address], [address], [place], [place], [address] , [place]. tel:[phone] Referring Provider: Sachin Arias, [address], [place], [place], [address]. tel:[phone] OFFICE/OUTPA TIENT VISIT, [facility], [address], [place], [place], [address], [place] tel:[phone] [facility] neck pain (chief complaint) HLP (chief complaint) LFT (chief complaint) Dietary surveillance and counselingHyperglyc emiaUnspecified chronic liver disease without mention of alcoholOther and unspecified hyperlipidemiaCHRON IC PAIN NEC 3 Hugo Stephenson. [address], [address], [place], [place], [address] , . tel:[phone] Referring Provider: Rolando Huston [address], [place], [place], [address]. tel:[phone] OFFICE/OUTPA TIENT VISIT, [facility], [address], [place], [place], [address], [place] tel:[phone] [facility] Gout (chief complaint) RA (chief complaint) HTN (chief complaint) Dietary surveillance and counselingRheumatoi d ArthritisGout, unspecifiedHyperten bryant, UnspecifiedRenal Failure, Acute 3 Hugo Stephenson. [address], [address], [place], [place], [address] , [place]. tel:[phone] Referring Provider: Rolando Huston [address] [facility] A, [place], [place], [address]. tel:[phone] Family History Family Member Type Diagnosis Age At Onset Brother Problem (finding) Cancer, pancreas Mother Problem (finding) arthritis, gout Mother Problem (finding) Alzheimer's Disease Father Problem (finding) Cancer, unknown Payers Payer name Insurance type Covered republican [...]
--- OUTSIDE RECORDS SUMMARY | 2025-03-15 08:26 | XMS_ITS | Encounter Summary ---
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
--- OUTSIDE RECORDS SUMMARY | 2025-03-15 08:26 | XMS_ITS | Continuity of Care Document ---
Author Organization [facility] Address [address] [place] [address] Phone Care Team Providers Care Provisioning Specialist Name Role Phone Villatoro OD, Jesus Unavailable Unavailable Advance Directives Directive Yes / No Effective Date File Name No Information Encounters Encounter Description Practice Location Reason(s) For Visit Diagnoses Date Provider Providers Copied on Encounter [facility], [address], [place], [place], [id number], [place] tel:[phone] [facility] No Information May-0 4-200 6 Villatoro OD Jesus. [address], [place], [address], [place]. tel:[phone] Family History Family Member Type Diagnosis Age [...]
--- OUTSIDE RECORDS SUMMARY | 2025-03-15 08:26 | XMS_ITS | Encounter Summary ---
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
--- OUTSIDE RECORDS SUMMARY | 2025-03-15 08:26 | XMS_ITS | Encounter Summary ---
Author Organization [facility] Healthcare Address [address] [place] [address] Care Team Providers Care Steam Clean Machine Operator Name Role Phone Unavailable Primary Care Provider Unavailabl e Encounter Details Date Type Department Care Team (Late st Contact Info) Description 1945 Ancillary Procedure [facility] [employer] [address] [facility] [place] [address] Social History Tobacco Use Types Packs/Day Years [...]
--- OUTSIDE RECORDS SUMMARY | 2025-03-15 08:26 | XMS_ITS | Encounter Summary ---
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 [address] [place] [phone] PCP - General Family Medicine 02/14/25 documented as of this encounter
--- OUTSIDE RECORDS SUMMARY | 2025-03-15 08:26 | XMS_ITS | Encounter Summary ---
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
[2025-03-15 09:22] LABS: Hematocrit 39.5 % (37.0-47.0); Hemoglobin 13.2 g/dL (12.0-15.0); Immature Granulocyte Percent A 0.2 % (0-0.5); Lymphocytes Absolute Auto 0.82 K/mm3 (0.9-3.2); Mean Corpuscular HGB Conc 33.4 g/dl (32-36); Mean Corpuscular Hemoglobin 30.6 pg (26-34); Mean Corpuscular Volume 91.4 fl (80-100); Nucleated Red Blood Cells Absolute Auto 0.000 K/mm3 (0.0-0.012); Nucleated Red Blood Cells Perc 0.0 % (0.0-0.2); Platelet Count Result 194 k/mm3 (150-375); Red Blood Count 4.32 M/mm3 (4.2-5.4); White Blood Count 4.7 K/mm3 (4.5-10.0)
[2025-03-15 09:43] LABS: Alanine Aminotransferase 24 U/L (6-35); Albumin Level 3.9 g/dL (3.5-5.1); Alkaline Phosphatase 132 U/L (38-126); Anion Gap 8 mmol/L (4-12); Aspartate Amino Transferase 31 U/L (14-36); Bilirubin,Total 0.4 mg/dL (0.2-1.3); Blood Urea Nitrogen 15 mg/dL (7-17); Calcium 8.8 mg/dL (8.4-10.2); Carbon Dioxide 27 mmol/L (22-30); Chloride 98 mmol/L (98-107); Estimated Glomerular Filt Rate 59; Glucose 162 mg/dL (65-110); Potassium 3.2 mmol/L (3.4-5.0); Sodium 133 mmol/L (137-145); Total Protein 6.8 g/dL (6.3-8.2)
[2025-03-15 10:14] LABS: Thyroid Stimulating Hormone 1.050 uIU/mL (0.465-4.680)
[2025-03-15 12:29] LABS: Free T4 Free Thyroxine 1.12 ng/dL (0.78-2.19)
== END 2025-03-15 08:22 | disposition home or self-care (01) ==
PROVIDERS: PCP Family Medicine; Referring Provider Family Medicine; Visit Provider Student in an Organized Health Care Education/Training Program
DX: E05.90 Thyrotoxicosis, unspecified without thyrotoxic crisis or storm (principal); I10 Essential (primary) hypertension
CPT/HCPCS: 36415; 80053; 84439; 84443; 85025

== ENCOUNTER 2025-03-21 02:16 | Day surgery (SDC) | payer MEDICARE, SELFPAY ==
[2025-03-20 13:50] VITALS: BMI 22.4
--- OUTSIDE RECORDS SUMMARY | 2025-03-21 02:19 | XMS_ITS | Continuity of Care Document ---
Author Organization [facility] Address [address] [facility] [place] [address] Phone Care Team Providers Care Ballroom Dance Instructor Name Role Phone Sachin Arias MD Unavailable [...] Diagnoses Date Provider Providers Copied on Encounter [facility] [place], [address] [place], [place], [id number], [place] tel:[phone] [facility] [place] No Information 0 3 Hugo Stephenson. [address] [place], [place], [id number] , [place]. tel:[phone] [facility] [place], [address] [employer] [address] [place], [place], [address], [place] tel:[phone] [facility] [place] No Information 3 Hugo Stephenson. [address], [address], [place], [place], [address] , [place]. tel:[phone] OFFICE/OUTPA TIENT VISIT, [facility], [address], [place], [place], [address], [place] tel:[phone] [facility] [place] fatigue (chief complaint) arthritis (chief complaint) Dietary surveillance and counselingFatigue / MalaiseCHRONIC PAIN NECGERD 0 3 Hugo Stephenson. [address], [address], [place], [place], [address] , [place]. tel:[phone] Referring Provider: Sachin Arias, [address], [place], [place], [id number]. tel:[phone] [facility] [place], [address], [place], [place], [address], [place] tel:[phone] [facility] [place] No Information 3 Hugo Stephenson. [address], [address], [place], [place], [address] , [place]. [phone] OFFICE/OUTPA TIENT VISIT, [facility], [address], [place], [place], [address], [place] tel:[phone] [facility] [place] Gout (chief complaint) Arthritis (chief complaint) HTN (chief complaint) Fatigue (chief complaint) Dietary surveillance and counselingCHRONIC PAIN NECGout, unspecifiedHyperten bryant, UnspecifiedFatigue / Malaise 3 3 Hugo Stephenson. [address], [address], [place], [place], [address] , [place]. tel:[phone] Referring Provider: Sachin Arias, [address], [place], [place], [address]. tel:[phone] OFFICE/OUTPA TIENT VISIT, [facility], [address], [place], [place], [address], [place] tel:[phone] [facility] [place] neck pain (chief complaint) HLP (chief complaint) LFT (chief complaint) Dietary surveillance and counselingHyperglyc emiaUnspecified chronic liver disease without mention of alcoholOther and unspecified hyperlipidemiaCHRON IC PAIN NEC 3 Hugo Stephenson. [address], [address], [place], [place], [address] , . tel:[phone] Referring Provider: Rolando H[address]on [address], [place], [place], [address]. tel:[phone] OFFICE/OUTPA TIENT VISIT, [facility], [address], [place], [place], [address], [place] tel:[phone] [facility] [place] Gout (chief complaint) RA (chief complaint) HTN (chief complaint) Dietary surveillance and counselingRheumatoi d ArthritisGout, unspecifiedHyperten bryant, UnspecifiedRenal Failure, Acute 3 Hugo Stephenson. [address], [address], [place], [place], [address] , [place]. tel:[phone] Referring Provider: Rolando Huston [address] [facility] A, [place], [place], [address]. tel:[phone] Family History Family Member Type Diagnosis Age [...]
--- OUTSIDE RECORDS SUMMARY | 2025-03-21 02:19 | XMS_ITS | Encounter Summary ---
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
--- OUTSIDE RECORDS SUMMARY | 2025-03-21 02:19 | XMS_ITS | Encounter Summary ---
Author Organization [facility] Healthcare Address [address] [place] [address] Care Team Providers Care Coater Brake Linings Name Role Phone Unavailable Primary Care Provider Unavailabl e Encounter Details Date Type Department Care Team (Late st Contact Info) Description 1945 Ancillary Procedure [facility] [employer] [address] [facility] [place] [address] Social History Tobacco Use Types Packs/Day Years [...]
--- OUTSIDE RECORDS SUMMARY | 2025-03-21 02:19 | XMS_ITS | Encounter Summary ---
Author Organization [facility] Healthcare Address [address] [place] [address] Care Team Providers Care Commercial Center Manager Name Role Phone Felicitas Andres MD Primary Care Provider Encounter Details Date Type Department Care Team (Late st Contact Info) Description 01/01/[address] 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
--- OUTSIDE RECORDS SUMMARY | 2025-03-21 02:19 | XMS_ITS | Encounter Summary ---
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
--- OUTSIDE RECORDS SUMMARY | 2025-03-21 02:19 | XMS_ITS | Encounter Summary ---
Author Organization [facility] Healthcare Address [address] [place] [address] Care Team Providers Care Risk Control Officer Name Role Phone Felicitas Andres MD Primary Care Provider Reason for Visit * Reason Onset Date Comments Appointment 03/05/2019 Encounter Details Date Type Department Care Team (Late st Contact Info) Description 03/05/2019 Telephone [facility] [place] [facility] [address] [facility] [address] [place] [address] Nat Cooper MD PhD [address] [facility] 14[address] [facility] [phone] [place], [place] [id number] Appointment Social History Tobacco Use Types Packs/Day [...] on filedocumented in this encounter Care Teams Risk Control Officer Relationship Specialty Start Date End Date Felicitas Andres MD [address] [facility] 120 [place] [address] PCP - General Family Medicine 02/14/25 documented as of this encounter
--- OUTSIDE RECORDS SUMMARY | 2025-03-21 02:19 | XMS_ITS | Clinical Summary ---
Author Organization [facility] [address] [place] [address] Care Team Providers Care Flow Match Sofa Cutter Name Role Phone Felicitas Andres MD Primary [...] mEq total) by mouth daily 5 Active colchicine (COLCRYS) 0.6 mg tablet as needed 5 Active Active Problems Problem Noted Date Diagnosed Date Essential tremor 10/05/2023 Pure hypercholesterolemia 01/21/2023 Hyponatremia 01/17/2023 Chest heaviness 01/25/2022 Paroxysmal atrial fibrillation 09/30/2020 Chronic anticoagulation 09/30/2020 Status post placement of implantable loop record er 07/21/2020 Overview (01/27/2021): [employer] III Loop Recorder. Dx; Dizziness, Near Syncope, PAF. DOI 07/16/2020-[facility]. [employer] remote home monitoring. Dizzy spells 07/07/2020 Bradycardia [...] Type Department Care Team Description 03/05/2025 Telephone [facility] Cardiology [address] [facility] [address] [place] [address] Mya Bernal NP 03/04/2025 9:30 AM CDT Office Visit [facility] Hand Surgery [address] [facility] [address] [place] [phone] Lorin Caban MD Pain of left hand (Primary Dx) 02/25/2025 2:30 PM CDT Therapy [facility] OP Physical Therapy [facility] [address] [address] Left hand pain 02/14/2025 10:30 AM CDT Office Visit [facility] Cardiology [address] [place] [address] [address] [place] [address] Mya Bernal NP Paroxysmal atrial fibrillation (HCC) (Primary Dx); Chronic anticoagulation; Status post placement of implantable loop recorder; Bradycardia; Orthostasis; Essential hypertension 02/01/2025 Anticoagulation Visit [facility] Cardiology [address] [place] [address] [address] [place] [address] Kriss Ventura RN 01/28/2025 10:30 AM CDT Office Visit [facility] Hand Surgery [address] [facility] [address] [place] [phone] Lorin Caban MD Left hand pain (Primary Dx) 01/28/2025 10:20 AM CDT - 01/28/2025 11:59 PM CDT Hospital Encounter [facility] MOB 1 DIAG IMG [address] [place] [address] Left hand pain Discharge Disposition: Discharge to home or self care 01/03/2025 Anticoagulation Visit [facility] Cardiology [address] [place] [address] [address] [place] [phone] Emma Sauceda RN 01/01/2025 Orders Only [facility] Health Information Management [address] [place] [address] Scanning, Provider 01/01/2025 Telephone [facility] Cardiology [address] [place] [address] [address] [place] [address] Mya Bernal NP 12/25/2024 Orders Only [facility] Health Information Management [address] [place] [address] Scanning, Provider 12/25/2024 Anticoagulation Visit [address] [place] [phone] Julio C Lamb RN from Last 3 Months Surgical History Surgery Date Site/Laterality Comments [place] ARTHRD ANT INTERBODY MIN DSC CRV BELOW C2 Cervical Vertebral Fusion - (Added by Conv) [place] CHOLECYSTECTOMY Cholecystectomy - (Added by Conv) [place] APPENDECTOMY Appendectomy - (Added by Conv) [place] DELIVERY ONLY Section - (Added by Conv) [...] 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 [...] Pneumococcal vaccine 65+ (2 of 2 - PCV20 or PCV21) 06/13/2016 06/13/2015 Influenza Vaccine (#1) 2025 9, [...] Date/Time Associated Diagnosis Comments PROTIME-INR Routine 02/01/2025 [place] ARTHROCENTESIS ASPIR&/INJ INTERM JT/BURS W/O US Routine 01/28/2025 10:30 AM CDT Left hand pain XR HAND LEFT 3 OR MORE VIEWS Schedule Routine, Read Routine (OP Routine) 01/28/2025 10:23 AM CDT Left hand pain SCAN - LABS 01/01/2025 PROTIME-INR Routine 01/01/2025 SCAN - LABS 12/25/2024 PROTIME-INR Routine 12/25/2024 from Last 3 Months Results * (ABNORMAL) Protime-INR (02/01/2025) INR 2.70(A) 0.90 - 1.10 EXTERNAL LAB Blood us Historical Provider LAB BLOOD ORDERABLES Edit ed Result - Final EXTERNAL LAB * [place] ARTHROCENTESIS ASPIR&/INJ INTERM JT/BURS W/O US (01/28/2025 [...] the procedure well with no immediate complications Lorni Caban MD IN CLINIC/BEDSIDE ORDERAB LES Final [...] Wesly Figueroa M.D. MF: TERRY Report ID: [id number] Reading Location: [id number] Procedure Note Wesly Figueroa MD - 02/02/2025 [...] Wesly Figueroa M.D. MF: TERRY Report ID: [id number] Reading Location: [id number] us Lorin Caban MD IMG XR PROCEDURES [...] from Last [address] [place] [address] MEDICARE PENDING SALE TO [facility] MEDICARE SUPPLEMENT INSURANCE [employer] [place] [id number] [place] [address] MEDICARE PENDING SALE TO [facility] MEDICARE SUPPLEMENT INSURANCE [place] [id number] [place] [address] Care Teams Flow Match Sofa Cutter Relationship Specialty Start Date End Date Felicitas Andres MD [address] [facility] 120 [place] [address] PCP - General Family Medicine 02/14/25
--- OUTSIDE RECORDS SUMMARY | 2025-03-21 02:19 | XMS_ITS | Encounter Summary ---
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
--- OUTSIDE RECORDS SUMMARY | 2025-03-21 02:19 | XMS_ITS | Encounter Summary ---
Author Organization 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
--- OUTSIDE RECORDS SUMMARY | 2025-03-21 02:19 | XMS_ITS | Encounter Summary ---
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
--- OUTSIDE RECORDS SUMMARY | 2025-03-21 02:19 | XMS_ITS | Encounter Summary ---
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
--- OUTSIDE RECORDS SUMMARY | 2025-03-21 02:20 | XMS_ITS | Encounter Summary ---
Author Organization [facility] Healthcare Address [address] [place] [address] Care Team Providers Care Supervisor Sunglasses Name Role Phone Felicitas Andres MD Primary Care Provider Encounter Details Date Type Department Care Team (Late st Contact Info) Description 06/07/[address] 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
--- OUTSIDE RECORDS SUMMARY | 2025-03-21 02:20 | XMS_ITS | Encounter Summary ---
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
--- OUTSIDE RECORDS SUMMARY | 2025-03-21 02:20 | XMS_ITS | Encounter Summary ---
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
[2025-03-21 11:56] VITALS: BP 133/68; PULSE 66; RESP 16; TEMP 36.9; O2SAT 97
--- NOTE | 2025-03-21 13:50 | WPDCARDPROC ---
Cardiac Cath Procedure Note Date of procedure:: 03/21/25 Performing physician:: Wesly Ruff MD Indication:: Chronically implanted loop recorder at [facility] desiring explantation Brief clinical history:: This is an 80-year-old woman who had a loop recorder implanted in 2020 for evaluation of possible P AFib. No arrhythmias have been identified. The patient now has a breast mass and apparently physicians that are evaluating this require explantation of her device her breast lesion can be evaluated. Procedure Procedure performed:: Explantation of loop recorder Sedation/Medication given:: No sedation Access site:: Chronically implanted loop recorder in the left anterior chest wall Estimated blood loss:: Minimal Procedure note:: Patient was brought to the cardiac catheterization lab where the left anterior chest wall was prepped and draped in sterile fashion. The loop recorder could be palpated subcutaneously just lateral to the original puncture site. This area was then infiltrated with 20 cc of 1% lidocaine. An incision was made about 2 cm long a at the upper margin of the palpable device. Sharp and blunt dissection was used to separate the subcutaneous tissue electrocautery was used for cutaneous hemostasis. The top blade device was identified and lifted from the pocket using the hemostat. Following this the blade was used to cut the fibrous capsule and the iris scissors to dissected away from the body of the loop recorder. The loop recorder was then carefully extracted using the hemostat with steady for pressure. It was with drawn and was visually intact unremarkable in appearance. The wound was then irrigated with antibiotic infused saline and closed in layers using 3-0 Vicryl in interrupted fashion for the subcutaneous tissue and 4-0 Vicryl in a running subcuticular fashion for the skin. Steri-Strips were placed on the incision and then Aquacel dressing. Findings:: As above Conclusion:: Uncomplicated explantation of depleted loop recorder which needed to be removed because of proximity to a breast lesion which is being evaluated elsewhere Wesly Ruff MD [facility]
[2025-03-21 14:05] VITALS: BP 157/84; PULSE 70; RESP 17; O2SAT 97
[2025-03-21 14:35] VITALS: BP 141/66; PULSE 82; RESP 19; O2SAT 99
[2025-03-21 15:05] VITALS: BP 156/69; PULSE 66; RESP 17; O2SAT 99
== END 2025-03-21 15:12 | disposition home or self-care (01) ==
PROVIDERS: PCP Family Medicine; Visit Provider Specialist
PROC: (CPT 33286; principal; 2025-03-21 13:00)
DX: Z45.09 Encounter for adjustment and management of other cardiac device (principal); I48.0 Paroxysmal atrial fibrillation; G89.29 Other chronic pain; I10 Essential (primary) hypertension; R00.1 Bradycardia, unspecified; I95.1 Orthostatic hypotension; G20.A1 Parkinson's disease without dyskinesia, without mention of fluctuations; Z79.1 Long term (current) use of non-steroidal anti-inflammatories (NSAID); Z79.01 Long term (current) use of anticoagulants; Z95.818 Presence of other cardiac implants and grafts; Z98.890 Other specified postprocedural states; Z98.1 Arthrodesis status; Z90.49 Acquired absence of other specified parts of digestive tract; Z86.69 Personal history of other diseases of the nervous system and sense organs
CPT/HCPCS: 33286; J0690; J2003; J7040

== ENCOUNTER 2025-04-19 09:42 | Outpatient (CLI) | payer MEDICARE, SELFPAY ==
--- NOTE | ~2025-04-19 | MR_ITS ---
EXAMINATION: MR breast BI wo/w con INDICATION: 80-year-old female with multiple suspicious left breast lesions recommended for biopsy however there is a lesion seen on the mammogram at posterior depth that has no sonographic correlate for which MRI was recommended. All 3 lesions biopsied under ultrasound guidance in the left breast has benign pathology reported as areas of fat necrosis. TECHNIQUE: MRI of the breasts perform using standard protocol pre-and post IV contrast with the following sequences: Axial T2 STIR, axial T1, axial vibrant T1 with fat suppression precontrast and multiphasic postcontrast. 13 cc MultiHance administered intravenously. COMPARISON: Left breast ultrasound 02/27/2025 and 03/14/2025 and mammogram 02/13/2025 and 02/27/2025 CONTRAST: Multihance, 13 cc BREAST COMPOSITION: Scattered fibroglandular tissue FINDINGS: RIGHT BREAST: There is mild background parenchymal enhancement. No abnormal enhancement is present after contrast administration. No pathologically enlarged axillary or internal mammary lymph nodes are identified. LEFT BREAST: There is mild background parenchymal enhancement. There is a rim enhancing mass that measures 0.72 x 0.8 cm in the superior slightly lateral location containing a biopsy clip artifact (axial subpost 2 image 116) which correlates to the sonographic lesion at 12:00. The other 2 sites biopsied under ultrasound guidance at 11:00, 5 cm and 7 cm from the nipple respectively identified by biopsy clip artifacts have no significant abnormal enhancement surrounding it. The nipple areolar complex is unremarkable. No pathologically enlarged axillary or internal mammary lymph nodes are identified. IMPRESSION: 1. Left breast rim enhancing mass in the upper outer quadrant containing biopsy clip artifact is suspicious and not concordant with fat necrosis obtained at ultrasound-guided biopsy. 2. Multiple areas of postbiopsy changes seen in the rest of the left breast with no other suspicious abnormality identified. 3. No MRI evidence of malignancy within the right breast. 4. The chest wall and axillary portion of the examination are unremarkable. RECOMMENDATION: Consider vacuum assisted rebiopsy of the lesion at 12:00 location seen on ultrasound. 6 month follow-up bilateral breast MRI. Reviewed, dictated and finalized at location B. IMPRESSION: 1. Left breast rim enhancing mass in the upper outer quadrant containing biops y clip artifact is suspicious and not concordant with fat necrosis obtained at ultrasound-guided biopsy. 2. Multiple areas of postbiopsy changes seen in the rest of the left breast wi th no other suspicious abnormality identified. 3. No MRI evidence of malignancy within the right breast. 4. The chest wall and axillary portion of the examination are unremarkable. RECOMMENDATION: Consider vacuum assisted rebiopsy of the lesion at 12:00 location seen on ultra sound. 6 month follow-up bilateral breast MRI.
--- OUTSIDE RECORDS SUMMARY | 2025-04-19 10:15 | XMS_ITS | Clinical Summary ---
Author Organization [facility] Physician Office Building [address] [place] [phone] Care Team Providers Care Nodulizer Name Role Phone Felicitas Andres MD Primary [...] ALTERNATING WITH 2 TABLETS. 11/10/19 24 Active celecoxib (CeleBREX) 200 mg capsule Take by mouth daily 01/23/20 25 Active potassium chloride ER 10 mEq CR capsule Take 1 tablet/capsule (10 mEq total) by mouth daily 11/29/19 25 Active colchicine (COLCRYS) 0.6 mg tablet as needed 02/15/20 25 Active warfarin (COUMADIN) 5 mg tablet TAKE 1 & 1/2 (ONE & ONE-HALF) TABLETS BY MOUTH ONCE DAILY OR DIRECTED BY DR Aysha hernandez 04/01/20 25 Active warfarin (COUMADIN) 5 mg tablet TAKE 1 & 1/2 (ONE & ONE-HALF) TABLETS BY MOUTH ONCE DAILY OR DIRECTED BY DR Olmstead tablet 3 12/18/19 25 025 Discontinued Active Problems Problem Noted Date Diagnosed Date Essential tremor 10/05/2023 Pure hypercholesterolemia 01/21/2023 Hyponatremia 01/17/2023 Chest heaviness 01/25/2022 Paroxysmal atrial fibrillation 09/30/2020 Chronic anticoagulation 09/30/2020 Status post placement of implantable loop record er 07/21/2020 Overview (01/27/2021): Berry White Biomonitor III Loop Recorder. Dx; Dizziness, Near Syncope, PAF. DOI 07/16/2020-[facility]. [employer]ik remote home monitoring. Dizzy spells 07/07/2020 Bradycardia 07/07/2020 Parkinson's disease 07/07/2020 Essential hypertension 07/07/2020 Acute bilateral low back pain with right-sided s ciatica 10/12/2018 Neuropathic pain, leg, left 10/12/2018 DDD (degenerative disc disease), lumbar 10/13/19 19 Lumbar spondylosis 08/03/2018 Resolved Problems Problem Noted Date Diagnosed Date Resolved Date Fever 09/30/2020 01/17/2023 Visit for wound check 07/22/20202021 Encounters Date Type Department Care Team Description 03/25/2025 Orders Only [facility] Cardiology [address] [place] [address] [place] [phone] Wesly Ruff MD 03/21/2025 Orders Only [facility] Health Information Management [address] [place] [address] Scanning, Provider 03/05/2025 Telephone [place] [address] [place] [phone] Mya Bernal NP 03/04/2025 9:30 AM CDT Office Visit [facility] Medical [facility] Hand Surgery [address] [facility] [address] [place] [phone] Lorin Caban MD Pain of left hand (Primary Dx) 02/25/2025 2:30 PM CDT Therapy [facility] Physical Therapy [facility] [address] [address] Left hand pain 02/14/2025 10:30 AM CDT Office Visit [facility] Cardiology [address] [place] [address] [place] [phone] Mya Bernal NP Paroxysmal atrial fibrillation (HCC) (Primary Dx); Chronic anticoagulation; Status post placement of implantable loop recorder; Bradycardia; Orthostasis; Essential hypertension 02/01/2025 Anticoagulation Visit [facility] Cardiology [address] [place] [address] [place] [phone] Kriss Ventura RN 01/28/2025 10:30 AM CDT Office Visit [facility] Hand Surgery [address] [place] [phone] Lorin Caban MD Left hand pain (Primary Dx) 01/28/2025 10:20 AM CDT - 01/28/2025 11:59 PM CDT Hospital Encounter [facility] MOB 1 DIAG IMG [address] [place] [address] Left hand pain Discharge Disposition: Discharge to home or self care from Last 3 Months Surgical History Surgery Date Site/Laterality Comments MI ARTHRD ANT INTERBODY MIN DSC CRV BELOW C2 Cervical Vertebral Fusion - (Added by Conv) [place] CHOLECYSTECTOMY Cholecystectomy - (Added by Conv) [place] APPENDECTOMY Appendectomy - (Added by Conv) MI DELIVERY ONLY Section - (Added by Conv) [...] 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 [...] Procedure Name Priority Date/Time Associated Diagnosis Comments CARDIOLOGY DOCUMENT SCAN Routine 03/21/2025 12:42 PM CDT CARDIOLOGY DOCUMENT SCAN 03/21/2025 PROTIME-INR Routine 02/01/2025 MI ARTHROCENTESIS ASPIR&/INJ INTERM JT/BURS W/O US Routine 01/28/2025 10:30 AM CDT Left hand pain XR HAND LEFT 3 OR MORE VIEWS Schedule Routine, Read Routine (OP Routine) 01/28/2025 10:23 AM CDT Left hand pain from Last 3 Months Results * Cardiology Document Scan (03/21/2025 12:42 PM CDT) Anatomical Region Laterality Modality Other us Wesly Ruff MD CV CARDIAC SERVICES PROC EDURES Final Result * Cardiology Document Scan (03/21/2025) Anatomical Region Laterality Modality Other us Provider Scanning CV CARDIAC SERVICES PROCEDURES Final Result * (ABNORMAL) Protime-INR (02/01/2025) INR 2.70(A) 0.90 - 1.10 EXTERNAL LAB Blood us Historical Provider LAB BLOOD ORDERABLES Edit ed Result - Final EXTERNAL LAB * MI ARTHROCENTESIS ASPIR&/INJ INTERM [...] Wesly Figueroa M.D. MF: [id number] Report ID: [id number] Reading Location: [place] [address] Procedure Note Wesly Figueroa MD - 02/02/2025 [...] Wesly Figueroa M.D. MF: TERRY Report ID: [id number] Reading Location: [place] [address] Lorin Caban MD IMG XR PROCEDURES Final R esult from Last 3 Months Insurance [place] [id number] MEDICARE [facility] MEDICARE SUPPLEMENT INSURANCE MEDICARE [employer] MEDICARE SUPPLEMENT INSURANCE Care Teams Nodulizer Relationship Specialty Start Date End Date Felicitas Andres MD [address] [facility] 120 [place] [address] PCP - General Family Medicine 02/14/25
--- OUTSIDE RECORDS SUMMARY | 2025-04-19 10:15 | XMS_ITS | Encounter Summary ---
Author Organization [facility] Healthcare Address [address] [place] [address] Care Team Providers Care Customer Service Associate Name Role Phone Felicitas Andres MD Primary Care Provider Reason for Visit * Reason Onset Date Comments Appointment 03/05/2019 Encounter Details Date Type Department Care Team (Late st Contact Info) Description 03/05/2019 Telephone [facility] [address] [facility] Advanced [facility] [address] [place] [address] Nat Cooper MD PhD [address] [facility] [address] [facility] [phone] [place], [place] [phone] Appointment Social History Tobacco Use Types Packs/Day [...] on filedocumented in this encounter Care Teams Customer Service Associate Relationship Specialty Start Date End Date Felicitas Andres MD [address] [facility] 120 [place] [address] PCP - General Family Medicine 02/14/25 documented as of this encounter
--- OUTSIDE RECORDS SUMMARY | 2025-04-19 10:15 | XMS_ITS | Encounter Summary ---
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
--- OUTSIDE RECORDS SUMMARY | 2025-04-19 10:16 | XMS_ITS | Encounter Summary ---
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
--- OUTSIDE RECORDS SUMMARY | 2025-04-19 10:16 | XMS_ITS | Encounter Summary ---
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
--- OUTSIDE RECORDS SUMMARY | 2025-04-19 10:16 | XMS_ITS | Encounter Summary ---
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
--- OUTSIDE RECORDS SUMMARY | 2025-04-19 10:16 | XMS_ITS | Encounter Summary ---
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
--- OUTSIDE RECORDS SUMMARY | 2025-04-19 10:16 | XMS_ITS | Encounter Summary ---
Author Organization [facility] Healthcare Address [address] [place] [address] Care Team Providers Care Piping Designer Name Role Phone Unavailable Primary Care Provider Unavailabl e Encounter Details Date Type Department Care Team (Late st Contact Info) Description 1944 Ancillary Procedure [facility] Outside Films [address] [facility] [place] [address] Social History Tobacco Use Types Packs/Day Years [...]
--- OUTSIDE RECORDS SUMMARY | 2025-04-19 10:16 | XMS_ITS | Encounter Summary ---
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
--- OUTSIDE RECORDS SUMMARY | 2025-04-19 10:16 | XMS_ITS | Encounter Summary ---
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
--- OUTSIDE RECORDS SUMMARY | 2025-04-19 10:16 | XMS_ITS | Encounter Summary ---
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
--- OUTSIDE RECORDS SUMMARY | 2025-04-19 10:16 | XMS_ITS | Encounter Summary ---
Author Organization 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
--- OUTSIDE RECORDS SUMMARY | 2025-04-19 10:16 | XMS_ITS | Encounter Summary ---
Author Organization 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
--- OUTSIDE RECORDS SUMMARY | 2025-04-19 10:16 | XMS_ITS | Encounter Summary ---
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
--- OUTSIDE RECORDS SUMMARY | 2025-04-19 10:16 | XMS_ITS | Encounter Summary ---
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
--- OUTSIDE RECORDS SUMMARY | 2025-04-19 10:16 | XMS_ITS | Encounter Summary ---
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
--- OUTSIDE RECORDS SUMMARY | 2025-04-19 10:16 | XMS_ITS | Encounter Summary ---
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
--- OUTSIDE RECORDS SUMMARY | 2025-04-19 10:16 | XMS_ITS | Encounter Summary ---
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
--- OUTSIDE RECORDS SUMMARY | 2025-04-19 10:16 | XMS_ITS | Encounter Summary ---
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
== END 2025-04-19 09:43 | disposition home or self-care (01) ==
PROVIDERS: PCP Family Medicine; Visit Provider Surgery
DX: N63.22 Unspecified lump in the left breast, upper inner quadrant (principal); N63.25 Unspecified lump in the left breast, overlapping quadrants; R92.8 Other abnormal and inconclusive findings on diagnostic imaging of breast
CPT/HCPCS: 77049; A9577; C8908

== ENCOUNTER 2025-04-19 11:05 | Outpatient (RCR) | payer MEDICARE, SELFPAY ==
[2025-02-01 11:50] LABS: INR 2.7; Prothrombin Time 27.6 Seconds (11.1-14.7)
[2025-04-19 12:28] LABS: INR 3.0; Prothrombin Time 30.4 Seconds (11.1-14.7)
== END 2025-05-02 23:59 | disposition home or self-care (01) ==
LOC: ANHLAB 11:05
PROVIDERS: PCP Family Medicine; Visit Provider Internal Medicine
DX: Z51.81 Encounter for therapeutic drug level monitoring (principal); I48.0 Paroxysmal atrial fibrillation; Z79.01 Long term (current) use of anticoagulants
CPT/HCPCS: 36415; 85610

== ENCOUNTER 2025-05-03 09:58 | Outpatient (CLI) | payer MEDICARE, SELFPAY ==
--- OUTSIDE RECORDS SUMMARY | 2005-12-09 06:15 | XMS_ITS | Continuity of Care Document ---
Author Organization [facility] Address [address] [place] [address] Phone Care Team Providers Care Forest Ranger Technician Name Role Phone Villatoro OD, Jesus Unavailable Unavailable Advance Directives Directive Yes / No Effective Date File Name No Information Encounters Encounter Description Practice Location Reason(s) For Visit Diagnoses Date Provider Providers Copied on Encounter [facility], [address], [place], [place], [id number], [place] tel:[phone] [facility] No Information May-0 4-200 6 Villatoro OD Jesus. [address] , [address], [place], [address], [place]. tel:[phone] Family History Family Member Type Diagnosis Age At Onset No Information Payers Payer name Insurance type Covered republican ID Authoriza tion(s) No Information Social History Type Description Quantity Date Captured Comments Sex Female Smoking Status No Information Chief Complaint And Reason For Visit No Information Reason For Referral Reason For Referral No Information History Of Present Illness Encounter Date Complaint History Of Prese nt Illness No Information Functional Status Date Functional Assessmen t No Information Instructions Date Instruction Additional Infor mation No Information Assessments Type Assessment Date No Information Patient Care Teams Name Effective Dates (start - stop) Status Members No Information
--- NOTE | ~2025-05-03 | MMUS_ITS ---
EXAMINATION: MM post biopsy diagnostic LT, US_[id number] CLINICAL HISTORY: 80 year old female with rim enhancing mass on breast MRI completed on 04/19/2025 in the LEFT breast with discordant benign pathology containing metallic clip diagnosed at Ultrasound-guided core needle biopsy on 03/14/2025. Patient presents for ultrasound guided Magseed localization of the clip within the lesion in the superior central 12:00 right breast. After informed consent was obtained, the patient was brought into the ultrasound room. A time-out procedure was performed. Preliminary images of the right breast were obtained to localize the target. A needle was then placed into the breast and ultrasound images were obtained to confirm position of the needle. The Magseed clip deployed within the lesion and adjacent to the biopsy clip. Postprocedure mammogram of the right breast showed the Magseed in good position. IMPRESSION: Successful ultrasound-guided Magseed localization of right breast cancer. The patient tolerated the procedure well with no immediate post procedure complications. Reviewed, dictated and finalized at location B. IMPRESSION: Successful ultrasound-guided Magseed localization of right breast c ancer. The patient tolerated the procedure well with no immediate post procedu re complications.
--- OUTSIDE RECORDS SUMMARY | 2025-05-03 10:05 | XMS_ITS | Clinical Summary ---
Author Organization [facility] Physician Office Building [address] [place] [id number] Care Team Providers Care Silver Buffer Name Role Phone Felicitas Andres MD Primary [...] DAILY OR DIRECTED BY DR Olmstead tablet 04/29/20 25 Active warfarin (COUMADIN) 5 mg tablet TAKE 1 & 1/2 (ONE & ONE-HALF) TABLETS BY MOUTH ONCE DAILY OR DIRECTED BY DR Olmstead tablet 04/01/20 25 025 Discontinued Active Problems Problem Noted Date Diagnosed Date Essential tremor 10/05/2023 Pure hypercholesterolemia 01/21/2023 Hyponatremia 01/17/2023 Chest heaviness 01/25/2022 Paroxysmal atrial fibrillation 09/30/2020 Chronic anticoagulation 09/30/2020 Status post placement of implantable loop record er 07/21/2020 Overview (01/27/2021): [employer] Biomonitor III Loop Recorder. Dx; Dizziness, Near Syncope, PAF. DOI 07/16/2020-[facility]. [place] remote home monitoring. Dizzy spells 07/07/2020 Bradycardia 07/07/2020 Parkinson's disease 07/07/2020 Essential hypertension 07/07/2020 Acute bilateral low back pain with right-sided s ciatica 10/12/2018 Neuropathic pain, leg, left 10/12/2018 DDD (degenerative disc disease), lumbar 10/13/19 19 Lumbar spondylosis 08/03/2018 Resolved Problems Problem Noted Date Diagnosed Date Resolved Date Fever 09/30/2020 01/17/2023 Visit for wound check 07/22/20202021 Encounters Date Type Department Care Team Description 04/19/2025 Orders Only [facility] Health Information Management [address] [place] [phone] Scanning, Provider 04/19/2025 Anticoagulation Visit [facility] Cardiology [address] [place] [phone] Emma Sauceda RN 03/25/2025 Orders Only [facility] Cardiology [address] [place] [address] [place] [phone] Wesly Ruff MD 03/21/2025 Orders Only [facility] Health Information Management [address] [place] [phone] Scanning, Provider 03/05/2025 Telephone [facility] Cardiology [address] [place] [address] [place] [phone] Mya Bernal NP 03/04/2025 9:30 AM CDT Office Visit [facility] Medical Group Hand Surgery [address] [facility] [address] [place] [phone] Lorin Caban MD Pain of left hand (Primary Dx) 02/25/2025 2:30 PM CDT Therapy [facility] OP Physical Therapy [address] [phone] Left hand pain 02/14/2025 10:30 AM CDT Office Visit [facility] Medical [facility] Cardiology [address] [place] [address] [place] [phone] Mya Bernal NP Paroxysmal atrial fibrillation (HCC) (Primary Dx); Chronic anticoagulation; Status post placement of implantable loop recorder; Bradycardia; Orthostasis; Essential hypertension 02/01/2025 Anticoagulation Visit [facility] Cardiology [address] [place] [phone] Kriss Ventura RN from Last 3 Months Surgical History Surgery Date Site/Laterality Comments [place] ARTHRD ANT INTERBODY MIN DSC CRV BELOW C2 Cervical Vertebral Fusion - (Added by Conv) [place] CHOLECYSTECTOMY Cholecystectomy - (Added by Conv) [place] APPENDECTOMY Appendectomy - (Added by Conv) [place] DELIVERY ONLY Section - (Added by Conv) [...] 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 Minimize further functional decline 2. Maximize quality of life 3. Control pain Strategies: - Activity/exercise program recommendation - Conservative stepwise pain medicine strategy with multi-disciplinary approach - Recommend healthy lifestyle strategies and compensatory methods as needed Procedures Procedure Name Priority Date/Time Associated Diagnosis Comments SCAN - LABS 04/19/2025 PROTIME-INR Routine 04/19/2025 CARDIOLOGY DOCUMENT SCAN Routine 03/21/2025 12:42 PM CDT CARDIOLOGY DOCUMENT SCAN 03/21/2025 PROTIME-INR Routine 02/01/2025 from Last 3 Months Results * SCAN - LABS (04/19/2025) us Provider Scanning Final Result * (ABNORMAL) Protime-INR (04/19/2025) INR 3.00(A) 0.90 - 1.10 EXTERNAL LAB Blood Historical Provider LAB BLOOD ORDERABLES Merry l Result EXTERNAL LAB * Cardiology Document Scan (03/21/2025 12:42 PM CDT) Anatomical Region Laterality Modality Other Wesly Ruff MD CV CARDIAC SERVICES PROC EDURES Final Result * Cardiology Document Scan (03/21/2025) Anatomical Region Laterality Modality Other Provider Scanning CV CARDIAC SERVICES PROCEDURES Final Result * (ABNORMAL) Protime-INR (02/01/2025) INR 2.70(A) 0.90 - 1.10 EXTERNAL LAB Blood Historical Provider LAB BLOOD ORDERABLES Edit ed Result - Final Performing Organization Address City/[facility]/ZIP Co de Phone Number EXTERNAL LAB from Last 3 Months Insurance MEDICARE [facility] MEDICARE SUPPLEMENT INSURANCE [place] [id number] MEDICARE [facility] MEDICARE SUPPLEMENT INSURANCE [place] [id number] Care Teams Silver Buffer Relationship Specialty Start Date End Date Felicitas Andres MD [address] [facility] [address] [place] [address] PCP - General Family Medicine 02/14/25
--- OUTSIDE RECORDS SUMMARY | 2025-05-03 10:05 | XMS_ITS | Encounter Summary ---
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
--- OUTSIDE RECORDS SUMMARY | 2025-05-03 10:06 | XMS_ITS | Encounter Summary ---
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
--- OUTSIDE RECORDS SUMMARY | 2025-05-03 10:06 | XMS_ITS | Encounter Summary ---
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
--- OUTSIDE RECORDS SUMMARY | 2025-05-03 10:06 | XMS_ITS | Encounter Summary ---
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
--- OUTSIDE RECORDS SUMMARY | 2025-05-03 10:06 | XMS_ITS | Encounter Summary ---
Author Organization [facility] Healthcare Address [address] [place] [address] Care Team Providers Care Senior Chemical Engineer Name Role Phone Unavailable Primary Care Provider Unavailabl e Encounter Details Date Type Department Care Team (Late st Contact Info) Description 1945 Ancillary Procedure [facility] Outside Films [address] [facility] [place] [address] Social History Tobacco Use Types Packs/Day Years [...]
--- OUTSIDE RECORDS SUMMARY | 2025-05-03 10:06 | XMS_ITS | Encounter Summary ---
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
--- OUTSIDE RECORDS SUMMARY | 2025-05-03 10:06 | XMS_ITS | Encounter Summary ---
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
--- OUTSIDE RECORDS SUMMARY | 2025-05-03 10:06 | XMS_ITS | Encounter Summary ---
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
--- OUTSIDE RECORDS SUMMARY | 2025-05-03 10:06 | XMS_ITS | Encounter Summary ---
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
--- OUTSIDE RECORDS SUMMARY | 2025-05-03 10:06 | XMS_ITS | Encounter Summary ---
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
--- OUTSIDE RECORDS SUMMARY | 2025-05-03 10:06 | XMS_ITS | Encounter Summary ---
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
--- OUTSIDE RECORDS SUMMARY | 2025-05-03 10:06 | XMS_ITS | Encounter Summary ---
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
--- OUTSIDE RECORDS SUMMARY | 2025-05-03 10:06 | XMS_ITS | Encounter Summary ---
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
--- OUTSIDE RECORDS SUMMARY | 2025-05-03 10:06 | XMS_ITS | Encounter Summary ---
Author Organization 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
--- OUTSIDE RECORDS SUMMARY | 2025-05-03 10:06 | XMS_ITS | Encounter Summary ---
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
--- OUTSIDE RECORDS SUMMARY | 2025-05-03 10:06 | XMS_ITS | Encounter Summary ---
Author Organization [facility] Healthcare Address [address] [place] [address] Care Team Providers Care Architect Naval Name Role Phone Felicitas Andres MD Primary Care Provider Reason for Visit * Reason Onset Date Comments Appointment 03/05/2019 Encounter Details Date Type Department Care Team (Late st Contact Info) Description 03/05/2019 Telephone [facility] at [facility] [place] [facility] [address] [facility] [address] [place] [address] Nat Cooper MD PhD [address] [facility] 14C [facility] [id number] [place], [place] [phone] Appointment Social History Tobacco Use Types Packs/Day [...] on filedocumented in this encounter Care Teams Architect Naval Relationship Specialty Start Date End Date Felicitas Andres MD [address] [facility] 120 [place] [address] PCP - General Family Medicine 02/14/25 documented as of this encounter
--- OUTSIDE RECORDS SUMMARY | 2025-05-03 10:06 | XMS_ITS | Encounter Summary ---
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
--- OUTSIDE RECORDS SUMMARY | 2025-05-03 10:06 | XMS_ITS | Encounter Summary ---
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
--- OUTSIDE RECORDS SUMMARY | 2025-05-03 10:06 | XMS_ITS | Encounter Summary ---
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
--- OUTSIDE RECORDS SUMMARY | 2025-05-03 10:06 | XMS_ITS | Encounter Summary ---
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
== END 2025-05-03 09:59 | disposition home or self-care (01) ==
PROVIDERS: PCP Family Medicine; Visit Provider Surgery
DX: N63.25 Unspecified lump in the left breast, overlapping quadrants (principal); R92.8 Other abnormal and inconclusive findings on diagnostic imaging of breast
CPT/HCPCS: 19285; 77065; A4648

== ENCOUNTER 2025-05-03 11:59 | Outpatient (CLI) | payer MEDICARE, SELFPAY ==
--- OUTSIDE RECORDS SUMMARY | 2025-05-03 12:05 | XMS_ITS | Encounter Summary ---
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
--- OUTSIDE RECORDS SUMMARY | 2025-05-03 12:05 | XMS_ITS | Encounter Summary ---
Author Organization 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
--- OUTSIDE RECORDS SUMMARY | 2025-05-03 12:05 | XMS_ITS | Encounter Summary ---
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
--- OUTSIDE RECORDS SUMMARY | 2025-05-03 12:05 | XMS_ITS | Encounter Summary ---
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
--- OUTSIDE RECORDS SUMMARY | 2025-05-03 12:05 | XMS_ITS | Encounter Summary ---
Author Organization [facility] Healthcare Address [address] [place] [address] Care Team Providers Care Shipping Checker Name Role Phone Felicitas Andres MD Primary Care Provider Encounter Details Date Type Department Care Team (Late st Contact Info) Description 12/25/[address] 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
--- OUTSIDE RECORDS SUMMARY | 2025-05-03 12:05 | XMS_ITS | Encounter Summary ---
Author Organization 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
--- OUTSIDE RECORDS SUMMARY | 2025-05-03 12:05 | XMS_ITS | Encounter Summary ---
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
--- OUTSIDE RECORDS SUMMARY | 2025-05-03 12:05 | XMS_ITS | Encounter Summary ---
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
--- OUTSIDE RECORDS SUMMARY | 2025-05-03 12:05 | XMS_ITS | Encounter Summary ---
Author Organization [facility] Healthcare Address [address] [place] [address] Care Team Providers Care Linux Network Administrator Name Role Phone Felicitas Andres MD Primary Care Provider Reason for Visit * Reason Onset Date Comments Appointment 03/05/2019 Encounter Details Date Type Department Care Team (Late st Contact Info) Description 03/05/2019 Telephone [facility] [place] [facility] [address] [facility] Advanced Medicine [address] [place] [address] Nat Cooper MD PhD [address] [facility] 14C [facility] [phone] [place], [place] [phone] Appointment Social History Tobacco Use Types Packs/Day [...] on filedocumented in this encounter Care Teams Linux Network Administrator Relationship Specialty Start Date End Date Felicitas Andres MD [address] [facility] 120 [place] [address] PCP - General Family Medicine 02/14/25 documented as of this encounter
--- OUTSIDE RECORDS SUMMARY | 2025-05-03 12:05 | XMS_ITS | Encounter Summary ---
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
--- OUTSIDE RECORDS SUMMARY | 2025-05-03 12:05 | XMS_ITS | Encounter Summary ---
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
--- OUTSIDE RECORDS SUMMARY | 2025-05-03 12:05 | XMS_ITS | Encounter Summary ---
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
--- OUTSIDE RECORDS SUMMARY | 2025-05-03 12:05 | XMS_ITS | Encounter Summary ---
Author Organization [facility] Healthcare Address [address] [place] [address] Care Team Providers Care Director Internal Audit Name Role Phone Unavailable Primary Care Provider Unavailabl e Encounter Details Date Type Department Care Team (Late st Contact Info) Description 1944 Ancillary Procedure [facility] [employer] [address] [facility] [place] [address] Social History Tobacco Use Types Packs/Day Years [...]
--- OUTSIDE RECORDS SUMMARY | 2025-05-03 12:05 | XMS_ITS | Encounter Summary ---
Author Organization 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
--- OUTSIDE RECORDS SUMMARY | 2025-05-03 12:05 | XMS_ITS | Encounter Summary ---
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
--- OUTSIDE RECORDS SUMMARY | 2025-05-03 12:05 | XMS_ITS | Encounter Summary ---
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
--- OUTSIDE RECORDS SUMMARY | 2025-05-03 12:05 | XMS_ITS | Encounter Summary ---
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
--- OUTSIDE RECORDS SUMMARY | 2025-05-03 12:05 | XMS_ITS | Encounter Summary ---
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
--- OUTSIDE RECORDS SUMMARY | 2025-05-03 12:05 | XMS_ITS | Encounter Summary ---
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
--- OUTSIDE RECORDS SUMMARY | 2025-05-03 12:05 | XMS_ITS | Encounter Summary ---
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
--- NOTE | 2025-05-03 12:08 | ECG_ITS ---
Test Date: 2025-05-03 12:20:04 Measurements Intervals [place] Rate: 50 P: 71 NM: 159 QRS: 4 QRSD: 90 T: 53 QT: 453 QTc: 416 Interpretive Statements SINUS BRADYCARDIA LOW QRS VOLTAGE IN PRECORDIAL LEADS [QRS DEFLECTION < 1.0 mV IN CHEST LEADS] PATTERN CONSISTENT WITH PULMONARY DISEASE POSSIBLE RIGHT VENTRICULAR CONDUCTION DELAY [RSR (QR) IN V1/V2] MINIMAL ST DEPRESSION [0.025+ mV ST DEPRESSION] Compared to ECG 04/05/2024 17:19:11 Low QRS voltage now present ST (T wave) deviation now present Incomplete right bundle-branch block no longer present T-wave abnormality no longer present Electronically Signed On 05-03-2025 20:07:24 CDT by Yogesh Espinosa M.D.
[2025-05-03 12:54] LABS: INR 2.5; Prothrombin Time 26.5 Seconds (11.1-14.7)
[2025-05-03 12:55] LABS: Partial Thromboplastin Time 35.1 Seconds (22.3-36.8)
== END 2025-05-03 12:00 | disposition home or self-care (01) ==
PROVIDERS: Anesthesiology; PCP Family Medicine; Visit Provider Surgery
DX: I10 Essential (primary) hypertension (principal); Z79.01 Long term (current) use of anticoagulants; Z01.818 Encounter for other preprocedural examination
CPT/HCPCS: 36415; 85610; 85730; 93005

== ENCOUNTER 2025-05-09 01:02 | Day surgery (SDC) | payer MEDICARE, SELFPAY ==
--- OUTSIDE RECORDS SUMMARY | 2005-12-09 06:15 | XMS_ITS | Continuity of Care Document ---
Author Organization [facility] Address [address] [place] [address] Phone Care Team Providers Care Ballaster Name Role Phone Villatoro OD, Jesus Unavailable Unavailable Advance Directives Directive Yes / No Effective Date File Name No Information Encounters Encounter Description Practice Location Reason(s) For Visit Diagnoses Date Provider Providers Copied on Encounter [facility], [address], [place], [place], [id number], [place] tel:[phone] [facility] No Information May-0 4-200 6 Villatoro OD Jesus. [address] , [address], [place], [address], [place]. tel:[phone] Family History Family Member Type Diagnosis Age [...]
--- NOTE | 2025-05-03 08:41 | PC.NURSE ---
[facility] has started construction of its new state of the art ER which will open Spring 2026. With this, we anticipate parking may be a challenge for some our surgical patients and families. Parking spaces are limited but are available for all Surgical, obstetrics, and ER patients sharing this lot. If you arrive and find you are having a hard time finding a parking space, please note that we understand the challenges, please drive around the hospital and park near Hospital Entrance 1. When you enter this entrance, you can ask a volunteer to direct or take you back to the surgical waiting area to check in. We appreciate everyone?s understanding of these expected challenges while we build for your future. Report to the Outpatient Waiting Room, entrance under the green pavilion located off [address], at time __8 AM on date _05/09/25 . Planned Procedure Time: _10 AM .? Time changes happen often and if your time is changed the preop area will call you the afternoon before. - You and your visitor will be asked to self-screen and do not enter if you have any COVID symptoms. Please call surgeon if you need to reschedule. - A mask is optional within the hospital at this time. Patients may have clear liquids (water, carbonated beverages, clear teas, apple juice) until 3 hours prior to surgery( 7 AM ) with a maximum of 20 ounces. - No food from midnight until time of surgery and no smoking, or chewing tobacco (or any form of nicotine). No chewing gum, candy or mints. - Take only the following medications with a SIP of water on the morning of surgery: ___PRIMIDONE,BUPROPION DO NOT STOP ANY OF YOUR OTHER PRESCRIPTION MEDICATIONS PRIOR TO SURGERY EXCEPT THE FOLLOWING Hold all vitamins and supplements for 3 days per anesthesiologist.LAST DOSE 05/05/25 Medications to discontinue per physician __PT STATES__HOLD WARFARIN 7 DAYS PRE OP PER DR ORDAZ Date to take last dose____05/01/25 Please no make-up, nail bulgarian, hairspray, perfume, deodorant, or body powder the day of surgery.? No jewelry (including any body piercings) or valuables the day of surgery, leave them at home.? Please take a shower or bath the night before, or the morning of, surgery with an antibacterial soap.? Wear comfortable, loose fitting clothing.? Children are encouraged to wear pajamas. - Jewelry must be removed prior to entering the operating room.? Rings and piercings that are not removed may be cut off. - The hospital will not accept responsibility for valuables.? - Please leave all valuables, including medications, at home the day of surgery. If you are going home after surgery, a licensed guard driver must drive you home.? - NO public transportation without another adult if you receive anesthesia. - We recommend that an adult stay with you for 24 hours following discharge. - We also recommend that you do not drive, make important decision, drink alcoholic beverages, or take any drugs that were not prescribed by your health care provider for at least 24 hours after your discharge time. Follow any additional instructions given to you from your surgeon. Telephone instructions given to __PATIENT and asked if any additional questions and then verbalized understanding. Patient advised to call surgeon office or pre surgery nurse liaison [phone] if any additional questions.
[2025-05-03 09:39] VITALS: BMI 22.5
[2025-05-09] VITALS (9 sets, daily range): BP systolic 120–141; BP diastolic 55–66; PULSE 54–64; RESP 13–18; TEMP 36.4–37; O2SAT 93–100
--- NOTE | ~2025-05-09 | MM_ITS ---
EXAMINATION: [id number] 80-year-old female postsurgical specimen radiograph evaluation. Postsurgical specimen contains a butterfly biopsy clip, a single Mag seed and calcifications scattered throughout the specimen. Reviewed, dictated and finalized at location B.
--- OUTSIDE RECORDS SUMMARY | 2025-05-09 01:04 | XMS_ITS | Encounter Summary ---
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
--- OUTSIDE RECORDS SUMMARY | 2025-05-09 01:04 | XMS_ITS | Encounter Summary ---
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
--- OUTSIDE RECORDS SUMMARY | 2025-05-09 01:04 | XMS_ITS | Encounter Summary ---
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
--- OUTSIDE RECORDS SUMMARY | 2025-05-09 01:04 | XMS_ITS | Encounter Summary ---
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
--- OUTSIDE RECORDS SUMMARY | 2025-05-09 01:04 | XMS_ITS | Encounter Summary ---
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
--- OUTSIDE RECORDS SUMMARY | 2025-05-09 01:04 | XMS_ITS | Encounter Summary ---
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
--- OUTSIDE RECORDS SUMMARY | 2025-05-09 01:04 | XMS_ITS | Encounter Summary ---
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
--- OUTSIDE RECORDS SUMMARY | 2025-05-09 01:04 | XMS_ITS | Encounter Summary ---
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
--- OUTSIDE RECORDS SUMMARY | 2025-05-09 01:04 | XMS_ITS | Encounter Summary ---
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
--- OUTSIDE RECORDS SUMMARY | 2025-05-09 01:04 | XMS_ITS | Encounter Summary ---
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
--- OUTSIDE RECORDS SUMMARY | 2025-05-09 01:04 | XMS_ITS | Encounter Summary ---
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
--- OUTSIDE RECORDS SUMMARY | 2025-05-09 01:04 | XMS_ITS | Encounter Summary ---
Author Organization [facility] Healthcare Address [address] [place] [address] Care Team Providers Care Assistant Maintenance Manager Name Role Phone Felicitas Andres MD Primary Care Provider Reason for Visit * Reason Onset Date Comments Appointment 03/05/2019 Encounter Details Date Type Department Care Team (Late st Contact Info) Description 03/05/2019 Telephone [facility] [address] [facility] [address] [place] [address] Nat Cooper MD PhD [address] [facility] [address] [facility] [phone] [place], [place] [phone] Appointment Social History Tobacco Use Types Packs/Day [...] on filedocumented in this encounter Care Teams Assistant Maintenance Manager Relationship Specialty Start Date End Date Felicitas Andres MD [address] [facility] 120 [place] [address] PCP - General Family Medicine 02/14/25 documented as of this encounter
--- OUTSIDE RECORDS SUMMARY | 2025-05-09 01:04 | XMS_ITS | Encounter Summary ---
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 120 [place] [phone] PCP - General Family Medicine 02/14/25 documented as of this encounter
--- OUTSIDE RECORDS SUMMARY | 2025-05-09 01:04 | XMS_ITS | Encounter Summary ---
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
--- OUTSIDE RECORDS SUMMARY | 2025-05-09 01:04 | XMS_ITS | Clinical Summary ---
Author Organization [facility] [address] [place] [phone] Care Team Providers Care Toy Consultant Name Role Phone Felicitas Andres MD [...] implantable loop record er 07/21/2020 Overview (01/27/2021): Aviir Biomonitor III Loop Recorder. Dx; Dizziness, Near Syncope, PAF. DOI 07/16/2020-[facility]. [employer] remote home monitoring. Dizzy spells 07/07/2020 Bradycardia [...] Department Care Team Description 04/19/2025 Orders Only [facility] Health Information Management [address] [place] [address] Scanning, Provider 04/19/2025 Anticoagulation Visit [facility] Cardiology [address] [place] [phone] Emma Sauceda RN 03/25/2025 Orders Only [facility] [address] [place] [address] [place] [phone] Wesly Ruff MD 03/21/2025 Orders Only [facility] Health Information Management [address] [place] [address] Scanning, Provider 03/05/2025 Telephone [facility]iology [address] [place] [address] [place] [phone] Mya Bernal NP 03/04/2025 9:30 AM CDT Office Visit [facility] Hand Surgery [address] [facility] [address] [place] [phone] Lorin Caban MD Pain of left hand (Primary Dx) 02/25/2025 2:30 PM CDT Therapy [facility] OP Physical Therapy [address] [address] Left hand pain 02/14/2025 10:30 AM CDT Office Visit [facility] Cardiology [address] [place] [address] [place] [phone] Mya Bernal NP Paroxysmal atrial fibrillation (HCC) (Primary Dx); Chronic anticoagulation; Status post placement of implantable loop recorder; Bradycardia; Orthostasis; Essential hypertension from Last 3 Months Surgical History Surgery Date Site/Laterality Comments [place] ARTHRD ANT INTERBODY MIN DSC CRV BELOW C2 Cervical Vertebral Fusion - (Added by TW Conv) [place] CHOLECYSTECTOMY Cholecystectomy - (Added by TW Conv) [place] APPENDECTOMY Appendectomy - (Added by TW Conv) [place] DELIVERY ONLY Section - (Added by TW Conv) HAND SURGERY Right NOSE SURGERY cancer [...] 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 Not [...] 12:42 PM CDT CARDIOLOGY DOCUMENT SCAN 03/21/2025 from Last 3 Months Results * SCAN - LABS (04/19/2025) us Provider Scanning Final Result * (ABNORMAL) Protime-INR (04/19/2025) INR 3.00(A) 0.90 - 1.10 EXTERNAL LAB Blood us Historical Provider LAB BLOOD ORDERABLES Merry l Result EXTERNAL LAB * Cardiology Document Scan (03/21/2025 12:42 PM CDT) Anatomical Region Laterality Modality Other us Wesly Ruff MD CV CARDIAC SERVICES PROC EDURES Final Result * Cardiology Document Scan (03/21/2025) Anatomical Region Laterality Modality Other us Provider Scanning CV CARDIAC SERVICES PROCEDURES Final Result from Last 3 Months Insurance MEDICARE [facility] MEDICARE SUPPLEMENT INSURANCE MEDICARE [employer] [place] [address] Care Teams Toy Consultant Relationship Specialty Start Date End Date Felicitas Andres MD [address] [facility] 120 [place] [address] PCP - General Family Medicine 02/14/25
--- OUTSIDE RECORDS SUMMARY | 2025-05-09 01:04 | XMS_ITS | Encounter Summary ---
Author Organization [facility] Healthcare Address [address] [place] [address] Care Team Providers Care Business Banking Sales Assistant Name Role Phone Unavailable Primary Care Provider Unavailabl e Encounter Details Date Type Department Care Team (Late st Contact Info) Description 1944 Ancillary Procedure [facility] Outside Films [address] [facility] [place] [address] Social History Tobacco Use Types Packs/Day Years [...]
--- OUTSIDE RECORDS SUMMARY | 2025-05-09 01:04 | XMS_ITS | Encounter Summary ---
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
--- OUTSIDE RECORDS SUMMARY | 2025-05-09 01:05 | XMS_ITS | Encounter Summary ---
Author Organization [facility] Healthcare Address [address] [place] [address] Care Team Providers Care Network Support Administrator Name Role Phone Felicitas Andres MD Primary Care Provider Encounter Details Date Type Department Care Team (Late st Contact Info) Description 06/16/[address] 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
--- OUTSIDE RECORDS SUMMARY | 2025-05-09 01:05 | XMS_ITS | Encounter Summary ---
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
--- OUTSIDE RECORDS SUMMARY | 2025-05-09 01:05 | XMS_ITS | Encounter Summary ---
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
--- OUTSIDE RECORDS SUMMARY | 2025-05-09 01:05 | XMS_ITS | Encounter Summary ---
Author Organization [facility] Address [address] [place] [address] Care Team Providers Care Town Clerk Name Role Phone Felicitas Andres MD Primary Care Provider Encounter Details Date Type Department Care Team (Late st Contact Info) Description 06/07/2024 Orders Only [facility] [place] [facility] Information Management [address] [place] [id number] Scanning, Provider Social History Tobacco Use Types [...] Industry Job Start Date Job End Date [employer] Not on file Not on file Not [...] on filedocumented in this encounter Care Teams Town Clerk Relationship Specialty Start Date End Date Felicitas Andres MD [address] [facility] [address] [place] [id number] PCP - General Family Medicine 02/14/25 documented as of this encounter
[2025-05-09 08:49] LABS: INR 1.0; Prothrombin Time 13.0 Seconds (11.1-14.7)
--- NOTE | 2025-05-09 09:47 | WPDHPUPDATE1 ---
History and Physical Update Update Date/Time: 05/09/25 09:47 - Left breast lumpectomy with Mag seed localization a possible adjacent tissue transfer. History and Physical has been reviewed, including an updated exam of the patient. There are NO changes in the patient's condition. Risks, benefits, and alternatives have been discussed and questions answered. Patient agrees to proceed with procedure.
--- NOTE | 2025-05-09 10:08 | WPDANESEPPF ---
Anes - Initial Pre Proc Eval Procedure: Operation Date: 05/09/25 10:00 Proposed Procedures p Left Breast Lumpectomy with Mag Seed Localization, Possible Adjacent Tissue Transfer - Seda Reynolds MD Date/Time: 05/09/25 10:08 Surgeon: Seda Reynolds MD Pre Op Diagnosis: left breast lump Pre Op Diagnosis: unspec lump left breast Patient Data Age: 80 Gender: F Height: 1.7 m Weight: 66.1 kg Last Vital Signs Temp 37.0 C 05/09/25 08:41 Pulse 54 L 05/09/25 08:41 Resp 18 05/09/25 08:41 BP 120/58 L 05/09/25 08:41 Pulse Ox 98 05/09/25 08:41 O2 Del Method Room Air 05/09/25 08:41 Allergies Allergy/AdvReac Type Severity Reaction Status Date / Time nut - unspecified Allergy Severe Anaphylactic Verified 05/09/25 08:37 Shock acetaminophen Allergy Unknown HIVES Verified 05/09/25 08:37 codeine Allergy Unknown N/V Verified 05/09/25 08:37 morphine Allergy Unknown N/V Verified 05/09/25 08:37 onion Allergy Unknown hives Verified 05/09/25 08:37 tomato Allergy Unknown hives Verified 05/09/25 08:37 Sbhmupl-TJU-HkU Reductase AdvReac Severe muscle Verified 05/09/25 08:37 Inhibitor (Hbflunp-Isl-Lqo cramps, Reductase Inhibitor) nausea amantadine AdvReac Intermediate Confusion Verified 05/09/25 08:37 carbidopa (From Sinemet) AdvReac Intermediate Confusion Verified 05/09/25 08:37 clonazepam AdvReac Intermediate Nausea and Verified 05/09/25 08:37 Vomiting,Irritable levodopa (From Sinemet) AdvReac Intermediate Confusion Verified 05/09/25 08:37 ropinirole AdvReac Intermediate Confusion Verified 05/09/25 08:37 ropinirole Allergy Intermediate brain blank Uncoded 05/02/25 11:03 NUT FLAVOR Allergy Unknown Anaphylactic Uncoded 05/02/25 11:03 Shock Idiopathic analphylaxis AdvReac Severe Anaphylactic Uncoded 05/02/25 11:03 Shock Home Medications ?Medication ?Instructions ?Recorded ?Confirmed ?Type warfarin 5 mg tablet 7.5 mg PO DAILY 03/29/21 05/09/25 History cholecalciferol (vitamin D3) 50 50 mcg PO DAILY 04/03/24 05/03/25 History mcg (2,000 unit) tablet ipratropium bromide 42 mcg (0.06 2 spray intranasal TID PRN Allergy 04/03/24 05/03/25 History %) nasal spray Symptoms nebulizers (AeroEclipse XL #1 ea 04/13/24 04/09/25 Rx Nebulizer) azelastine 137 mcg (0.1 %) nasal 137 mcg (0.137 mL) intranasal Q12H 10/04/24 05/03/25 Rx spray #30 mL bupropion HCl 100 mg tablet 100 mg PO BID #270 tabs 10/04/24 05/09/25 Rx primidone 50 mg tablet 50 mg PO BID #180 tabs 10/09/24 05/09/25 Rx colchicine 0.6 mg tablet See Rx Instructions .Route 11/21/24 05/03/25 Rx .COMPLEX #90 tabs tamsulosin 0.4 mg capsule See Rx Instructions .Route 11/30/24 05/03/25 Rx .COMPLEX #180 caps fludrocortisone 0.1 mg tablet See Rx Instructions .Route 02/27/25 05/03/25 Rx .COMPLEX #90 tabs fluticasone propionate 50 1 spray intranasal DAILY #16 grams 02/28/25 05/03/25 Rx mcg/actuation nasal spray,suspension amlodipine 5 mg tablet See Rx Instructions .Route 03/07/25 05/09/25 Rx .COMPLEX #180 tabs celecoxib 200 mg capsule (Celebrex) 200 mg PO PRN #90 caps 04/09/25 05/09/25 Rx omeprazole 40 mg capsule,delayed 40 mg PO DAILY #90 caps 04/09/25 05/03/25 Rx release lorazepam 0.5 mg tablet 1.5 mg (3 x 0.5 mg) PO .QD #90 tabs 04/23/25 05/03/25 Rx vitamin B complex (B-Complex 1 tablet PO DAILY 05/03/25 05/03/25 History tablet) allopurinol 300 mg tablet See Rx Instructions .Route 05/06/25 05/09/25 Rx .COMPLEX #90 tabs methimazole 5 mg tablet 5 mg PO .QOD #45 tabs 05/07/25 Rx Laboratory Tests 05/09/25 08:22 PT 13.0 D Seconds (11.1-14.7) INR 1.0 ECG: SB 50, Echo EF 60-65%, mild MR Patient hx anesthesia problems: none Family hx anesthesia problems: none Results Review: All pre-operative results and documents have been reviewed as part of the pre-operative evaluation. [facility] Past Medical History Medical History Vocal cord dysfunction Choking BPPV (benign paroxysmal positional vertigo) Leg pain Hyperthyroidism Left wrist pain Hand pain, left Lateral epicondylitis of left elbow Sprain of wrist, left Radicular pain of right lower extremity Trochanteric bursitis r hip Sciatica Sinusitis, acute Atrial fibrillation and flutter Hearing loss of aging Hyperlipidemia History of anaphylactic shock Multiple environmental allergies Chronic constipation Subacute otitis media NATASHA (generalized anxiety disorder) Tremor due to disorder of central nervous system Gout Major depressive disorder, single episode, mild Parkinson's disease Essential (primary) hypertension Surgical History Surgical History S/P cervical spinal fusion History of appendectomy History of cholecystectomy Previous section X2 Status post lumbar spine surgery for decompression of spinal cord H/O excision of lamina of cervical vertebra for decompression of spinal cord Family History Family History Mother Family history of Parkinson's disease Family history of Alzheimer's disease, Onset Age: 82 Patient's mother is Sibling Family history of pancreatic cancer, Onset Age: 67 Patient's brother is Father Family history of lung cancer, Onset Age: 65 Patient's father is Grandparent Cerebrovascular accident Diabetes mellitus Mother Family history of Alzheimer's disease Sibling Family history of pancreatic cancer Social History Social History Social History: The patient has 2 children. The patient initially stated she wanted to be a DNR and then she changed her mind is that she wanted to be a full code to she could take care of her . She has made him the durable power finance attorney but he is terminally ill. The patient used to work for the [employer]. Lifelong nonsmoker. No marijuana alcohol or illicit drugs. Smoking status: Never smoker Second hand tobacco smoke exposure: No Alcohol intake: never Substance use: never Substance use type: does not use Do You Feel Safe in your Home?: Yes Lack of Transportation: YES Lack of Food: Never True Current Housing: I Have Housing Concerned About Future Housing: No Difficulty Paying Gas/Electric Bills: No Difficulty Paying for Meds: YES Currently Unemployed: No Education: High School Diploma/GED Difficulty w/ Childcare or Family Care: No Living arrangements: with family Occupation/Education: retired Gender identity (if verbalized by the patient): Female Sexual Orientation (if Verbalized by the Patient): Straight or Heterosexual Spiritual care concerns: No Anes - Eval Final PreProcedure Day of Procedure 05/09/25 10:08 Patient weight: normal Heart: regular rate and rhythm Lungs: normal air movement Airway: Mallampati scale class II and special considerations Neurological: other (soft c collar in place, previous neck surgery, left arm/shoulder chronic neuropathic pain, hand rehabilitation physician equal bilaterally, limited motion turning head to left otherwise full motion) Last oral intake: >/= 8 hours ASA classification: III Emergent: no Anesthetic plan: proceed Anesthesia type and monitoring: general LMA and standard monitoring Other findings: Plan to leave soft c collar in place for surgery Results Review: All pre-operative results and documents have been reviewed as part of the pre-operative evaluation. Informed Consent: The patient's anesthetic plan and its attendant risks and benefits were discussed with the patient/family/POA. Questions were solicited and answers provided to the satisfaction of the patient/family/POA.
[2025-05-09] MEDS: LACTATED RINGERS 1,000 ML 30 ML IV CONT ×2 (10:10→11:37)
[2025-05-09] MEDS: ceFAZolin 2 GM in SODIUM CHLORIDE 0.9% IV 50 ML 100 ML IVPB (10:15)
[2025-05-09] MEDS: BUPIVACAINE/EPINEPHRINE 0.5% 30 ML VIAL 10 ML INFILTRATE (10:47)
--- NOTE | 2025-05-09 11:07 | S_PTH ---
PATIENT: Raquel Gloria LOC: [facility] U#:[id number] AGE/SX: 80/F ROOM: RE05/09/[address]: Seda Reynolds MD : 1945 BED: DIS: 05/09/2025 SPEC #: [id number] RECD: 05/09/25 11:19 STATUS: HELLEN REQ #: [id number] ANNETTE: 05/09/25 11:[address]: Seda Reynolds DEPT: [facility] Surgical RECD BY: Ryanne Quiñonez MLT, ([facility]) ENTERED: 05/09/25 11:19 SP TYPE: Surgical OTHR DR: Carroll Greenfield MD Tissues: A - Breast Lumpectomy Procedures: Hematoxylin and Eosin Stain Gross and Microscopic Level 5
--- NOTE | 2025-05-09 11:26 | P.OP_ITS ---
Procedure Note - Detailed Date of Procedure 05/09/25 Pre-op Diagnosis Left breast mass, discordant core needle biopsy Post-op Diagnosis Same Procedure Performed Left breast lumpectomy with magseed localization Surgeon Seda Reynolds MD Anesthesia General Description of Procedure Patient was identified in the pre-operative area and brought to the OR suite. She underwent tumor localization previously by IR with magseed placement. She was laid supine in the operating table and sequential compression devices were applied. General anesthesia was induced without difficulties. The left chest was prepped and draped in a sterile fashion. The sentimag probe was used to identify the area where the magseed was placed and a lateral curvilinear incision was made overlying this area. Dissection was carried down through the subcutaneous tissue into the breast tissue. The area of concern was identified with using sentimag probe, and a rim of normal breast tissue was excised along with the mass as our lumpectomy specimen. Once the specimen was completely excised, it was oriented using surgical paint according to testing and regulating chief instructions. The specimen was placed in the faxitron and 2 radiographs were obtained for radiographic confirmation of biopsy marker and magseed within the center of specimen. I inspected the images and the magseed and clip were in the center of the specimen on both views. The cavity was irrigated with saline and hemostasis was assured. The deep dermal layer was approximated using interrupted 3-0 vicryl followed by 4-0 monocryl for the skin. Dermabond was applied followed by a surgical bra. Patient was awoken from anesthesia and taken to the recovery area in stable condition. All needles, instruments and sponge counts were correct as reported by the operating room staff. Patient tolerated the procedure well with no immediate complications. Estimated Blood Loss 5 Pathology Yes Complications No immediate complications Condition Stable Disposition PACU [facility] Billing Surgery - Charge Forward: Surgery Billing (CPT 72109)
[2025-05-09] MEDS: traMADol HCL (*CRX) 50 MG TABLET PO (13:10)
== END 2025-05-09 13:45 | disposition home or self-care (01) ==
PROVIDERS: Anesthesiology; PCP Family Medicine; Visit Provider Surgery
PROC: (CPT 19301; principal; 2025-05-09 10:00)
DX: R92.8 Other abnormal and inconclusive findings on diagnostic imaging of breast (principal); N64.1 Fat necrosis of breast; E78.5 Hyperlipidemia, unspecified; I10 Essential (primary) hypertension; F41.9 Anxiety disorder, unspecified; F32.0 Major depressive disorder, single episode, mild; G20.A1 Parkinson's disease without dyskinesia, without mention of fluctuations; J38.3 Other diseases of vocal cords; E05.90 Thyrotoxicosis, unspecified without thyrotoxic crisis or storm; I48.91 Unspecified atrial fibrillation; I48.92 Unspecified atrial flutter; K59.09 Other constipation; Z79.01 Long term (current) use of anticoagulants; Z79.1 Long term (current) use of non-steroidal anti-inflammatories (NSAID); Z98.890 Other specified postprocedural states; Z98.1 Arthrodesis status; Z90.49 Acquired absence of other specified parts of digestive tract; Z80.0 Family history of malignant neoplasm of digestive organs; Z80.1 Family history of malignant neoplasm of trachea, bronchus and lung
CPT/HCPCS: 19301; 36415; 85610; 88307; J0690; A9270; J1100; J1200; J2003; J2405; J2704; J3010; J7120; Q9968

== ENCOUNTER 2025-07-18 09:46 | Outpatient (CLI) | payer MEDICARE, SELFPAY ==
--- NOTE | ~2025-07-18 | US_ITS ---
PROCEDURE(S): US breast LT limited INDICATION(S): R92.8 - Other abnormal and inconclusive findings on diagnostic imaging. COMPARISON(S): MR from April 19. Mammograms from TECHNIQUE: Grayscale and color Doppler imaging. FINDINGS: Sonography was performed centrally, deep to the nipple. There is one circumscribed, ovoid, hypoechoic mass with parallel orientation and a maximum dimension of 5 mm. This is described as 11:00. It is benign in appearance. This does not account for the mammographic finding, which is seen on only one image of many from the screening and diagnostic studies. IMPRESSION: Benign-appearing small nodule. No mammographic or sonographic evidence to suggest malignancy. Further management as per . BI-RADS 2 - Benign. Reviewed, dictated and finalized at location C. UCT ACCOUNTANT IMPRESSION: Benign-appearing small nodule. No mammographic or sonographic evidence to sugge st malignancy. Further management as per . BI-RADS 2 - Benign.
== END 2025-07-18 09:47 | disposition home or self-care (01) ==
LOC: ANHFOHIMG 09:50
PROVIDERS: PCP Family Medicine; Visit Provider Surgery
DX: R92.8 Other abnormal and inconclusive findings on diagnostic imaging of breast (principal)
CPT/HCPCS: 76642